=== PATIENT | male | born 1970 | race Caucasian/White ===

== ENCOUNTER 2022-08-23 13:54 | Inpatient (IN) ==
[2022-08-23 15:40] LABS: Basophils # (auto) 0.04 K/uL (0-0.2); Basophils % (auto) 0.4 %; Eosinophils # (auto) 0.07 K/uL (0-0.50); Eosinophils % (auto) 0.7 %; Hematocrit (blood only) 46.6 % (42.0-52.0); Hemoglobin 16.3 g/dl (14.0-18.0); Immature Granulocytes # (auto) 0.03 K/uL (0.01-0.20); Immature Granulocytes % (auto) 0.3 %; Lymphocytes # (auto) 2.78 K/uL (1.2-3.4); Lymphocytes % (auto) 26.1 %; Mean Corpuscular Hemoglobin 30.6 pg (25.0-34.0); Mean Corpuscular Volume 87.4 fL (80.0-100.0); Mean Platelet Volume 10.4 fL (9.4-12.4); Monocytes # (auto) 1.06 K/uL (0.11-0.59); Monocytes % (auto) 9.9 %; Neutrophils # (auto) 6.68 K/uL (1.40-6.50); Neutrophils % (auto) 62.6 %; Platelet Count 246 K/uL (130-400); RDW Coefficient of Variation 12.9 % (11.5-14.5); RDW Standard Deviation 41.1 fL (36.4-46.3); Red Blood Count 5.33 M/uL (4.70-6.10); White Blood Count 10.66 K/ul (4.8-10.8)
[2022-08-23] MEDS ORDERED: NITROGLYCERIN 2% OINTMENT 30GM TUBE EXT STA (15:46)
[2022-08-23] MEDS ORDERED: ALBUT/IPRATROP 3MG/0.5MG NEB 3 ML VIAL NEB STA ×2 (15:46→16:48)
[2022-08-23] MEDS ORDERED: MoRPHine SULFATE 4 MG/ML 1 ML CARP\\VIAL IV STA ×2 (15:46→17:29)
[2022-08-23] MEDS ORDERED: ONDANSETRON INJ 2 MG/ML 2 ML VIAL IV STA (15:46)
[2022-08-23 15:56] LABS: Alanine Aminotransferase 9 U/L (7-52); Albumin Globulin Ratio 1.1 (0.9-2); Albumin Level 4.2 gm/dl (3.4-5.0); Alkaline Phosphatase 92 U/L (34-104); Anion Gap 7 (3-11); Aspartate Aminotransferase 16 U/L (13-39); Bilirubin,Total 0.7 mg/dl (0.2-1.0); Blood Urea Nitrogen 10 mg/dl (6-23); Calcium 9.2 mg/dl (8.6-10.3); Carbon Dioxide 24 mmol/L (21-32); Chloride 107 mmol/L (98-107); Est GFR (African American) 110.3 ml/min; Est GFR (Non-African American) 95.2 ml/min; Globulin 3.7 gm/dl (2.5-4.0); Glucose 75 mg/dl (70-99(Fasting)); Potassium 4.2 mmol/L (3.5-5.1); Sodium 138 mmol/L (136-145); Total Protein 7.9 gm/dl (6.0-8.3)
--- NOTE | 2022-08-23 16:01 | Emergency Department Note ---
Impression & Plan SOB (shortness of breath), Rhinovirus infection, Hypertension, History of deep vein thrombosis, Upper back pain, Wheezing ED Provider Note NAME: DIANNA ESPINOZA AGE: 52 SEX: M : 1970 ARRIVES VIA: Walk-In INFORMANT: [Patient][family] ED PROVIDER(S): [Ludwig Medina MD] CHIEF COMPLAINT: Short of breath, back pain HISTORY OF PRESENT ILLNESS: The patient is a 52-year-old male who states that he felt well yesterday. Today, he began noticing some lower back pain which has now spread up to the entire back between the shoulder blades. He feels short of breath. The patient states movement and taking a breath does worsen his pain. There has been no recent cough or cold or congestion. No fever or chills. Patient does have a history of DVT and hypertension but is not currently taking any medications. PMHx/PSHx: See Below SOCIAL HISTORY: See Below. PHYSICAL EXAM: GENERAL: Patient is in mild distress, sitting upright on the stretcher HEENT: No acute trauma, normocephalic atraumatic, mucous membranes moist, no nasal congestion. NECK: No stridor, no adenopathy, no meningismus, trachea is midline. LUNGS: Diminished breath sounds with wheezing and a few crackles bilaterally, breath sounds are equal. Mild respiratory distress. HEART: Without murmurs gallops or rubs, regular rate and rhythm. ABDOMEN: Soft, nontender, bowel sounds positive, no peritonitis. EXTREMITIES: No cyanosis or edema, full range of motion of all the joints without pain or difficulty, no signs for acute trauma. NEUROLOGIC: Oriented x 3, no acute motor or sensory deficits, no focal weakness. SKIN: No rash, no jaundice, no diaphoresis. DIFFERENTIAL DIAGNOSIS: Bronchitis or pneumonia, CHF, hypertensive emergency, [place], PE, aortic dissection, among others. EMERGENCY DEPARTMENT COURSE/PROCEDURES: Prior/Outside records reviewed: None. ECG per my interpretation: Indication was back and chest pain. The ECG shows a normal sinus rhythm with a rate of 89. There is no ST elevation. No PVCs. Potential old inferior infarct was seen. QTc was 467. Continuous Cardiac Monitoring per my interpretation: An order was placed for continuous cardiac monitoring. The monitor shows a rate of 84 with normal sinus rhythm. Critical Care Note: I have personally spent 48 minutes of critical care time in the direct management of this patient. This includes bedside care, interpretation of diagnostic studies, and testing, discussion with consultants, patient, and family members, and other required patient management activities. This 48 minutes is in excess of all separately billable procedures. MEDICAL DECISION MAKING: There is no leukocytosis or concerning anemia. There is a normal platelet count. No coagulopathy. D-dimer was somewhat elevated making PE more likely. There was no electrolyte abnormality or renal failure. No concerning liver enzyme elevation. BNP was not elevated making CHF less likely. ECG showed a normal sinus rhythm, no ST elevation. Cardiac enzyme testing x1 did not suggest acute cardiac injury. Respiratory bio fire returned positive for rhinovirus. Chest film did not show pneumonia, CHF or pneumothorax per my review. Chest CT did not show any evidence for aortic dissection, no PE-I did speak to the radiologist about the possibility of PE as the radiologist's report did not mention a PE assessment. On exam, the patient appeared uncomfortable. He was breathing quickly, he complained of back pain. He was wheezing. He was quite hypertensive. Patient was given 2 inches of nitroglycerin paste. He received IV Zofran, IV morphine, a second dose of IV morphine was given. He received a DuoNeb, a second DuoNeb was given. He was given IV Solu-Medrol. He received IV Toradol. He was eventually placed on BiPAP. The patient's blood pressure has improved and he does seem more comfortable. He will require a hospital stay. He has a very high blood pressure, likely from his illness and the fact that he has been off of his BP meds. He was wheezing on exam and short of breath with back pain, likely from the rhinovirus infection. I did speak with the patient and his family, I spoke with case management, the on-call hospitalist was consulted. DISPOSITION: Patient's presentation and findings warrant a hospital stay. Past Med/Surg History Medical History GERD (gastroesophageal reflux disease) History of DVT (deep vein thrombosis) HTN (hypertension) Hypertensive urgency No chronic diseases present Pulmonary edema Rhinovirus infection SOB (shortness of breath) Surgical History (Updated 08/23/22 @ 18:00 by LALITO Oakes) History of gastric bypass No significant past surgical history Social History Smoking Status: Current every day smoker Tobacco Type: Cigarettes Cigarettes Per Day: 40; Second Hand Exposure: Yes; Do You Dip or Chew Tobacco: No; Hx Alcohol Use: No Hx Substance Use: No Preferred Language: Polish Communication Ability: Effective Finish Cleaner Required: No Beliefs That Will Affect Care: None Current Living Situation: Significant Other Current Living Situation Comment: [facility] Other Information That Helps Us Care for You: No Feels Safe at Home: Yes Safety Concerns: Feels Safe At This Time Assistive Devices: None Allergies Allergies Allergy/AdvReac Type Severity Reaction Status Date / Time No Known Allergies Allergy Verified 06/09/22 14:21 Home Meds Home Medications Medication Instructions Recorded Confirmed losartan 25 mg tablet 25 mg PO QAM 08/23/22 08/23/22 Results & Data (ED) Vital Signs Vital Signs - 24 hr 08/23/22 13:58 08/23/22 15:31 08/23/22 15:37 Temperature 36.7 C Temperature Source Temporal Artery Scan Pulse Rate 81 Pulse Rate [Finger] 92 H Pulse Rate from SpO2 Sensor Respiratory Rate 18 30 H Respiratory Effort / Characteristics Non-Labored Spontaneous Grunting Labored Respiratory Depth Normal Respiratory Pattern Regular Blood Pressure 166/141 H Blood Pressure [Right Arm] 184/123 H Blood Pressure Mean 149 Blood Pressure Mean [Right Arm] 143 Blood Pressure Position Sitting Pulse Oximetry 95 94 95 Oxygen Delivery Method Room Air Room Air Room Air Fraction of Inspired Oxygen Sepsis Recent Fever Within 48 Hours No Sepsis New/Unexplained Change in Mental Status No Sepsis Action Taken by Nursing No Action Required 08/23/22 15:43 08/23/22 17:10 08/23/22 17:00 Temperature Temperature Source Pulse Rate 84 69 Pulse Rate [Finger] 67 Pulse Rate from SpO2 Sensor Respiratory Rate 18 17 Respiratory Effort / Characteristics Spontaneous Short of Breath Respiratory Depth Normal Respiratory Pattern Regular Blood Pressure Blood Pressure [Right Arm] 155/111 H Blood Pressure Mean Blood Pressure Mean [Right Arm] 125 Blood Pressure Position Pulse Oximetry 98 98 Oxygen Delivery Method Fraction of Inspired Oxygen 35 Sepsis Recent Fever Within 48 Hours Sepsis New/Unexplained Change in Mental Status Sepsis Action Taken by Nursing 08/23/22 17:00 08/23/22 15:38 08/23/22 15:40 Temperature Temperature Source Pulse Rate 82 79 Pulse Rate [Finger] 69 Pulse Rate from SpO2 Sensor 81 81 Respiratory Rate 17 26 H 31 H Respiratory Effort / Characteristics Spontaneous Short of Breath Respiratory Depth Respiratory Pattern Blood Pressure Blood Pressure [Right Arm] Blood Pressure Mean Blood Pressure Mean [Right Arm] Blood Pressure Position Pulse Oximetry 98 96 97 Oxygen Delivery Method BiPAP Fraction of Inspired Oxygen 35 Sepsis Recent Fever Within 48 Hours Sepsis New/Unexplained Change in Mental Status Sepsis Action Taken by Nursing 08/23/22 15:45 08/23/22 15:45 08/23/22 15:50 Temperature Temperature Source Pulse Rate 86 82 Pulse Rate [Finger] Pulse Rate from SpO2 Sensor 86 82 Respiratory Rate 33 H 33 H Respiratory Effort / Characteristics Respiratory Depth Respiratory Pattern Blood Pressure 156/108 H Blood Pressure [Right Arm] Blood Pressure Mean 124 Blood Pressure Mean [Right Arm] Blood Pressure Position Pulse Oximetry 98 95 Oxygen Delivery Method Fraction of Inspired Oxygen Sepsis Recent Fever Within 48 Hours Sepsis New/Unexplained Change in Mental Status Sepsis Action Taken by Nursing 08/23/22 16:00 08/23/22 16:00 08/23/22 16:10 Temperature Temperature Source Pulse Rate 76 73 Pulse Rate [Finger] Pulse Rate from SpO2 Sensor 78 74 Respiratory Rate 27 H 14 Respiratory Effort / Characteristics Respiratory Depth Respiratory Pattern Blood Pressure 146/97 H Blood Pressure [Right Arm] Blood Pressure Mean 113 Blood Pressure Mean [Right Arm] Blood Pressure Position Pulse Oximetry 98 91 Oxygen Delivery Method Fraction of Inspired Oxygen Sepsis Recent Fever Within 48 Hours Sepsis New/Unexplained Change in Mental Status Sepsis Action Taken by Nursing 08/23/22 16:15 08/23/22 16:15 08/23/22 16:20 Temperature Temperature Source Pulse Rate 72 72 Pulse Rate [Finger] Pulse Rate from SpO2 Sensor 70 73 Respiratory Rate 13 13 Respiratory Effort / Characteristics Respiratory Depth Respiratory Pattern Blood Pressure 151/98 H Blood Pressure [Right Arm] Blood Pressure Mean 115 Blood Pressure Mean [Right Arm] Blood Pressure Position Pulse Oximetry 93 93 Oxygen Delivery Method Fraction of Inspired Oxygen Sepsis Recent Fever Within 48 Hours Sepsis New/Unexplained Change in Mental Status Sepsis Action Taken by Nursing 08/23/22 16:39 08/23/22 16:40 08/23/22 16:40 Temperature Temperature Source Pulse Rate 88 Pulse Rate [Finger] Pulse Rate from SpO2 Sensor 90 89 Respiratory Rate 36 H Respiratory Effort / Characteristics Respiratory Depth Respiratory Pattern Blood Pressure 187/117 H Blood Pressure [Right Arm] Blood Pressure Mean 140 Blood Pressure Mean [Right Arm] Blood Pressure Position Pulse Oximetry 98 99 Oxygen Delivery Method Fraction of Inspired Oxygen Sepsis Recent Fever Within 48 Hours Sepsis New/Unexplained Change in Mental Status Sepsis Action Taken by Nursing 08/23/22 16:45 08/23/22 16:45 08/23/22 16:50 Temperature Temperature Source Pulse Rate 87 79 Pulse Rate [Finger] Pulse Rate from SpO2 Sensor 88 79 Respiratory Rate 28 H 39 H Respiratory Effort / Characteristics Respiratory Depth Respiratory Pattern Blood Pressure 162/114 H Blood Pressure [Right Arm] Blood Pressure Mean 130 Blood Pressure Mean [Right Arm] Blood Pressure Position Pulse Oximetry 98 98 Oxygen Delivery Method Fraction of Inspired Oxygen Sepsis Recent Fever Within 48 Hours Sepsis New/Unexplained Change in Mental Status Sepsis Action Taken by Nursing 08/23/22 17:00 08/23/22 17:00 08/23/22 17:10 Temperature Temperature Source Pulse Rate 72 67 Pulse Rate [Finger] Pulse Rate from SpO2 Sensor 72 68 Respiratory Rate 19 13 Respiratory Effort / Characteristics Respiratory Depth Respiratory Pattern Blood Pressure 155/111 H Blood Pressure [Right Arm] Blood Pressure Mean 125 Blood Pressure Mean [Right Arm] Blood Pressure Position Pulse Oximetry 98 98 Oxygen Delivery Method Fraction of Inspired Oxygen Sepsis Recent Fever Within 48 Hours Sepsis New/Unexplained Change in Mental Status Sepsis Action Taken by Nursing 08/23/22 17:15 08/23/22 17:15 08/23/22 17:20 Temperature Temperature Source Pulse Rate 69 68 Pulse Rate [Finger] Pulse Rate from SpO2 Sensor 68 69 Respiratory Rate 20 11 L Respiratory Effort / Characteristics Respiratory Depth Respiratory Pattern Blood Pressure 156/101 H Blood Pressure [Right Arm] Blood Pressure Mean 119 Blood Pressure Mean [Right Arm] Blood Pressure Position Pulse Oximetry 99 98 Oxygen Delivery Method Fraction of Inspired Oxygen Sepsis Recent Fever Within 48 Hours Sepsis New/Unexplained Change in Mental Status Sepsis Action Taken by Correction Medications Current Medication List: was personally reviewed by me Laboratory Data Attestation: I reviewed the patient's lab results. 08/23/22 15:25 08/23/22 15:25 Lab Results 08/23/22 08/23/22 08/23/22 Range/Units 15:25 15:25 15:25 WBC 10.66 (4.8-10.8) K/ul RBC 5.33 (4.70-6.10) M/uL Hgb 16.3 (14.0-18.0) g/dl Hct 46.6 (42.0-52.0) % MCV 87.4 (80.0-100.0) fL MCH 30.6 (25.0-34.0) pg MCHC 35.0 (32.0-36.0) g/dL RDW Std Deviation 41.1 (36.4-46.3) fL RDW Coeff of Helio 12.9 (11.5-14.5) % Plt Count 246 (130-400) K/uL MPV 10.4 (9.4-12.4) fL Immature Gran % (Auto) 0.3 % Neut % (Auto) 62.6 % Lymph % (Auto) 26.1 % Giles % (Auto) 9.9 % Eos % (Auto) 0.7 % Baso % (Auto) 0.4 % Neut # (Auto) 6.68 H (1.40-6.50) K/uL Lymph # (Auto) 2.78 (1.2-3.4) K/uL Giles # (Auto) 1.06 H (0.11-0.59) K/uL Eos # (Auto) 0.07 (0-0.50) K/uL Baso # (Auto) 0.04 (0-0.2) K/uL Immature Gran # (Auto) 0.03 (0.01-0.20) K/uL PT 10.9 (9.0-12.0) Seconds INR 1.0 (0.9-1.1) APTT 27.1 (21.0-31.0) Seconds PTT Ratio 1.0 D-Dimer 770 H* (0-500) ug/L FEU Sodium 138 (136-145) mmol/L Potassium 4.2 (3.5-5.1) mmol/L Chloride 107 (98-107) mmol/L Carbon Dioxide 24 (21-32) mmol/L Anion Gap 7 (3-11) BUN 10 (6-23) mg/dl Creatinine 0.91 (0.6-1.4) mg/dl Est Cr Clr Drug Dosing Not Reportable Est GFR ( Amer) 110.3 ml/min Est GFR (Non-Af Amer) 95.2 ml/min BUN/Creatinine Ratio 11.0 (10-20) Glucose 75 (70-99(Fasting)) mg/dl Calcium 9.2 (8.6-10.3) mg/dl Magnesium 1.9 (1.7-2.4) mg/dl Total Bilirubin 0.7 (0.2-1.0) mg/dl AST 16 (13-39) U/L ALT 9 (7-52) U/L Alkaline Phosphatase 92 (34-104) U/L Troponin I High Sens 5.4 (0-20) pg/ml B-Natriuretic Peptide (0-100) pg/ml Total Protein 7.9 (6.0-8.3) gm/dl Albumin 4.2 (3.4-5.0) gm/dl Globulin 3.7 (2.5-4.0) gm/dl Albumin/Globulin Ratio 1.1 (0.9-2) Adenovirus (PCR) (NotDetected) B. pertussis DNA (PCR) (NotDetected) B.parapertussis DNA PCR (NotDetected) C. pneumoniae DNA (PCR) (NotDetected) Coronavirus OC43 (PCR) (NotDetected) Coronavirus HKU1 (PCR) (NotDetected) Coronavirus 229E (PCR) (NotDetected) SARS-CoV-2 (PCR) (NotDetected) Coronavirus NL63 (PCR) (NotDetected) Human Metapneumovir PCR (NotDetected) Influenza Type A (PCR) (NotDetected) Influenza Type B (PCR) (NotDetected) M. pneumoniae (PCR) (NotDetected) Parainfluenza 1 (PCR) (NotDetected) Parainfluenza 2 (PCR) (NotDetected) Parainfluenza 3 (PCR) (NotDetected) Parainfluenza 4 (PCR) (NotDetected) RSV (PCR) (NotDetected) Entero/Rhino (PCR) (NotDetected) 08/23/22 08/23/22 Range/Units 15:25 15:47 WBC (4.8-10.8) K/ul RBC (4.70-6.10) M/uL Hgb (14.0-18.0) g/dl Hct (42.0-52.0) % MCV (80.0-100.0) fL MCH (25.0-34.0) pg MCHC (32.0-36.0) g/dL RDW Std Deviation (36.4-46.3) fL RDW Coeff of Helio (11.5-14.5) % Plt Count (130-400) K/uL MPV (9.4-12.4) fL Immature Gran % (Auto) % Neut % (Auto) % Lymph % (Auto) % Giles % (Auto) % Eos % (Auto) % Baso % (Auto) % Neut # (Auto) (1.40-6.50) K/uL Lymph # (Auto) (1.2-3.4) K/uL Giles # (Auto) (0.11-0.59) K/uL Eos # (Auto) (0-0.50) K/uL Baso # (Auto) (0-0.2) K/uL Immature Gran # (Auto) (0.01-0.20) K/uL PT (9.0-12.0) Seconds INR (0.9-1.1) APTT (21.0-31.0) Seconds PTT Ratio D-Dimer (0-500) ug/L FEU Sodium (136-145) mmol/L Potassium (3.5-5.1) mmol/L Chloride (98-107) mmol/L Carbon Dioxide (21-32) mmol/L Anion Gap (3-11) BUN (6-23) mg/dl Creatinine (0.6-1.4) mg/dl Est Cr Clr Drug Dosing Est GFR ( Amer) ml/min Est GFR (Non-Af Amer) ml/min BUN/Creatinine Ratio (10-20) Glucose (70-99(Fasting)) mg/dl Calcium (8.6-10.3) mg/dl Magnesium (1.7-2.4) mg/dl Total Bilirubin (0.2-1.0) mg/dl AST (13-39) U/L ALT (7-52) U/L Alkaline Phosphatase (34-104) U/L Troponin I High Sens (0-20) pg/ml B-Natriuretic Peptide 87 (0-100) pg/ml Total Protein (6.0-8.3) gm/dl Albumin (3.4-5.0) gm/dl Globulin (2.5-4.0) gm/dl Albumin/Globulin Ratio (0.9-2) Adenovirus (PCR) Not Detected (NotDetected) B. pertussis DNA (PCR) Not Detected (NotDetected) B.parapertussis DNA PCR Not Detected (NotDetected) C. pneumoniae DNA (PCR) Not Detected (NotDetected) Coronavirus OC43 (PCR) Not Detected (NotDetected) Coronavirus HKU1 (PCR) Not Detected (NotDetected) Coronavirus 229E (PCR) Not Detected (NotDetected) SARS-CoV-2 (PCR) Not Detected (NotDetected) Coronavirus NL63 (PCR) Not Detected (NotDetected) Human Metapneumovir PCR Not Detected (NotDetected) Influenza Type A (PCR) Not Detected (NotDetected) Influenza Type B (PCR) Not Detected (NotDetected) M. pneumoniae (PCR) Not Detected (NotDetected) Parainfluenza 1 (PCR) Not Detected (NotDetected) Parainfluenza 2 (PCR) Not Detected (NotDetected) Parainfluenza 3 (PCR) Not Detected (NotDetected) Parainfluenza 4 (PCR) Not Detected (NotDetected) RSV (PCR) Not Detected (NotDetected) Entero/Rhino (PCR) DETECTED A* (NotDetected) Administered Medications Apixaban (Apixaban 5 Mg Tablet) 5 mg PO BID [facility] Stop: 09/22/22 20:59 Last Admin: 08/23/22 21:29 Dose: 5 mg Documented By: JOHN Guaifenesin (Guaifenesin 600 Mg Tabcr) 1,200 mg PO Q12 [facility] Stop: 09/22/22 20:59 Last Admin: 08/23/22 20:39 Dose: 1,200 mg Documented By: JOHN Ketorolac Tromethamine (Ketorolac Tromethamine 15 Mg/Ml Vial) 15 mg IV Q6H PRN PRN Reason: Pain Stop: 08/28/22 20:24 Last Admin: 08/23/22 21:28 Dose: 15 mg Documented By: JOHN Nicotine (Nicotine 14 Mg/24 Hr Patch) 14 mg TD QAM [facility] Stop: 09/22/22 18:59 Last Admin: 08/23/22 20:38 Dose: 14 mg Documented By: JOHN Discontinued Medications Albuterol (Albut/Ipratrop 3mg/0.5mg Neb 3 Ml Vial) 3 ml NEB NOW STA; Protocol Stop: 08/23/22 15:47 Last Admin: 08/23/22 15:53 Dose: 3 ml Documented By: JOSUÉ Albuterol (Albut/Ipratrop 3mg/0.5mg Neb 3 Ml Vial) 3 ml NEB NOW STA; Protocol Stop: 08/23/22 16:49 Last Admin: 08/23/22 17:01 Dose: 3 ml Documented By: JOSUÉ Albuterol (Albut/Ipratrop 3mg/0.5mg Neb 3 Ml Vial) 3 ml NEB QIDR REESE; Protocol Stop: 09/22/22 18:59 Last Admin: 08/23/22 19:32 Dose: 3 ml Documented By: CHRIS Furosemide (Furosemide Inj 20 Mg/2 Ml Vial) 20 mg IV ONE ONE Stop: 08/23/22 19:17 Last Admin: 08/23/22 19:25 Dose: 20 mg Documented By: JOHN Hydralazine HCl (Hydralazine Hcl 20 Mg/Ml Vial) 5 mg IV NOW ONE Stop: 08/23/22 17:18 Last Admin: 08/23/22 17:35 Dose: 5 mg Documented By: JOSUÉ Ioversol (Optiray 320 125ml) 119 ml IV ONCE ONE Stop: 08/23/22 16:39 Last Admin: 08/23/22 16:29 Dose: 119 ml Documented By: BALTAZAR Ketorolac Tromethamine (Ketorolac Tromethamine 15 Mg/Ml Vial) 15 mg IV NOW STA Stop: 08/23/22 17:30 Last Admin: 08/23/22 17:35 Dose: 15 mg Documented By: JOSUÉ Methylprednisolone (Methylprednisolone 125 Mg/2 Ml Vial) 60 mg IV NOW STA Stop: 08/23/22 16:49 Last Admin: 08/23/22 16:51 Dose: 60 mg Documented By: ELVIA Morphine Sulfate (Morphine Sulfate 4 Mg/Ml 1 Ml Carp\Vial) 4 mg IV NOW STA Stop: 08/23/22 15:47 Last Admin: 08/23/22 15:54 Dose: 4 mg Documented By: JOSUÉ Morphine Sulfate (Morphine Sulfate 4 Mg/Ml 1 Ml Carp\Vial) 4 mg IV NOW STA Stop: 08/23/22 17:30 Last Admin: 08/23/22 17:35 Dose: 4 mg Documented By: JOSUÉ Nitroglycerin (Nitroglycerin 2% Ointment 30gm Tube) 2 inch EXT NOW STA Stop: 08/23/22 15:47 Last Admin: 08/23/22 15:53 Dose: 2 inch Documented By: JOSUÉ Nitroglycerin (Nitroglycerin 2% Ointment 30gm Tube) 1 inch EXT Q6H REESE Stop: 09/22/22 20:44 Last Admin: 08/23/22 21:05 Dose: Not Given Documented By: JOHN Nitroglycerin (Nitroglycerin 2% Ointment 30gm Tube) Confirm Administered Dose 18 inch EXT .STK-MED ONE Stop: 08/23/22 20:35 Last Admin: 08/23/22 21:05 Dose: 1 inch Documented By: JOHN Ondansetron HCl (Ondansetron Inj 2 Mg/Ml 2 Ml Vial) 4 mg IV NOW STA Stop: 08/23/22 15:47 Last Admin: 08/23/22 15:54 Dose: 4 mg Documented By: JOSUÉ Imaging Data Radiologist's Impression: Chest X-Ray 08/23/22 15:45 XR chest 1V portable CLINICAL HISTORY: sob TECHNIQUE: Single frontal radiograph of the chest was obtained. Comparison: None available at the time of this dictation. FINDINGS: No lines and tubes are seen. Cardiomegaly is noted. Prominence and cephalization of the vasculature is seen. No evidence of pleural effusion or pneumothorax. IMPRESSION: Cardiomegaly and mild pulmonary edema. ACT 112: Negative or not required by law. Electronically signed by: Be Garcia M.D. 08/23/2022 4:24 PM Chest CTA 08/23/22 16:10 CT angio chest dissec wo/w con CLINICAL HISTORY: back pain, cp, htn, hist dvt TECHNIQUE: Multidetector row helical CT of the chest was performed before and after injection of IV contrast. Coronal and sagittal reformations were obtained. Automated dose lowering techniques and/or adjustment according to patient size were utilized for this exam. CT DOSE: 2135.32 mGy.cm Comparison: None available at the time of this dictation. FINDINGS: Lungs and pleura: Normal. Heart and pericardium: Heart size is normal. No pericardial effusion. Vessels: Moderate atherosclerotic changes in the aorta and coronary arteries. No evidence of aortic injury. Mediastinum and haja: Subcentimeter lymph nodes are seen. Chest wall and lower neck: Small thyroid nodules are noted which do not require follow-up by ACR criteria. Abdomen: Postsurgical changes of gastric bypass are seen. Bones: Degenerative changes in the thoracic spine. IMPRESSION: No acute abnormality and in particular no evidence of acute aortic injury. ACT 112: Negative or not required by law. Electronically signed by: Be Garcia M.D. 08/23/2022 5:23 PM Discharge Plan Visit Data Chief Complaint: Back Injury/Pain Stated Complaint: LOWER BACK PAIN ED Provider: Ludwig Medina Discharge Problem: SOB (shortness of breath), Rhinovirus infection, Hypertension, History of deep vein thrombosis, Upper back pain, Wheezing Patient Disposition: Admitted As Inpatient Condition: Serious Discharge Instructions Interventions: ED Discharge Assessment Last Done: 08/23/22 18:24
[2022-08-23 16:02] LABS: Troponin I High Sensitivity 5.4 pg/ml (0-20)
[2022-08-23 16:12] LABS: Partial Thromboplastin Time 27.1 Seconds (21.0-31.0); Prothrombin Time 10.9 Seconds (9.0-12.0)
[2022-08-23 16:20] LABS: Magnesium 1.9 mg/dl (1.7-2.4)
--- NOTE | 2022-08-23 16:26 | XRay Report ---
XR chest 1V portable CLINICAL HISTORY: sob TECHNIQUE: Single frontal radiograph of the chest was obtained. Comparison: None available at the time of this dictation. FINDINGS: No lines and tubes are seen. Cardiomegaly is noted. Prominence and cephalization of the vasculature i s seen. No evidence of pleural effusion or pneumothorax. IMPRESSION: Cardiomegaly and mild pulmonary edema. ACT 112: Negative or not required by law. Electronically signed by: Be Garcia M.D. 08/23/2022 4:24 PM
[2022-08-23 16:28] LABS: D Dimer 770 ug/L FEU (0-500)
[2022-08-23] MEDS ORDERED: OPTIRAY 320 125ml IV ONE (16:38)
[2022-08-23] MEDS ORDERED: methylPREDNISolone 125 MG/2 ML VIAL IV STA (16:48)
[2022-08-23 16:54] LABS: Adenovirus PCR Not Detected (NotDetected); Bordetella parapertussis PCR Not Detected (NotDetected); Bordetella pertussis PCR Not Detected (NotDetected); Chlamydia pneumoniae PCR Not Detected (NotDetected); Coronavirus 229E PCR Not Detected (NotDetected); Coronavirus CoV-2 (COVID19)PCR Not Detected (NotDetected); Coronavirus HKU1 PCR Not Detected (NotDetected); Coronavirus NL63 PCR Not Detected (NotDetected); Coronavirus OC43PCR Not Detected (NotDetected); Human Metapneumovirus PCR Not Detected (NotDetected); Influenza A PCR Not Detected (NotDetected); Influenza B PCR Not Detected (NotDetected); Mycoplasma pneumoniae PCR Not Detected (NotDetected); Parainfluenza Virus 1 PCR Not Detected (NotDetected); Parainfluenza Virus 2 PCR Not Detected (NotDetected); Parainfluenza Virus 3 PCR Not Detected (NotDetected); Parainfluenza Virus 4 PCR Not Detected (NotDetected); Respiratory Syncytial VirusPCR Not Detected (NotDetected)
[2022-08-23 16:58] LABS: Rhinovirus/Enterovirus PCR DETECTED (NotDetected)
[2022-08-23] MEDS ORDERED: hydrALAZINE HCL 20 MG/ML VIAL IV ONE (17:17)
--- NOTE | 2022-08-23 17:25 | CT Scan Report ---
CT angio chest dissec wo/w con CLINICAL HISTORY: back pain, cp, htn, hist dvt TECHNIQUE: Multidetector row helical CT of the chest was performed before and after injection of IV c ontrast. Coronal and sagittal reformations were obtained. Automated dose lowering techniques and/or a djustment according to patient size were utilized for this exam. CT DOSE: 2135.32 mGy.cm Comparison: None available at the time of this dictation. FINDINGS: Lungs and pleura: Normal. Heart and pericardium: Heart size is normal. No pericardial effusion. Vessels: Moderate atherosclerotic changes in the aorta and coronary arteries. No evidence of aortic i njury. Mediastinum and haja: Subcentimeter lymph nodes are seen. Chest wall and lower neck: Small thyroid nodules are noted which do not require follow-up by ACR jimi poe. Abdomen: Postsurgical changes of gastric bypass are seen. Bones: Degenerative changes in the thoracic spine. IMPRESSION: No acute abnormality and in particular no evidence of acute aortic injury. ACT 112: Negative or not required by law. Electronically signed by: Be Garcia M.D. 08/23/2022 5:23 PM
[2022-08-23] MEDS ORDERED: KETOROLAC TROMETHAMINE 15 MG/ML VIAL IV STA (17:29)
[2022-08-23] MEDS ORDERED: ONDANSETRON INJ 2 MG/ML 2 ML VIAL IV PRN (17:50)
[2022-08-23] MEDS ORDERED: ALUMINUM/MAGNESIUM SUSP 30 ML UDC PO PRN (17:50)
[2022-08-23] MEDS ORDERED: MAGNESIUM HYDROXIDE SUSP 30 ML UDC PO PRN (17:50)
[2022-08-23] MEDS ORDERED: POLYETHYLENE (MIRALAX) 17 GM PACK PO PRN (17:50)
--- NOTE | 2022-08-23 18:01 | History & Physical Report ---
Date of Service August 23, 2022 Assessment & Plan (1) Hypertensive urgency: (2) Pulmonary edema: (3) Rhinovirus infection: (4) SOB (shortness of breath): (5) History of DVT (deep vein thrombosis): (6) GERD (gastroesophageal reflux disease): Plan Mr. Walsh who has a history of DVT x2 (not compliant on Eliquis), history of gastric bypass, HTN, and GERD presents today with shortness of breath and lower back pain that started this morning. noted that his pain stated at 2300 last night waking him up. He had pain that radiated upwards in his back. SOB began once he started moving. He was warm to touch, cool and clammy, but no reported fevers. Had sudden weakness of RLE giving out. He did fall, but did not have LOC or hit his head. No dizziness leading up to this event. As a mention history of DVT and currently not compliant with anticoagulation medication due to increased cost per patient. Not compliant taking losartan. Chest x-ray revealed mild pulmonary edema without pneumonia; chest CTA did not indicate acute injury and radiologist stated no PE apparent. WBC 10.66, otherwise labs unremarkable on BMP and CBC. D-dimer 770, troponin negative, BNP 87 . Received morphine 4 mg IV x1, DuoNeb which did not improve patient's symptoms and he was placed on BiPAP. Solu-Medrol IV administered. Bio fire positive for rhinovirus. EKG sinus rhythm possible old infarct noted in summary QTc 467. I took his Bipap off when I was in the room, retained SpO2 > 96%. Kate beltre looks fatigued and tired. Once he arrived to the floor, he did become more short of breath and was put on the Bipap. Lasix 20 mg was administered. Suspect that this is a non-compliant individual that has had uncontrolled HTN leading to pulmonary edema complicated by Rhinovirus. Additional considerations include ruling out spine involvement but would like patient breathing to be better controlled prior to additional testing. Hypertensive Urgency: Likely secondary to medication noncompliance and complicated by illness Not encephalopathic, papilledema present on exam. No signs of renal failure at this time BP 180/100 in ED; Nitro paste 2 inches applied in ED; Nitro paste ordered Restart Losartan Pulmonary Edema: SOB: Likely a result of persistent Hypertensive Urgency CXR mild pulmonary edema Chest CTA negative for AAA BNP 87 Bipap 12/8 35% ABG ordered NPO while on bipap Lasix 20 mg x1; dumont for I/O. Consider additional Lasix in AM based on output History of DVT: DVT and PE; stopped taking Eliquis last month due to insurance issues Chest CTA negative for PE Doppler US ordered to complete DVT work up Restart Eliquis Rhinovirus infection: Biofire done in ED; positive for rhinovirus Supportive treatment including Mucinex PO Sputum culture ordered H/O lumbar surgery: Lumbago with RLE weakness: 2002 decompression and fusion at Consider Lumbar MRI; once breathing is stabilized Received Morphine IV in ED x2 and Toradol Continue Toradol PRN Tobacco Use Disorder: smokes 2 ppd for years Nicotine patch ordered Cessation discussed and recommended Disposition: PCP: None Code Status: Full Code VTE Prophylaxis: Not compliant with Eliquis Home Care Manager: Assist with medical assistance support as pt without medical insurance for the next 60-90 days I spent a total of 88 minutes coordinating, documenting, and providing care for this patient excluding time spent in the performance of separately billed services. All of the aforementioned completed while collaborating with the as signed attending physician for a full treatment plan. Please see their addendum for further details. History of Present Illness Chief Complaint: SOB/lumbago Primary Care Provider: Oh Graff MD Mr. Walsh who has a history of DVT x2 (not compliant on Eliquis), history of gastric bypass, HTN, and GERD presents today with shortness of breath and lower back pain that started this morning. noted that his pain stated at 2300 last night waking him up. He had pain that radiated upwards in his back. SOB began once he started moving. He was warm to touch, cool and clammy, but no reported fevers. Had sudden weakness of RLE giving out. He did fall, but did not have LOC or hit his head. No dizziness leading up to this event. As a mention history of DVT and currently not compliant with anticoagulation medication due to increased cost per patient. Not compliant taking losartan. Chest x-ray revealed mild pulmonary edema without pneumonia; chest CTA did not indicate acute injury and radiologist stated no PE apparent . 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 WBC 10.66, otherwise labs unremarkable on BMP and CBC. D-dimer 770, troponin negative, BNP 87\\NAD received morphine 4 mg IV x1, DuoNeb which did not improve patient's symptoms and he was placed on BiPAP. Solu-Medrol IV administered. Bio fire positive for rhinovirus. EKG sinus rhythm possible old infarct noted in summary QTc 467. I took his Bipap off when I was in the room, retained SpO2 > 96%. Overall looks fatigued and tired. Once he arrived to the floor, he did become more short of breath and was put on the Bipap. Lasix 20 mg was administered. Suspect that this is a non-compliant individual that has had uncontrolled HTN leading to pulmonary edema complicated by Rhinovirus. Additional considerations include ruling out spine involvement but would like patient breathing to be better controlled prior to additional testing. 01/30/2022 outpatient labs indicate A1c 5.1, TSH 1.29, lipid panel TG 45, LDL 102, HDL 40. Patient will be admitted for further evaluation and management. Please see A/P further details. Allergies Allergy/AdvReac Type Severity Reaction Status Date / Time No Known Allergies Allergy Verified 06/09/22 14:21 Home Medications Medication Instructions Recorded Confirmed Type losartan 25 mg tablet 25 mg PO QAM 08/23/22 08/23/22 History Past Med/Surg History Medical History (Updated 08/23/22 @ 20:04 by LALITO Oakes) GERD (gastroesophageal reflux disease) History of DVT (deep vein thrombosis) HTN (hypertension) Hypertensive urgency No chronic diseases present Pulmonary edema Rhinovirus infection SOB (shortness of breath) Surgical History (Updated 08/23/22 @ 18:00 by LALITO Oakes) History of gastric bypass No significant past surgical history Social History Smoking Status: Current every day smoker Tobacco Type: Cigarettes Cigarettes Per Day: 40; Second Hand Exposure: Yes; Do You Dip or Chew Tobacco: No; Hx Alcohol Use: No Hx Substance Use: No Preferred Language: Serbian Communication Ability: Effective Chief Recordist Required: No Beliefs That Will Affect Care: None Current Living Situation: Significant Other Current Living Situation Comment: S/[facility] Other Information That Helps Us Care for You: No Feels Safe at Home: Yes Safety Concerns: Feels Safe At This Time Assistive Devices: None Review of Systems Review of Systems: Neuro: (-) Falls, trauma, slurred speech HEENT: (-) FARRELL, dizziness, dysphagia, visual or auditory changes CV: (-) CP, palpitations, swelling Resp: (-) SOB GI: (-) appetite changes, N/V/D, bowel changes : (-) urinary changes Skin: (-) rashes Psych: (-) anxiety, depression Physical Exam Physical Exam: Neuro: AAOx4, PERRLA, no aphagia, memory changes, CNII-XII grossly intact HEENT: head normocephalic, moist mucus membranes, bilateral papilledema CV: S1/S2, (-) M/G/R, (-) edema, cap refill < 3 seconds Resp: Lungs with posterior crackles. On Bipap. GI: Abdomen S/NT/ND, Ax4 bowel sounds, (-) CVA tenderness Musculoskeletal: 5/5 B/L UE strength, 5/5 B/L LE strength. No gait disturbance Skin: (-) rashes , (-) erythema. Psych: euthymic mood Results & Data Results & Data Vital Signs (Past 12 Hours) Vital Signs Temp Pulse Pulse Resp BP BP Pulse Ox 08/23/22 17:20 68 11 L 98 08/23/22 17:15 156/101 H 08/23/22 17:15 69 20 99 08/23/22 17:10 67 13 98 08/23/22 17:00 72 19 98 08/23/22 17:00 155/111 H 08/23/22 16:50 79 39 H 98 08/23/22 16:45 162/114 H 08/23/22 16:45 87 28 H 98 08/23/22 16:40 88 36 H 99 08/23/22 16:40 187/117 H 08/23/22 16:39 98 08/23/22 16:20 72 13 93 08/23/22 16:15 72 13 93 08/23/22 16:15 151/98 H 08/23/22 16:10 73 14 91 08/23/22 16:00 76 27 H 98 08/23/22 16:00 146/97 H 08/23/22 15:50 82 33 H 95 08/23/22 15:45 156/108 H 08/23/22 15:45 86 33 H 98 08/23/22 15:40 79 31 H 97 08/23/22 15:38 82 26 H 96 08/23/22 17:00 69 17 98 08/23/22 17:00 69 17 98 08/23/22 17:10 67 18 155/111 H 98 08/23/22 15:43 84 08/23/22 15:37 95 08/23/22 15:31 92 H 30 H 184/123 H 94 08/23/22 13:58 36.7 C 81 18 166/141 H 95 O2 Del Method FiO2 08/23/22 17:20 08/23/22 17:15 08/23/22 17:15 08/23/22 17:10 08/23/22 17:00 08/23/22 17:00 08/23/22 16:50 08/23/22 16:45 08/23/22 16:45 08/23/22 16:40 08/23/22 16:40 08/23/22 16:39 08/23/22 16:20 08/23/22 16:15 08/23/22 16:15 08/23/22 16:10 08/23/22 16:00 08/23/22 16:00 08/23/22 15:50 08/23/22 15:45 08/23/22 15:45 08/23/22 15:40 08/23/22 15:38 08/23/22 17:00 BiPAP 35 08/23/22 17:00 35 08/23/22 17:10 08/23/22 15:43 08/23/22 15:37 Room Air 08/23/22 15:31 Room Air 08/23/22 13:58 Room Air Laboratory Results Short CBC 08/23/22 Range/Units 15:25 WBC 10.66 (4.8-10.8) K/ul Hgb 16.3 (14.0-18.0) g/dl Hct 46.6 (42.0-52.0) % Plt Count 246 (130-400) K/uL BMP 08/23/22 15:25 Sodium 138 Potassium 4.2 Chloride 107 Carbon Dioxide 24 BUN 10 Creatinine 0.91 Glucose 75 Calcium 9.2 Liver Function 08/23/22 Range/Units 15:25 Total Bilirubin 0.7 (0.2-1.0) mg/dl AST 16 (13-39) U/L ALT 9 (7-52) U/L Alkaline Phosphatase 92 (34-104) U/L Albumin 4.2 (3.4-5.0) gm/dl Diagnostic Findings Chest X-Ray 08/23/22 15:45 XR chest 1V portable CLINICAL HISTORY: sob TECHNIQUE: Single frontal radiograph of the chest was obtained. Comparison: None available at the time of this dictation. FINDINGS: No lines and tubes are seen. Cardiomegaly is noted. Prominence and cephalization of the vasculature is seen. No evidence of pleural effusion or pneumothorax. IMPRESSION: Cardiomegaly and mild pulmonary edema. ACT 112: Negative or not required by law. Electronically signed by: Be Garcia M.D. 08/23/2022 4:24 PM Chest CTA 08/23/22 16:10 CT angio chest dissec wo/w con CLINICAL HISTORY: back pain, cp, htn, hist dvt TECHNIQUE: Multidetector row helical CT of the chest was performed before and after injection of IV contrast. Coronal and sagittal reformations were obtained. Automated dose lowering techniques and/or adjustment according to patient size were utilized for this exam. CT DOSE: 2135.32 mGy.cm Comparison: None available at the time of this dictation. FINDINGS: Lungs and pleura: Normal. Heart and pericardium: Heart size is normal. No pericardial effusion. Vessels: Moderate atherosclerotic changes in the aorta and coronary arteries. No evidence of aortic injury. Mediastinum and haja: Subcentimeter lymph nodes are seen. Chest wall and lower neck: Small thyroid nodules are noted which do not require follow-up by ACR criteria. Abdomen: Postsurgical changes of gastric bypass are seen. Bones: Degenerative changes in the thoracic spine. IMPRESSION: No acute abnormality and in particular no evidence of acute aortic injury. ACT 112: Negative or not required by law. Electronically signed by: Be Garcia M.D. 08/23/2022 5:23 PM Code Status & VTE Plan VTE Prophylaxis Plan VTE Prophylaxis will be ordered: Yes Supervising Physician Co-Signing Physician Notes I have seen and examined the patient and have discussed the case with the provider above. I agree with the assessment and plan as stated with the following exceptions. 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 CT chest was unremarkable for PE, pneumonia, etc. and he reports a recent cough. He was out riding his side by side for about 5-6 hours yesterday and ate pizza and went to bed. He has been out of his BP medications and chronic apixaban since losing insurance coverage one month ago. He denies headache, has some chest discomfort. He woke up feeling poorly and didnt develop shortness of breath until he arrived in the ER. Workup as noted above. Smoker testing positive for rhinovirus. He is currently on BIPAP and failed a short trial of being off of it. BP has been elevated and he was placed on nitro and now given Lasix for pulmonary edema seen on initial CXR. On exam he is WNWD and in NAD, ambulating in the room while on BIPAP. Appears to be in NAD. Cardiac exam reveals S1/2 heard without murmurs. No peripheral edema. Regular rate and rhythm. Lungs with diminished breath sounds at bases but he is moving air. He is TTP in the mid thoracic paraspinal region and along the lower lumbar right SI joint/paraspinal region. No gross focal neuromuscular deficit. 1. Hypertensive urgency with development of pulmonary edema 2. Rhinovirus infection 3. Chronic anticoagulation for h/o DVT Agree with continuing nitropaste and one dose of Lasix 20mg IV now. Will repeat CXR in am. Low salt diet. Of note, nitropaste is not appropriately attached to his chest because of hair. RN will redose him now (8pm) and apply paste to his shoulder. Patient declines dumont. And appears comfortable on the BIPAP. NPO until he is reliably breathing.No PE and although he has an elevated D dimer would avoid LE dopplers given lack of insurance of no reported leg symptoms. Also once off BIPAP, sending for back imaging is reasonable. Notably patient is uninsured and not certain that we need an MRI at this point. Pain is musculoskeletal in nature and would continue with pain meds and ice. PT/OT consults ordered. Cont to monitor on telemetry. Cont supportive care for rhinovirus infection. DO Speedy
[2022-08-23] MEDS ORDERED: ALBUT/IPRATROP 3MG/0.5MG NEB 3 ML VIAL NEB SCH (19:00)
[2022-08-23] MEDS ORDERED: FUROSEMIDE INJ 20 MG/2 ML VIAL IV ONE (19:16)
[2022-08-23] MEDS ORDERED: ALBUTEROL 0.083% NEBU SOLN 3 ML VIAL NEB PRN (20:26)
[2022-08-23] MEDS ORDERED: NITROGLYCERIN 2% OINTMENT 30GM TUBE EXT ONE (20:34)
[2022-08-23] MEDS: NICOTINE 14 MG/24 HR PATCH TD SCH (20:38)
[2022-08-23] MEDS: guaiFENesin 600 MG TABCR PO SCH (20:39)
[2022-08-23] MEDS ORDERED: NITROGLYCERIN 2% OINTMENT 30GM TUBE EXT SCH (20:45)
[2022-08-23 21:02] LABS: Base Excess ABG -0.8 mEq/L (-9-1.8); HCO3 ABG 24 mmol/L (19-24); Oxygen Saturation ABG 98.6 % (90-95); PCO2 ABG 37 mmHg (35-46); PO2 ABG 101 mmHg (80-95); pH ABG 7.41 (7.35-7.45)
[2022-08-23 21:05] LABS: Allen Test POS (Pos)
[2022-08-23] MEDS: KETOROLAC TROMETHAMINE 15 MG/ML VIAL IV PRN (21:28)
[2022-08-23] MEDS: APIXABAN 5 MG TABLET PO SCH (21:29)
--- NOTE | 2022-08-23 22:08 | Ultrasound Report ---
Exam(s): US VENOUS BILATERAL LOWER EXTREMITIES EXAM: US Duplex Bilateral Lower Extremities Veins CLINICAL HISTORY: Reason for exam: h/o dvt. TECHNIQUE: Real-time duplex ultrasound scan of the bilateral lower extremity veins integrating B-mode two-dimensional vascular structure, Doppler spectral analysis, color flow Doppler imaging and compression. COMPARISON: No relevant prior studies available. FINDINGS: Right deep veins: There is occlusive DVT in the right posterior tibial veins. Right superficial veins: Unremarkable. No thrombus in the visualized right great saphenous vein. Left deep veins: Unremarkable. No DVT in the left common femoral, femoral, proximal deep femoral or popliteal veins. The veins demonstrate normal color flow, are normally compressible, with normal phasic flow and/or augmentation response. Left superficial veins: Unremarkable. No thrombus in the visualized left great saphenous vein. Soft tissues: There is a 6.9 x 1.9 x 3.4 cm Lundberg's cyst in the right popliteal fossa. There is a 6.6 x 2.3 x 5.1 cm Lundberg's cyst in the left popliteal fossa. IMPRESSION: There is occlusive DVT in the right posterior tibial veins. Lundberg's cysts in the popliteal fossa bilaterally. Communications: Call Doctor DVT acute, progressing Electronically signed by: Goyo Albarran MD 08/23/22 22:07 PM
[2022-08-24] MEDS: ACETAMINOPHEN 325 MG TAB PO PRN ×4 (02:36→20:35)
[2022-08-24 03:00] LABS: Appearance Urine Clear (Clear); Bilirubin Urine Negative (Negative); Blood Urine Negative (Negative); Color Urine Yellow; Glucose Urine UA Negative (Negative); Ketones Urine Negative (Negative); Leukocyte Esterase Urine Negative (Negative); Nitrite Urine Negative (Negative); Protein Urine Negative (Negative); Specific Gravity Urine 1.044 (1.000-1.030); Urobilinogen Urine Negative (Negative); pH Urine 5.5 (4.5-7.5)
[2022-08-24] MEDS: KETOROLAC TROMETHAMINE 15 MG/ML VIAL IV PRN ×4 (03:41→21:58)
[2022-08-24] MEDS: NITROGLYCERIN 2% OINTMENT 30GM TUBE EXT SCH ×2 (03:46→09:44)
[2022-08-24 06:09] LABS: Hematocrit (blood only) 42.8 % (42.0-52.0); Hemoglobin 14.9 g/dl (14.0-18.0); Mean Corpuscular Hemoglobin 30.8 pg (25.0-34.0); Mean Corpuscular Hgb Conc 34.8 g/dL (32.0-36.0); Mean Corpuscular Volume 88.4 fL (80.0-100.0); Mean Platelet Volume 10.7 fL (9.4-12.4); Platelet Count 226 K/uL (130-400); RDW Coefficient of Variation 12.9 % (11.5-14.5); RDW Standard Deviation 41.9 fL (36.4-46.3); Red Blood Count 4.84 M/uL (4.70-6.10); White Blood Count 7.12 K/ul (4.8-10.8)
[2022-08-24 06:25] LABS: Albumin Globulin Ratio 1.1 (0.9-2); Albumin Level 3.8 gm/dl (3.4-5.0); BUN Creatinine Ratio 16.1 (10-20); Bilirubin,Total 0.6 mg/dl (0.2-1.0); Creatinine Clr Calc Pharmacy 133.2 ml/min; Est GFR (African American) 107.5 ml/min; Est GFR (Non-African American) 92.7 ml/min; Globulin 3.4 gm/dl (2.5-4.0); Phosphorus 3.8 mg/dl (2.5-4.9); Potassium 4.4 mmol/L (3.5-5.1); Total Protein 7.2 gm/dl (6.0-8.3)
--- NOTE | 2022-08-24 07:55 | XRay Report ---
XR chest 1V portable HISTORY: tachypnea COMPARISON: Chest 08/23/2022. FINDINGS: The lungs are clear. Cardiac silhouette is normal in size. No pleural effusions. No pneumot horax. Postoperative changes within the left shoulder. Degenerative changes within the right shoulder . IMPRESSION: No acute process. ACT 112: Negative or not required by law. Electronically signed by: Alan Gardner M.D. 08/24/2022 7:53 AM
--- NOTE | 2022-08-24 09:05 | Hospitalist Progress Note ---
Date of Service August 24, 2022 Assessment & Plan (1) Hypertensive urgency: Plan: Improved with nitroglycerin and Lasix overnight. Pain contributing. BP improved this am. DC nitro and cont home losartan. (2) Pulmonary edema: Plan: Initially felt that his SOB was due to pulmonary edema 2/2 uncontrolled BP, however, today he has wheezing and rhonchi that are more pronounced. He required BIPAP in the ER and all night failing multiple attempts to get him off. Per the DIRECTOR OF KIDS, there was a disconnection in the supplemental oxygen tubing, which may have been contributing to this "failure". Pulm was consulted. No known h/o chronic bronchitis or COPD but patient is a smoker and now has rhinovirus, which is likely contributing to acute bronchitis and wheezing. See plan below. (3) Acute bronchitis: Plan: Added nebulized bronchodilators, solumedrol and azithromycin today and will contiue to monitor response clinically. Titrate oxygen off as tolerated. Wondering if there is some pleuritis contributing to this acute back pain. (4) Rhinovirus infection: (5) Back pain: Plan: The reason for his initial presentation, ongoing for 1-2 days. There is pain with TTP present in the left uppper thoracic paraspinal region and still present in the lower right lumbar/SI area. Toradol and ICE are helping. Suspect pleuritis contributing vs musculoskeletal. Given lack on insurance will hold on additional CT/MRI imaging at this time and cont to treat supportively. (6) History of DVT (deep vein thrombosis): Plan: repeat LE doppler reveals an occluded right DVT. Given he has been off apixaban for one month, will add back at 10mg BID x 7 days, then back to the 5mg BID dosing. He will be getting his insurance reinstated within the month so should be able to continue on this without an issue. (7) Tobacco use disorder: Plan: Smoking cessation strongly recommended. Apixaban Full Code Dispo- to home when symptoms improve and off oxygen Gillian Ruff DO [facility] Hospitalist Admission and Anticipated Discharge Date Admission Date: August 23, 2022 Subjective 52 yo M presenting with acute onset mid back pain wtih ongoing TTP. ONgoing needs for BIPAP per respiratory this morning with patient not able to come off BIPAP Back pain is improved wtih Toradol but still present and not better per his report. We reviewed the chest CT that reveals inés DJD in the thoracic spine. There is no radiation of pain but still feels like someone is putting fingers under his scapula and grabs him Still with TTP on the lower right buttock. Now off BIPAP and still reporting SOB and now wheezing Some coughing and "allergy symptoms" reported throughout the week BP is improved, denies anterior chest pain Hungry Review of Systems Review of Systems: All systems reviewed and negative except as indicated above. Physical Exam Physical Exam: CONSTITUTIONAL: WNWD, vitals as above, generally well-appearing, mild distress 2/2 breathing EYES: normal conjunctivae, no scleral icterus ENT: external ear and nose normal, MMM NECK: trachea midline RESPIRATORY: wheezing throughout all lung june, no rales, +coarse rhonchi, normal respiratory effort CARDIOVASCULAR: regular rate and rhythm, S1 and 2 heard without murmurs, gallops or rubs, no JVD, no peripheral edema CHEST: inspection of chest was normal GASTROINTESTINAL: soft, nontender,ND, no guarding MUSCULOSKELETAL: strength 5/5 throughout, head is normocephalic and atraumatic SKIN: warm and dry NEUROLOGIC: CN 2-12 grossly intact, no sensory deficit, normal cognition, normal speech, no tremor PSYCHIATRIC: alert cooperative and oriented to person, place and time. Results & Data Results & Data Vital Signs (Past 12 Hours) Vital Signs Temp Pulse Pulse Pulse Resp BP Pulse Ox 08/24/22 08:03 36.6 C 53 L 18 149/97 H 95 08/24/22 07:57 52 L 21 94 08/24/22 07:56 58 L 20 94 08/24/22 05:58 98 08/24/22 03:44 36.8 C 55 L 55 L 14 136/86 98 08/24/22 03:31 56 L 15 97 08/23/22 23:34 58 L 08/23/22 23:22 36.8 C 65 18 157/94 H 96 08/23/22 22:44 63 21 96 08/23/22 21:34 80 161/109 H 08/23/22 21:19 O2 Del Method O2 Flow Rate FiO2 08/24/22 08:03 BiPAP 21 08/24/22 07:57 21 08/24/22 07:56 BiPAP 21 08/24/22 05:58 Nasal Cannula 2 08/24/22 03:44 BiPAP 08/24/22 03:31 21 08/23/22 23:34 08/23/22 23:22 Room Air 08/23/22 22:44 25 08/23/22 21:34 08/23/22 21:19 BiPAP Laboratory Results Short CBC 08/23/22 08/24/22 Range/Units 15:25 05:47 WBC 10.66 7.12 (4.8-10.8) K/ul Hgb 16.3 14.9 (14.0-18.0) g/dl Hct 46.6 42.8 (42.0-52.0) % Plt Count 246 226 (130-400) K/uL BMP 08/23/22 08/24/22 15:25 05:47 Sodium 138 137 Potassium 4.2 4.4 Chloride 107 107 Carbon Dioxide 24 26 BUN 10 15 Creatinine 0.91 0.93 Glucose 75 117 H Calcium 9.2 9.0 Liver Function 08/23/22 08/24/22 Range/Units 15:25 05:47 Total Bilirubin 0.7 0.6 (0.2-1.0) mg/dl AST 16 12 L (13-39) U/L ALT 9 8 (7-52) U/L Alkaline Phosphatase 92 82 (34-104) U/L Albumin 4.2 3.8 (3.4-5.0) gm/dl Urine 08/24/22 Range/Units 02:30 Urine Color Yellow Urine Appearance Clear (Clear) Urine pH 5.5 (4.5-7.5) Ur Specific Inlet 1.044 H (1.000-1.030) Urine Protein Negative (Negative) Urine Glucose (UA) Negative (Negative) Diagnostic Findings Venous Doppler Study 08/23/22 20:29 CR Exam(s): US VENOUS BILATERAL LOWER EXTREMITIES EXAM: US Duplex Bilateral Lower Extremities Veins CLINICAL HISTORY: Reason for exam: h/o dvt. TECHNIQUE: Real-time duplex ultrasound scan of the bilateral lower extremity veins integrating B-mode two-dimensional vascular structure, Doppler spectral analysis, color flow Doppler imaging and compression. COMPARISON: No relevant prior studies available. FINDINGS: Right deep veins: There is occlusive DVT in the right posterior tibial veins. Right superficial veins: Unremarkable. No thrombus in the visualized right great saphenous vein. Left deep veins: Unremarkable. No DVT in the left common femoral, femoral, proximal deep femoral or popliteal veins. The veins demonstrate normal color flow, are normally compressible, with normal phasic flow and/or augmentation response. Left superficial veins: Unremarkable. No thrombus in the visualized left great saphenous vein. Soft tissues: There is a 6.9 x 1.9 x 3.4 cm Lundberg's cyst in the right popliteal fossa. There is a 6.6 x 2.3 x 5.1 cm Lundberg's cyst in the left popliteal fossa. IMPRESSION: There is occlusive DVT in the right posterior tibial veins. Lundberg's cysts in the popliteal fossa bilaterally. Communications: Call Doctor DVT acute, progressing Electronically signed by: Goyo Albarran MD 08/23/22 22:07 PM Chest X-Ray 08/24/22 07:00 XR chest 1V portable HISTORY: tachypnea COMPARISON: Chest 08/23/2022. FINDINGS: The lungs are clear. Cardiac silhouette is normal in size. No pleural effusions. No pneumothorax. Postoperative changes within the left shoulder. Degenerative changes within the right shoulder. IMPRESSION: No acute process. ACT 112: Negative or not required by law. Electronically signed by: Alan Gardner M.D. 08/24/2022 7:53 AM Medications Administered Current Inpatient Medications Acetaminophen (Acetaminophen 325 Mg Tab) 650 mg PO Q4H PRN PRN Reason: Pain or Fever Stop: 09/22/22 17:49 Last Admin: 08/24/22 07:24 Dose: 650 mg Al Hydrox/Mg Hydrox/Simethicone (Aluminum/Magnesium Susp 30 Ml Udc) 15 ml PO Q4H PRN PRN Reason: Dyspepsia Stop: 09/22/22 17:49 Albuterol (Albuterol 0.083% Nebu Soln 3 Ml Vial) 2.5 mg NEB Q6R PRN; Protocol PRN Reason: wheezing Stop: 09/22/22 20:25 Last Admin: 08/24/22 07:52 Dose: 2.5 mg Apixaban (Apixaban 5 Mg Tablet) 5 mg PO BID [facility] Stop: 09/22/22 20:59 Last Admin: 08/23/22 21:29 Dose: 5 mg Guaifenesin (Guaifenesin 600 Mg Tabcr) 1,200 mg PO Q12 REESE Stop: 09/22/22 20:59 Last Admin: 08/23/22 20:39 Dose: 1,200 mg Ketorolac Tromethamine (Ketorolac Tromethamine 15 Mg/Ml Vial) 15 mg IV Q6H PRN PRN Reason: Pain Stop: 08/28/22 20:24 Last Admin: 08/24/22 03:41 Dose: 15 mg Losartan Potassium (Losartan Potassium 25 Mg Tab) 25 mg PO QAM REESE Stop: 09/23/22 08:59 Magnesium Hydroxide (Magnesium Hydroxide Susp 30 Ml Udc) 30 ml PO Q12H PRN PRN Reason: Constipation Stop: 09/22/22 17:49 Miscellaneous (Remove Nicoderm Patch) 1 each N/A DAILY@0859 [facility] Stop: 09/23/22 08:58 Last Admin: 08/24/22 07:22 Dose: 1 each Nicotine (Nicotine 14 Mg/24 Hr Patch) 14 mg TD QAM REESE Stop: 09/22/22 18:59 Last Admin: 08/23/22 20:38 Dose: 14 mg Nitroglycerin (Nitroglycerin 2% Ointment 30gm Tube) 1 inch EXT Q6H REESE Stop: 09/22/22 21:59 Last Admin: 08/24/22 03:46 Dose: 1 inch Ondansetron HCl (Ondansetron Inj 2 Mg/Ml 2 Ml Vial) 4 mg IV Q6H PRN PRN Reason: Nausea Stop: 09/22/22 17:49 Polyethylene Glycol (Polyethylene (Miralax) 17 Gm Pack) 17 gm PO DAILY PRN PRN Reason: Constipation Stop: 09/22/22 17:49
[2022-08-24] MEDS: APIXABAN 5 MG TABLET PO SCH ×3 (09:30→20:32)
[2022-08-24] MEDS: guaiFENesin 600 MG TABCR PO SCH ×2 (09:38→20:32)
[2022-08-24] MEDS: LOSARTAN POTASSIUM 25 MG TAB PO SCH (09:38)
[2022-08-24] MEDS: NICOTINE 14 MG/24 HR PATCH TD SCH (09:40)
[2022-08-24] MEDS ORDERED: methylPREDNISolone 40 MG in SYRINGE 0 ML IV SCH (10:00)
[2022-08-24] MEDS ORDERED: ALBUT/IPRATROP 3MG/0.5MG NEB 3 ML VIAL NEB SCH (11:00)
--- NOTE | 2022-08-24 12:30 | Pulmonary Consultation ---
Patient seen and examined. EMR reviewed. Discussed with PA at bedside. Agree with assessment plan as noted Patient likely has some component of underlying obstructive disease either COPD or asthma. Smoking cessation recommended. Okay to transition to oral prednisone. We will place on a combination of Breo plus Incruse. Outpatient PFTs recommended. No indication for noninvasive positive pressure ventilation currently. Should be able to wean off oxygen in the short-term. We will continue to follow. Feel free to contact us with questions in the interim Date of Consultation August 24, 2022 Assessment & Plan (1) Wheezing: (2) Hypoxia: (3) SOB (shortness of breath): (4) Rhinovirus infection: (5) Tobacco use disorder: Plan IMPRESSION: 52-year-old male presenting with acute hypoxia in the setting of rhinovirus infection initially requiring supplemental oxygen and with improvement on BiPAP. RECOMMENDATIONS: 1. Wheezing - Likely related to undiagnosed obstructive process (e.g. Asthma vs. COPD). Patient markedly bronchospastic on exam today. No prior history of asthma or COPD diagnosis. Patient is a heavy smoker, but only started smoking within the last 5 years. Review of chest CT demonstrates no emphysematous changes. Regardless, patient would benefit from systemic corticosteroids. We will reduce steroids to oral prednisone 20 mg 2 times a day starting tomorrow. Patient can continue the azithromycin for empiric coverage as this will likely benefit for its associated anti-inflammatory factors. We will add ICS/LABA combo inhaler as well as LAMA. Patient warrants outpatient PFT evaluation once clinically stable and back at his baseline. 2. Hypoxia - Likely secondary to acute rhinovirus infection and bronchospastic city. Patient's saturations have significantly improved and he is down on room air at this time. Likely warrants two-step evaluation prior to discharge for assessment of oxygen requirement moving forward. Review of CTA demonstrates no acute pulmonary emboli. Unfortunately, the patient does have an acute DVT, on ultrasound. Agree with ongoing anticoagulation in the form of DOAC. 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 3. Shortness of breath - Again, likely secondary to #1. Assess improvement with treatment of underlying causes. 4. Rhinovirus infection - Continue with supportive care as you have. 5. Tobacco use disorder - Encourage smoking cessation. Thank you for allowing us to participate in the care of this patient. We will continue to follow along for now. History of Present Illness Reason for Consultation: persistent need for NIV Requesting Physician: Dr. Ruff Attending Physician: Gillian Ruff, History of Present Illness Patient is a 52-year-old male with a significant past medical history of prior DVT x2 currently noncompliant with Eliquis prescription, history of gastric bypass surgery, hypertension, GERD, and prior lumbar decompression and fusion. Patient reports that he was awoken on the night of 08/23 with intense lower back pain which radiated up into his upper back. He states that the pain initially prompted him to visit the emergency department, but while waiting he noticed the development of increasing shortness of breath. Patient was found to be hypoxic and underwent extensive evaluation including CTA which did not demonstrate pulmonary emboli, consolidative process, or pulmonary edema. The patient did have persistent shortness of breath with associated wheezing. He was eventually placed on BiPAP which he used throughout the night. This morning, the patient did complain of some shortness of breath while being off his oxygen and re quested BiPAP to be placed back on. He otherwise has been saturating well on 2 L nasal cannula. Upon assessment at bedside, the patient is currently receiving a DuoNeb treatment. He complains of some occasional shortness of breath. He has had a nonproductive cough. He denies any prior history of pulmonary infections. No recurrent bronchitis or pneumonia. No childhood history of asthma. There is a remote family history of his father who had a esophageal cancer which spread to his lungs. Otherwise, no family history of pulmonary diseases. Patient reports a 2 pack/day history of smoking for the last 5 years. He denies any other inhalant use. 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 Allergies Allergy/AdvReac Type Severity Reaction Status Date / Time No Known Allergies Allergy Verified 06/09/22 14:21 Home Medications Medication Instructions Recorded Confirmed Type losartan 25 mg tablet 25 mg PO QAM 08/23/22 08/23/22 History Patient History Medical History GERD (gastroesophageal reflux disease) History of DVT (deep vein thrombosis) HTN (hypertension) Hypertensive urgency No chronic diseases present Pulmonary edema Rhinovirus infection SOB (shortness of breath) Surgical History History of gastric bypass No significant past surgical history Social History Smoking Status: Current every day smoker Tobacco Type: Cigarettes Cigarettes Per Day: 40; Second Hand Exposure: Yes; Do You Dip or Chew Tobacco: No; Hx Alcohol Use: No Hx Substance Use: No Preferred Language: Maldivian Communication Ability: Effective News Videotape Editor Required: No Beliefs That Will Affect Care: None Current Living Situation: Significant Other Current Living Situation Comment: [facility] Other Information That Helps Us Care for You: No Feels Safe at Home: Yes Safety Concerns: Feels Safe At This Time Assistive Devices: None Review of Systems Review of Systems: A complete 10 point review of systems was reviewed with the patient with pertinent positives and negatives as per history of present illness. All else were negative. Physical Exam Physical Exam: VITAL SIGNS - Vital signs and nursing notes were reviewed. GENERAL - 52-year-old male appearing his stated age who is in no acute distress. Communicates well with provider and answers questions appropriately. SKIN - Without rashes or lesions. NOSE - Midline and without cyanosis. MOUTH/OROPHARYNX - Without perioral cyanosis. NECK - Neck with FROM. LUNGS - Auscultation reveals diffuse wheezes throughout all lung june. No rales or rhonchi appreciated. CARDIAC - RRR with S1/S2. No murmur, rubs, or gallops appreciated. ABDOMEN - Abdominal inspection demonstrates an obese abdomen. BS normoactive all four quadrants. No tenderness, palpable masses, or ascites noted. EXTREMITIES - Nail clubbing not present. No peripheral cyanosis. PSYCH - A&Ox3 and cooperates fully with examiner. Pt is very pleasant and interacts well with examiner. Results & Data Results & Data Vital Signs (Past 12 Hours) Vital Signs Temp Pulse Pulse Pulse Resp BP Pulse Ox 08/24/22 11:49 70 18 99 08/24/22 08:03 36.6 C 53 L 18 149/97 H 95 08/24/22 07:57 52 L 21 94 08/24/22 07:56 58 L 20 94 08/24/22 05:58 98 08/24/22 03:44 36.8 C 55 L 55 L 14 136/86 98 08/24/22 03:31 56 L 15 97 O2 Del Method O2 Flow Rate FiO2 08/24/22 11:49 Nasal Cannula 3 08/24/22 08:03 BiPAP 21 08/24/22 07:57 21 08/24/22 07:56 BiPAP 21 08/24/22 05:58 Nasal Cannula 2 08/24/22 03:44 BiPAP 08/24/22 03:31 21 PG Care Time/CCT Total # of Minutes Spent Total Time Spent with Patient: Total time spent is greater than 50% in coordination of care (as documented) at patient's floor/unit and/or counseling patient: Coding Level of Care Code 99040 IN/OBS CONSULT LVL 4,60M Diagnoses Wheezing R06.2 Hypoxia R09.02 SOB (shortness of breath) R06.02 Rhinovirus infection B34.8 Tobacco use disorder F17.200
--- NOTE | 2022-08-24 12:52 | Electrocardiogram Report ---
Test Reason : Blood Pressure : / mmHG Vent. Rate : 089 BPM Atrial Rate : 089 BPM P-R Int : 180 ms QRS Dur : 082 ms QT Int : 384 ms P-R-T Axes : 044 -02 051 degrees QTc Int : 467 ms Normal sinus rhythm Possible Inferior infarct , age undetermined Abnormal ECG No previous ECGs available Confirmed by Solo Sandy ([id number]) on 08/24/2022 12:51:53 PM Referred By: Confirmed By:Solo Sandy
--- NOTE | 2022-08-24 13:03 | Electrocardiogram Report ---
Test Reason : Blood Pressure : / mmHG Vent. Rate : 075 BPM Atrial Rate : 075 BPM P-R Int : 184 ms QRS Dur : 090 ms QT Int : 416 ms P-R-T Axes : 047 -06 050 degrees QTc Int : 464 ms Normal sinus rhythm Possible Inferior infarct (cited on or before 23-AUG-2022) Abnormal ECG When compared with ECG of 23-AUG-2022 15:42, (unconfirmed) No significant change Confirmed by Solo Sandy ([id number]) on 08/24/2022 1:02:34 PM Referred By: REFERRED SELF Confirmed By:Solo Sandy
--- NOTE | 2022-08-24 13:08 | Electrocardiogram Report ---
Test Reason : Blood Pressure : / mmHG Vent. Rate : 055 BPM Atrial Rate : 055 BPM P-R Int : 190 ms QRS Dur : 092 ms QT Int : 506 ms P-R-T Axes : 035 010 044 degrees QTc Int : 484 ms Sinus bradycardia Prolonged QT Abnormal ECG When compared with ECG of 23-AUG-2022 19:16, (unconfirmed) No significant change was found Confirmed by Solo Sandy ([id number]) on 08/24/2022 1:08:15 PM Referred By: REFERRED SELF Confirmed By:Solo Sandy
[2022-08-24] MEDS: UMECLIDINIUM BROMIDE 62.5MCG/BLISTER 7 PUFFS/INHALER INH SCH (14:11)
[2022-08-24] MEDS: FLUTICASONE/VILANTEROL 100/25MCG 14 PUFFS/INHALER INH SCH (14:11)
[2022-08-24] MEDS: AZITHROMYCIN 250 MG TAB PO SCH (17:09)
[2022-08-24] MEDS: ALBUT/IPRATROP 3MG/0.5MG NEB 3 ML VIAL NEB PRN (17:39)
[2022-08-24] MEDS ORDERED: predniSONE 20 MG TAB PO ONE (20:00)
[2022-08-24] MEDS ORDERED: APIXABAN 5 MG TABLET PO SCH (21:00)
[2022-08-25] MEDS: ALBUT/IPRATROP 3MG/0.5MG NEB 3 ML VIAL NEB PRN (06:21)
[2022-08-25] MEDS: KETOROLAC TROMETHAMINE 15 MG/ML VIAL IV PRN ×2 (06:21→13:12)
[2022-08-25] MEDS ORDERED: BENZONATATE 100 MG CAPSULE PO PRN (06:29)
[2022-08-25] MEDS ORDERED: BENZONATATE 100 MG CAPSULE PO ONE (06:29)
--- NOTE | 2022-08-25 07:42 | Pulmonology Progress Note ---
Date of Service August 25, 2022 Assessment & Plan (1) Wheezing: (2) Hypoxia: (3) SOB (shortness of breath): (4) Rhinovirus infection: (5) Tobacco use disorder: Plan IMPRESSION: 52-year-old male presenting with acute hypoxia in the setting of rhinovirus infection initially requiring supplemental oxygen and with improvement on BiPAP. He likely has asthma or COPD which may be exacerbated by his current tobacco abuse and/or environmental smoke. RECOMMENDATIONS: 1. Obstructive lung disease: Possible asthma versus COPD. Continue Breo Incruse and prednisone. As needed albuterol. Outpatient PFTs recommended 2. Hypoxia -resolved 3. Cough: Secondary to #1. Continue supportive management 4. Rhinovirus infection - Continue with supportive care. No other interventions available 5. Tobacco use disorder - Encourage smoking cessation. We will continue to follow. Feel free to contact us with questions or concerns Admission and Anticipated Discharge Date Admission Date: August 23, 2022 Subjective Patient seen and examined. EMR reviewed. Discussed with patient nurse at bedside. Patient had some paroxysms of cough last night. He feels wiped out this morning. He still wheezing but overall notes some improvement in his respiratory status. He does feel subjectively better with the inhalers. He denies fevers chills or night sweats. Has been able to tolerate a diet. Review of Systems Review of Systems: All systems reviewed & are unremarkable except as noted in Subjective Physical Exam Constitutional: WD/WN, vitals as above Neck: trachea midline, no thyromegaly Respiratory: no respiratory distress, no labored breathing and not tachypneic Auscultation: + wheezes; no crackles Cardiovascular: RRR, no murmur, no edema Gastrointestinal (Abdomen): normal bowel sounds, soft, nontender, no hepatosplenomegaly Musculoskeletal: Extremities: extremities normal to inspection Skin: no rashes, warm and dry Neurologic: Nonfocal exam Lymphatic: no cervical lymphadenopathy Results & Data Results & Data Vital Signs (Past 12 Hours) Vital Signs Temp Pulse Pulse Resp BP Pulse Ox O2 Del Method 08/25/22 03:42 36.5 C 56 L 18 144/79 H 94 Room Air 08/24/22 21:02 66 08/24/22 22:32 36.5 C 80 22 148/88 H 97 Nasal Cannula 08/24/22 21:03 Nasal Cannula O2 Flow Rate 08/25/22 03:42 08/24/22 21:02 08/24/22 22:32 2 08/24/22 21:03 2 Laboratory Results 08/24/22 05:47 08/24/22 05:47 Diagnostic Findings No new imaging PG Care Time/CCT Total # of Minutes Spent Total Time Spent with Patient: Total time spent is greater than 50% in coordination of care (as documented) at patient's floor/unit and/or counseling patient: Coding Level of Care Code 47357 SUB INP/OBS CARE 2/35MIN Diagnoses Wheezing R06.2 Hypoxia R09.02 SOB (shortness of breath) R06.02 Rhinovirus infection B34.8 Tobacco use disorder F17.200
[2022-08-25] MEDS ORDERED: AZITHROMYCIN 250 MG TAB PO SCH (09:00)
[2022-08-25] MEDS: ACETAMINOPHEN 325 MG TAB PO PRN (09:37)
[2022-08-25] MEDS: guaiFENesin 600 MG TABCR PO SCH ×2 (09:38→21:06)
[2022-08-25] MEDS: APIXABAN 5 MG TABLET PO SCH ×2 (09:39→21:05)
[2022-08-25] MEDS: UMECLIDINIUM BROMIDE 62.5MCG/BLISTER 7 PUFFS/INHALER INH SCH (09:39)
[2022-08-25] MEDS: FLUTICASONE/VILANTEROL 100/25MCG 14 PUFFS/INHALER INH SCH (09:39)
[2022-08-25] MEDS: NICOTINE 14 MG/24 HR PATCH TD SCH (09:40)
[2022-08-25] MEDS: predniSONE 20 MG TAB PO SCH ×2 (09:40→21:06)
[2022-08-25] MEDS: LOSARTAN POTASSIUM 25 MG TAB PO SCH (09:40)
--- NOTE | 2022-08-25 15:02 | Electrocardiogram Report ---
Test Reason : Blood Pressure : / mmHG Vent. Rate : 072 BPM Atrial Rate : 072 BPM P-R Int : 182 ms QRS Dur : 100 ms QT Int : 416 ms P-R-T Axes : 030 011 052 degrees QTc Int : 455 ms Normal sinus rhythm Normal ECG When compared with ECG of 24-AUG-2022 05:31, No significant change was found Confirmed by Solo Sandy ([id number]) on 08/25/2022 3:02:13 PM Referred By: REFERRED SELF Confirmed By:Solo Sandy
[2022-08-25] MEDS: AZITHROMYCIN 250 MG TAB PO SCH (16:33)
--- NOTE | 2022-08-25 17:18 | Hospitalist Progress Note ---
Date of Service August 25, 2022 Assessment & Plan (1) Hypoxia: (2) Hypertensive urgency: Plan: REceived nitro and LAsix IV on admission Resolved to baseline and now better controlled on home losartan. May be slightly elevated because of the steroids. Cont to monitor (3) Pulmonary edema: Plan: resolved wtih nitro and lasix on admission. (4) Acute bronchitis: Plan: Wheezing and hypoxia related to rhinovirus. Improved on steroids, azithromycin, nebulized bronchodilators. Smoking cessation highly recommended. Outpatient PFTs in the next couple of months to rule out asthma versus COPD or other lung disease. (5) Rhinovirus infection: Plan: cont supportive care. (6) Back pain: Plan: Likely musculoskeletal and improving with supportive measures. (7) History of DVT (deep vein thrombosis): Plan: repeat LE doppler reveals an occluded right DVT. Given he has been off apixaban for one month, will add back at 10mg BID x 7 days, then back to the 5mg BID dosing. He will be getting his insurance reinstated within the month so should be able to continue on this without an issue. May need drug coupon to afford this at discharge. (8) Noncompliance: Plan: Lost insurance coverage and has been out of losartan and apixaban for the last month. Ensure he is able to get losartan via the [employer] $4 list at discharge (9) Tobacco use disorder: Plan: Smoking cessation strongly recommended. Apixaban Full Code Dispo- to home possibly in am. Recommend 2 step in am. Gillian Ruff DO [facility] Hospitalist Admission and Anticipated Discharge Date Admission Date: August 23, 2022 Subjective 52 yo M presenting with acute onset mid back pain wtih ongoing TTP. ONgoing needs for BIPAP per respiratory this morning with patient not able to come off BIPAP Today he has improved overall Still with some wheezing but oxygenating better and feeling comfortable. Review of Systems Review of Systems: All systems reviewed and negative except as indicated above. Physical Exam Physical Exam: CONSTITUTIONAL: WNWD, vitals as above, generally well-appearing, NAD EYES: normal conjunctivae, no scleral icterus ENT: external ear and nose normal, MMM NECK: trachea midline RESPIRATORY: CTAB, normal respiratory effort CARDIOVASCULAR: regular rate and rhythm, S1 and 2 heard without murmurs, gallops or rubs, no JVD, no peripheral edema CHEST: inspection of chest was normal GASTROINTESTINAL: soft, nontender,ND, no guarding MUSCULOSKELETAL: strength 5/5 throughout, head is normocephalic and atraumatic SKIN: warm and dry NEUROLOGIC: CN 2-12 grossly intact, no sensory deficit, normal cognition, normal speech, no tremor PSYCHIATRIC: alert cooperative and oriented to person, place and time. Results & Data Results & Data Vital Signs (Past 12 Hours) Vital Signs Temp Pulse Resp BP Pulse Ox O2 Del Method O2 Flow Rate 08/25/22 15:20 36.6 C 71 18 153/95 H 96 Nasal Cannula 2 08/25/22 13:03 36.4 C L 76 18 144/88 H 96 Nasal Cannula 2 08/25/22 12:02 Nasal Cannula 2 08/25/22 09:00 Nasal Cannula 2 08/25/22 08:09 36.4 C L 88 18 149/95 H 98 Nasal Cannula 2 Medications Administered Current Inpatient Medications Acetaminophen (Acetaminophen 325 Mg Tab) 650 mg PO Q4H PRN PRN Reason: Pain or Fever Stop: 09/22/22 17:49 Last Admin: 08/25/22 09:37 Dose: 650 mg Al Hydrox/Mg Hydrox/Simethicone (Aluminum/Magnesium Susp 30 Ml Udc) 15 ml PO Q4H PRN PRN Reason: Dyspepsia Stop: 09/22/22 17:49 Albuterol (Albut/Ipratrop 3mg/0.5mg Neb 3 Ml Vial) 3 ml NEB QIDR PRN; Protocol PRN Reason: Wheezing Stop: 09/23/22 10:59 Last Admin: 08/25/22 06:21 Dose: 3 ml Apixaban (Apixaban 5 Mg Tablet) 10 mg PO BID REESE Stop: 09/23/22 09:09 Last Admin: 08/25/22 09:39 Dose: 10 mg Azithromycin (Azithromycin 250 Mg Tab) 500 mg PO Q24H REESE Stop: 08/26/22 16:46 Last Admin: 08/25/22 16:33 Dose: 500 mg Benzonatate (Benzonatate 100 Mg Capsule) 100 mg PO TID PRN PRN Reason: Cough Stop: 09/24/22 06:28 Fluticasone/Vilanterol (Fluticasone/Vilanterol 100/25mcg 14 Puffs/Inhaler) 1 puffs INH DAILY REESE Stop: 09/23/22 12:44 Last Admin: 08/25/22 09:39 Dose: 1 puffs Guaifenesin (Guaifenesin 600 Mg Tabcr) 1,200 mg PO Q12 REESE Stop: 09/22/22 20:59 Last Admin: 08/25/22 09:38 Dose: 1,200 mg Ketorolac Tromethamine (Ketorolac Tromethamine 15 Mg/Ml Vial) 15 mg IV Q6H PRN PRN Reason: Pain Stop: 08/28/22 20:24 Last Admin: 08/25/22 13:12 Dose: 15 mg Losartan Potassium (Losartan Potassium 25 Mg Tab) 25 mg PO QAM REESE Stop: 09/23/22 08:59 Last Admin: 08/25/22 09:40 Dose: 25 mg Magnesium Hydroxide (Magnesium Hydroxide Susp 30 Ml Udc) 30 ml PO Q12H PRN PRN Reason: Constipation Stop: 09/22/22 17:49 Miscellaneous (Remove Nicoderm Patch) 1 each N/A DAILY@0859 [facility] Stop: 09/23/22 08:58 Last Admin: 08/25/22 09:36 Dose: 1 each Nicotine (Nicotine 14 Mg/24 Hr Patch) 14 mg TD QAM [facility] Stop: 09/22/22 18:59 Last Admin: 08/25/22 09:40 Dose: 14 mg Polyethylene Glycol (Polyethylene (Miralax) 17 Gm Pack) 17 gm PO DAILY PRN PRN Reason: Constipation Stop: 09/22/22 17:49 Prednisone (Prednisone 20 Mg Tab) 20 mg PO BID [facility] Stop: 08/30/22 08:59 Last Admin: 08/25/22 09:40 Dose: 20 mg Umeclidinium [place] (Umeclidinium [place] 62.5mcg/Blister 7 Puffs/Inhaler) 1 puffs INH DAILY [facility] Stop: 09/23/22 12:44 Last Admin: 08/25/22 09:39 Dose: 1 puffs
[2022-08-26] MEDS: APIXABAN 5 MG TABLET PO SCH (09:12)
[2022-08-26] MEDS: guaiFENesin 600 MG TABCR PO SCH (09:13)
[2022-08-26] MEDS: FLUTICASONE/VILANTEROL 100/25MCG 14 PUFFS/INHALER INH SCH (09:13)
[2022-08-26] MEDS: predniSONE 20 MG TAB PO SCH (09:14)
[2022-08-26] MEDS: UMECLIDINIUM BROMIDE 62.5MCG/BLISTER 7 PUFFS/INHALER INH SCH (09:15)
[2022-08-26] MEDS: LOSARTAN POTASSIUM 25 MG TAB PO SCH (09:21)
[2022-08-26] MEDS: NICOTINE 14 MG/24 HR PATCH TD SCH (09:22)
--- NOTE | 2022-08-26 11:42 | Pulmonology Progress Note ---
Date of Service August 26, 2022 Assessment & Plan (1) Wheezing: (2) Hypoxia: (3) SOB (shortness of breath): (4) Rhinovirus infection: (5) Tobacco use disorder: Plan IMPRESSION: 52-year-old male presenting with acute hypoxia in the setting of rhinovirus infection initially requiring supplemental oxygen and with improvement on BiPAP. He likely has asthma or COPD which may be exacerbated by his current tobacco abuse and/or environmental smoke. RECOMMENDATIONS: 1. Obstructive lung disease: Possible asthma versus COPD. Continue Breo Incruse and prednisone. As needed albuterol. Can continue all of these in the outpatient setting. Outpatient PFTs recommended. 2. Hypoxia - resolved. To complete 2 step today to assess oxygen requirement moving forward. 3. Cough: Secondary to #1. Continue supportive management 4. Rhinovirus infection - Continue with supportive care. No other interventions available 5. Tobacco use disorder - Encourage smoking cessation. We will continue to follow. Feel free to contact us with questions or concerns. Admission and Anticipated Discharge Date Admission Date: August 23, 2022 Subjective Patient was seen and evaluated by myself. He feels as though his breathing is improving. He does get breathless with exertion. He offers no complaints of chest pain, palpitations, or productive cough at this time. Review of Systems Review of Systems: A complete 10 point review of systems was reviewed with the patient with pertinent positives and negatives as per history of present illness. All else were negative. Physical Exam Physical Exam: VITAL SIGNS - Vital signs and nursing notes were reviewed. GENERAL - 52-year-old male appearing his stated age who is in no acute distress. Communicates well with provider and answers questions appropriately. LUNGS - Auscultation reveals improved scattered wheezes from presentation. CARDIAC - RRR with S1/S2. No murmur, rubs, or gallops appreciated. PSYCH - A&Ox3 and cooperates fully with examiner. Pt is very pleasant and interacts well with examiner. Results & Data Results & Data Vital Signs (Past 12 Hours) Vital Signs Temp Pulse Pulse Pulse Resp BP Pulse Ox 08/26/22 09:00 57 L 08/26/22 09:17 83 116/76 08/26/22 08:06 36.6 C 55 L 20 167/106 H 97 08/26/22 07:54 57 L 177/116 H 08/26/22 02:53 36.8 C 53 L 20 159/96 H 96 O2 Del Method O2 Flow Rate 08/26/22 09:00 08/26/22 09:17 08/26/22 08:06 Nasal Cannula 2 08/26/22 07:54 08/26/22 02:53 Nasal Cannula PG Care Time/CCT Total # of Minutes Spent Total Time Spent with Patient: Total time spent is greater than 50% in coordination of care (as documented) at patient's floor/unit and/or counseling patient: Coding Level of Care Code 67505 SUB INP/OBS CARE 2/35MIN Diagnoses Wheezing R06.2 Hypoxia R09.02 SOB (shortness of breath) R06.02 Rhinovirus infection B34.8 Tobacco use disorder F17.200
[2022-08-26] MEDS ORDERED: DOCUSATE SODIUM 100 MG CAP PO ONE (12:43)
[2022-08-26] MEDS ORDERED: POLYETHYLENE (MIRALAX) 17 GM PACK PO PRN (12:44)
[2022-08-26] MEDS: AZITHROMYCIN 250 MG TAB PO SCH (16:49)
--- NOTE | 2022-08-26 16:50 | Discharge Summary ---
Date of Service August 26, 2022 Admission HPI Per Admitting Provider Mr. Walsh who has a history of DVT x2 (not compliant on Eliquis), history of gastric bypass, HTN, and GERD presents today with shortness of breath and lower back pain that started this morning. noted that his pain stated at 2300 last night waking him up. He had pain that radiated upwards in his back. SOB began once he started moving. He was warm to touch, cool and clammy, but no reported fevers. Had sudden weakness of RLE giving out. He did fall, but did not have LOC or hit his head. No dizziness leading up to this event. As a mention history of DVT and currently not compliant with anticoagulation medication due to increased cost per patient. Not compliant taking losartan. Chest x-ray revealed mild pulmonary edema without pneumonia; chest CTA did not indicate acute injury and radiologist stated no PE apparent . 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 WBC 10.66, otherwise labs unremarkable on BMP and CBC. D-dimer 770, troponin negative, BNP 87\\NAD received morphine 4 mg IV x1, DuoNeb which did not improve patient's symptoms and he was placed on BiPAP. Solu-Medrol IV administered. Bio fire positive for rhinovirus. EKG sinus rhythm possible old infarct noted in summary QTc 467. I took his Bipap off when I was in the room, retained SpO2 > 96%. Overall looks fatigued and tired. Once he arrived to the floor, he did become more short of breath and was put on the Bipap. Lasix 20 mg was administered. Suspect that this is a non-compliant individual that has had uncontrolled HTN leading to pulmonary edema complicated by Rhinovirus. Additional considerations include ruling out spine involvement but would like patient breathing to be better controlled prior to additional testing. 01/30/2022 outpatient labs indicate A1c 5.1, TSH 1.29, lipid panel TG 45, LDL 102, HDL 40. Patient will be admitted for further evaluation and management. Please see A/P further details. Admission Exam Per Admitting Provider Neuro: AAOx4, PERRLA, no aphagia, memory changes, CNII-XII grossly intact HEENT: head normocephalic, moist mucus membranes, bilateral papilledema CV: S1/S2, (-) M/G/R, (-) edema, cap refill < 3 seconds Resp: Lungs with posterior crackles. On Bipap. GI: Abdomen S/NT/ND, Ax4 bowel sounds, (-) CVA tenderness Musculoskeletal: 5/5 B/L UE strength, 5/5 B/L LE strength. No gait disturbance Skin: (-) rashes , (-) erythema. Psych: euthymic mood Principal Diagnosis Hypertensive urgency, Obstructive lung disease Discharge Exam General: Alert, oriented. No acute distress, laying in bed Skin: No noted rashes or bruises Psych: Appropriate mood and affect Neuro: No gross deficits HEENT: NC/AT Chest: Nontender to palpation. CV: RRR, Normal s1, s2. No murmurs appreciated Resp: Breath sounds with scattered wheezes bilaterally, no increased effort of breathing. Abdomen: Soft, nontender, nondistended. No guarding. No organomegaly appreciated. Extremities: moves lower extremities bilaterally. Discharge Data Allergies Allergy/AdvReac Type Severity Reaction Status Date / Time No Known Allergies Allergy Verified 06/09/22 14:21 Consultations 08/23/22 17:49 ED Decision to Admit Stat 08/24/22 09:14 Consult Pulmonology Routine Ordered Studies 08/23/22 16:10 CT angio chest dissec wo/w con Stat 08/23/22 20:29 US venous doppler LE Stat Hospital Course (1) Hypoxia: (2) Hypertensive urgency: (3) Pulmonary edema: (4) Acute bronchitis: (5) Rhinovirus infection: (6) Back pain: (7) History of DVT (deep vein thrombosis): (8) Noncompliance: (9) Tobacco use disorder: Plan Pt is a 52yoM with a Hx of DVT (not on Eliquis previously prescribed), tobacco use disorder and HTN who was hospitalized with rhinovirus infection in the setting of undiagnosed obstructive lung disease, hypertensive urgency and pulmonary flash edema. Hypertensive urgency/pulmonary edema/Hypoxia Received nitro and Lasix IV on admission Resolved to baseline and now better controlled on home losartan. May be slightly elevated because of the steroids. Discharged with new prescription for losartan sent to the [facility] pharmacy as on the $4 list. PCP follow up recommended for BP Rhinovirus/Obstructive lung disease Wheezing and hypoxia related to rhinovirus, supportive care Possible underlying COPD/Asthma- Outpatient PFTs in the next couple of months to rule out asthma versus COPD or other lung disease. Improved on steroids, azithromycin, nebulized bronchodilators. Smoking cessation highly recommended. Pt declines assistance, states he will slowly cut back on the number of cigarettes he smokes a day. Hx of DVT repeat LE doppler reveals an occluded right DVT. Given he has been off apixaban for one month, will add back at 10mg BID x 7 days (discharged with 4 days after completing 3 days in the hospital), then back to the 5mg BID dosing. He will be getting his insurance reinstated within the month so should be able to continue on this without an issue. PCP follow up for continued refills of Eliquis Tobacco use Disorder Smoking cessation highly recommended. Pt declines assistance, states he will slowly cut back on the number of cigarettes he smokes a day. PCP follow up for medication assistance if needed. Total Time Total Time Spent Total Time Spent (In Minutes): > 30 minutes Discharge Plan Discharge Items Patient Disposition: Home - Self-Care Reason For Visit: SOB/BACK PAIN Discharge Diagnosis: Obstructive Lung Disease Condition on Discharge: Serious Activity: Per Instructions section Non-emergency contact: Primary Care Provider and Medical Sales Call non-emergency contact if: you have any medication questions and your symptoms worsen Follow-up/Referrals: Oh Graff MD [Primary Care Provider] - Diet: Regular Addtl Attending Provider Instructions: You were admitted as your blood pressure was very elevated and you had significant trouble breathing. You also had a viral infection that made untreated underlying lung disease worse. We treated you with antibiotics, prednisone, inhalers and oxygen as needed to help you breathe and that helped you get better. You did not need to use oxygen at home based on the etsting we did. We also treated your blood pressure. You completed your course of antibiotics in the hospital but we are discharging you with two more days of oral prednisone. Continue using the inhalers we are discharging you home with. We also sent you a prescription for your blood thinner and blood pressure medications, please take those medications as prescribed. We also strongly recommend that you stop smoking. You declined further assistance with that here but please reach out to your primary care provider if you require medications to help. We also ask that you keep close follow up with your primary care provider for the symptoms and medical conditions discussed above as well. Pending Studies at Discharge: No Stand-Alone Forms: My [facility], Smoking Cessation Medications and DC Order Prescriptions: New prednisone 20 mg Tablet 20 mg PO BID 2 Days Qty: 4 0RF benzonatate 100 mg Capsule 100 mg PO TID PRN (Reason: cough) Qty: 90 0RF losartan 25 mg Tablet 25 mg PO QAM Qty: 30 0RF Eliquis 5 mg Tablet 5 mg PO BID Qty: 60 0RF Rx Instructions: Start taking on 08/31/2022 after completing the7 day course of the 10mg twice a day. fluticasone furoate-vilanterol [Breo Ellipta] 100-25 mcg/dose Blister With Device 1 inh inhalation DAILY Qty: 60 0RF guaifenesin [Mucinex] 600 mg Tablet Extended Release 12hr 1,200 mg PO Q12 Qty: 60 0RF Incruse Ellipta 62.5 mcg/actuation Blister With Device 1 inh inhalation DAILY Qty: 30 0RF Eliquis 5 mg tablet 10 mg PO BID 4 Days Qty: 16 0RF Rx Instructions: Start taking after discharge, 10mg twice a day for 4 more days. albuterol sulfate 90 mcg/actuation HFA aerosol inhaler 2 inh inhalation Q6H PRN (Reason: shortness of breath or wheezing) Qty: 8.5 0RF Discontinued losartan 25 mg tablet 25 mg PO QAM Discharge Orders: Discharge Order (Routine); Ordered 08/26/22 Ordered By: Coreen Bobby Admission Data Admit Date/Time: 08/23/22 17:51 Attending Provider: Coreen Bobby Admit Provider: Gillian Ruff Primary Care Provider: Oh Graff Other Providers: Gillian Ruff ; Darrius Ibrahim
== END 2022-08-26 17:30 | disposition home or self-care (01) | DRG 304 ==
LOC: ED 13:54 → SUATTDRO 17:51 → 4W 17:51

== ENCOUNTER 2023-05-02 14:49 | Inpatient (IN) ==
[2023-05-02] MEDS: MIDAZOLAM HCL 1 MG/ML 2ML VIAL IV PRN (14:45)
[~2023-05-02 14:49] MED LIST: ROCURONIUM BROMIDE 10 MG/ML 5 ML VIAL IV ONE
[2023-05-02] MEDS ORDERED: PROPOFOL BOLUS FROM BAG IV PRN (14:56)
[2023-05-02] MEDS: propofoL 1,000 MG/100 ML VIAL IV SCH (14:59)
[2023-05-02 15:15] LABS: Basophils # (auto) 0.05 K/uL (0.00-0.20); Basophils % (auto) 0.5 %; Eosinophils # (auto) 0.03 K/uL (0.00-0.50); Eosinophils % (auto) 0.3 %; Hematocrit (blood only) 44.8 % (42.0-52.0); Hemoglobin 15.6 g/dl (14.0-18.0); Immature Granulocytes # (auto) 0.02 K/uL (0.01-0.20); Immature Granulocytes % (auto) 0.2 %; Lymphocytes # (auto) 2.13 K/uL (1.20-3.40); Lymphocytes % (auto) 21.1 %; Mean Corpuscular Hemoglobin 30.4 pg (25.0-34.0); Mean Corpuscular Hgb Conc 34.8 g/dL (32.0-36.0); Mean Corpuscular Volume 87.3 fL (80.0-100.0); Mean Platelet Volume 10.2 fL (9.4-12.4); Monocytes # (auto) 0.62 K/uL (0.11-0.59); Monocytes % (auto) 6.1 %; Neutrophils # (auto) 7.26 K/uL (1.40-6.50); Neutrophils % (auto) 71.8 %; Platelet Count 217 K/uL (130-400); RDW Coefficient of Variation 13.2 % (11.5-14.5); RDW Standard Deviation 42.3 fL (36.4-46.3); Red Blood Count 5.13 M/uL (4.70-6.10); White Blood Count 10.11 K/ul (4.8-10.8)
[2023-05-02] MEDS: OPTIRAY 350 500ml IV ONE (15:25)
[2023-05-02 15:26] LABS: Alanine Aminotransferase 11 U/L (7-52); Albumin Globulin Ratio 1.2 (0.9-2); Albumin Level 3.9 gm/dl (3.4-5.0); Alkaline Phosphatase 80 U/L (34-104); Anion Gap 7 (3-11); Aspartate Aminotransferase 18 U/L (13-39); BUN Creatinine Ratio 14.7 (10-20); Bilirubin,Total 0.5 mg/dl (0.2-1.0); Blood Urea Nitrogen 15 mg/dl (6-23); Calcium 8.6 mg/dl (8.6-10.3); Carbon Dioxide 24 mmol/L (21-32); Chloride 106 mmol/L (98-107); Creatinine Clr Calc Pharmacy 126.4 ml/min; Est GFR (African American) 96.1 ml/min; Est GFR (Non-African American) 82.9 ml/min; Globulin 3.3 gm/dl (2.5-4.0); Glucose 102 mg/dl (70-99(Fasting)); Magnesium 1.8 mg/dl (1.7-2.4); Potassium 3.6 mmol/L (3.5-5.1); Sodium 137 mmol/L (136-145); Total Protein 7.2 gm/dl (6.0-8.3)
--- NOTE | 2023-05-02 15:28 | Emergency Department Note ---
Impression & Plan Stroke-like symptoms, Hypertensive crisis, Pneumonia, Respiratory failure ED Provider Note NAME: DIANNA ESPINOZA AGE: 52 SEX: M : 1970 ARRIVES VIA: Ambulance INFORMANT: Patient, EMS ED PROVIDER(S): Solo Harris DO CHIEF COMPLAINT: Altered mental status HPI: The patient is a 52-year-old male who presented to the emergency department for an evaluation of altered mental status. The patient was in our facility last evening because of high blood pressure. 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 For at least the last few days he has been noticing it has been very high. He presented to the emergency department last evening. He was treated with a new blood pressure medication and had an increase in his losartan. The patient was able to be discharged home. Today the patient called 911 at approximately 1402 p.m. from his home complaining of chest pain. When the paramedics arrived the patient was in a utility vehicle out back of his house and he was not answering questions. He was not able to move appropriately. He was brought to the emergency department for further evaluation. Was noted to have very high blood pressure. There is unable to obtain history from the patient as he is obtunded and not able to answer questions at this time. ROS: See above HPI for pertinent positives & negatives. A total of 10 systems reviewed and were otherwise negative. PAST MEDICAL HISTORY: See Below PAST SURGICAL HISTORY: See Below FAMILY HISTORY: See Below SOCIAL HISTORY: See Below HOME MEDICATIONS: See Below ALLERGIES: See Below VITALS: See Below PHYSICAL EXAMINATION: GENERAL: The patient is obtunded and not able to answer questions. EARS, NOSE, MOUTH AND THROAT: The nose is without any evidence of any deformity. NECK: The neck is nontender and supple. RESPIRATORY: Shallow respirations were noted bilaterally. Rales were noted in both bases CARDIOVASCULAR: Regular rate and rhythm noted there no murmurs rubs or gallops normal S1 normal S2. GASTROINTESTINAL: The abdomen is soft. Abdomen is nontender. MUSCULOSKELETAL/EXTREMITIES: There is no evidence of gross deformity full range of motion is noted in the hips and shoulders. SKIN: There is no obvious evidence of any rash. There are no petechiae, pallor or cyanosis noted. NEUROLOGIC: Patient has no response to painful stimuli in the right lower extremity but does withdraw with the left leg. The patient is unable to answer questions. I cannot assess orientation at this time. Dice Manager strength was present in the left upper extremity but not the right. The patient appears to have a right-sided facial droop as well as ptosis to the right eye. MEDICAL DECISION MAKING: The patient is a 52-year-old male who presented to the emergency department with strokelike symptoms. The patient called 911 himself at approximately 2 PM. He was made a stroke alert upon arrival to the emergency department after his exam appear to be consistent with unilateral weakness. The patient appeared to be having respiratory distress and he was very obtunded. He was intubated immediately upon arrival to the emergency department. Since he initially called the 911 line for chest pain a CT of the chest was obtained as well to rule out dissection or any other pertinent intrathoracic findings. I discussed the patient's laboratory and radiographic studies with his significant other as well as his family. The patient was reevaluated multiple times. Blood pressure was managed with IV antihypertensives. He was also treated with IV fluids and IV antibiotics for presumed pneumonia. Blood pressure did start to drop precipitously after resuscitation. I discussed patient's condition with the on- call [facility] hospitalist group. I also discussed the patient's case with the stroke neurologist. At this time it was very difficult to ascertain if the patient did take his Eliquis. He takes this for venous thromboembolic disease. He did not appear to be a candidate for TNK because of this uncertainty. He did not have a large vessel occlusion. The [facility] felt the patient may be suffering from hypertensive crisis or possibly seizure. He was loaded with antiseizure medications. Triage Nursing notes reviewed. Prior medical records reviewed Vital Signs: reviewed and remarkable for initial hypertension and then later hypotension. Differential diagnosis: Infection, dehydration, metabolic abnormality, hypo/hyperglycemia, electrolyte disturbance, anemia, hypoxia, cardiac sources, intracerebral event, toxicologic, neurologic, as well as other pathologies. ER treatment provided: See below Diagnostics interpreted by me: ECG: EKG was obtained in the emergency department. My interpretation is normal sinus rhythm at 100 bpm. There is no ectopy. There is no acute ST segment abnormalities noted. This was compared to a tracing from May 01, 2023. No changes were noted Cardiac Monitoring: An order was placed for continuous cardiac monitoring. The monitor shows a rate of 71 bpm with sinus rhythm. Laboratory studies: As stated above and show below. Imaging studies: See below. Radiographic imaging was reviewed by myself Consultation(s): I discussed this case with Dr. Plaza who is on-call for stroke neurology at [facility]. I discussed this case with Tara who is on-call for the [facility] ED COURSE: Procedures: Endotracheal Intubation Indication altered mental status. The patient was on 100% oxygen via NRB prior to the procedure. Suction, airway equipment, RSI drugs, respiratory equipment, and appropriate personnel were prepared prior to the initiation of the procedure. A time out was taken. Induction was performed with propofol and rocuronium. After observing the clinical benefit of the medications, the airway was easily visualized utilizing a glide scope. A 7.5 size ETT tube was placed atraumatically to 24 cm using standard technique. The cuff inflated without signs of malfunction. There were bilateral breath sounds, positive colormetric change, no gastric sounds, a good capnography waveform, and post procedure pulse oximetry was 98%. Post intubation sedation and paralysis was administered using propofol. There were no complications. Critical Care: I have personally spent greater than 65 minutes of critical care time in the direct management of this patient. This includes bedside care, interpretation of diagnostic studies, and testing, discussion with consultants, patient, and family members, and other required patient management activities. This 65 minutes is in excess of all separately billable procedures. Past Med/Surg History Medical History Pulmonary edema Hypertensive urgency SOB (shortness of breath) Rhinovirus infection GERD (gastroesophageal reflux disease) History of DVT (deep vein thrombosis) HTN (hypertension) No chronic diseases present Surgical History History of gastric bypass No significant past surgical history Social History Smoking Status: Current every day smoker Tobacco Type: Cigarettes Cigarettes Per Day: 40; Second Hand Exposure: Yes; Do You Dip or Chew Tobacco: No; Hx Alcohol Use: No Hx Substance Use: No Preferred Language: Turkmen Communication Ability: Effective Manager Credit Required: No Beliefs That Will Affect Care: None Current Living Situation: Significant Other Current Living Situation Comment: S/O [place] Feels Safe at Home: Yes Assistive Devices: None Allergies Allergies Allergy/AdvReac Type Severity Reaction Status Date / Time acetaminophen [From Percocet] Allergy Unknown Verified 05/02/23 15:34 doxycycline Allergy Unknown Verified 05/02/23 15:34 oxycodone Allergy Unknown Verified 05/02/23 15:34 Sulfa (Sulfonamide Allergy swelling Verified 05/02/23 15:34 Antibiotics) of eyes with eye drops Home Meds Home Medications Medication Instructions Recorded Confirmed apixaban 5 mg tablet (Eliquis) 5 mg PO AMHS 05/02/23 05/02/23 cholecalciferol (vitamin D3) 1,250 1,250 mcg PO WK 05/02/23 05/02/23 mcg (50,000 unit) capsule pantoprazole 40 mg tablet,delayed 40 mg PO DAILYBB 05/02/23 05/02/23 release Previous Rx's Medication Instructions Recorded albuterol sulfate 90 mcg/actuation 2 inh inhalation Q6H PRN shortness 08/26/22 aerosol inhaler of breath or wheezing #8.5 grams losartan 50 mg tablet 50 mg PO BID #60 tabs 05/01/23 metoprolol succinate 25 mg 25 mg PO DAILY #30 tabs 05/01/23 tablet,extended release 24 hr Results & Data (ED) Vital Signs Vital Signs - 24 hr 05/02/23 14:54 05/02/23 14:59 05/02/23 15:15 Pulse Rate 77 74 Pulse Rate from SpO2 Sensor 77 Respiratory Rate 22 Blood Pressure 238/179 H Blood Pressure Mean 198 Pulse Oximetry 100 Oxygen Delivery Method Non-rebreather Oxygen Flow Rate Fraction of Inspired Oxygen Sepsis Recent Fever Within 48 Hours No Sepsis New/Unexplained Change in Mental Status N/A Sepsis Action Taken by Nursing No Action Required End-Tidal CO2 Pulse Oximetry Post Tiitration 05/02/23 15:25 05/02/23 15:28 05/02/23 15:30 Pulse Rate 98 H 102 H Pulse Rate from SpO2 Sensor 98 H 102 H Respiratory Rate 14 16 Blood Pressure 195/125 H 213/142 H Blood Pressure Mean 148 165 Pulse Oximetry 100 98 96 Oxygen Delivery Method Mechanical Vent Non-rebreather Mechanical Vent Mechanical Vent Oxygen Flow Rate 15 Fraction of Inspired Oxygen Sepsis Recent Fever Within 48 Hours Sepsis New/Unexplained Change in Mental Status Sepsis Action Taken by Nursing End-Tidal CO2 Pulse Oximetry Post Tiitration 100 05/02/23 15:35 05/02/23 15:39 05/02/23 15:40 Pulse Rate 96 H 101 H Pulse Rate from SpO2 Sensor 96 H 102 H Respiratory Rate 14 14 10 L Blood Pressure 201/143 H 194/126 H Blood Pressure Mean 162 148 Pulse Oximetry 95 94 94 Oxygen Delivery Method Mechanical Vent Mechanical Vent Oxygen Flow Rate Fraction of Inspired Oxygen 60 Sepsis Recent Fever Within 48 Hours Sepsis New/Unexplained Change in Mental Status Sepsis Action Taken by Nursing End-Tidal CO2 Pulse Oximetry Post Tiitration 05/02/23 15:45 05/02/23 15:50 05/02/23 15:55 Pulse Rate 97 H 98 H 99 H Pulse Rate from SpO2 Sensor 98 H 99 H 99 H Respiratory Rate 16 14 15 Blood Pressure 178/119 H 182/121 H 179/123 H Blood Pressure Mean 138 141 141 Pulse Oximetry 93 93 93 Oxygen Delivery Method Mechanical Vent Mechanical Vent Mechanical Vent Oxygen Flow Rate Fraction of Inspired Oxygen Sepsis Recent Fever Within 48 Hours Sepsis New/Unexplained Change in Mental Status Sepsis Action Taken by Nursing End-Tidal CO2 53 53 Pulse Oximetry Post Tiitration 05/02/23 16:00 05/02/23 16:04 05/02/23 16:05 Pulse Rate 95 H 88 86 Pulse Rate from SpO2 Sensor 95 H 88 86 Respiratory Rate 15 15 15 Blood Pressure 168/115 H 142/93 H Blood Pressure Mean 132 109 Pulse Oximetry 93 93 93 Oxygen Delivery Method Mechanical Vent Mechanical Vent Mechanical Vent Oxygen Flow Rate Fraction of Inspired Oxygen Sepsis Recent Fever Within 48 Hours Sepsis New/Unexplained Change in Mental Status Sepsis Action Taken by Nursing End-Tidal CO2 54 56 54 Pulse Oximetry Post Tiitration 05/02/23 16:10 05/02/23 16:15 05/02/23 17:21 Pulse Rate 86 89 91 H Pulse Rate from SpO2 Sensor 88 89 Respiratory Rate 12 16 18 Blood Pressure 167/116 H 155/100 H 131/85 Blood Pressure Mean 133 118 100 Pulse Oximetry 92 93 Oxygen Delivery Method Mechanical Vent Mechanical Vent Mechanical Vent Oxygen Flow Rate Fraction of Inspired Oxygen Sepsis Recent Fever Within 48 Hours Sepsis New/Unexplained Change in Mental Status Sepsis Action Taken by Nursing End-Tidal CO2 57 39 Pulse Oximetry Post Tiitration 05/02/23 17:25 05/02/23 17:26 05/02/23 17:27 Pulse Rate 80 78 76 Pulse Rate from SpO2 Sensor 80 77 73 Respiratory Rate 18 17 18 Blood Pressure 106/67 87/67 L 90/66 L Blood Pressure Mean 80 73 74 Pulse Oximetry 98 98 95 Oxygen Delivery Method Non-rebreather Non-rebreather Oxygen Flow Rate Fraction of Inspired Oxygen Sepsis Recent Fever Within 48 Hours Sepsis New/Unexplained Change in Mental Status Sepsis Action Taken by Nursing End-Tidal CO2 39 39 38 Pulse Oximetry Post Tiitration 05/02/23 17:30 05/02/23 17:32 05/02/23 17:32 Pulse Rate 73 72 Pulse Rate from SpO2 Sensor 73 72 Respiratory Rate 14 15 Blood Pressure 80/56 L 92/55 L 92/55 L Blood Pressure Mean 64 67 64 Pulse Oximetry 96 97 Oxygen Delivery Method Mechanical Vent Mechanical Vent Oxygen Flow Rate Fraction of Inspired Oxygen Sepsis Recent Fever Within 48 Hours Sepsis New/Unexplained Change in Mental Status Sepsis Action Taken by Nursing End-Tidal CO2 37 37 Pulse Oximetry Post Tiitration 05/02/23 17:35 05/02/23 17:37 05/02/23 17:37 Pulse Rate 73 76 73 Pulse Rate from SpO2 Sensor 73 Respiratory Rate 14 Blood Pressure 96/55 L 96/55 L 96/55 L Blood Pressure Mean 68 Pulse Oximetry 97 Oxygen Delivery Method Mechanical Vent Oxygen Flow Rate Fraction of Inspired Oxygen Sepsis Recent Fever Within 48 Hours Sepsis New/Unexplained Change in Mental Status Sepsis Action Taken by Nursing End-Tidal CO2 38 Pulse Oximetry Post Tiitration 05/02/23 17:38 05/02/23 17:40 05/02/23 17:42 Pulse Rate 90 87 75 Pulse Rate from SpO2 Sensor 85 88 75 Respiratory Rate 12 12 16 Blood Pressure 103/78 131/85 116/82 Blood Pressure Mean 86 100 93 Pulse Oximetry 99 99 99 Oxygen Delivery Method Mechanical Vent Mechanical Vent Oxygen Flow Rate Fraction of Inspired Oxygen Sepsis Recent Fever Within 48 Hours Sepsis New/Unexplained Change in Mental Status Sepsis Action Taken by Nursing End-Tidal CO2 45 45 49 Pulse Oximetry Post Tiitration 05/02/23 17:45 05/02/23 17:47 05/02/23 17:50 Pulse Rate 73 69 67 Pulse Rate from SpO2 Sensor 73 69 67 Respiratory Rate 15 15 15 Blood Pressure 106/67 87/56 L 80/54 L Blood Pressure Mean 80 66 62 Pulse Oximetry 98 97 97 Oxygen Delivery Method Mechanical Vent Mechanical Vent Mechanical Vent Oxygen Flow Rate Fraction of Inspired Oxygen Sepsis Recent Fever Within 48 Hours Sepsis New/Unexplained Change in Mental Status Sepsis Action Taken by Nursing End-Tidal CO2 43 41 37 Pulse Oximetry Post Tiitration 05/02/23 17:51 05/02/23 17:52 05/02/23 17:56 Pulse Rate 67 67 69 Pulse Rate from SpO2 Sensor 67 67 69 Respiratory Rate 15 14 15 Blood Pressure 77/53 L 88/52 L 76/54 L Blood Pressure Mean 61 64 61 Pulse Oximetry 97 97 97 Oxygen Delivery Method Mechanical Vent Mechanical Vent Mechanical Vent Oxygen Flow Rate Fraction of Inspired Oxygen Sepsis Recent Fever Within 48 Hours Sepsis New/Unexplained Change in Mental Status Sepsis Action Taken by Nursing End-Tidal CO2 37 39 40 Pulse Oximetry Post Tiitration 05/02/23 17:58 05/02/23 18:00 05/02/23 18:02 Pulse Rate 69 68 82 Pulse Rate from SpO2 Sensor 69 69 80 Respiratory Rate 14 14 14 Blood Pressure 86/52 L 86/56 L Blood Pressure Mean 63 66 Pulse Oximetry 97 97 99 Oxygen Delivery Method Mechanical Vent Mechanical Vent Mechanical Vent Oxygen Flow Rate Fraction of Inspired Oxygen Sepsis Recent Fever Within 48 Hours Sepsis New/Unexplained Change in Mental Status Sepsis Action Taken by Nursing End-Tidal CO2 39 38 40 Pulse Oximetry Post Tiitration 05/02/23 18:05 05/02/23 18:07 05/02/23 18:10 Pulse Rate 83 73 70 Pulse Rate from SpO2 Sensor 84 74 71 Respiratory Rate 14 14 15 Blood Pressure 138/111 H 127/85 118/75 Blood Pressure Mean 120 99 89 Pulse Oximetry 99 100 97 Oxygen Delivery Method Mechanical Vent Mechanical Vent Oxygen Flow Rate Fraction of Inspired Oxygen Sepsis Recent Fever Within 48 Hours Sepsis New/Unexplained Change in Mental Status Sepsis Action Taken by Nursing End-Tidal CO2 48 48 44 Pulse Oximetry Post Tiitration 05/02/23 18:12 05/02/23 18:15 05/02/23 18:17 Pulse Rate 67 70 71 Pulse Rate from SpO2 Sensor 68 70 71 Respiratory Rate 14 15 17 Blood Pressure 108/71 111/73 111/73 Blood Pressure Mean 83 85 85 Pulse Oximetry 99 99 99 Oxygen Delivery Method Mechanical Vent Mechanical Vent Mechanical Vent Oxygen Flow Rate Fraction of Inspired Oxygen Sepsis Recent Fever Within 48 Hours Sepsis New/Unexplained Change in Mental Status Sepsis Action Taken by Nursing End-Tidal CO2 42 40 40 Pulse Oximetry Post Tiitration 05/02/23 18:20 05/02/23 18:22 05/02/23 18:23 Pulse Rate 69 71 73 Pulse Rate from SpO2 Sensor 68 71 73 Respiratory Rate 13 13 13 Blood Pressure 96/74 L 91/60 L 84/54 L Blood Pressure Mean 81 70 64 Pulse Oximetry 97 97 97 Oxygen Delivery Method Mechanical Vent Mechanical Vent Mechanical Vent Oxygen Flow Rate Fraction of Inspired Oxygen Sepsis Recent Fever Within 48 Hours Sepsis New/Unexplained Change in Mental Status Sepsis Action Taken by Nursing End-Tidal CO2 41 40 40 Pulse Oximetry Post Tiitration 05/02/23 18:25 05/02/23 18:27 Pulse Rate 64 71 Pulse Rate from SpO2 Sensor 65 68 Respiratory Rate 13 12 Blood Pressure 79/51 L 73/54 L Blood Pressure Mean 60 60 Pulse Oximetry 95 99 Oxygen Delivery Method Mechanical Vent Mechanical Vent Oxygen Flow Rate Fraction of Inspired Oxygen Sepsis Recent Fever Within 48 Hours Sepsis New/Unexplained Change in Mental Status Sepsis Action Taken by Nursing End-Tidal CO2 39 38 Pulse Oximetry Post Tiitration Home Medications Current Medication List: was personally reviewed by me Laboratory Data Attestation: I reviewed the patient's lab results. 05/02/23 14:52 05/02/23 14:52 Lab Results 05/02/23 05/02/23 05/02/23 Range/Units 14:52 14:57 15:35 WBC 10.11 (4.8-10.8) K/ul RBC 5.13 (4.70-6.10) M/uL Hgb 15.6 (14.0-18.0) g/dl Hct 44.8 (42.0-52.0) % MCV 87.3 (80.0-100.0) fL MCH 30.4 (25.0-34.0) pg MCHC 34.8 (32.0-36.0) g/dL RDW Std Deviation 42.3 (36.4-46.3) fL RDW Coeff of Helio 13.2 (11.5-14.5) % Plt Count 217 (130-400) K/uL MPV 10.2 (9.4-12.4) fL Immature Gran % (Auto) 0.2 % Neut % (Auto) 71.8 % Lymph % (Auto) 21.1 % [place] % (Auto) 6.1 % Eos % (Auto) 0.3 % Baso % (Auto) 0.5 % Neut # (Auto) 7.26 H (1.40-6.50) K/uL Lymph # (Auto) 2.13 (1.20-3.40) K/uL [place] # (Auto) 0.62 H (0.11-0.59) K/uL Eos # (Auto) 0.03 (0.00-0.50) K/uL Baso # (Auto) 0.05 (0.00-0.20) K/uL Immature Gran # (Auto) 0.02 (0.01-0.20) K/uL PT 10.9 (9.0-12.0) Seconds INR 1.0 (0.9-1.1) APTT 28 (21-31) Seconds PTT Ratio 1.0 Sodium 137 (136-145) mmol/L Potassium 3.6 (3.5-5.1) mmol/L Chloride 106 (98-107) mmol/L Carbon Dioxide 24 (21-32) mmol/L Anion Gap 7 (3-11) BUN 15 (6-23) mg/dl Creatinine 1.02 (0.6-1.4) mg/dl Est Cr Clr Drug Dosing 126.4 ml/min Est GFR ( Amer) 96.1 ml/min Est GFR (Non-Af Amer) 82.9 ml/min BUN/Creatinine Ratio 14.7 (10-20) Glucose 102 H (70-99(Fasting)) mg/dl Calcium 8.6 (8.6-10.3) mg/dl Magnesium 1.8 (1.7-2.4) mg/dl Total Bilirubin 0.5 (0.2-1.0) mg/dl AST 18 (13-39) U/L ALT 11 (7-52) U/L Alkaline Phosphatase 80 (34-104) U/L Troponin I High Sens 6.2 (0-20) pg/ml C-Reactive Protein < 0.50 (0-0.5) mg/dl Total Protein 7.2 (6.0-8.3) gm/dl Albumin 3.9 (3.4-5.0) gm/dl Globulin 3.3 (2.5-4.0) gm/dl Albumin/Globulin Ratio 1.2 (0.9-2) Procalcitonin < 0.02 (0-0.5) ng/ml Urine Color Yellow Urine Appearance Clear (Clear) Urine pH 7.0 (4.5-7.5) Ur Specific [place] 1.020 (1.000-1.030) Urine Protein 3+ H (Negative) Urine Glucose (UA) Negative (Negative) Urine Ketones Negative (Negative) Urine Blood Trace H (Negative) Urine Nitrite Negative (Negative) Urine Bilirubin Negative (Negative) Urine Urobilinogen Negative (Negative) Ur Leukocyte Esterase Negative (Negative) Urine WBC (Auto) 0 (0-5) /hpf Urine RBC (Auto) 0-4 (0-4) /hpf U Hyaline Cast (Auto) 0 (0-5) /lpf U Epithel Cells (Auto) 0-5 (0-5) /lpf Urine Bacteria (Auto) Negative (Negative) Urine Opiates Screen Neg (Neg) Ur Methadone, Qual Neg (Neg) Urine Barbiturates Neg (Neg) Ur Phencyclidine (PCP) Neg (Neg) U Amphetamin/Meth Scrn Neg (Neg) MDMA (Ecstasy) Screen Neg (Neg) U Benzodiazepines Scrn Neg (Neg) Ur Cocaine Metabolite Neg (Neg) U Marijuana (THC) Screen Neg (Neg) Administered Medications Fentanyl Citrate (Fentanyl Citrate Pf 100 Mcg/2 Ml Vial) 50 mcg IV Q30M PRN PRN Reason: SEVERE PAIN, RASS -1 Stop: 05/16/23 17:32 Last Admin: 05/02/23 17:42 Dose: 50 mcg Documented By: Admin: 05/02/23 17:36 Dose: 100 mcg Documented By: Admin: 05/02/23 15:45 Dose: 50 mcg Documented By: ANALY Nicardipine HCl 25 mg/ Sodium (Chloride) 250 mls @ 0 mls/hr IV .Q0M [facility]; Protocol Stop: 06/01/23 14:59 Last Titration: 05/02/23 17:33 Dose: 0 mg/hr, 0 mls/hr Documented By: Titration: 05/02/23 16:05 Dose: 5 mg/hr, 50 mls/hr Documented By: Titration: 05/02/23 15:59 Dose: 7.5 mg/hr, 75 mls/hr Documented By: Admin: 05/02/23 15:57 Dose: 5 mg/hr, 50 mls/hr Documented By: ANALY Co-signed By: IVANNA Propofol (Diprivan) 1,000 mg in 100 mls @ 0 mls/hr IV .Q0M [facility]; Protocol Stop: 05/05/23 14:59 Last Titration: 05/02/23 17:33 Dose: 0 mcg/kg/min, 0 mls/hr Documented By: Titration: 05/02/23 16:15 Dose: 40 mcg/kg/min, 36 mls/hr Documented By: Titration: 05/02/23 16:05 Dose: 0 mcg/kg/min, 0 mls/hr Documented By: Titration: 05/02/23 15:20 Dose: 40 mcg/kg/min, 36 mls/hr Documented By: Admin: 05/02/23 14:59 Dose: 20 mcg/kg/min, 18 mls/hr Documented By: ANALY Sodium Chloride (Nss) 1,000 mls @ 999 mls/hr IV .Q1H1M ONE Stop: 05/02/23 18:28 Last Infusion: 05/02/23 17:55 Dose: Infused Documented By: Admin: 05/02/23 17:34 Dose: 999 mls/hr Documented By: ANALY Midazolam HCl (Midazolam Hcl 1 Mg/Ml 2ml Vial) 2 mg IV Q30M PRN PRN Reason: RASS -1 Stop: 06/01/23 17:32 Last Admin: 05/02/23 17:42 Dose: 2 mg Documented By: Admin: 05/02/23 15:45 Dose: 2 mg Documented By: Admin: 05/02/23 14:45 Dose: 2 mg Documented By: ANALY Discontinued Medications Fentanyl Citrate (Fentanyl Citrate Pf 100 Mcg/2 Ml Vial) Confirm Administered Dose 100 mcg .ROUTE .STK-MED ONE Stop: 05/02/23 16:43 Last Admin: 05/02/23 17:36 Dose: Not Given Documented By: ANALY Fentanyl Citrate (Fentanyl Citrate Pf 100 Mcg/2 Ml Vial) Confirm Administered Dose 100 mcg .ROUTE .STK-MED ONE Stop: 05/02/23 16:43 Last Admin: 05/02/23 17:36 Dose: Not Given Documented By: ANALY Fentanyl Citrate (Fentanyl Citrate Pf 100 Mcg/2 Ml Vial) Confirm Administered Dose 100 mcg .ROUTE .STK-MED ONE Stop: 05/02/23 17:32 Last Admin: 05/02/23 17:37 Dose: Not Given Documented By: ANALY Ceftriaxone Sodium (Rocephin) 2,000 mg in 50 mls @ 100 mls/hr IV NOW STA Stop: 05/02/23 17:57 Last Infusion: 05/02/23 18:12 Dose: Infused Documented By: Admin: 05/02/23 17:47 Dose: 100 mls/hr Documented By: ANALY Ioversol (Optiray 350 500ml) 113 ml IV ONCE ONE Stop: 05/02/23 15:26 Last Admin: 05/02/23 15:25 Dose: 113 ml Documented By: NICOLE Labetalol HCl (Labetalol Hcl Iv 5 Mg/Ml 20ml) Confirm Administered Dose 5 mg IV .STK-MED ONE Stop: 05/02/23 15:04 Last Admin: 05/02/23 16:16 Dose: Not Given Documented By: ANALY Labetalol HCl (Labetalol Hcl Iv 5 Mg/Ml 20ml) 10 mg IV NOW STA Stop: 05/02/23 16:39 Last Admin: 05/02/23 17:20 Dose: 10 mg Documented By: ANALY Co-signed By: IVANNA Labetalol HCl (Labetalol Hcl Iv 5 Mg/Ml 20ml) 20 mg IV NOW STA Stop: 05/02/23 16:40 Last Admin: 05/02/23 17:20 Dose: 20 mg Documented By: ANALY Co-signed By: IVANNA Levetiracetam (Levetiracetam 500 Mg/5 Ml Vial) 4,500 mg IV NOW STA Stop: 05/02/23 16:14 Last Admin: 05/02/23 16:23 Dose: 4,500 mg Documented By: ANALY Midazolam HCl (Midazolam Hcl 1 Mg/Ml 2ml Vial) Confirm Administered Dose 4 mg .ROUTE .STK-MED ONE Stop: 05/02/23 16:42 Last Admin: 05/02/23 17:36 Dose: Not Given Documented By: ANALY Midazolam HCl (Midazolam Hcl 1 Mg/Ml 2ml Vial) Confirm Administered Dose 2 mg .ROUTE .STK-MED ONE Stop: 05/02/23 17:31 Last Admin: 05/02/23 17:37 Dose: Not Given Documented By: ANALY Miscellaneous (Rapid Sequence Induction Bag) Confirm Administered Dose 1 each N/A .STK-MED ONE Stop: 05/02/23 14:54 Last Admin: 05/02/23 15:58 Dose: 1 each Documented By: ANALY Miscellaneous (Stat Iv Infusion Titration Per Protocol) 1 each N/A NOW STA Stop: 05/02/23 14:57 Last Admin: 05/02/23 15:58 Dose: Not Given Documented By: ANALY Propofol (Propofol Iv Emulsion 10 Mg/Ml 20 Ml Vial) Confirm Administered Dose 200 mg IV .STK-MED ONE Stop: 05/02/23 14:57 Last Admin: 05/02/23 15:58 Dose: Not Given Documented By: ANALY Propofol (Propofol Iv Emulsion 10 Mg/Ml 100 Ml Vial) Confirm Administered Dose 1,000 mg IV .STK-MED ONE Stop: 05/02/23 15:02 Last Admin: 05/02/23 15:59 Dose: Not Given Documented By: ANALY Propofol (Propofol Iv Emulsion 10 Mg/Ml 20 Ml Vial) 100 mg IV NOW ONE Stop: 05/02/23 15:16 Last Admin: 05/02/23 15:59 Dose: 100 mg Documented By: ANALY Co-signed By: IVANNA Imaging Data Attestation: I personally reviewed and interpreted this imaging study as follows: My Impression: CT of the brain was obtained in the emergency department. My interpretation is no intracranial hemorrhage or mass effect, final report below. CT of the chest was obtained in the emergency department. My interpretation is endotracheal tube in proper position, infiltrate was noted at the base of bilateral bases, final report below Radiologist's Impression: Chest CTA 05/02/23 14:52 CT angio chest dissec wo/w con CLINICAL HISTORY: cp TECHNIQUE: Multidetector row helical CT of the chest was performed before and after injection of IV contrast. Coronal, sagittal, and MIP reformations were obtained. Automated dose lowering techniques and/or adjustment according to patient size were utilized for this exam. CT DOSE: 2709.15 mGy.cm Comparison: Comparison is made to CT chest 08/23/2022 FINDINGS: Lungs and pleura: Atelectasis versus scarring is seen in the dependent portions of the lungs. Bronchial wall thickening is seen. Consolidative opacities are seen in the lower lungs. There is a stable 4 mm nodule in the right middle lobe (series 9 image 147) Heart and pericardium: Cardiomegaly is seen with biatrial enlargement. Vessels: No aortic dissection or intramural hematoma is seen. Moderate atherosclerotic disease is seen. Trace venous gas is seen, likely due to injection. Mediastinum and haja: Unremarkable. Chest wall and lower neck: Unremarkable. Abdomen: Unremarkable. Bones: Unremarkable. IMPRESSION: 1. No aortic injury is seen. 2. Consolidation in the bilateral lower lungs and bronchial wall thickening compatible with pneumonia. ACT 112: Negative or not required by law. Electronically signed by: Be Garcia M.D. 05/02/2023 3:45 PM Chest X-Ray 05/02/23 14:52 XR chest 1V portable CLINICAL HISTORY: neuro deficit, acute stroke suspected TECHNIQUE: Single frontal radiograph of the chest was obtained. Comparison: Comparison is made to chest radiograph 05/01/2023 FINDINGS: Endotracheal tube measures 7.6 cm from the sapna. Cardiomegaly is noted. The lungs are clear. No evidence of pleural effusion or pneumothorax. IMPRESSION: No acute chest disease. Cardiomegaly is noted. ACT 112: Negative or not required by law. Electronically signed by: Be Garcia M.D. 05/02/2023 3:[address] 05/02/23 14:52 CT angio neck with con, CT head/brain wo con, CT angio head w con CLINICAL HISTORY: neuro deficit, acute stroke suspected TECHNIQUE: Contiguous axial CT images of the head were acquired from the base of the skull to the vertex without intravenous contrast administration. CT angiography of the head and neck was performed following intravenous administration of iodinated contrast. Coronal and sagittal MIPS were obtained from the axial data set and were submitted for review. Automated dose lowering techniques and/or adjustment according to patient size were utilized for this examination. All measurements were calculated based on NASCET criteria. Comparison: None available at the time of this dictation. FINDINGS: Exam is limited by mildly suboptimal contrast timing. CT head: There is no acute intracranial hemorrhage or evidence of acute territorial infarction. No shift of the midline structures, mass effect, or extra-axial abnormalities are shown. Endotracheal tube is seen. Atelectasis is seen. CTA Neck: A 3 vessel aortic arch is shown. There is no significant atherosclerotic plaque in the aortic arch or the origins of the innominate, left common carotid, and left subclavian arteries. The common carotid, external carotid, cervical segments of the internal carotid arteries, and the cervical segments of the vertebral arteries are patent without hemodynamically significant stenosis. The left vertebral artery is dominant. CTA Head: The anterior and posterior cerebral circulations are patent. No hemodynamically significant stenosis, aneurysm, dissection, or arteriovenous malformation is shown. IMPRESSION: 1. No acute intracranial hemorrhage, evidence of acute territorial infarction, or other acute intracranial disease process. 2. No occlusion, hemodynamically significant stenosis, or dissection in the major cervical arteries. 3. No occlusion, hemodynamically significant stenosis, aneurysm, dissection, or arteriovenous malformation in the major intracranial arteries. Assessment of stenosis of the internal carotid arteries is based on NASCET criteria. ACT 112: Negative or not required by law. Electronically signed by: Be Garcia M.D. 05/02/2023 3:37 PM Head CTA 05/02/23 14:52 CT angio neck with con, CT head/brain wo con, CT angio head w con CLINICAL HISTORY: neuro deficit, acute stroke suspected TECHNIQUE: Contiguous axial CT images of the head were acquired from the base of the skull to the vertex without intravenous contrast administration. CT angiography of the head and neck was performed following intravenous administration of iodinated contrast. Coronal and sagittal MIPS were obtained from the axial data set and were submitted for review. Automated dose lowering techniques and/or adjustment according to patient size were utilized for this examination. All measurements were calculated based on NASCET criteria. Comparison: None available at the time of this dictation. FINDINGS: Exam is limited by mildly suboptimal contrast timing. CT head: There is no acute intracranial hemorrhage or evidence of acute territorial infarction. No shift of the midline structures, mass effect, or extra-axial abnormalities are shown. Endotracheal tube is seen. Atelectasis is seen. CTA Neck: A 3 vessel aortic arch is shown. There is no significant atherosclerotic plaque in the aortic arch or the origins of the innominate, left common carotid, and left subclavian arteries. The common carotid, external carotid, cervical segments of the internal carotid arteries, and the cervical segments of the vertebral arteries are patent without hemodynamically significant stenosis. The left vertebral artery is dominant. CTA Head: The anterior and posterior cerebral circulations are patent. No hemodynamically significant stenosis, aneurysm, dissection, or arteriovenous malformation is shown. IMPRESSION: 1. No acute intracranial hemorrhage, evidence of acute territorial infarction, or other acute intracranial disease process. 2. No occlusion, hemodynamically significant stenosis, or dissection in the major cervical arteries. 3. No occlusion, hemodynamically significant stenosis, aneurysm, dissection, or arteriovenous malformation in the major intracranial arteries. Assessment of stenosis of the internal carotid arteries is based on NASCET criteria. ACT 112: Negative or not required by law. Electronically signed by: Be Garcia M.D. 05/02/2023 3:37 PM Neck CTA 05/02/23 14:52 CT angio neck with con, CT head/brain wo con, CT angio head w con CLINICAL HISTORY: neuro deficit, acute stroke suspected TECHNIQUE: Contiguous axial CT images of the head were acquired from the base of the skull to the vertex without intravenous contrast administration. CT angiography of the head and neck was performed following intravenous administration of iodinated contrast. Coronal and sagittal MIPS were obtained from the axial data set and were submitted for review. Automated dose lowering techniques and/or adjustment according to patient size were utilized for this examination. All measurements were calculated based on NASCET criteria. Comparison: None available at the time of this dictation. FINDINGS: Exam is limited by mildly suboptimal contrast timing. CT head: There is no acute intracranial hemorrhage or evidence of acute territorial infarction. No shift of the midline structures, mass effect, or extra-axial abnormalities are shown. Endotracheal tube is seen. Atelectasis is seen. CTA Neck: A 3 vessel aortic arch is shown. There is no significant atherosclerotic plaque in the aortic arch or the origins of the innominate, left common carotid, and left subclavian arteries. The common carotid, external carotid, cervical segments of the internal carotid arteries, and the cervical segments of the vertebral arteries are patent without hemodynamically significant stenosis. The left vertebral artery is dominant. CTA Head: The anterior and posterior cerebral circulations are patent. No hemodynamically significant stenosis, aneurysm, dissection, or arteriovenous malformation is shown. IMPRESSION: 1. No acute intracranial hemorrhage, evidence of acute territorial infarction, or other acute intracranial disease process. 2. No occlusion, hemodynamically significant stenosis, or dissection in the major cervical arteries. 3. No occlusion, hemodynamically significant stenosis, aneurysm, dissection, or arteriovenous malformation in the major intracranial arteries. Assessment of stenosis of the internal carotid arteries is based on NASCET criteria. ACT 112: Negative or not required by law. Electronically signed by: Be Garcia M.D. 05/02/2023 3:37 PM Brain MRI 05/02/23 16:05 MR brain wo con CLINICAL HISTORY: cva TECHNIQUE: Multiplanar and multisequence MR images of the brain were obtained without intravenous contrast. Comparison: Comparison is made to CT head 05/02/2023 FINDINGS: No abnormal restricted diffusion is identified. The white matter is unremarkable. The ventricular system is normal in appearance. No mass is seen. There is no mass effect or midline shift. There is no evidence of acute intraparenchymal hemorrhage. No extra axial fluid collections are seen. The corpus callosum, pituitary gland, and cerebellar tonsils appear grossly unremarkable. Flow voids of the major intracranial arterial vessels are identified. The imaged portions of the paranasal sinuses, mastoid air cells, and orbits are unremarkable. IMPRESSION: No acute abnormality and in particular no evidence of acute infarct. ACT 112: Negative or not required by law. Electronically signed by: Be Garcia M.D. 05/02/2023 5:44 PM Discharge Plan Visit Data Chief Complaint: Unresponsive ED Provider: Solo Harris Discharge Problem: Stroke-like symptoms, Hypertensive crisis, Pneumonia, Respiratory failure Prescriptions Prescriptions: No Action albuterol sulfate 90 mcg/actuation HFA aerosol inhaler 2 inh inhalation Q6H PRN (Reason: shortness of breath or wheezing) Qty: 8.5 0RF pantoprazole 40 mg tablet,delayed release (DR/EC) 40 mg PO DAILYBB Eliquis 5 mg tablet 5 mg PO [facility] Rx Instructions: Start taking on 08/31/2022 after completing the7 day course of the 10mg twice a day. cholecalciferol (vitamin D3) 1,250 mcg (50,000 unit) Capsule 1,250 mcg PO WK Rx Instructions: start 04/20/23 end 07/19/23 losartan 50 mg tablet 50 mg PO BID Qty: 60 0RF metoprolol succinate 25 mg tablet extended release 24 hr 25 mg PO DAILY Qty: 30 0RF Rx Instructions: unknown if started Discharge Problem: Pneumonia Qualifiers: Pneumonia type: due to unspecified organism Laterality: bilateral Lung location: lower lobe of lung Qualified Code(s): J18.9 - Pneumonia, unspecified organism Respiratory failure Qualifiers: Chronicity: acute Respiratory failure complication: hypoxia Qualified Code(s): J96.01 - Acute respiratory failure with hypoxia
[2023-05-02 15:32] LABS: Troponin I High Sensitivity 6.2 pg/ml (0-20)
[2023-05-02 15:38] LABS: Partial Thromboplastin Time 28 Seconds (21-31); Prothrombin Time 10.9 Seconds (9.0-12.0)
--- NOTE | 2023-05-02 15:39 | CT Scan Report ---
CT angio neck with con, CT head/brain wo con, CT angio head w con CLINICAL HISTORY: neuro deficit, acute stroke suspected TECHNIQUE: Contiguous axial CT images of the head were acquired from the base of the skull to the kamille nickolas without intravenous contrast administration. CT angiography of the head and neck was performed f ollowing intravenous administration of iodinated contrast. Coronal and sagittal MIPS were obtained fr om the axial data set and were submitted for review. Automated dose lowering techniques and/or adjus tment according to patient size were utilized for this examination. All measurements were calculated based on NASCET criteria. Comparison: None available at the time of this dictation. FINDINGS: Exam is limited by mildly suboptimal contrast timing. CT head: There is no acute intracranial hemorrhage or evidence of acute territorial infarction. No sh ift of the midline structures, mass effect, or extra-axial abnormalities are shown. Endotracheal tube is seen. Atelectasis is seen. CTA Neck: A 3 vessel aortic arch is shown. There is no significant atherosclerotic plaque in the aor tic arch or the origins of the innominate, left common carotid, and left subclavian arteries. The co mmon carotid, external carotid, cervical segments of the internal carotid arteries, and the cervical segments of the vertebral arteries are patent without hemodynamically significant stenosis. The left vertebral artery is dominant. CTA Head: The anterior and posterior cerebral circulations are patent. No hemodynamically significan t stenosis, aneurysm, dissection, or arteriovenous malformation is shown. IMPRESSION: 1. No acute intracranial hemorrhage, evidence of acute territorial infarction, or other acute intrac ranial disease process. 2. No occlusion, hemodynamically significant stenosis, or dissection in the major cervical arteries. 3. No occlusion, hemodynamically significant stenosis, aneurysm, dissection, or arteriovenous malfor mation in the major intracranial arteries. Assessment of stenosis of the internal carotid arteries is based on NASCET criteria. ACT 112: Negative or not required by law. Electronically signed by: Be Garcia M.D. 05/02/2023 3:37 PM
[2023-05-02] MEDS: fentaNYL citrate PF 100 MCG/2 ML VIAL IV PRN (15:45)
--- NOTE | 2023-05-02 15:48 | XRay Report ---
XR chest 1V portable CLINICAL HISTORY: neuro deficit, acute stroke suspected TECHNIQUE: Single frontal radiograph of the chest was obtained. Comparison: Comparison is made to chest radiograph 05/01/2023 FINDINGS: Endotracheal tube measures 7.6 cm from the sapna. Cardiomegaly is noted. The lungs are clear. No stefany dence of pleural effusion or pneumothorax. IMPRESSION: No acute chest disease. Cardiomegaly is noted. ACT 112: Negative or not required by law. Electronically signed by: Be Garcia M.D. 05/02/2023 3:47 PM
--- NOTE | 2023-05-02 15:48 | CT Scan Report ---
CT angio chest dissec wo/w con CLINICAL HISTORY: cp TECHNIQUE: Multidetector row helical CT of the chest was performed before and after injection of IV c ontrast. Coronal, sagittal, and MIP reformations were obtained. Automated dose lowering techniques an d/or adjustment according to patient size were utilized for this exam. CT DOSE: 2709.15 mGy.cm Comparison: Comparison is made to CT chest 08/23/2022 FINDINGS: Lungs and pleura: Atelectasis versus scarring is seen in the dependent portions of the lungs. Bronchi al wall thickening is seen. Consolidative opacities are seen in the lower lungs. There is a stable 4 mm nodule in the right middle lobe (series 9 image 147) Heart and pericardium: Cardiomegaly is seen with biatrial enlargement. Vessels: No aortic dissection or intramural hematoma is seen. Moderate atherosclerotic disease is see n. Trace venous gas is seen, likely due to injection. Mediastinum and haja: Unremarkable. Chest wall and lower neck: Unremarkable. Abdomen: Unremarkable. Bones: Unremarkable. IMPRESSION: 1. No aortic injury is seen. 2. Consolidation in the bilateral lower lungs and bronchial wall thickening compatible with pneumoni a. ACT 112: Negative or not required by law. Electronically signed by: Be Garcia M.D. 05/02/2023 3:45 PM
[2023-05-02 15:54] LABS: Appearance Urine Clear (Clear); Bacteria Urine Automated Negative (Negative); Bilirubin Urine Negative (Negative); Blood Urine Trace (Negative); Cast Urine Automated 0 /lpf (0-5); Color Urine Yellow; Epithelial Cell Urine Auto 0-5 /lpf (0-5); Glucose Urine UA Negative (Negative); Ketones Urine Negative (Negative); Leukocyte Esterase Urine Negative (Negative); Nitrite Urine Negative (Negative); Protein Urine 3+ (Negative); RBC Urine Automated 0-4 /hpf (0-4); Urobilinogen Urine Negative (Negative); WBC Urine Automated 0 /hpf (0-5)
[2023-05-02] MEDS: niCARdipine 25 MG in SODIUM CHLORIDE 0.9% 240 ML IV SCH (15:57)
[2023-05-02] MEDS: RAPID SEQUENCE INDUCTION BAG ONE (15:58)
[2023-05-02] MEDS: PROPOFOL IV EMULSION 10 MG/ML 20 ML VIAL IV ONE ×2 (15:58→15:59)
[2023-05-02] MEDS: STAT IV Infusion **Titration per Protocol STA (15:58)
[2023-05-02] MEDS: PROPOFOL IV EMULSION 10 MG/ML 100 ML VIAL IV ONE (15:59)
[2023-05-02] MEDS: LABETALOL HCL IV 5 MG/ML 20ML IV ONE (16:16)
[2023-05-02] MEDS: levETIRAcetam 500 MG/5 ML VIAL IV STA (16:23)
[2023-05-02] MEDS: LABETALOL HCL IV 5 MG/ML 20ML IV STA ×2 (17:20)
[2023-05-02] MEDS: SODIUM CHLORIDE 0.9% 1,000 ML IV ONE (17:34)
[2023-05-02] MEDS: fentaNYL citrate PF 100 MCG/2 ML VIAL ONE ×3 (17:36→17:37)
[2023-05-02] MEDS: MIDAZOLAM HCL 1 MG/ML 2ML VIAL ONE ×2 (17:36→17:37)
--- NOTE | 2023-05-02 17:46 | Magnetic Resonance Report ---
MR brain wo con CLINICAL HISTORY: cva TECHNIQUE: Multiplanar and multisequence MR images of the brain were obtained without intravenous con trast. Comparison: Comparison is made to CT head 05/02/2023 FINDINGS: No abnormal restricted diffusion is identified. The white matter is unremarkable. The ventricular sys tem is normal in appearance. No mass is seen. There is no mass effect or midline shift. There is no e vidence of acute intraparenchymal hemorrhage. No extra axial fluid collections are seen. The corpus c allosum, pituitary gland, and cerebellar tonsils appear grossly unremarkable. Flow voids of the major intracranial arterial vessels are identified. The imaged portions of the para nasal sinuses, mastoid air cells, and orbits are unremarkable. IMPRESSION: No acute abnormality and in particular no evidence of acute infarct. ACT 112: Negative or not required by law. Electronically signed by: Be Garcia M.D. 05/02/2023 5:44 PM
[2023-05-02] MEDS: cefTRIAXone SODIUM 2,000 MG/50 ML BAG IV STA (17:47)
[2023-05-02 18:01] LABS: C Reactive Protein < 0.50 mg/dl (0-0.5)
[2023-05-02] MEDS ORDERED: MAGNESIUM HYDROXIDE SUSP 30 ML UDC PO PRN (18:13)
[2023-05-02] MEDS ORDERED: ONDANSETRON INJ 2 MG/ML 2 ML VIAL IV PRN (18:13)
[2023-05-02] MEDS ORDERED: POLYETHYLENE (MIRALAX) 17 GM PACK PO PRN (18:13)
[2023-05-02] MEDS ORDERED: ALUMINUM/MAGNESIUM SUSP 30 ML UDC PO PRN (18:13)
--- NOTE | 2023-05-02 18:19 | History & Physical Report ---
Date of Service May 02, 2023 Assessment & Plan (1) Stroke-like symptoms: (2) History of DVT (deep vein thrombosis): (3) Hypertensive crisis: (4) Pneumonia: (5) Noncompliance: Plan Mr. Walsh presented to the ED today after calling EMS. He was found down at his house. He has a history of noncompliance with his antihypertensive medications and also his anticoagulants due to previous insurance issues. 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 His girlfriend indicated that his blood pressure has been high over the past few days 190/100 . When he was evaluated last evening his losartan was increased and he was started on metoprolol and was discharged home. This afternoon he was working in his back shed and called 911 on his own. His girlfriend who is at the bedside indicated she was not present earlier today when this all occurred. When EMS arrived he was unresponsive and not able to answer questions or commands. His girlfriend indicated that over the past few days and up to a week there have been no complaints from the patient. No fevers or chills, no cough, no complaints of chest pain, abdominal pain. He has a PMH that includes: DVT x2 ( On Eliquis), HTN, and GERD. No leukocytosis, otherwise labs unremarkable. He was given Narcan and route via EMS without response. UDS pending however family genuinely does not believe he is taking any other recreational drugs. No tobacco use and social alcohol use on weekends. Chest CT: Consolidation in the bilateral lower lungs and bronchial wall thickening compatible with pneumonia. CXR negative for acute cardiopulmonary disease Head CT: Negative for ICH, stenosis, dissection, aneurysm or AVM Head neck CTA negative Brain MRI negative for acute ischemia or infarction Last ECHO 08/2022; EF 65 to 70% no significant valve disease and normal LV wall motion. Upon arrival to the ED he was worked up as a stroke alert. Head CT and brain MRI negative along with CT angio to rule out AAA. He was intubated in the ED for airway protection. Stroke telemedicine was done through [facility] and Elena Nealtany was advised to Keppra load him in case he was having a seizure. Patient was weaned off sedation and he was able to open his eyes and give a thumbs up to indicate he was taking his Eliquis. Due to his noncompliance I would be cautious on the validity of that. His Girlfriend also stated girlfriend also stated that he has been compliant with his medications since he has had insurance. He was on propofol, Versed, and nicardipine drip which is all since been weaned of; with intermittent pushes of fentanyl because he was starting to wake up and agitated. When I was in the room he was able to barely open his eyes to verbal stimuli. He was able to wiggle his right hand but unable to follow any other commands. He was intubated on CMV 0.50 FiO2. Initially I had thought that we could extubate him if he was awake enough however he was unable to show signs that he would be able to initiate and take his own breaths along with protecting his own airway. I discussed with Cory STARKEY in the ICU who will accept the patient for further evaluation and management. Patient initially was hypertensive upon arrival and was placed on nicardipine drip which has since been turned off because he became hypotensive. Apparently, he was able to wake enough prior to my seeing him and indicated that he took 4 Losartan and 1 metoprolol today, which may have caused him to be hypotensive and experienced a syncopal event. For now hold sedation. Patient could have aspirated during the event, will cover broad spectrum for now. Unresponsive: Strokelike symptoms: Acute LKW 1300 today Called EMS from outside shed Narcan given by EMS; no response tele health with [facility]; concern for seizure; loaded with Keppra Chest CT: Consolidation in the bilateral lower lungs and bronchial wall thickening compatible with pneumonia. CXR negative for acute cardiopulmonary disease Head CT: Negative for ICH, stenosis, dissection, aneurysm or AVM Head neck CTA negative Brain MRI negative for acute ischemia or infarction Consider EEG Intubated for airway protection in ED 7.5 24 cm @ lip; unable to follow commands Hold all sedation for now ICU for further management Hypertensive crisis: Acute/resolved for now BP has been 190/110 for past few days. Was in ED last night. Losartan dose increased to 50 mg and Metoprolol added; DC home Nicardipine gtt started in ED; weaned off as pt became hypotensive BP 80/50 (64) with all sedation held Non compliance: HIstorically non-compliant with antihtn meds and anticoagulation d/t insurance family states has been compliant recently PNA: Acute Chest CT: Consolidation in the bilateral lower lungs and bronchial wall thickening compatible with pneumonia. CXR negative for acute cardiopulmonary disease No leukocytosis Received Ceftriaxone in ED possible aspiration with event; will cover with Unasyn for now Disposition: PCP: Dr. Graff Code Status: Full Code VTE Prophyalxis: On Eliquis, unsure compliance; add TEDs/SCDs for now I spent a total of 87 minutes coordinating, documenting, and providing care for this patient excluding time spent in the performance of separately billed services. All of the aforementioned completed while collaborating with the assigned attending physician for a full treatment plan. Please see their addendum for further details. History of Present Illness Chief Complaint: unresponsive Primary Care Provider: Oh Graff MD Mr. Walsh presented to the ED today after calling EMS. He was found down at his house. He has a history of noncompliance with his antihypertensive medications and also his anticoagulants due to previous insurance issues. 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 His girlfriend indicated that his blood pressure has been high over the past few days. When he was evaluated last evening his losartan was increased and he was started on metoprolol and was discharged home. This afternoon he was working in his back shed and called 911 on his own. His girlfriend who is at the bedside indicated she was not present earlier today when this all occurred. When EMS arrived he was unresponsive and not able to answer questions or commands. His girlfriend indicated that over the past few days and up to a week there have been no complaints from the patient. No fevers or chills, no cough, no complaints of chest pain, abdominal pain. He has a PMH that includes: DVT x2 ( On Eliquis), HTN, and GERD. No leukocytosis, otherwise labs unremarkable. He was given Narcan and route via EMS without response. UDS pending however family genuinely does not believe he is taking any other recreational drugs. No tobacco use and social alcohol use on weekends. Chest CT: Consolidation in the bilateral lower lungs and bronchial wall thickening compatible with pneumonia. CXR negative for acute cardiopulmonary disease Head CT: Negative for ICH, stenosis, dissection, aneurysm or AVM Head neck CTA negative Brain MRI negative for acute ischemia or infarction Last ECHO 08/2022; EF 65 to 70% no significant valve disease and normal LV wall motion. Upon arrival to the ED he was worked up as a stroke alert. Head CT and brain MRI negative along with CT angio to rule out AAA. He was intubated in the ED for airway protection. Stroke telemedicine was done through [facility] and Elena Cope was advised to Keppra load him in case he was having a seizure. Patient was weaned off sedation and he was able to open his eyes and give a thumbs up to indicate he was taking his Eliquis. Due to his noncompliance I would be cautious on the validity of that. His Girlfriend also stated girlfriend also stated that he has been compliant with his medications since he has had insurance. He was on propofol, Versed, and nicardipine drip which is all since been weaned of; with intermittent pushes of fentanyl because he was starting to wake up and agitated. When I was in the room he was able to barely open his eyes to verbal stimuli. He was able to wiggle his right hand but unable to follow any other commands. He was intubated on CMV 0.50 FiO2. Initially I had thought that we could extubate him if he was awake enough however he was unable to show signs that he would be able to initiate and take his own breaths along with protecting his own airway. I discussed with Cory STARKEY in the ICU who will accept the patient for further evaluation and management. Patient initially was hypertensive upon arrival and was placed on nicardipine drip which has since been turned off because he became hypotensive. Apparently, he was able to wake enough prior to my seeing him and indicated that he took 4 Losartan and 1 metoprolol today, which may have caused him to be hypotensive and experienced a syncopal event. For now hold sedation. Patient could have aspirated during the event, will cover broad spectrum for now. Allergies Allergy/AdvReac Type Severity Reaction Status Date / Time acetaminophen [From Percocet] Allergy Unknown Verified 05/02/23 15:34 doxycycline Allergy Unknown Verified 05/02/23 15:34 oxycodone Allergy Unknown Verified 05/02/23 15:34 Sulfa (Sulfonamide Allergy swelling Verified 05/02/23 15:34 Antibiotics) of eyes with eye drops Home Medications Medication Instructions Recorded Confirmed Type albuterol sulfate 90 mcg/actuation 2 inh inhalation Q6H PRN shortness 08/26/22 05/02/23 Rx aerosol inhaler of breath or wheezing #8.5 grams losartan 50 mg tablet 50 mg PO BID #60 tabs 05/01/23 05/02/23 Rx metoprolol succinate 25 mg 25 mg PO DAILY #30 tabs 05/01/23 05/02/23 Rx tablet,extended release 24 hr apixaban 5 mg tablet (Eliquis) 5 mg PO AMHS 05/02/23 05/02/23 History cholecalciferol (vitamin D3) 1,250 1,250 mcg PO WK 05/02/23 05/02/23 History mcg (50,000 unit) capsule pantoprazole 40 mg tablet,delayed 40 mg PO DAILYBB 05/02/23 05/02/23 History release Past Med/Surg History Medical History Pulmonary edema Hypertensive urgency SOB (shortness of breath) Rhinovirus infection GERD (gastroesophageal reflux disease) History of DVT (deep vein thrombosis) HTN (hypertension) No chronic diseases present Surgical History History of gastric bypass No significant past surgical history Social History Smoking Status: Current every day smoker Tobacco Type: Cigarettes Cigarettes Per Day: 40; Second Hand Exposure: Yes; Do You Dip or Chew Tobacco: No; Hx Alcohol Use: No Hx Substance Use: No Preferred Language: Portuguese Communication Ability: Effective Mannequin Mold Maker Required: No Beliefs That Will Affect Care: None Current Living Situation: Significant Other Current Living Situation Comment: S/O [place] Feels Safe at Home: Yes Assistive Devices: None Review of Systems Review of Systems: Unobtainable due to endotracheal tube Physical Exam Physical Exam: Neuro: AAOx1, pupils sluggish, minimal responsiveness HEENT: head normocephalic, atraumatic, moist mucus membranes CV: S1/S2, (-) M/G/R, (-) edema, cap refill < 3 seconds Resp: Intubated ETT 7/5 24 cm @ lip. Lung sounds decreased ant/post. GI: Abdomen large S/NT/ND, Ax4 bowel sounds, (-) CVA tenderness Musculoskeletal: Unable to assess Skin: (-) rashes , (-) erythema. Psych: Unable to assess Results & Data Results & Data Vital Signs (Past 12 Hours) Vital Signs Pulse Resp BP Pulse Ox O2 Del Method O2 Flow Rate FiO2 05/02/23 18:07 73 14 127/85 100 05/02/23 18:05 83 14 138/111 H 99 Mechanical Vent 05/02/23 18:02 82 14 99 Mechanical Vent 05/02/23 18:00 68 14 86/56 L 97 Mechanical Vent 05/02/23 17:58 69 14 86/52 L 97 Mechanical Vent 05/02/23 17:56 69 15 76/54 L 97 Mechanical Vent 05/02/23 17:52 67 14 88/52 L 97 Mechanical Vent 05/02/23 17:51 67 15 77/53 L 97 Mechanical Vent 05/02/23 17:50 67 15 80/54 L 97 Mechanical Vent 05/02/23 17:47 69 15 87/56 L 97 Mechanical Vent 05/02/23 17:45 73 15 106/67 98 Mechanical Vent 05/02/23 17:42 75 16 116/82 99 Mechanical Vent 05/02/23 17:40 87 12 131/85 99 Mechanical Vent 05/02/23 17:38 90 12 103/78 99 05/02/23 17:37 73 96/55 L 05/02/23 17:37 76 96/55 L 05/02/23 17:35 73 14 96/55 L 97 Mechanical Vent 05/02/23 17:32 92/55 L 05/02/23 17:32 72 15 92/55 L 97 Mechanical Vent 05/02/23 17:30 73 14 80/56 L 96 Mechanical Vent 05/02/23 17:27 76 18 90/66 L 95 Non-rebreather 05/02/23 17:26 78 17 87/67 L 98 Non-rebreather 05/02/23 17:25 80 18 106/67 98 05/02/23 17:21 91 H 18 131/85 Mechanical Vent 05/02/23 16:15 89 16 155/100 H 93 Mechanical Vent 05/02/23 16:10 86 12 167/116 H 92 Mechanical Vent 05/02/23 16:05 86 15 93 Mechanical Vent 05/02/23 16:04 88 15 142/93 H 93 Mechanical Vent 05/02/23 16:00 95 H 15 168/115 H 93 Mechanical Vent 05/02/23 15:55 99 H 15 179/123 H 93 Mechanical Vent 05/02/23 15:50 98 H 14 182/121 H 93 Mechanical Vent 05/02/23 15:45 97 H 16 178/119 H 93 Mechanical Vent 05/02/23 15:40 101 H 10 L 194/126 H 94 Mechanical Vent 05/02/23 15:39 14 94 60 05/02/23 15:35 96 H 14 201/143 H 95 Mechanical Vent 05/02/23 15:30 102 H 16 213/142 H 96 Mechanical Vent 05/02/23 15:28 98 H 14 195/125 H 98 Mechanical Vent 05/02/23 15:25 100 Mechanical Vent, Non-rebreather 15 05/02/23 14:59 74 05/02/23 14:54 77 22 238/179 H 100 Non-rebreather Laboratory Results Short CBC 05/02/23 Range/Units 14:52 WBC 10.11 (4.8-10.8) K/ul Hgb 15.6 (14.0-18.0) g/dl Hct 44.8 (42.0-52.0) % Plt Count 217 (130-400) K/uL BMP 05/02/23 14:52 Sodium 137 Potassium 3.6 Chloride 106 Carbon Dioxide 24 BUN 15 Creatinine 1.02 Glucose 102 H Calcium 8.6 Liver Function 05/02/23 Range/Units 14:52 Total Bilirubin 0.5 (0.2-1.0) mg/dl AST 18 (13-39) U/L ALT 11 (7-52) U/L Alkaline Phosphatase 80 (34-104) U/L Albumin 3.9 (3.4-5.0) gm/dl Urine 05/02/23 Range/Units 15:35 Urine Color Yellow Urine Appearance Clear (Clear) Urine pH 7.0 (4.5-7.5) Ur Specific [place] 1.020 (1.000-1.030) Urine Protein 3+ H (Negative) Urine Glucose (UA) Negative (Negative) Diagnostic Findings Chest CTA 05/02/23 14:52 CT angio chest dissec wo/w con CLINICAL HISTORY: cp TECHNIQUE: Multidetector row helical CT of the chest was performed before and after injection of IV contrast. Coronal, sagittal, and MIP reformations were obtained. Automated dose lowering techniques and/or adjustment according to patient size were utilized for this exam. CT DOSE: 2709.15 mGy.cm Comparison: Comparison is made to CT chest 08/23/2022 FINDINGS: Lungs and pleura: Atelectasis versus scarring is seen in the dependent portions of the lungs. Bronchial wall thickening is seen. Consolidative opacities are seen in the lower lungs. There is a stable 4 mm nodule in the right middle lobe (series 9 image 147) Heart and pericardium: Cardiomegaly is seen with biatrial enlargement. Vessels: No aortic dissection or intramural hematoma is seen. Moderate atherosclerotic disease is seen. Trace venous gas is seen, likely due to injection. Mediastinum and haja: Unremarkable. Chest wall and lower neck: Unremarkable. Abdomen: Unremarkable. Bones: Unremarkable. IMPRESSION: 1. No aortic injury is seen. 2. Consolidation in the bilateral lower lungs and bronchial wall thickening c ompatible with pneumonia. ACT 112: Negative or not required by law. Electronically signed by: Be Garcia M.D. 05/02/2023 3:45 PM Chest X-Ray 05/02/23 14:52 XR chest 1V portable CLINICAL HISTORY: neuro deficit, acute stroke suspected TECHNIQUE: Single frontal radiograph of the chest was obtained. Comparison: Comparison is made to chest radiograph 05/01/2023 FINDINGS: Endotracheal tube measures 7.6 cm from the sapna. Cardiomegaly is noted. The lungs are clear. No evidence of pleural effusion or pneumothorax. IMPRESSION: No acute chest disease. Cardiomegaly is noted. ACT 112: Negative or not required by law. Electronically signed by: Be Garcia M.D. 05/02/2023 3:[address] 05/02/23 14:52 CT angio neck with con, CT head/brain wo con, CT angio head w con CLINICAL HISTORY: neuro deficit, acute stroke suspected TECHNIQUE: Contiguous axial CT images of the head were acquired from the base of the skull to the vertex without intravenous contrast administration. CT angiography of the head and neck was performed following intravenous administration of iodinated contrast. Coronal and sagittal MIPS were obtained from the axial data set and were submitted for review. Automated dose lowering techniques and/or adjustment according to patient size were utilized for this examination. All measurements were calculated based on NASCET criteria. Comparison: None available at the time of this dictation. FINDINGS: Exam is limited by mildly suboptimal contrast timing. CT head: There is no acute intracranial hemorrhage or evidence of acute territorial infarction. No shift of the midline structures, mass effect, or extra-axial abnormalities are shown. Endotracheal tube is seen. Atelectasis is seen. CTA Neck: A 3 vessel aortic arch is shown. There is no significant atherosclerotic plaque in the aortic arch or the origins of the innominate, left common carotid, and left subclavian arteries. The common carotid, external carotid, cervical segments of the internal carotid arteries, and the cervical segments of the vertebral arteries are patent without hemodynamically significan t stenosis. The left vertebral artery is dominant. CTA Head: The anterior and posterior cerebral circulations are patent. No hemodynamically significant stenosis, aneurysm, dissection, or arteriovenous malformation is shown. IMPRESSION: 1. No acute intracranial hemorrhage, evidence of acute territorial infarction, or other acute intracranial disease process. 2. No occlusion, hemodynamically significant stenosis, or dissection in the major cervical arteries. 3. No occlusion, hemodynamically significant stenosis, aneurysm, dissection, or arteriovenous malformation in the major intracranial arteries. Assessment of stenosis of the internal carotid arteries is based on NASCET criteria. ACT 112: Negative or not required by law. Electronically signed by: Be Garcia M.D. 05/02/2023 3:37 PM Head CTA 05/02/23 14:52 CT angio neck with con, CT head/brain wo con, CT angio head w con CLINICAL HISTORY: neuro deficit, acute stroke suspected TECHNIQUE: Contiguous axial CT images of the head were acquired from the base of the skull to the vertex without intravenous contrast administration. CT angiography of the head and neck was performed following intravenous administration of iodinated contrast. Coronal and sagittal MIPS were obtained from the axial data set and were submitted for review. Automated dose lowering techniques and/or adjustment according to patient size were utilized for this examination. All measurements were calculated based on NASCET criteria. Comparison: None available at the time of this dictation. FINDINGS: Exam is limited by mildly suboptimal contrast timing. CT head: There is no acute intracranial hemorrhage or evidence of acute territorial infarction. No shift of the midline structures, mass effect, or extra-axial abnormalities are shown. Endotracheal tube is seen. Atelectasis is seen. CTA Neck: A 3 vessel aortic arch is shown. There is no significant atherosclerotic plaque in the aortic arch or the origins of the innominate, left common carotid, and left subclavian arteries. The common carotid, external carotid, cervical segments of the internal carotid arteries, and the cervical segments of the vertebral arteries are patent without hemodynamically significant stenosis. The left vertebral artery is dominant. CTA Head: The anterior and posterior cerebral circulations are patent. No hemodynamically significant stenosis, aneurysm, dissection, or arteriovenous malformation is shown. IMPRESSION: 1. No acute intracranial hemorrhage, evidence of acute territorial infarction, or other acute intracranial disease process. 2. No occlusion, hemodynamically significant stenosis, or dissection in the major cervical arteries. 3. No occlusion, hemodynamically significant stenosis, aneurysm, dissection, or arteriovenous malformation in the major intracranial arteries. Assessment of stenosis of the internal carotid arteries is based on NASCET criteria. ACT 112: Negative or not required by law. Electronically signed by: Be Garcia M.D. 05/02/2023 3:37 PM Neck CTA 05/02/23 14:52 CT angio neck with con, CT head/brain wo con, CT angio head w con CLINICAL HISTORY: neuro deficit, acute stroke suspected TECHNIQUE: Contiguous axial CT images of the head were acquired from the base of the skull to the vertex without intravenous contrast administration. CT angiography of the head and neck was performed following intravenous administration of iodinated contrast. Coronal and sagittal MIPS were obtained from the axial data set and were submitted for review. Automated dose lowering techniques and/or adjustment according to patient size were utilized for this examination. All measurements were calculated based on NASCET criteria. Comparison: None available at the time of this dictation. FINDINGS: Exam is limited by mildly suboptimal contrast timing. CT head: There is no acute intracranial hemorrhage or evidence of acute territorial infarction. No shift of the midline structures, mass effect, or extra-axial abnormalities are shown. Endotracheal tube is seen. Atelectasis is seen. CTA Neck: A 3 vessel aortic arch is shown. There is no significant atherosclerotic plaque in the aortic arch or the origins of the innominate, left common carotid, and left subclavian arteries. The common carotid, external carotid, cervical segments of the internal carotid arteries, and the cervical segments of the vertebral arteries are patent without hemodynamically significant stenosis. The left vertebral artery is dominant. CTA Head: The anterior and posterior cerebral circulations are patent. No hemodynamically significant stenosis, aneurysm, dissection, or arteriovenous malformation is shown. IMPRESSION: 1. No acute intracranial hemorrhage, evidence of acute territorial infarction, or other acute intracranial disease process. 2. No occlusion, hemodynamically significant stenosis, or dissection in the major cervical arteries. 3. No occlusion, hemodynamically significant stenosis, aneurysm, dissection, or arteriovenous malformation in the major intracranial arteries. Assessment of stenosis of the internal carotid arteries is based on NASCET criteria. ACT 112: Negative or not required by law. Electronically signed by: Be Garcia M.D. 05/02/2023 3:37 PM Brain MRI 05/02/23 16:05 MR brain wo con CLINICAL HISTORY: cva TECHNIQUE: Multiplanar and multisequence MR images of the brain were obtained without intravenous contrast. Comparison: Comparison is made to CT head 05/02/2023 FINDINGS: No abnormal restricted diffusion is identified. The white matter is unremarkable. The ventricular system is normal in appearance. No mass is seen. There is no mass effect or midline shift. There is no evidence of acute intraparenchymal hemorrhage. No extra axial fluid collections are seen. The corpus callosum, pituitary gland, and cerebellar tonsils appear grossly unremarkable. Flow voids of the major intracranial arterial vessels are identified. The imaged portions of the paranasal sinuses, mastoid air cells, and orbits are unremarkable. IMPRESSION: No acute abnormality and in particular no evidence of acute infarct. ACT 112: Negative or not required by law. Electronically signed by: Be Garcia M.D. 05/02/2023 5:44 PM Code Status & VTE Plan Code Status Full Code in the event of cardiac or respiratory arrest VTE Prophylaxis Plan VTE Prophylaxis will be ordered: Yes Supervising Physician Co-Signing Physician Notes Patient was seen and examined with Tara STARKEY at bedside in presence of family. Chart reviewed. Case discussed with her and agree with the documentation above with regards to HPI, PE and A/P. Patient still obtunded and not arousable enough and not following commands for safe extubation. Stroke work up negative. UDS pending. Labs unremarkable. BP now low normal. Plan to transfer to ICU for close observation. Rest as per the note above. (4) Pneumonia Laterality: bilateral Lung location: lower lobe of lung Pneumonia type: due to unspecified organism Qualified Code(s): J18.9 - Pneumonia, unspecified organism
[2023-05-02 18:29] LABS: Amphetamines+Metham, Urine Neg (Neg); Barbiturates, Urine Neg (Neg); Benzodiazepine, Urine Neg (Neg); Cocaine, Urine Neg (Neg); MDMA (Ecstacy), Urine Neg (Neg); Marijuana, Urine Neg (Neg); Methadone, Urine Neg (Neg); Opiate, Urine Neg (Neg); Phencyclidine, Urine Neg (Neg)
[2023-05-02 18:34] LABS: Chol HDL Ratio 3.8 (0-5); Cholesterol 154 mg/dl (0-200); HDL Cholesterol 41 mg/dl; LDL Cholesterol Calculated 102 mg/dl; Triglycerides 54 mg/dl (0-150); VLDL Cholesterol 11 mg/dl (0-30)
--- NOTE | 2023-05-02 20:04 | Critical Care Consultation ---
Date of Consultation May 02, 2023 Assessment & Plan (1) Encephalopathy acute: Reason Critically Ill: 52-year-old male with past medical history of HTN, DVT (on Eliquis) presents to the ICU following episode of altered mental status and right-sided weakness where he was noted to have chest pain and hypertension. Emergently intubated for airway protection and mechanically ventilated. Neuro - AMS/R weaknesspatient initially appeared obtunded on arrival to the emergency department and noted to have right-sided weakness. On ventilator, patient does follow commands but was noted to have some residual right-sided weakness. -CT head, CTA head and neck negative. MRI negative -Evaluated by [facility] neurologist. No indication for TNKase as patient is anticoagulated with Eliquis and imaging thus far unremarkable -Was started empirically on Keppra and cannot rule out focal seizure? Will continue Keppra for now -TTE pending -UDS negative, EtOH -Hypertensive on admission, consider early press syndrome? Although not noted on MRI -Neurology consulted, will follow up recommendations Cardiac - Hypertensive urgencyresolved following sedation without treatment. Hold and further antihypertensives for the time being to allow permissive hypertension Chest painEKG unremarkable and troponins negative. CTA chest negative for AAA. Unsure of etiology at this time although expect may be related to hypertensive urgency episode? Respiratory - Mechanically ventilatedpatient was emergently intubated for airway protection. He does not appear to be overtly hypoxic or hypercapnic. Plan to remain ventilated overnight, will likely extubate if patient remains stable and continues to follow commands. CTA chest did show bilateral lower lobe pneumonia, and would question aspiration event. Continuous monitoring on end- tidal CO2 and telemetry. Follow-up morning ABG and chest x-ray. GI - N.p.o. for now RENAL/LYTES - Creatinine within normal limits. No significant electrolyte abnormalities. Monitor routine BMPs and replete electrolytes as indicated - Strict I's and O's ENDO - No history of diabetes or thyroid disease. ICU hyperglycemic protocol HEME - H&H stable, monitor routine CBC ID - Pneumonia?Expect aspiration event given CT findings. No leukocytosis or fevers, Pro-Tj and CRP within normal limits. Continue empiric Unasyn for now LINES/IV ACCESS - Peripheral IVs DVT PROPHYLAXIS - SCDs, continue when appropriate I have personally spent 45 minutes of critical care time in the direct management of this patient. This is a life/limb threatening event. This includes time spent evaluating patient, direct bedside care, chart review, placing orders, interpretation of diagnostic studies, discussion with consultants, patient, and family members, as well as other required patient management activities. This time is exclusive of all separately billable procedures, and teaching time and separate from and in addition to any other critical care service time. Thank you for allowing us to participate in the care of this patient. Please refer to my attending physician's documentation for any further recommendations. (2) Right hemiplegia: (3) Respiratory failure: (4) Pneumonia: (5) Hypertensive crisis: (6) Stroke-like symptoms: (7) Tobacco use disorder: History of Present Illness Attending Physician: Juan Carlos Torres MD History of Present Illness Patient is a 52-year-old male with past medical history of hypertension, DVT, and noncompliance with medications who presented to the emergency department with altered mental status, right-sided weakness earlier today. Patient was seen yesterday in the emergency department for hypertension and discharged with prescription for metoprolol. Earlier today he called EMS as he was having chest pain, and was found to be unresponsive when they arrived. In the emergency department he was emergently intubated for airway protection, and prior to that was noted to have significant right-sided weakness. He was noted to be significantly hypertensive with systolic blood pressure of 230. Stroke alert was called and he was taken for head CT Noncon which was negative for any acute intracranial findings, CTA head and neck were noted to have patent circulation. Patient also went for CTA chest which was negative for AAA did note consolidation bilaterally in the upper lungs complete consistent with pneumonia. Patient was evaluated by [facility] neurology who recommended MRI and loading with Keppra. MRI results negative and reviewed by [facility] neurologist. UDS and EtOH are also negative. Patient is now being admitted to ICU for further management at this time. Allergies Allergy/AdvReac Type Severity Reaction Status Date / Time acetaminophen [From Percocet] Allergy Unknown Verified 05/02/23 15:34 doxycycline Allergy Unknown Verified 05/02/23 15:34 oxycodone Allergy Unknown Verified 05/02/23 15:34 Sulfa (Sulfonamide Allergy swelling Verified 05/02/23 15:34 Antibiotics) of eyes with eye drops Home Medications Medication Instructions Recorded Confirmed Type albuterol sulfate 90 mcg/actuation 2 inh inhalation Q6H PRN shortness 08/26/22 05/02/23 Rx aerosol inhaler of breath or wheezing #8.5 grams losartan 50 mg tablet 50 mg PO BID #60 tabs 05/01/23 05/02/23 Rx metoprolol succinate 25 mg 25 mg PO DAILY #30 tabs 05/01/23 05/02/23 Rx tablet,extended release 24 hr apixaban 5 mg tablet (Eliquis) 5 mg PO AMHS 05/02/23 05/02/23 History cholecalciferol (vitamin D3) 1,250 1,250 mcg PO WK 05/02/23 05/02/23 History mcg (50,000 unit) capsule pantoprazole 40 mg tablet,delayed 40 mg PO DAILYBB 05/02/23 05/02/23 History release Patient History Medical History Pulmonary edema Hypertensive urgency SOB (shortness of breath) Rhinovirus infection GERD (gastroesophageal reflux disease) History of DVT (deep vein thrombosis) HTN (hypertension) No chronic diseases present Surgical History History of gastric bypass No significant past surgical history Social History Smoking Status: Current every day smoker Tobacco Type: Cigarettes Cigarettes Per Day: 40; Second Hand Exposure: No; Do You Dip or Chew Tobacco: No; Tobacco Cessation Education Requested by Patient: No Hx Alcohol Use: Yes Alcohol type: beer Hx Substance Use: No Preferred Language: [place] Citizen Communication Ability: Unable 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 Required: No Beliefs That Will Affect Care: None Current Living Situation: Alone Current Living Situation Comment: S/[facility] Other Information That Helps Us Care for You: No Feels Safe at Home: Yes Safety Concerns: Feels Safe At This Time Assistive Devices: None Review of Systems Review of Systems: Unobtainable due to cognitive status and Unobtainable due to endotracheal tube Physical Exam Constitutional: + obese and + mechanically ventilated Eyes: PERRL, conjunctivae normal, anicteric sclerae ENMT: external ear and nose normal, oropharynx normal Neck: trachea midline, no thyromegaly Respiratory: normal respiratory effort, lungs clear to auscultation Cardiovascular: RRR, no murmur, no edema Heart Sounds: normal S1 and normal S2; no murmur Extremities: no edema Gastrointestinal (Abdomen): normal bowel sounds, soft, nontender, no hepatosplenomegaly Musculoskeletal: no cyanosis or clubbing, extremities motor strength 5/5 Skin: no rashes, warm and dry Neurologic: Follows commands on ventilator, right upper and lower extremity weakness noted on exam. PERRLA. Cough gag corneal intact. Psychiatric: Unable to assess due to sedation Genitourinary: Indwelling Marcus catheter present, urine yellow and clear Results & Data Results & Data Vital Signs (Past 12 Hours) Vital Signs Pulse Resp BP Pulse Ox O2 Del Method O2 Flow Rate FiO2 05/02/23 19:02 65 13 102/73 99 Mechanical Vent 05/02/23 19:00 65 12 98/73 L 99 Mechanical Vent 05/02/23 18:57 71 12 99/76 L 99 Mechanical Vent 05/02/23 18:55 71 14 112/73 99 Mechanical Vent 05/02/23 18:52 71 13 107/70 99 Mechanical Vent 05/02/23 18:50 72 12 98/67 L 99 Mechanical Vent 05/02/23 18:47 70 12 98/69 L 99 Mechanical Vent 05/02/23 18:45 70 15 95/68 L 99 Mechanical Vent 05/02/23 18:42 73 12 99/62 L 99 Mechanical Vent 05/02/23 18:40 69 14 99/65 L 99 Mechanical Vent 05/02/23 18:37 67 14 91/62 L 97 Mechanical Vent 05/02/23 18:35 63 12 84/52 L 99 Mechanical Vent 05/02/23 18:32 65 12 80/56 L 99 Mechanical Vent 05/02/23 18:30 67 12 72/56 L 99 Mechanical Vent 05/02/23 18:27 71 12 73/54 L 99 Mechanical Vent 05/02/23 18:25 64 13 79/51 L 95 Mechanical Vent 05/02/23 18:23 73 13 84/54 L 97 Mechanical Vent 05/02/23 18:22 71 13 91/60 L 97 Mechanical Vent 05/02/23 18:20 69 13 96/74 L 97 Mechanical Vent 05/02/23 18:17 71 17 111/73 99 Mechanical Vent 05/02/23 18:15 70 15 111/73 99 Mechanical Vent 05/02/23 18:12 67 14 108/71 99 Mechanical Vent 05/02/23 18:10 70 15 118/75 97 Mechanical Vent 05/02/23 18:07 73 14 127/85 100 05/02/23 18:05 83 14 138/111 H 99 Mechanical Vent 05/02/23 18:02 82 14 99 Mechanical Vent 05/02/23 18:00 68 14 86/56 L 97 Mechanical Vent 05/02/23 17:58 69 14 86/52 L 97 Mechanical Vent 05/02/23 17:56 69 15 76/54 L 97 Mechanical Vent 05/02/23 17:52 67 14 88/52 L 97 Mechanical Vent 05/02/23 17:51 67 15 77/53 L 97 Mechanical Vent 05/02/23 17:50 67 15 80/54 L 97 Mechanical Vent 05/02/23 17:47 69 15 87/56 L 97 Mechanical Vent 05/02/23 17:45 73 15 106/67 98 Mechanical Vent 05/02/23 17:42 75 16 116/82 99 Mechanical Vent 05/02/23 17:40 87 12 131/85 99 Mechanical Vent 05/02/23 17:38 90 12 103/78 99 05/02/23 17:37 73 96/55 L 05/02/23 17:37 76 96/55 L 05/02/23 17:35 73 14 96/55 L 97 Mechanical Vent 05/02/23 17:32 92/55 L 05/02/23 17:32 72 15 92/55 L 97 Mechanical Vent 05/02/23 17:30 73 14 80/56 L 96 Mechanical Vent 05/02/23 17:27 76 18 90/66 L 95 Non-rebreather 05/02/23 17:26 78 17 87/67 L 98 Non-rebreather 05/02/23 17:25 80 18 106/67 98 05/02/23 17:21 91 H 18 131/85 Mechanical Vent 05/02/23 16:15 89 16 155/100 H 93 Mechanical Vent 05/02/23 16:10 86 12 167/116 H 92 Mechanical Vent 05/02/23 16:05 86 15 93 Mechanical Vent 05/02/23 16:04 88 15 142/93 H 93 Mechanical Vent 05/02/23 16:00 95 H 15 168/115 H 93 Mechanical Vent 05/02/23 15:55 99 H 15 179/123 H 93 Mechanical Vent 05/02/23 15:50 98 H 14 182/121 H 93 Mechanical Vent 05/02/23 15:45 97 H 16 178/119 H 93 Mechanical Vent 05/02/23 15:40 101 H 10 L 194/126 H 94 Mechanical Vent 05/02/23 15:39 14 94 60 05/02/23 15:35 96 H 14 201/143 H 95 Mechanical Vent 05/02/23 15:30 102 H 16 213/142 H 96 Mechanical Vent 05/02/23 15:28 98 H 14 195/125 H 98 Mechanical Vent 05/02/23 15:25 100 Mechanical Vent, Non-rebreather 15 05/02/23 14:59 74 05/02/23 14:54 77 22 238/179 H 100 Non-rebreather Coding Level of Care Code 04042 CRITICAL CARE 1ST 30-74M Diagnoses Encephalopathy acute G93.40 Right hemiplegia G81.91 Respiratory failure J96.01 Chronicity: acute Respiratory failure complication: hypoxia Pneumonia J18.9 Laterality: bilateral Lung location: lower lobe of lung Pneumonia type: due to unspecified organism Hypertensive crisis I16.9 Stroke-like symptoms R29.90 Tobacco use disorder F17.200 (3) Respiratory failure Chronicity: acute Respiratory failure complication: hypoxia Qualified Code(s): J96.01 - Acute respiratory failure with hypoxia (4) Pneumonia Laterality: bilateral Lung location: lower lobe of lung Pneumonia type: due to unspecified organism Qualified Code(s): J18.9 - Pneumonia, unspecified organism
[2023-05-02] MEDS: AMPICILLIN/SULBACTAM SOD 3,000 MG in SODIUM CHLOR 0.9% MINI-B 100 ML IV SCH (21:18)
[2023-05-02 21:52] LABS: iSTAT Art Bld Gas pCO2 Correct 43 mmHg (35-46); iSTAT Arterial Blood Gas HCO3 24 meg/L (19-24); iSTAT Arterial Blood Gas pCO2 44 mmHg (35-46); iSTAT Arterial Blood Gas pH 7.34 (7.35-7.45); iSTAT Arterial Blood Gas pO2 203 mmHg (80-95); iSTAT Arterial Blood Gas pO2 C 200; iSTAT Carbon Dioxide 25 mmol/L (24-31); iSTAT FiO2 60 %; iSTAT Hematocrit 44 % (42-52); iSTAT Potassium 4.1 mmol/L (3.3-5.0); iSTAT Site R Brachial; iSTAT Sodium 140 mmol/L (135-144)
[2023-05-03 04:50] LABS: Hematocrit (blood only) 44.7 % (42.0-52.0); Hemoglobin 14.4 g/dl (14.0-18.0); Mean Corpuscular Hemoglobin 29.4 pg (25.0-34.0); Mean Corpuscular Hgb Conc 32.2 g/dL (32.0-36.0); Mean Corpuscular Volume 91.2 fL (80.0-100.0); Mean Platelet Volume 10.8 fL (9.4-12.4); Platelet Count 233 K/uL (130-400); RDW Coefficient of Variation 13.6 % (11.5-14.5); RDW Standard Deviation 46.1 fL (36.4-46.3); White Blood Count 11.65 K/ul (4.8-10.8)
[2023-05-03 05:11] LABS: Albumin Globulin Ratio 1.2 (0.9-2); Albumin Level 3.7 gm/dl (3.4-5.0); BUN Creatinine Ratio 16.8 (10-20); Bilirubin,Total 0.7 mg/dl (0.2-1.0); Calcium 8.2 mg/dl (8.6-10.3); Creatinine Clr Calc Pharmacy 120.9 ml/min; Est GFR (African American) 90.7 ml/min; Est GFR (Non-African American) 78.3 ml/min; Globulin 3.1 gm/dl (2.5-4.0); Magnesium 1.9 mg/dl (1.7-2.4); Phosphorus 5.2 mg/dl (2.5-4.9); Potassium 3.8 mmol/L (3.5-5.1); Total Protein 6.8 gm/dl (6.0-8.3)
[2023-05-03 06:04] LABS: iSTAT Allen Test Pass; iSTAT Art Bld Gas pCO2 Correct 43 mmHg (35-46); iSTAT Art Bld Gas pH Corrected 7.327 (7.35-7.45); iSTAT Arterial Blood Gas HCO3 22 meg/L (19-24); iSTAT Arterial Blood Gas pCO2 41 mmHg (35-46); iSTAT Arterial Blood Gas pH 7.34 (7.35-7.45); iSTAT Arterial Blood Gas pO2 89 mmHg (80-95); iSTAT Arterial Blood Gas pO2 C 95; iSTAT Carbon Dioxide 24 mmol/L (24-31); iSTAT FiO2 40 %; iSTAT Hematocrit 41 % (42-52); iSTAT Hemoglobin 13.9 g/dl (14.0-18.0); iSTAT Potassium 3.6 mmol/L (3.3-5.0); iSTAT Site L Radial; iSTAT Sodium 135 mmol/L (135-144)
--- NOTE | 2023-05-03 07:33 | Critical Care Progress Note ---
Date of Service May 03, 2023 Assessment & Plan (1) Encephalopathy acute: (2) Respiratory failure: (3) Pneumonia: (4) Hypertensive crisis: (5) Stroke-like symptoms: (6) Hypertension: (7) Tobacco use disorder: (8) SOB (shortness of breath): Plan Reason Critically Ill: 52-year-old male with past medical history of HTN, DVT (on Eliquis) presents to the ICU following episode of altered mental status and right-sided weakness where he was noted to have chest pain and hypertension. Emergently intubated for airway protection and mechanically ventilated. Neuro - AMS/R weakness Patient initially appeared obtunded on arrival to the emergency department and noted to have right-sided weakness -CT head, CTA head and neck negative. MRI 05/02/2023 negative -Evaluated by [facility] neurologist. No indication for TNKase as patient is anticoagulated with Eliquis and imaging thus far unremarkable -Was started empirically on Keppra and cannot rule out focal seizure? Will continue Keppra for now -TTE pending -UDS negative, EtOH -Hypertensive on admission, consider early press syndrome? MRI did not show any signs of infarct -Neurology consulted Cardiac - Hypertensive urgency resolved following sedation without treatment. Hold and further antihypertensives for the time being to allow permissive hypertension Chest pain EKG unremarkable and troponins negative. CTA chest negative for AAA. Respiratory - -- Mechanically ventilated For airway protection Continue with ventilatory support Keep RASS -1 Daily sedation holidays and SBT's CT chest 05/02/2023 personally reviewed: Patchy opacities bilateral lower lobes more on the left side No significant mediastinal lymphadenopathy GI - N.p.o. for now RENAL/LYTES - Creatinine within normal limits. No significant electrolyte abnormalities. Monitor routine BMPs and replete electrolytes as indicated - Strict I's and O's ENDO - No history of diabetes or thyroid disease. ICU hyperglycemic protocol HEME - H&H stable, monitor routine CBC ID - -- Multilobar pneumonia Likely aspiration event given CT findings. No leukocytosis or fevers, Pro-Tj and CRP within normal limits. Continue empiric Unasyn for now Patient--Prophylaxis VTE: On apixaban at home GI: None Lines: Peripheral Diet: N.p.o. Plan: In/out: +1 L, urine output 740 mL Potassium and magnesium being replaced On physical exam patient still seems to have weakness in the right upper and right lower extremity. He is actively wheezing. I will start him on Brovana and budesonide. I again discussed the MRI with radiology and it was negative. I spoke with patient's partner as well to see if he had any injury in the past for the weakness of the right upper and right lower extremity, she states she does not recall any injury. Consideration of repeat MRI of the brain will be thought of later today after discussing it with neurology here I have personally spent 43 minutes of critical care time in the direct management of this patient. This is a life/limb threatening event. This includes time spent evaluating patient, direct bedside care, chart review, placing orders, interpretation of diagnostic studies, discussion with consultants, patient, and family members, as well as other required patient management activities. This time is exclusive of all separately billable procedures, and teaching time and separate from and in addition to any other critical care service time. Please note the above document was generated using voice recognition software. It may contain grammatical, syntax or spelling errors. Admission and Anticipated Discharge Date Admission Date: May 02, 2023 Subjective Patient seen and examined at bedside. No acute distress, no adverse events overnight He was off sedation when I saw him He was answering questions appropriately. Moving extremities on command. Denied any headache, did complain of some chest tightness. Review of Systems 2 Review of Systems: All systems reviewed & are unremarkable except as noted in Subjective Physical Exam 2 Physical Exam: Constitutional: No acute distress HEENT: EOMI, PERRLA Respiratory system: Decreased air entry bilaterally, no rhonchi, mild crackles bilateral lower lobes, diffuse expiratory wheeze bilaterally CVS: S1-S2 positive, no murmurs or gallops Abdomen: Soft, nontender, nondistended, positive bowel sounds x4 Extremities: +2 pulses bilaterally radialis/ dorsalis pedis, no cyanosis, no edema Neuro: RASS -1, strength right upper 3 out of 5, right lower 3 out of 5, left upper and left lower 5 out of 5 Psych: Sedated G/U: Positive Marcus Skin: no rashes, warm and dry Lymphatic: no cervical or axillary lymphadenopathy Results & Data Results & Data Vital Signs (Past 12 Hours) Vital Signs Temp Pulse Pulse Resp BP BP Pulse Ox 05/03/23 06:11 14 98 05/03/23 06:00 53 L 14 94 05/03/23 06:00 36.4 C L 05/03/23 05:46 58 L 14 93 05/03/23 05:31 158/108 H 05/03/23 05:31 79 18 97 05/03/23 05:00 138/87 05/03/23 05:00 67 17 99 05/03/23 04:30 109/79 05/03/23 04:30 63 18 98 05/03/23 04:00 121/81 05/03/23 04:00 61 15 98 05/03/23 04:00 36.5 C 05/03/23 03:46 05/03/23 03:30 126/90 05/03/23 03:30 64 19 99 05/03/23 03:18 67 11 L 98 05/03/23 03:18 127/95 05/03/23 03:00 140/100 05/03/23 03:00 64 13 99 05/03/23 02:30 58 L 17 98 05/03/23 02:30 134/91 05/03/23 02:00 36.4 C L 05/03/23 02:00 60 19 98 05/03/23 02:00 128/87 05/03/23 01:30 109/72 05/03/23 01:30 63 12 98 05/03/23 01:00 115/80 05/03/23 01:00 62 13 98 05/03/23 00:30 104/74 05/03/23 00:30 65 18 98 05/03/23 00:00 36 C L 05/03/23 00:00 59 L 10 L 98 05/03/23 00:00 108/77 05/02/23 23:47 05/02/23 23:47 66 05/02/23 23:30 63 12 98 05/02/23 23:30 113/86 05/02/23 23:03 67 15 99 05/02/23 23:00 120/86 05/02/23 23:00 67 15 98 05/02/23 22:37 112/73 05/02/23 22:37 63 15 100 05/02/23 22:00 36.5 C 05/02/23 22:00 63 21 99 05/02/23 22:00 108/69 05/02/23 21:28 05/02/23 21:28 36.5 C 61 14 117/82 99 05/02/23 21:01 68 12 99 05/02/23 21:01 117/82 05/02/23 21:00 67 10 L 99 05/02/23 20:05 83/58 L 05/02/23 20:05 60 10 L 05/02/23 20:01 62 14 05/02/23 20:00 05/02/23 20:00 05/02/23 19:30 19 97 O2 Del Method FiO2 05/03/23 06:11 40 05/03/23 06:00 05/03/23 06:00 05/03/23 05:46 05/03/23 05:31 05/03/23 05:31 05/03/23 05:00 05/03/23 05:00 05/03/23 04:30 05/03/23 04:30 05/03/23 04:00 05/03/23 04:00 05/03/23 04:00 05/03/23 03:46 40 05/03/23 03:30 05/03/23 03:30 05/03/23 03:18 05/03/23 03:18 05/03/23 03:00 05/03/23 03:00 05/03/23 02:30 05/03/23 02:30 05/03/23 02:00 05/03/23 02:00 05/03/23 02:00 05/03/23 01:30 05/03/23 01:30 05/03/23 01:00 05/03/23 01:00 05/03/23 00:30 05/03/23 00:30 05/03/23 00:00 05/03/23 00:00 05/03/23 00:00 05/02/23 23:47 40 05/02/23 23:47 05/02/23 23:30 05/02/23 23:30 05/02/23 23:03 40 05/02/23 23:00 05/02/23 23:00 40 05/02/23 22:37 05/02/23 22:37 05/02/23 22:00 05/02/23 22:00 40 05/02/23 22:00 05/02/23 21:28 Mechanical Vent 60 05/02/23 21:28 Mechanical Vent 60 05/02/23 21:01 05/02/23 21:01 05/02/23 21:00 40 05/02/23 20:05 05/02/23 20:05 05/02/23 20:01 05/02/23 20:00 Mechanical Vent 05/02/23 20:00 60 05/02/23 19:30 60 Laboratory Results 05/03/23 03:51 05/03/23 03:46 Coding Level of Care Code 47879 CRITICAL CARE 1ST 30-74M Diagnoses Encephalopathy acute G93.40 Respiratory failure J96.01 Chronicity: acute Respiratory failure complication: hypoxia Pneumonia J18.9 Laterality: bilateral Lung location: lower lobe of lung Pneumonia type: due to unspecified organism Hypertensive crisis I16.9 Stroke-like symptoms R29.90 Hypertension I10 Hypertension type: unspecified Tobacco use disorder F17.200 SOB (shortness of breath) R06.02 Time Spent (min) 43 (2) Respiratory failure Chronicity: acute Respiratory failure complication: hypoxia Qualified Code(s): J96.01 - Acute respiratory failure with hypoxia (3) Pneumonia Laterality: bilateral Lung location: lower lobe of lung Pneumonia type: due to unspecified organism Qualified Code(s): J18.9 - Pneumonia, unspecified organism (6) Hypertension Hypertension type: unspecified Qualified Code(s): I10 - Essential (primary) hypertension
[2023-05-03] MEDS: levETIRAcetam IV 500 MG in SODIUM CHLOR 0.9% MINI-B 100 ML IV SCH (08:32)
[2023-05-03] MEDS: POTASSIUM CHLORIDE / WTR 10 MEQ/100 ML PLCT IV SCH (08:33)
[2023-05-03] MEDS: MAGNESIUM SULFATE / D5W 1 GM/100 ML BAG IV SCH (08:33)
[2023-05-03] MEDS: PLASMA-LYTE A 1,000 ML IV SCH (10:13)
--- NOTE | 2023-05-03 10:59 | Neurology Consultation ---
Date of Consultation May 03, 2023 Assessment & Plan (1) Right hemiplegia: Patient presents found down, unexplained altered mental status, respiratory failure and persistent R hemiplegia. I am concered primarily for a cervical spine process as the MRI is negative. This is therefore not consistent with PRES which is a radiologic diagnosis. As he was found down the fall was unwitnessed and hypertension followed by hypotension post-intubation can be seen with high cervical cord injury, as is respiratory failure that is otherwise unexplained without significant underlying pulmonary disease. Eliquis further complicates the differential which includes epidural hematoma for example of the cervical spine. Recommend STAT MRI C-spine with spine immobilization in the interim. No utility in repeating the MRI of the brain, this is not stroke. Would hold eliquis until C-spine MRI is completed. If MRI C-spine is unremarkable, a seizure due to hypertension with post-ictal todds paralysis is possible but would expect him to slowly improve without intervention. Can check a spot EEG regardless. -- STAT MRI C-spine -- Spine precautions in the interim -- Hold eliquis -- EEG is reasonable Telehealth Consultation Telehealth Information Telehealth Information: I performed this visit using a real-time telehealth connection between my location and the patients location ([facility]). After co nnecting through interactive tele-video, patient was identified by name and date of and/or wristband check.Patient (or authorized healthcare collections representative) was informed that this was a telemedicine visit and it was being conducted confidentially over secure lines. My office door was closed and no one else was present in the room with me.Patient (or authorized healthcare collections representative) provided consent to proceed with the visit, expressed an understanding of privacy and security of the telemedicine visit, and gave permission to have a hospital collections representative in the room in order to assist with the visit and to conduct portions of the visit, as needed. I informed the patient (or authorized healthcare collections representative) that I reviewed their record and presented the opportunity for them to ask any questions regarding the visit today. The patient agreed to participate. History of Present Illness Reason for Consultation: R sided weakness Requesting Physician: Dr. Mcgrath Attending Physician: Lydia Mcgrath MD History of Present Illness Jacek Walsh is a 52 yo M presenting with after being found down at home. He was not able to answer questions or respond to EMS and was intubated on arrival for respiratory failure. He was noted to be significantly hypertensive, then became hypotensive post-intubation. Since then nursing has noted persistent RUE and RLE weakness without any cause found on the MRI of the brain. He was seen by stroke neurology on arrival and was not given thrombolytic as he is on eliquis. The patient remains intubated but is able to follow commands today and is not sedated. No seizure activity has otherwise been witnessed by staff. Allergies Allergy/AdvReac Type Severity Reaction Status Date / Time acetaminophen [From Percocet] Allergy Unknown Verified 05/02/23 15:34 doxycycline Allergy Unknown Verified 05/02/23 15:34 oxycodone Allergy Unknown Verified 05/02/23 15:34 Sulfa (Sulfonamide Allergy swelling Verified 05/02/23 15:34 Antibiotics) of eyes with eye drops Home Medications Medication Instructions Recorded Confirmed Type albuterol sulfate 90 mcg/actuation 2 inh inhalation Q6H PRN shortness 08/26/22 05/02/23 Rx aerosol inhaler of breath or wheezing #8.5 grams losartan 50 mg tablet 50 mg PO BID #60 tabs 05/01/23 05/02/23 Rx metoprolol succinate 25 mg 25 mg PO DAILY #30 tabs 05/01/23 05/02/23 Rx tablet,extended release 24 hr apixaban 5 mg tablet (Eliquis) 5 mg PO AMHS 05/02/23 05/02/23 History cholecalciferol (vitamin D3) 1,250 1,250 mcg PO WK 05/02/23 05/02/23 History mcg (50,000 unit) capsule pantoprazole 40 mg tablet,delayed 40 mg PO DAILYBB 05/02/23 05/02/23 History release Patient History Medical History Pulmonary edema Hypertensive urgency SOB (shortness of breath) Rhinovirus infection GERD (gastroesophageal reflux disease) History of DVT (deep vein thrombosis) HTN (hypertension) No chronic diseases present Surgical History History of gastric bypass No significant past surgical history Social History Smoking Status: Current every day smoker Tobacco Type: Cigarettes Cigarettes Per Day: 40; Second Hand Exposure: No; Do You Dip or Chew Tobacco: No; Tobacco Cessation Education Requested by Patient: No Hx Alcohol Use: Yes Alcohol type: beer Hx Substance Use: No Preferred Language: Indonesian Communication Ability: Unable Non Food Receiving Clerk Required: No Beliefs That Will Affect Care: None Current Living Situation: Alone Current Living Situation Comment: S/[facility] Other Information That Helps Us Care for You: No Feels Safe at Home: Yes Safety Concerns: Feels Safe At This Time Assistive Devices: None Review of Systems Unable to obtain, intubated Physical Exam Awakens to voice, able to follow commands bilaterally. Mild dependent edema and increased weakness noted in the RUE and RLE though does have distal movement in both extremities. No obvious facial asymmetry. Results & Data Vital Signs (Past 12 Hours) Vital Signs Temp Pulse Resp BP Pulse Ox FiO2 05/03/23 08:15 58 L 25 H 100 05/03/23 08:00 60 17 99 05/03/23 08:00 127/84 05/03/23 08:00 40 05/03/23 07:45 62 13 99 05/03/23 07:39 57 L 14 98 40 05/03/23 07:36 36.5 C 05/03/23 07:30 59 L 12 98 05/03/23 07:30 112/80 05/03/23 07:15 61 14 98 05/03/23 07:00 105/69 05/03/23 07:00 54 L 17 97 05/03/23 06:50 101/69 05/03/23 06:50 53 L 11 L 96 05/03/23 06:45 54 L 16 96 05/03/23 06:30 81/52 L 05/03/23 06:30 53 L 9 L 95 05/03/23 06:25 81/49 L 05/03/23 06:25 53 L 15 95 05/03/23 06:15 76/47 L 05/03/23 06:15 55 L 16 94 05/03/23 06:11 54 L 14 95 05/03/23 06:11 75/47 L 05/03/23 06:11 14 98 40 05/03/23 06:00 53 L 14 94 05/03/23 06:00 36.4 C L 05/03/23 05:46 58 L 14 93 05/03/23 05:31 158/108 H 05/03/23 05:31 79 18 97 05/03/23 05:00 138/87 05/03/23 05:00 67 17 99 05/03/23 04:30 109/79 05/03/23 04:30 63 18 98 05/03/23 04:00 121/81 05/03/23 04:00 61 15 98 05/03/23 04:00 36.5 C 05/03/23 03:46 40 05/03/23 03:30 126/90 05/03/23 03:30 64 19 99 05/03/23 03:18 67 11 L 98 05/03/23 03:18 127/95 05/03/23 03:00 140/100 05/03/23 03:00 64 13 99 05/03/23 02:30 58 L 17 98 05/03/23 02:30 134/91 05/03/23 02:00 36.4 C L 05/03/23 02:00 60 19 98 05/03/23 02:00 128/87 05/03/23 01:30 109/72 05/03/23 01:30 63 12 98 05/03/23 01:00 115/80 05/03/23 01:00 62 13 98 05/03/23 00:30 104/74 05/03/23 00:30 65 18 98 05/03/23 00:00 36 C L 05/03/23 00:00 59 L 10 L 98 05/03/23 00:00 108/77 05/02/23 23:47 40 05/02/23 23:47 66 05/02/23 23:30 63 12 98 05/02/23 23:30 113/86 05/02/23 23:03 67 15 99 40 05/02/23 23:00 120/86 05/02/23 23:00 67 15 98 40 Laboratory Results Abnormal lab results 05/02/23 05/02/23 05/02/23 Range/Units 14:52 15:35 20:42 WBC (4.8-10.8) K/ul POC Hgb (14.0-18.0) g/dl POC Hct (42-52) % Neut # (Auto) 7.26 H (1.40-6.50) K/uL [place] # (Auto) 0.62 H (0.11-0.59) K/uL POC pH 7.34 L (7.35-7.45) POC pO2 203 H (80-95) mmHg ABG pH (Temp Correct) (7.35-7.45) POC ABG O2 Sat 100.0 H (90-95) % Glucose 102 H (70-99(Fasting)) mg/dl Calcium (8.6-10.3) mg/dl Phosphorus (2.5-4.9) mg/dl Urine Protein 3+ H (Negative) Urine Blood Trace H (Negative) 05/03/23 05/03/23 05/03/23 Range/Units 03:46 03:51 04:53 WBC 11.65 H (4.8-10.8) K/ul POC Hgb 13.9 L (14.0-18.0) g/dl POC Hct 41 L (42-52) % Neut # (Auto) (1.40-6.50) K/uL [place] # (Auto) (0.11-0.59) K/uL POC pH 7.34 L (7.35-7.45) POC pO2 (80-95) mmHg ABG pH (Temp Correct) 7.327 L (7.35-7.45) POC ABG O2 Sat 96.0 H (90-95) % Glucose (70-99(Fasting)) mg/dl Calcium 8.2 L (8.6-10.3) mg/dl Phosphorus 5.2 H (2.5-4.9) mg/dl Urine Protein (Negative) Urine Blood (Negative) Diagnostic Findings MRI brain - Unremarkable CTA head and neck - Notable calcific disc herniations in the C-spine
--- NOTE | 2023-05-03 13:39 | Electrocardiogram Report ---
Test Reason : Blood Pressure : / mmHG Vent. Rate : 100 BPM Atrial Rate : 100 BPM P-R Int : 194 ms QRS Dur : 112 ms QT Int : 368 ms P-R-T Axes : 070 025 064 degrees QTc Int : 474 ms Normal sinus rhythm Normal ECG When compared with ECG of 01-MAY-2023 20:22, No significant change was found Confirmed by Solo Sandy ([id number]) on 05/03/2023 1:39:19 PM Referred By: REFERRED SELF Confirmed By:Solo Sandy
[2023-05-03] MEDS ORDERED: CARBOHYDRATES FOR HYPOGLYCEMIA PO PRN (13:48)
[2023-05-03] MEDS ORDERED: GLUCOSE 10 TAB/TUBE PO PRN (13:48)
[2023-05-03] MEDS ORDERED: GLUCOSE 40% GEL 15 GM TUBE PO PRN (13:48)
[2023-05-03] MEDS ORDERED: GLUCAGON FOR INJ 1 MG VIAL SQ PRN (13:48)
[2023-05-03] MEDS: DEXTROSE 50% 50 ML SYRINGE IV PRN (13:53)
[2023-05-03] MEDS: DEXTROSE 50% 50 ML SYRINGE IV ONE (13:59)
[2023-05-03] MEDS: D5W AND NSS 1,000 ML IV SCH (14:23)
--- NOTE | 2023-05-03 14:41 | Hospitalist Progress Note ---
Date of Service May 03, 2023 Assessment & Plan (1) Stroke-like symptoms: (2) History of DVT (deep vein thrombosis): (3) Hypertensive crisis: (4) Pneumonia: (5) Noncompliance: Plan 52-year-old male with PMH of DVT x 2 [on Eliquis], HTN, GERD, medication noncompliance [?? Insurance issues in the past] was brought to the ED unresponsive. Per family, his blood pressure has been high over the past few days [employer] [190/100]. His losartan was was increased and he was started on metoprolol for his blood pressure management recently. Apparently he was working in his back shed in the afternoon of the day of arrival and called 911 on his own. Patient's girlfriend notes that he has been compliant with medications in the past few days leading up to a week prior to arrival. When EMS arrived, he was found unresponsive and not able to answer questions or commands. There was no note of fever or chills or cough in the past week prior to arrival per patient's girlfriend. He was given Narcan en route via EMS without response. Right hemiplegia Strokelike symptoms Unresponsive episode Patient was brought in by EMS, patient was found unresponsive at his home. Narcan administered en route, no response. At presentationurine drug screen negative. MRSA screen negative. UA negative for UTI. Procalcitonin negative. Renal electrolytes fairly WNL. CBC fairly WNL. Presentation imagings: Chest CT: Consolidation in the bilateral lower lungs and bronchial wall thickening compatible with pneumonia. CXR negative for acute cardiopulmonary disease Head CT: Negative for ICH, stenosis, dissection, aneurysm or AVM Head neck CTA negative Brain MRI negative for acute ischemia or infarction EEG - per neuro, reasonable. Presentation troponin x 2 negative. EKG with no acute ST or T changes. Echo this admission with EF of 55 to 60%, LV wall motion is normal. Last ECHO 08/2022; EF 65 to 70% no significant valve disease and normal LV wall motion. At presentation, telehealth with [facility], concern for seizure, loaded with Keppra. Discussed with neurology, plan for MRI C-spine. Spine progression in the interim. Hold Eliquis. Follow-up MRI C-spine. Patient intubated and being managed in ICU. c/w keppra Hypertensive crisis: BP has been over 190s/110s for past few days prior to arrival for patient's girlfriend. Recently losartan was increased to 50 mg twice daily and metoprolol had been added. At ED, nicardipine gtt. was restarted but weaned off as patient became hypotensive with sedation needed for intubation. Currently blood pressure under control. Pneumonia Pneumonia noted in CTA chest, possible aspiration with unconscious event, patient intubated at presentation for airway protection. Continue with Unasyn 05/01. Follow admitting blood culture. History of medical noncompliance: Historically noncompliant with antihypertensive medication anticoagulation medication due to insurance issues. Patient's girlfriend states that he has been compliant recently. PCP: Dr. Graff Code Status: Full Code VTE Prophyalxis: On Eliquis, unsure compliance; add TEDs/SCDs for now. Hold eliquis. Admission and Anticipated Discharge Date Admission Date: May 02, 2023 Subjective Patient was seen and examined at bedside. Patient was lying in bed, intubated, undergoing spontaneous trial, not in any acute distress, opens eyes to name. Follows simple commands. Denies discomfort. Can be seen moving all extremities but right-sided extremities appear weaker compared to left. Physical Exam Physical Exam: GENERAL: Intubated, spontaneous trial, NAD. Opens eyes to name, follows simple command. HEENT: No pallor, no icterus. Pupils equal, round and reactive to light. Oral mucosa dry. NECK: No JVD, no neck masses. HEART: S1 and S2 heard. Regular rate and rhythm. No murmur, no gallop. RESPIRATORY SYSTEM: Normal AP diameter. No accessory muscle use. No wheezing, +bl crackles ABDOMEN: Soft, bowel sounds present, nontender, no distention. CENTRAL NERVOUS SYSTEM: moves extremities, Rt appears weaker. EXTREMITIES: No edema, no erythema seen. Results & Data Results & Data Vital Signs (Past 12 Hours) Vital Signs Temp Pulse Resp BP Pulse Ox O2 Del Method FiO2 05/03/23 13:30 137/95 05/03/23 13:30 62 10 L 100 05/03/23 13:15 61 10 L 100 05/03/23 13:00 139/89 05/03/23 13:00 68 11 L 98 05/03/23 12:45 58 L 10 L 99 05/03/23 12:30 129/86 05/03/23 12:30 60 11 L 98 05/03/23 12:15 59 L 11 L 99 05/03/23 12:00 132/93 05/03/23 12:00 59 L 11 L 99 05/03/23 12:00 40 05/03/23 11:45 59 L 12 100 05/03/23 11:36 58 L 14 98 40 05/03/23 11:30 136/91 05/03/23 11:30 59 L 13 98 05/03/23 11:15 75 15 99 05/03/23 11:00 37.5 C 05/03/23 11:00 141/92 H 05/03/23 11:00 64 10 L 100 05/03/23 10:45 59 L 11 L 99 05/03/23 10:30 132/96 05/03/23 10:30 59 L 10 L 99 05/03/23 10:15 57 L 10 L 100 05/03/23 10:00 135/88 05/03/23 10:00 56 L 10 L 100 05/03/23 09:45 58 L 10 L 100 05/03/23 09:30 140/94 05/03/23 09:30 60 10 L 99 05/03/23 09:15 66 10 L 99 05/03/23 09:00 140/93 05/03/23 09:00 61 11 L 99 05/03/23 09:00 Mechanical Vent 05/03/23 08:45 62 10 L 100 05/03/23 08:30 58 L 10 L 100 05/03/23 08:30 132/91 05/03/23 08:15 58 L 25 H 100 05/03/23 08:00 60 17 99 05/03/23 08:00 127/84 05/03/23 08:00 40 05/03/23 07:45 62 13 99 05/03/23 07:39 57 L 14 98 40 05/03/23 07:36 36.5 C 05/03/23 07:30 59 L 12 98 05/03/23 07:30 112/80 05/03/23 07:15 61 14 98 05/03/23 07:00 105/69 05/03/23 07:00 54 L 17 97 05/03/23 06:50 101/69 05/03/23 06:50 53 L 11 L 96 05/03/23 06:48 55 L 05/03/23 06:45 54 L 16 96 05/03/23 06:30 81/52 L 05/03/23 06:30 53 L 9 L 95 05/03/23 06:25 81/49 L 05/03/23 06:25 53 L 15 95 05/03/23 06:15 76/47 L 05/03/23 06:15 55 L 16 94 05/03/23 06:11 54 L 14 95 05/03/23 06:11 75/47 L 05/03/23 06:11 14 98 40 05/03/23 06:00 53 L 14 94 05/03/23 06:00 36.4 C L 05/03/23 05:46 58 L 14 93 05/03/23 05:31 158/108 H 05/03/23 05:31 79 18 97 05/03/23 05:00 138/87 05/03/23 05:00 67 17 99 05/03/23 04:30 109/79 05/03/23 04:30 63 18 98 05/03/23 04:00 121/81 05/03/23 04:00 61 15 98 05/03/23 04:00 36.5 C 05/03/23 03:46 40 05/03/23 03:30 126/90 05/03/23 03:30 64 19 99 05/03/23 03:18 67 11 L 98 05/03/23 03:18 127/95 05/03/23 03:00 140/100 05/03/23 03:00 64 13 99 (4) Pneumonia Laterality: bilateral Lung location: lower lobe of lung Pneumonia type: due to unspecified organism Qualified Code(s): J18.9 - Pneumonia, unspecified organism
[2023-05-03] MEDS: GADOBUTROL 65ML VIAL IV ONE (18:42)
[2023-05-03] MEDS: FORMOTEROL 20 MCG/2 ML VIAL INH SCH (19:28)
[2023-05-03] MEDS: BUDESONIDE 0.25 MG/2 ML VIAL (PULMICORT) NEB SCH (19:28)
--- NOTE | 2023-05-03 19:58 | Magnetic Resonance Report ---
Exam(s): MRI C SPINE IV Amt: 14.3cc gadavist EXAM: MR Cervical Spine With Intravenous Contrast CLINICAL HISTORY: Reason for exam: ro high cervical lesion/contusion. fall.. TECHNIQUE: Magnetic resonance images of the cervical spine with intravenous contrast in multiple planes. CONTRAST: Patient received 14.3cc gadavist of IV contrast COMPARISON: CTA neck 05/01/2024 FINDINGS: Reversal of the normal cervical lordosis at C5-6. Multilevel disc desiccation and degenerative changes most pronounced at C5-6 and C6-7. Normal cord signal. No epidural collection. No fracture. No suspicious lesion. No discitis osteomyelitis. C2-3: No spinal canal or foraminal stenosis. C3-4: No spinal canal stenosis. Moderate foraminal stenosis on the left. None on the right. C4-5: No spinal canal stenosis. Mild left and no significant right foraminal stenosis. C5-6: Disc osteophyte eccentric to the right which abuts the ventral cord. Mild canal stenosis. Mild bilateral foraminal stenosis. C6-7: Disc osteophyte eccentric to the left which abuts the ventral cord. Mild canal stenosis. Mild left and no significant right foraminal stenosis. C7-T1: No canal stenosis. Mild foraminal stenosis on the right. None on the left. IMPRESSION: 1. No acute abnormality. 2. Degenerative spondylosis. Electronically signed by: Arthur Amaya MD 05/03/23 19:57 PM
[2023-05-04 04:54] LABS: Hematocrit (blood only) 43.3 % (42.0-52.0); Mean Corpuscular Hgb Conc 32.3 g/dL (32.0-36.0); Mean Corpuscular Volume 92.7 fL (80.0-100.0); Mean Platelet Volume 10.7 fL (9.4-12.4); Platelet Count 187 K/uL (130-400); RDW Coefficient of Variation 13.6 % (11.5-14.5); RDW Standard Deviation 46.5 fL (36.4-46.3); Red Blood Count 4.67 M/uL (4.70-6.10); White Blood Count 9.31 K/ul (4.8-10.8)
[2023-05-04 05:12] LABS: BUN Creatinine Ratio 13.9 (10-20); Calcium 8.2 mg/dl (8.6-10.3); Creatinine Clr Calc Pharmacy 116.7 ml/min; Est GFR (African American) 89.7 ml/min; Est GFR (Non-African American) 77.4 ml/min; Magnesium 2.1 mg/dl (1.7-2.4); Phosphorus 3.4 mg/dl (2.5-4.9); Potassium 4.2 mmol/L (3.5-5.1)
--- NOTE | 2023-05-04 07:17 | Critical Care Progress Note ---
Date of Service May 04, 2023 Assessment & Plan (1) Encephalopathy acute: (2) Respiratory failure: (3) Pneumonia: (4) Hypertensive crisis: (5) Stroke-like symptoms: (6) Hypertension: (7) Tobacco use disorder: (8) SOB (shortness of breath): Plan Reason Critically Ill: 52-year-old male with past medical history of HTN, DVT (on Eliquis) presents to the ICU following episode of altered mental status and right-sided weakness where he was noted to have chest pain and hypertension. Emergently intubated for airway protection and mechanically ventilated. Neuro - AMS/R weakness Patient initially appeared obtunded on arrival to the emergency department and noted to have right-sided weakness -CT head, CTA head and neck negative. MRI 05/02/2023 negative, cervical MRI 05/03/2023 showed No acute abnormality, Degenerative spondylosis. -Evaluated by [facility] neurologist. No indication for TNKase as patient is anticoagulated with Eliquis and imaging thus far unremarkable -Was started empirically on Keppra and cannot rule out focal seizure? Will continue Keppra for now -TTE pending -UDS negative, EtOH -Hypertensive on admission, consider early press syndrome? MRI did not show any signs of infarct -Neurology consulted Cardiac - Hypertensive urgency Sedation helps with that Once the patient will be off sedation he will need blood pressure medications Chest pain EKG unremarkable and troponins negative. CTA chest negative for AAA. Respiratory - -- Mechanically ventilated For airway protection Continue with ventilatory support Keep RASS -1 Daily sedation holidays and SBT's CT chest 05/02/2023 personally reviewed: Patchy opacities bilateral lower lobes more on the left side No significant mediastinal lymphadenopathy GI - N.p.o. for now RENAL/LYTES - Creatinine within normal limits. No significant electrolyte abnormalities. Monitor routine BMPs and replete electrolytes as indicated - Strict I's and O's ENDO - No history of diabetes or thyroid disease. ICU hyperglycemic protocol HEME - H&H stable, monitor routine CBC ID - -- Multilobar pneumonia Likely aspiration event given CT findings. No leukocytosis or fevers, Pro-Tj and CRP within normal limits. Continue empiric Unasyn for now Patient--Prophylaxis VTE: On apixaban at home GI: None Lines: Peripheral Diet: N.p.o. Plan: In/out: +1.1 L, urine output 1300 mL Resume Eliquis continue with DuoNebs.Patient is still wheezing a little bit, I will give her a dose of Solu-Medrol. Still has right-sided weakness. No clear etiology for it. Might need an EMG Trial of extubation today Will try to get neurology input whether they still want to continue with Keppra. Given the blood pressure being on the higher side since turning of the sedation, I will start the patient on hydralazine 20 mg every 8 hours, and add metoprolol once the heart rate increases. I have personally spent 37 minutes of critical care time in the direct management of this patient. This is a life/limb threatening event. This includes time spent evaluating patient, direct bedside care, chart review, placing orders, interpretation of diagnostic studies, discussion with consultants, patient, and family members, as well as other required patient management activities. This time is exclusive of all separately billable procedures, and teaching time and separate from and in addition to any other critical care service time. Please note the above document was generated using voice recognition software. It may contain grammatical, syntax or spelling errors. Admission and Anticipated Discharge Date Admission Date: May 02, 2023 Subjective Patient seen and examined at bedside. No acute distress, no adverse events overnight He was on propofol 20 at the time of examination with blood pressure in the 150s. He was RASS -1, breathing with the weight Denied any headache, no chest pain, no abdominal pain Review of Systems 2 Review of Systems: All systems reviewed & are unremarkable except as noted in Subjective Physical Exam 2 Physical Exam: Constitutional: No acute distress HEENT: EOMI, PERRLA Respiratory system: Decreased air entry bilaterally, no rhonchi, mild crackles bilateral lower lobes, diffuse expiratory wheeze bilaterally CVS: S1-S2 positive, no murmurs or gallops Abdomen: Soft, nontender, nondistended, positive bowel sounds x4 Extremities: +2 pulses bilaterally radialis/ dorsalis pedis, no cyanosis, no edema Neuro: RASS -1, strength right upper 3 out of 5, right lower 3 out of 5, left upper and left lower 5 out of 5 Psych: Sedated G/U: Positive Marcus Skin: no rashes, warm and dry Lymphatic: no cervical or axillary lymphadenopathy Results & Data Results & Data Vital Signs (Past 12 Hours) Vital Signs Pulse Pulse Resp BP BP Pulse Ox O2 Del Method 05/04/23 06:00 66 14 98 05/04/23 06:00 136/96 05/04/23 05:00 152/102 H 05/04/23 05:00 65 17 98 05/04/23 04:08 65 14 98 05/04/23 04:00 64 20 100 05/04/23 04:00 152/99 H 05/04/23 04:00 05/04/23 03:00 67 24 99 05/04/23 03:00 138/89 05/04/23 02:00 69 20 100 05/04/23 02:00 136/82 05/04/23 01:00 130/80 05/04/23 01:00 61 16 98 05/04/23 00:00 60 14 99 05/04/23 00:00 130/80 05/03/23 23:57 05/03/23 23:55 60 05/03/23 23:00 132/79 05/03/23 23:00 65 35 H 98 05/03/23 22:43 66 15 98 05/03/23 22:00 134/82 05/03/23 22:00 68 15 98 05/03/23 21:21 73 19 98 05/03/23 21:21 125/75 05/03/23 21:00 71 15 98 05/03/23 20:00 109/71 05/03/23 20:00 68 0 L 96 05/03/23 20:00 Mechanical Vent 05/03/23 20:00 05/03/23 19:29 15 97 05/03/23 19:29 69 14 97 Mechanical Vent O2 Flow Rate FiO2 05/04/23 06:00 05/04/23 06:00 05/04/23 05:00 05/04/23 05:00 05/04/23 04:08 40 05/04/23 04:00 05/04/23 04:00 05/04/23 04:00 40 05/04/23 03:00 05/04/23 03:00 05/04/23 02:00 05/04/23 02:00 05/04/23 01:00 05/04/23 01:00 05/04/23 00:00 05/04/23 00:00 05/03/23 23:57 40 05/03/23 23:55 05/03/23 23:00 05/03/23 23:00 05/03/23 22:43 40 05/03/23 22:00 05/03/23 22:00 05/03/23 21:21 05/03/23 21:21 05/03/23 21:00 05/03/23 20:00 05/03/23 20:00 05/03/23 20:00 40 05/03/23 20:00 40 05/03/23 19:29 40 05/03/23 19:29 40 Laboratory Results 05/04/23 03:52 05/04/23 03:52 Coding Level of Care Code 08987 CRITICAL CARE 1ST 30-74M Diagnoses Encephalopathy acute G93.40 Respiratory failure J96.01 Chronicity: acute Respiratory failure complication: hypoxia Pneumonia J18.9 Laterality: bilateral Lung location: lower lobe of lung Pneumonia type: due to unspecified organism Hypertensive crisis I16.9 Stroke-like symptoms R29.90 Hypertension I10 Hypertension type: unspecified Tobacco use disorder F17.200 SOB (shortness of breath) R06.02 Time Spent (min) 37 (2) Respiratory failure Chronicity: acute Respiratory failure complication: hypoxia Qualified Code(s): J96.01 - Acute respiratory failure with hypoxia (3) Pneumonia Laterality: bilateral Lung location: lower lobe of lung Pneumonia type: due to unspecified organism Qualified Code(s): J18.9 - Pneumonia, unspecified organism (6) Hypertension Hypertension type: unspecified Qualified Code(s): I10 - Essential (primary) hypertension
--- NOTE | 2023-05-04 08:18 | XRay Report ---
XR chest 1V portable CLINICAL HISTORY: f/u COMPARISON STUDY: Chest CT and chest radiograph May 02, 2023. FINDINGS: Tip of endotracheal tube is 6.2 cm above the sapna. Tip of nasogastric tube is not well vi sualized but is at least within the proximal stomach. No pneumothorax or pleural effusion is identifi ed. Cardiomegaly is unchanged. There is pulmonary vascular congestion with mild interstitial thickeni ng. Bibasilar opacities are present. IMPRESSION: 1. Tip of endotracheal tube 6.2 cm above the sapna. 2. Cardiomegaly with mild interstitial pulmonary edema. 3. Bibasilar opacities which could reflect pneumonia or atelectasis. ACT 112: Negative or not required by law. Electronically signed by: Erich Pemberton M.D. 05/04/2023 8:17 AM
[2023-05-04] MEDS: hydrALAZINE HCL 20 MG/ML VIAL IV SCH ×2 (09:37→13:34)
[2023-05-04] MEDS: methylPREDNISolone 40 MG in SYRINGE 0 ML IV ONE (09:46)
[2023-05-04] MEDS: METOPROLOL TARTRATE 1 MG/ML VIAL IV PRN (12:31)
[2023-05-04 12:41] LABS: iSTAT Allen Test Pass; iSTAT Art Bld Gas pCO2 Correct 33 mmHg (35-46); iSTAT Art Bld Gas pH Corrected 7.428 (7.35-7.45); iSTAT Arterial Blood Gas HCO3 22 meg/L (19-24); iSTAT Arterial Blood Gas pCO2 33 mmHg (35-46); iSTAT Arterial Blood Gas pH 7.43 (7.35-7.45); iSTAT Arterial Blood Gas pO2 60 mmHg (80-95); iSTAT Arterial Blood Gas pO2 C 60; iSTAT Carbon Dioxide 23 mmol/L (24-31); iSTAT Hematocrit 45 % (42-52); iSTAT Hemoglobin 15.3 g/dl (14.0-18.0); iSTAT Potassium 4.2 mmol/L (3.3-5.0); iSTAT Site L Radial; iSTAT Sodium 141 mmol/L (135-144)
[2023-05-04] MEDS ORDERED: METOPROLOL TARTRATE 1 MG/ML VIAL IV PRN (14:35)
--- NOTE | 2023-05-04 15:24 | Hospitalist Progress Note ---
Date of Service May 04, 2023 Assessment & Plan (1) Stroke-like symptoms: (2) History of DVT (deep vein thrombosis): (3) Hypertensive crisis: (4) Pneumonia: (5) Noncompliance: Plan 52-year-old male with PMH of DVT x 2 [on Eliquis], HTN, GERD, medication noncompliance [?? Insurance issues in the past] was brought to the ED unresponsive. 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 His losartan was was increased and he was started on metoprolol for his blood pressure management recently. Apparently he was working in his back shed in the afternoon of the day of arrival and called 911 on his own. Patient's girlfriend notes that he has been compliant with medications in the past few days leading up to a week prior to arrival. When EMS arrived, he was found unresponsive and not able to answer questions or commands. There was no note of fever or chills or cough in the past week prior to arrival per patient's girlfriend. He was given Narcan en route via EMS without response. Right hemiplegia Strokelike symptoms Unresponsive episode Unexplained LOC Patient was brought in by EMS, patient was found unresponsive at his home. Narcan administered en route, no response. At presentationurine drug screen negative. MRSA screen negative. UA negative for UTI. Procalcitonin negative. Renal electrolytes fairly WNL. CBC fairly WNL. Presentation imagings: Chest CT: Consolidation in the bilateral lower lungs and bronchial wall thickening compatible with pneumonia. CXR negative for acute cardiopulmonary disease Head CT: Negative for ICH, stenosis, dissection, aneurysm or AVM Head neck CTA negative Brain MRI negative for acute ischemia or infarction EEG - per neuro, reasonable. MRI C spine: No acute abnormality. Presentation troponin x 2 negative. EKG with no acute ST or T changes. Echo this admission with EF of 55 to 60%, LV wall motion is normal. Last ECHO 08/2022; EF 65 to 70% no significant valve disease and normal LV wall motion. At presentation, telehealth with [facility] [place], concern for seizure, loaded with Keppra. Discussed with neurology 05/03, c/w corinne for now. DMV to be notified d/t unexplained LOC. Extubated, BP rising after sedation is off. Pt being managed in ICU. c/w keppra f/u w/ neuro on dc, no driving until neuro clears. Hypertensive crisis: BP has been over 190s/110s for past few days prior to arrival for patient's girlfriend. Recently losartan was increased to 50 mg twice daily and metoprolol had been added. At ED, nicardipine gtt. was restarted but weaned off as patient became hypotensive with sedation needed for intubation. Extubated 04/27 6 AM, sedation off, blood pressure started to rise. Hydralazine and metoprolol started. Continue to monitor. Pneumonia Pneumonia noted in CTA chest, possible aspiration with unconscious event, patient intubated at presentation for airway protection. Continue with Unasyn 05/01. Follow admitting blood culture. History of medical noncompliance: Historically noncompliant with antihypertensive medication anticoagulation medication due to insurance issues. Patient's girlfriend states that he has been compliant recently. PCP: Dr. Graff Code Status: Full Code VTE Prophyalxis: On [facility] Admission and Anticipated Discharge Date Admission Date: May 02, 2023 Subjective Patient was seen and examined at bedside. Patient was lying in bed, on oxygen mask. NAD. Patient was extubated in the morning, and after weaning off of sedation, his blood pressure started to rise. Discussed with scientist propagator, hydralazine and metoprolol was started for blood pressure control. Discussed with neurology, plan to continue with Antonellara for now. DMV to be notified for unexplained loss of consciousness. Physical Exam Physical Exam: GENERAL: lethargic, NAD. Opens eyes to name, follows simple command. HEENT: No pallor, no icterus. Pupils equal, round and reactive to light. Oral mucosa dry. NECK: No JVD, no neck masses. HEART: S1 and S2 heard. Regular rate and rhythm. No murmur, no gallop. RESPIRATORY SYSTEM: Normal AP diameter. No accessory muscle use. No wheezing, +bl crackles ABDOMEN: Soft, bowel sounds present, nontender, no distention. CENTRAL NERVOUS SYSTEM: moves extremities, Rt extremities weaker. EXTREMITIES: No edema, no erythema seen. Results & Data Results & Data Vital Signs (Past 12 Hours) Vital Signs Temp Pulse Resp BP BP Pulse Ox O2 Del Method 05/04/23 13:00 173/102 H 05/04/23 13:00 37.0 C 83 15 173/102 H 96 Room Air 05/04/23 12:49 70 174/101 H 05/04/23 12:31 86 183/111 H 05/04/23 12:00 84 19 183/111 H 95 Room Air 05/04/23 11:00 73 13 162/97 H 100 Oxymask 05/04/23 10:30 Oxymask 05/04/23 10:00 161/99 H 05/04/23 10:00 72 13 94 05/04/23 09:28 71 17 180/112 H 100 Oxymask 05/04/23 09:00 65 11 L 175/107 H 99 05/04/23 08:00 63 20 151/97 H 100 05/04/23 08:00 05/04/23 08:00 67 05/04/23 07:10 67 14 97 05/04/23 07:00 67 15 98 05/04/23 06:00 66 14 98 05/04/23 06:00 136/96 05/04/23 05:00 152/102 H 05/04/23 05:00 65 17 98 05/04/23 04:08 65 14 98 05/04/23 04:00 64 20 100 05/04/23 04:00 152/99 H 05/04/23 04:00 O2 Flow Rate FiO2 05/04/23 13:00 05/04/23 13:00 05/04/23 12:49 05/04/23 12:31 05/04/23 12:00 05/04/23 11:00 1 05/04/23 10:30 3 05/04/23 10:00 05/04/23 10:00 05/04/23 09:28 5 05/04/23 09:00 05/04/23 08:00 05/04/23 08:00 40 05/04/23 08:00 05/04/23 07:10 40 05/04/23 07:00 05/04/23 06:00 05/04/23 06:00 05/04/23 05:00 05/04/23 05:00 05/04/23 04:08 40 05/04/23 04:00 05/04/23 04:00 05/04/23 04:00 40 (4) Pneumonia Laterality: bilateral Lung location: lower lobe of lung Pneumonia type: due to unspecified organism Qualified Code(s): J18.9 - Pneumonia, unspecified organism
[2023-05-04] MEDS: ACETAMINOPHEN 1,000 MG/100 ML VIAL IV PRN (17:00)
[2023-05-04] MEDS ORDERED: hydrALAZINE HCL 20 MG/ML VIAL IV SCH (17:00)
[2023-05-04] MEDS: APIXABAN 5 MG TABLET PO SCH (20:02)
[2023-05-04] MEDS: METOPROLOL TARTRATE 25 MG TAB PO SCH (20:02)
[2023-05-05 04:26] LABS: Hematocrit (blood only) 41.3 % (42.0-52.0); Hemoglobin 13.7 g/dl (14.0-18.0); Mean Corpuscular Hgb Conc 33.2 g/dL (32.0-36.0); Mean Corpuscular Volume 90.6 fL (80.0-100.0); Mean Platelet Volume 10.7 fL (9.4-12.4); Platelet Count 194 K/uL (130-400); RDW Coefficient of Variation 13.2 % (11.5-14.5); RDW Standard Deviation 44.1 fL (36.4-46.3); Red Blood Count 4.56 M/uL (4.70-6.10); White Blood Count 10.83 K/ul (4.8-10.8)
[2023-05-05 04:30] LABS: BUN Creatinine Ratio 14.9 (10-20); Calcium 8.7 mg/dl (8.6-10.3); Creatinine Clr Calc Pharmacy 144.4 ml/min; Est GFR (African American) 113.4 ml/min; Est GFR (Non-African American) 97.8 ml/min; Potassium 3.9 mmol/L (3.5-5.1)
--- NOTE | 2023-05-05 07:37 | Critical Care Progress Note ---
Date of Service May 05, 2023 Assessment & Plan (1) Encephalopathy acute: (2) Respiratory failure: (3) Pneumonia: (4) Hypertensive crisis: (5) Stroke-like symptoms: (6) Hypertension: (7) Tobacco use disorder: (8) SOB (shortness of breath): Plan Reason Critically Ill: 52-year-old male with past medical history of HTN, DVT (on Eliquis) presents to the ICU following episode of altered mental status and right-sided weakness where he was noted to have chest pain and hypertension. Emergently intubated for airway protection and mechanically ventilated. Neuro - AMS/R weakness Patient initially appeared obtunded on arrival to the emergency department and noted to have right-sided weakness -CT head, CTA head and neck negative. MRI 05/02/2023 negative, cervical MRI 05/03/2023 showed No acute abnormality, Degenerative spondylosis. -[place] [facility] [place]. No indication for TNKase as patient is anticoagulated with Eliquis and imaging thus far unremarkable -Was started empirically on Keppra and cannot rule out focal seizure? Will continue Keppra for now -TTE pending -UDS negative, EtOH -Hypertensive on admission, consider early press syndrome? MRI did not show any signs of infarct -Neurology on board, they are thinking about possible postictal Gianni's paralysis Cardiac - Hypertensive urgency Sedation helps with that Continue with metoprolol 25 mg twice daily. Lisinopril 20 mg added to 05/05/2023 Chest pain EKG unremarkable and troponins negative. CTA chest negative for AAA. Respiratory - -- Mechanically ventilated --> Extubated 05/04/2023 CT chest 05/02/2023 personally reviewed: Patchy opacities bilateral lower lobes more on the left side No significant mediastinal lymphadenopathy --Given the wheezing appreciated while he was intubated Would recommend Brovana budesonide nebulized in the hospital Anoro/Stiolto on discharge GI - N.p.o. for now RENAL/LYTES - Creatinine within normal limits. No significant electrolyte abnormalities. Monitor routine BMPs and replete electrolytes as indicated - Strict I's and O's ENDO - No history of diabetes or thyroid disease. ICU hyperglycemic protocol HEME - H&H stable, monitor routine CBC ID - -- Multilobar pneumonia Likely aspiration event given CT findings. No leukocytosis or fevers, Pro-Tj and CRP within normal limits. Continue empiric Unasyn for now Patient--Prophylaxis VTE: On apixaban at home GI: None Lines: Peripheral Diet: Clear liquid, advance as tolerated Plan: In/out: +346, urine output 2265 Advance diet as tolerated Potassium being replaced Add lisinopril to patient's blood pressure medication. Change hydralazine to 10 mg every 6 hours as needed SBP greater than 160. EEG to be done today. He is going to benefit from PT OT evaluation On discharge recommend Anoro/Stiolto Patient hemodynamically stable to be downgraded to medical floor Please note the above document was generated using voice recognition software. It may contain grammatical, syntax or spelling errors.Any formal questions or concerns about the content, text or information contained within the body of this dictation should be directly addressed to the provider for clarification. Admission and Anticipated Discharge Date Admission Date: May 02, 2023 Subjective Patient seen and examined at bedside. No acute distress, no adverse events overnight He seems to be more alert than yesterday. Answering all the questions appropriately. Did complain of some headache. Minimal blurry vision. No nausea vomiting Able to tolerate his breakfast without any issues Was saturating 94% on room air. Review of Systems 2 Review of Systems: All systems reviewed & are unremarkable except as noted in Subjective Physical Exam 2 Physical Exam: Constitutional: No acute distress HEENT: EOMI, PERRLA Respiratory system: Decreased air entry bilaterally, no rhonchi, mild crackles bilateral lower lobes, no wheeze CVS: S1-S2 positive, no murmurs or gallops Abdomen: Soft, nontender, nondistended, positive bowel sounds x4 Extremities: +2 pulses bilaterally radialis/ dorsalis pedis, no cyanosis, no edema Neuro: Awake alert oriented to self and place, answering all the questions appropriately, strength right upper 4 out of 5, right lower 4 out of 5, left upper and left lower 5 out of 5 Psych: Normal mood and affect G/U: Positive Marcus Skin: no rashes, warm and dry Lymphatic: no cervical or axillary lymphadenopathy Results & Data Results & Data Vital Signs (Past 12 Hours) Vital Signs Pulse Pulse Resp BP BP Pulse Ox O2 Del Method 05/05/23 07:32 66 05/05/23 07:24 Room Air 05/05/23 07:00 64 15 98 Room Air 05/05/23 07:00 158/91 H 05/05/23 06:53 57 L 16 94 Room Air 05/05/23 06:00 161/90 H 05/05/23 05:00 148/110 H 05/05/23 05:00 70 13 94 05/05/23 04:00 159/86 H 05/05/23 04:00 59 L 14 94 05/05/23 03:01 156/96 H 05/05/23 03:01 82 10 L 93 05/05/23 03:00 63 14 94 05/05/23 02:00 107/69 05/05/23 02:00 61 13 95 05/05/23 01:00 68 13 94 05/05/23 01:00 136/77 05/05/23 00:00 69 05/05/23 00:00 68 13 93 05/05/23 00:00 141/86 H 05/04/23 23:00 68 16 94 05/04/23 23:00 134/79 05/04/23 22:00 73 14 93 05/04/23 21:00 84 12 93 05/04/23 20:00 153/94 H 05/04/23 20:00 Room Air 05/04/23 20:00 86 13 93 05/04/23 19:46 81 18 94 Room Air Laboratory Results 05/05/23 03:45 05/05/23 03:45 Coding Level of Care Code 33482 SUB INP/OBS CARE 3/50MIN Diagnoses Encephalopathy acute G93.40 Respiratory failure J96.01 Chronicity: acute Respiratory failure complication: hypoxia Pneumonia J18.9 Laterality: bilateral Lung location: lower lobe of lung Pneumonia type: due to unspecified organism Hypertensive crisis I16.9 Stroke-like symptoms R29.90 Hypertension I10 Hypertension type: unspecified Tobacco use disorder F17.200 SOB (shortness of breath) R06.02 (2) Respiratory failure Chronicity: acute Respiratory failure complication: hypoxia Qualified Code(s): J96.01 - Acute respiratory failure with hypoxia (3) Pneumonia Laterality: bilateral Lung location: lower lobe of lung Pneumonia type: due to unspecified organism Qualified Code(s): J18.9 - Pneumonia, unspecified organism (6) Hypertension Hypertension type: unspecified Qualified Code(s): I10 - Essential (primary) hypertension
[2023-05-05] MEDS: POTASSIUM CHLORIDE CRTAB 20 MEQ TABCR PO STA (10:09)
[2023-05-05] MEDS: PANTOprazole 40 MG TAB PO SCH (10:09)
[2023-05-05] MEDS: lisinopril 20 MG TAB PO SCH ×2 (10:44→21:02)
--- NOTE | 2023-05-05 15:19 | Hospitalist Progress Note ---
Date of Service May 05, 2023 Assessment & Plan (1) Stroke-like symptoms: (2) History of DVT (deep vein thrombosis): (3) Hypertensive crisis: (4) Pneumonia: (5) Noncompliance: Plan 52-year-old male with PMH of DVT x 2 [on Eliquis], HTN, GERD, medication noncompliance [?? Insurance issues in the past] was brought to the ED unresponsive. 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 His losartan was was increased and he was started on metoprolol for his blood pressure management recently. Apparently he was working in his back shed in the afternoon of the day of arrival and called 911 on his own. Patient's girlfriend notes that he has been compliant with medications in the past few days leading up to a week prior to arrival. When EMS arrived, he was found unresponsive and not able to answer questions or commands. There was no note of fever or chills or cough in the past week prior to arrival per patient's girlfriend. He was given Narcan en route via EMS without response. Right hemiplegia Strokelike symptoms Unresponsive episode Unexplained LOC Patient was brought in by EMS, patient was found unresponsive at his home. Narcan administered en route, no response. At presentationurine drug screen negative. MRSA screen negative. UA negative for UTI. Procalcitonin negative. Renal electrolytes fairly WNL. CBC fairly WNL. Presentation imagings: Chest CT: Consolidation in the bilateral lower lungs and bronchial wall thickening compatible with pneumonia. CXR negative for acute cardiopulmonary disease Head CT: Negative for ICH, stenosis, dissection, aneurysm or AVM Head neck CTA negative Brain MRI negative for acute ischemia or infarction EEG - per neuro, reasonable. MRI C spine: No acute abnormality. Presentation troponin x 2 negative. EKG with no acute ST or T changes. Echo this admission with EF of 55 to 60%, LV wall motion is normal. Last ECHO 08/2022; EF 65 to 70% no significant valve disease and normal LV wall motion. At presentation, telehealth with [facility] [place], concern for seizure, loaded with Keppra. Discussed with neurology 05/03, c/w africara for now. DMV to be notified d/t unexplained LOC. Extubated 05/03 AM, BP rising after sedation is off. Blood pressure medications optimized, continue to titrate BP medications. c/w keppra f/u w/ neuro on dc, no driving until neuro clears. Hypertensive crisis: BP has been over 190s/110s for past few days prior to arrival for patient's girlfriend. Recently losartan was increased to 50 mg twice daily and metoprolol had been added. At ED, nicardipine gtt. was restarted but weaned off as patient became hypotensive with sedation needed for intubation. Extubated 05/03 AM, sedation off, blood pressure started to rise. c/w lisinopril, metoprololol. prn hydralazine and prn metoprolol iv on board. Off of nicardipine drip. Continue to monitor and titrate as needed. Pneumonia Pneumonia noted in CTA chest, possible aspiration with unconscious event, patient intubated at presentation for airway protection. Continue with Unasyn 05/01. Follow admitting blood culture. 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 History of medical noncompliance: Historically noncompliant with antihypertensive medication anticoagulation medication due to insurance issues. Patient's girlfriend states that he has been compliant recently. PCP: Dr. Graff Code Status: Full Code VTE Prophyalxis: On Omar Given phone call to pt's TERESA Larson, discussed each and every point mentioned above in my note. Answered all her questions to the best of my ability. She voiced understanding and was agreeable to plan of care. Admission and Anticipated Discharge Date Admission Date: May 02, 2023 Subjective Patient was seen and examined at bedside. Patient was lying in bed, on room air, NAD, resting comfortably. Patient is still appears lethargic but is more conversive today. Patient denies any shortness of breath or pain, is able to move his right extremities better today. Denies any remembrance of the event leading to hospital admission, denies remembering calling 911. Patient is tolerating diet. Physical Exam Physical Exam: GENERAL: lethargic, NAD. More conversive today, answering appropriately. Slowed down appearance.. HEENT: No pallor, no icterus. Pupils equal, round and reactive to light. Oral mucosa moist. NECK: No JVD, no neck masses. HEART: S1 and S2 heard. Regular rate and rhythm. No murmur, no gallop. RESPIRATORY SYSTEM: Normal AP diameter. No accessory muscle use. No wheezing, +bl crackles -improved ABDOMEN: Soft, bowel sounds present, nontender, no distention. CENTRAL NERVOUS SYSTEM: moves extremities, Rt extremities weaker. EXTREMITIES: No edema, no erythema seen. Results & Data Results & Data Vital Signs (Past 12 Hours) Vital Signs Temp Pulse Pulse Resp BP BP Pulse Ox 05/05/23 11:15 68 17 95 05/05/23 11:00 155/92 H 05/05/23 11:00 66 15 94 05/05/23 10:45 64 17 95 05/05/23 10:30 67 15 92 05/05/23 10:15 69 18 94 05/05/23 10:00 166/98 H 05/05/23 10:00 64 12 92 05/05/23 09:00 161/90 H 05/05/23 09:00 60 12 95 05/05/23 08:08 153/75 H 05/05/23 08:08 72 15 93 05/05/23 08:00 80 17 94 05/05/23 07:32 66 05/05/23 07:30 37 C 05/05/23 07:24 05/05/23 07:12 74 18 95 05/05/23 07:12 163/89 H 05/05/23 07:00 64 15 98 05/05/23 07:00 158/91 H 05/05/23 06:53 57 L 16 94 05/05/23 06:00 161/90 H 05/05/23 05:00 148/110 H 05/05/23 05:00 70 13 94 05/05/23 04:00 159/86 H 05/05/23 04:00 59 L 14 94 O2 Del Method 05/05/23 11:15 Room Air 05/05/23 11:00 05/05/23 11:00 05/05/23 10:45 05/05/23 10:30 05/05/23 10:15 05/05/23 10:00 05/05/23 10:00 05/05/23 09:00 05/05/23 09:00 05/05/23 08:08 05/05/23 08:08 Room Air 05/05/23 08:00 05/05/23 07:32 05/05/23 07:30 05/05/23 07:24 Room Air 05/05/23 07:12 05/05/23 07:12 05/05/23 07:00 Room Air 05/05/23 07:00 05/05/23 06:53 Room Air 05/05/23 06:00 05/05/23 05:00 05/05/23 05:00 05/05/23 04:00 05/05/23 04:00 (4) Pneumonia Laterality: bilateral Lung location: lower lobe of lung Pneumonia type: due to unspecified organism Qualified Code(s): J18.9 - Pneumonia, unspecified organism
[2023-05-05] MEDS: levETIRAcetam 500 MG TAB PO SCH (21:00)
[2023-05-06] MEDS: HYDROmorphone INJ 0.5 MG/0.5 ML SYR IV STA (00:56)
[2023-05-06] MEDS: hydrALAZINE HCL 20 MG/ML VIAL IV PRN (03:52)
[2023-05-06 05:08] LABS: Hematocrit (blood only) 41.8 % (42.0-52.0); Hemoglobin 13.8 g/dl (14.0-18.0); Mean Corpuscular Volume 90.9 fL (80.0-100.0); Mean Platelet Volume 10.6 fL (9.4-12.4); Platelet Count 191 K/uL (130-400); RDW Coefficient of Variation 13.3 % (11.5-14.5); RDW Standard Deviation 43.7 fL (36.4-46.3)
[2023-05-06] MEDS: hydrALAZINE HCL 20 MG/ML VIAL IV ONE (05:20)
[2023-05-06 05:22] LABS: BUN Creatinine Ratio 19.4 (10-20); Calcium 8.3 mg/dl (8.6-10.3); Creatinine Clr Calc Pharmacy 136.6 ml/min; Est GFR (African American) 107.5 ml/min; Est GFR (Non-African American) 92.7 ml/min; Phosphorus 3.1 mg/dl (2.5-4.9); Potassium 3.9 mmol/L (3.5-5.1)
[2023-05-06] MEDS: ACETAMINOPHEN 325 MG TAB PO PRN (09:58)
--- NOTE | 2023-05-06 12:33 | Hospitalist Progress Note ---
Date of Service May 06, 2023 Assessment & Plan (1) Stroke-like symptoms: (2) History of DVT (deep vein thrombosis): (3) Hypertensive crisis: (4) Pneumonia: (5) Noncompliance: Plan 52-year-old male with PMH of DVT x 2 [on Eliquis], HTN, GERD, medication noncompliance [?? Insurance issues in the past] was brought to the ED unresponsive. 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 His losartan was was increased and he was started on metoprolol for his blood pressure management recently. Apparently he was working in his back shed in the afternoon of the day of arrival and called 911 on his own. Patient's girlfriend notes that he has been compliant with medications in the past few days leading up to a week prior to arrival. When EMS arrived, he was found unresponsive and not able to answer questions or commands. There was no note of fever or chills or cough in the past week prior to arrival per patient's girlfriend. He was given Narcan en route via EMS without response. 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 Not allowed to drive until being cleared by the neurologist Improving PT and OT evaluation Strokelike symptoms Right hemiplegia is likely secondary to Gianni's paralysis and which has been improving MRI or CT did not show any evidence of stroke Clinically no neurological deficiency Unresponsive episode Unexplained LOC Patient was brought in by EMS, patient was found unresponsive at his home. Narcan administered en route, no response. At presentationurine drug screen negative. MRSA screen negative. UA negative for UTI. Procalcitonin negative. Renal electrolytes fairly WNL. CBC fairly WNL. 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 Discussed with neurology 05/03, c/w corinne for now. DMV to be notified d/t unexplained LOC. Extubated 05/03 AM, BP rising after sedation is off. Blood pressure medications optimized, continue to titrate BP medications. c/w keppra f/u w/ neuro on dc, no driving until neuro clears. Hypertensive crisis: BP has been over 190s/110s for past few days prior to arrival for patient's girlfriend. Recently losartan was increased to 50 mg twice daily and metoprolol had been added. At ED, nicardipine gtt. was restarted but weaned off as patient became hypotensive with sedation needed for intubation. Extubated 05/03 AM, sedation off, blood pressure started to rise. c/w lisinopril, metoprololol. prn hydralazine and prn metoprolol iv on board. Off of nicardipine drip. Continue to monitor and titrate as needed. Blood pressure remains elevated with systolic more than 160 and diastolic more than 90 Metoprolol has been changed to Coreg 12.5 mg twice daily from today Complains of some headache likely secondary to hypertension Pneumonia Likely secondary to aspiration Pneumonia noted in CTA chest, possible aspiration with unconscious event, patient intubated at presentation for airway protection. Continue with Unasyn 05/01. Follow admitting blood culture. ziggy Lubin/miguel on dc. Will continue antibiotic to finish the course for a total of 10 days History of medical noncompliance: Historically noncompliant with antihypertensive medication anticoagulation medication due to insurance issues. Patient's girlfriend states that he has been compliant recently. PCP: Dr. Graff Code Status: Full Code VTE Prophyalxis: On Eliquis Discussed with the patient in detail and answered all of his questions Admission and Anticipated Discharge Date Admission Date: May 02, 2023 Subjective 05/06/2023 The patient was seen and examined in ICU in the setting of telemetry unit He is out of bed on a chair and complains to have occipital headache without any other neurological symptoms and remains generally weak Denies any chest pain and her palpitation, no abdominal pain nausea no vomiting No numbness or tingling in the extremities Review of Systems Review of Systems: All systems reviewed and are unremarkable except as noted below Musculoskeletal: Minimal pain on the left foot Physical Exam Physical Exam: Sitting on a chair without any acute distress Constitutional: well developed, well nourished, + ill appearing and + obese Eyes: PERRL, conjunctivae normal, anicteric sclerae ENMT: external ear and nose normal, oropharynx normal Neck: trachea midline, no thyromegaly Respiratory: no respiratory distress Auscultation: + diminished lung sounds and + crackles (Occasional wheezing and crackles at the bases) Cardiovascular: Rate/Rhythm: regular rate and regular rhythm; not tachycardic Heart Sounds: normal S1 and normal S2; no murmur Extremities: + edema (Trace edema bilaterally) Gastrointestinal (Abdomen): Inspection/Auscultation: + abdomen distended and normal bowel sounds Percussion/Palpation: abdomen soft; abdomen nontender Musculoskeletal: Minimal pain involving the left foot Neurologic: normal touch/pain/proprioception and moves all extremities; no focal motor deficits Psychiatric: A+Ox3, euthymic affect Lymphatic: no cervical or axillary lymphadenopathy Results & Data Results & Data Vital Signs (Past 12 Hours) Vital Signs Temp Pulse Pulse Resp BP BP Pulse Ox 05/06/23 10:00 61 12 05/06/23 09:36 168/90 H 05/06/23 09:36 72 17 05/06/23 09:27 62 17 05/06/23 09:27 168/89 H 05/06/23 09:22 163/90 H 05/06/23 09:22 79 20 05/06/23 09:00 72 24 05/06/23 08:01 164/100 H 05/06/23 08:01 84 16 95 05/06/23 08:00 78 15 95 05/06/23 08:00 05/06/23 08:00 75 05/06/23 07:49 170/94 H 05/06/23 07:49 75 29 H 94 05/06/23 07:26 67 19 96 05/06/23 07:26 160/91 H 05/06/23 07:08 70 17 95 05/06/23 07:00 75 13 95 05/06/23 06:00 37.1 C 62 14 166/109 H 97 05/06/23 04:48 37.1 C 57 L 16 171/100 H 95 O2 Del Method 05/06/23 10:00 05/06/23 09:36 05/06/23 09:36 05/06/23 09:27 05/06/23 09:27 05/06/23 09:22 05/06/23 09:22 05/06/23 09:00 05/06/23 08:01 05/06/23 08:01 05/06/23 08:00 05/06/23 08:00 Room Air 05/06/23 08:00 05/06/23 07:49 05/06/23 07:49 05/06/23 07:26 05/06/23 07:26 05/06/23 07:08 Room Air 05/06/23 07:00 05/06/23 06:00 Room Air 05/06/23 04:48 Room Air Laboratory Results Short CBC 05/06/23 Range/Units 04:31 WBC 9.90 (4.8-10.8) K/ul Hgb 13.8 L (14.0-18.0) g/dl Hct 41.8 L (42.0-52.0) % Plt Count 191 (130-400) K/uL BMP 05/06/23 04:31 Sodium 140 Potassium 3.9 Chloride 110 H Carbon Dioxide 24 BUN 18 Creatinine 0.93 Glucose 80 Calcium 8.3 L Diagnostic Findings Presentation imagings: Chest CT: Consolidation in the bilateral lower lungs and bronchial wall thickening compatible with pneumonia. CXR negative for acute cardiopulmonary disease Head CT: Negative for ICH, stenosis, dissection, aneurysm or AVM Head neck CTA negative Brain MRI negative for acute ischemia or infarction EEG - per neuro, reasonable. MRI C spine: No acute abnormality. (4) Pneumonia Laterality: bilateral Lung location: lower lobe of lung Pneumonia type: due to unspecified organism Qualified Code(s): J18.9 - Pneumonia, unspecified organism
[2023-05-06] MEDS: COLCHICINE 0.6 MG TAB PO ONE ×2 (13:26→17:26)
[2023-05-06] MEDS: carvediloL 12.5 MG TAB PO SCH (16:32)
--- NOTE | 2023-05-06 20:22 | Electroencephalogram ---
EEG Procedure Note Date of Service May 06, 2023 Start / End Times Start Time: 0630 End Time: 0650 Referring Physician Emi Bone History A 52 year old male with possibel collin's paralysis. EEG performed for evaluation of epileptiform activity. Home Medication List Medication Instructions Recorded Confirmed Type albuterol sulfate 90 mcg/actuation 2 inh inhalation Q6H PRN shortness 08/26/22 05/02/23 Rx aerosol inhaler of breath or wheezing #8.5 grams losartan 50 mg tablet 50 mg PO BID #60 tabs 05/01/23 05/02/23 Rx metoprolol succinate 25 mg 25 mg PO DAILY #30 tabs 05/01/23 05/02/23 Rx tablet,extended release 24 hr apixaban 5 mg tablet (Eliquis) 5 mg PO AMHS 05/02/23 05/02/23 History cholecalciferol (vitamin D3) 1,250 1,250 mcg PO WK 05/02/23 05/02/23 History mcg (50,000 unit) capsule pantoprazole 40 mg tablet,delayed 40 mg PO DAILYBB 05/02/23 05/02/23 History release Inpatient Medication List Acetaminophen (Acetaminophen 325 Mg Tab) 650 mg PO Q4H PRN PRN Reason: Pain or Fever Stop: 06/01/23 18:12 Last Admin: 05/06/23 09:58 Dose: 650 mg Documented By: CCB Co-signed By: SYEDA Apixaban (Apixaban 5 Mg Tablet) 5 mg PO BID [facility] Stop: 06/03/23 20:59 Last Admin: 05/06/23 07:40 Dose: 5 mg Documented By: CCB Co-signed By: SYEDA Admin: 05/05/23 21:00 Dose: 5 mg Documented By: Admin: 05/05/23 08:25 Dose: 5 mg Documented By: Admin: 05/04/23 20:02 Dose: 5 mg Documented By: CLC Budesonide (Budesonide 0.25 Mg/2 Ml Vial (Pulmicort)) 0.25 mg NEB BIDR [facility] Stop: 06/02/23 18:59 Last Admin: 05/06/23 19:42 Dose: 0.25 mg Documented By: Admin: 05/06/23 07:07 Dose: 0.25 mg Documented By: Admin: 05/05/23 20:26 Dose: 0.25 mg Documented By: Admin: 05/05/23 06:52 Dose: 0.25 mg Documented By: Admin: 05/04/23 19:46 Dose: 0.25 mg Documented By: Admin: 05/04/23 07:10 Dose: 0.25 mg Documented By: Admin: 05/03/23 19:28 Dose: 0.25 mg Documented By: KARMA Carvedilol (Carvedilol 12.5 Mg Tab) 12.5 mg PO BIDM REESE Stop: 06/05/23 16:59 Last Admin: 05/06/23 16:32 Dose: 12.5 mg Documented By: GPF Dextrose (Dextrose 50% 50 Ml Syringe) 25 - 50 ml IV UD PRN; Protocol PRN Reason: Hypoglycemia Protocol Stop: 06/02/23 13:47 Last Admin: 05/03/23 13:53 Dose: 25 ml Documented By: STEVEN Formoterol Fumarate (Formoterol 20 Mcg/2 Ml Vial) 20 mcg INH BIDR REESE Stop: 06/02/23 18:59 Last Admin: 05/06/23 19:42 Dose: 20 mcg Documented By: Admin: 05/06/23 07:07 Dose: 20 mcg Documented By: Admin: 05/05/23 20:26 Dose: 20 mcg Documented By: Admin: 05/05/23 06:52 Dose: 20 mcg Documented By: Admin: 05/04/23 19:44 Dose: 20 mcg Documented By: Admin: 05/04/23 07:10 Dose: 20 mcg Documented By: Admin: 05/03/23 19:28 Dose: 20 mcg Documented By: KARMA Hydralazine HCl (Hydralazine Hcl 20 Mg/Ml Vial) 10 mg IV Q6 PRN PRN Reason: SBP>160 Stop: 06/03/23 13:29 Last Admin: 05/06/23 10:49 Dose: 10 mg Documented By: Admin: 05/06/23 03:52 Dose: 10 mg Documented By: HOANGM Nicardipine HCl 25 mg/ Sodium (Chloride) 250 mls @ 0 mls/hr IV .Q0M REESE; Protocol Stop: 06/01/23 14:59 Last Titration: 05/03/23 07:18 Dose: 0 mg/hr, 0 mls/hr Documented By: Titration: 05/02/23 17:33 Dose: 0 mg/hr, 0 mls/hr Documented By: Titration: 05/02/23 16:05 Dose: 5 mg/hr, 50 mls/hr Documented By: Titration: 05/02/23 15:59 Dose: 7.5 mg/hr, 75 mls/hr Documented By: Admin: 05/02/23 15:57 Dose: 5 mg/hr, 50 mls/hr Documented By: ANALY Co-signed By: IVANNA Ampicillin Sodium/Sulbactam Sodium 3,000 mg/ Sodium Chloride 100 mls @ 200 mls/hr IV Q6H REESE Stop: 05/09/23 19:44 Last Infusion: 05/06/23 15:19 Dose: Infused Documented By: Admin: 05/06/23 14:47 Dose: 200 mls/hr Documented By: CCSosa Co-signed By: GPF Infusion: 05/06/23 09:10 Dose: Infused Documented By: Admin: 05/06/23 07:40 Dose: 200 mls/hr Documented By: CCSosa Co-signed By: GPF Infusion: 05/06/23 01:45 Dose: Infused Documented By: Admin: 05/06/23 01:11 Dose: 200 mls/hr Documented By: Infusion: 05/05/23 21:30 Dose: Infused Documented By: Admin: 05/05/23 20:59 Dose: 200 mls/hr Documented By: Infusion: 05/05/23 16:40 Dose: Infused Documented By: Admin: 05/05/23 14:08 Dose: 200 mls/hr Documented By: Infusion: 05/05/23 09:34 Dose: Infused Documented By: Admin: 05/05/23 08:26 Dose: 200 mls/hr Documented By: Infusion: 05/05/23 02:49 Dose: Infused Documented By: Admin: 05/05/23 02:13 Dose: 200 mls/hr Documented By: Infusion: 05/04/23 20:30 Dose: Infused Documented By: Admin: 05/04/23 19:58 Dose: 200 mls/hr Documented By: Infusion: 05/04/23 14:03 Dose: Infused Documented By: Admin: 05/04/23 13:33 Dose: 200 mls/hr Documented By: Infusion: 05/04/23 08:46 Dose: Infused Documented By: Admin: 05/04/23 08:16 Dose: 200 mls/hr Documented By: Infusion: 05/04/23 02:24 Dose: Infused Documented By: Admin: 05/04/23 01:42 Dose: 200 mls/hr Documented By: Infusion: 05/03/23 20:59 Dose: Infused Documented By: Admin: 05/03/23 20:06 Dose: 200 mls/hr Documented By: Infusion: 05/03/23 14:04 Dose: Infused Documented By: Admin: 05/03/23 13:32 Dose: 200 mls/hr Documented By: Infusion: 05/03/23 09:47 Dose: Infused Documented By: Admin: 05/03/23 08:58 Dose: 200 mls/hr Documented By: Infusion: 05/03/23 02:15 Dose: Infused Documented By: Admin: 05/03/23 01:39 Dose: 200 mls/hr Documented By: Infusion: 05/02/23 21:56 Dose: Infused Documented By: Admin: 05/02/23 21:18 Dose: 200 mls/hr Documented By: MERYL Acetaminophen (Ofirmev) 1,000 mg in 100 mls @ 400 mls/hr IV Q8H PRN PRN Reason: Pain Stop: 05/07/23 16:49 Last Infusion: 05/04/23 17:15 Dose: Infused Documented By: Admin: 05/04/23 17:00 Dose: 400 mls/hr Documented By: BAIRON Levetiracetam (Levetiracetam 500 Mg Tab) 500 mg PO BID REESE Stop: 06/04/23 20:59 Last Admin: 05/06/23 07:39 Dose: 500 mg Documented By: CCSosa Co-signed By: GPFederico Admin: 05/05/23 21:00 Dose: 500 mg Documented By: TLJose Lisinopril (Lisinopril 20 Mg Tab) 20 mg PO BID REESE Stop: 06/04/23 20:59 Last Admin: 05/06/23 07:40 Dose: 20 mg Documented By: CCB Co-signed By: SYEDA Admin: 05/05/23 21:02 Dose: 20 mg Documented By: BRODERICK Pantoprazole Sodium (Pantoprazole 40 Mg Tab) 40 mg PO DAILY REESE Stop: 06/04/23 09:59 Last Admin: 05/06/23 07:40 Dose: 40 mg Documented By: AKHIL Co-signed By: SYEDA Admin: 05/05/23 10:11 Dose: Not Given Documented By: LUCAS Discontinued Medications Colchicine (Colchicine 0.6 Mg Tab) 0.6 mg PO NOW ONE Stop: 05/06/23 13:31 Last Admin: 05/06/23 13:26 Dose: 0.6 mg Documented By: CCB Co-signed By: SYEDA Colchicine (Colchicine 0.6 Mg Tab) 0.6 mg PO NOW ONE Stop: 05/06/23 17:05 Last Admin: 05/06/23 17:26 Dose: 0.6 mg Documented By: SYEDA Dextrose (Dextrose 50% 50 Ml Syringe) Confirm Administered Dose 50 ml IV .STK- MED ONE Stop: 05/03/23 13:51 Last Admin: 05/03/23 13:59 Dose: Not Given Documented By: STEVEN Fentanyl Citrate (Fentanyl Citrate Pf 100 Mcg/2 Ml Vial) Confirm Administered Dose 100 mcg .ROUTE .STK-MED ONE Stop: 05/02/23 16:43 Last Admin: 05/02/23 17:36 Dose: Not Given Documented By: ANALY Fentanyl Citrate (Fentanyl Citrate Pf 100 Mcg/2 Ml Vial) Confirm Administered Dose 100 mcg .ROUTE .STK-MED ONE Stop: 05/02/23 16:43 Last Admin: 05/02/23 17:36 Dose: Not Given Documented By: ANALY Fentanyl Citrate (Fentanyl Citrate Pf 100 Mcg/2 Ml Vial) Confirm Administered Dose 100 mcg .ROUTE .STK-MED ONE Stop: 05/02/23 17:32 Last Admin: 05/02/23 17:37 Dose: Not Given Documented By: ANALY Fentanyl Citrate (Fentanyl Citrate Pf 100 Mcg/2 Ml Vial) 50 mcg IV Q30M PRN PRN Reason: SEVERE PAIN, RASS -1 Stop: 05/16/23 17:32 Last Admin: 05/03/23 18:20 Dose: 50 mcg Documented By: Admin: 05/03/23 17:16 Dose: 50 mcg Documented By: Admin: 05/03/23 05:34 Dose: 50 mcg Documented By: Admin: 05/02/23 20:00 Dose: 50 mcg Documented By: Admin: 05/02/23 17:42 Dose: 50 mcg Documented By: Admin: 05/02/23 17:36 Dose: 100 mcg Documented By: Admin: 05/02/23 15:45 Dose: 50 mcg Documented By: ANALY Gadobutrol (Gadobutrol 65ml Vial) 14.3 ml IV ONCE ONE Stop: 05/03/23 18:42 Last Admin: 05/03/23 18:42 Dose: 14.3 ml Documented By: CLARA Hydralazine HCl (Hydralazine Hcl 20 Mg/Ml Vial) 20 mg IV TID REESE Stop: 06/03/23 09:14 Last Admin: 05/04/23 09:37 Dose: 20 mg Documented By: BAIRON Hydralazine HCl (Hydralazine Hcl 20 Mg/Ml Vial) 10 mg IV Q6 REESE Stop: 06/03/23 13:29 Last Admin: 05/05/23 06:13 Dose: 10 mg Documented By: Admin: 05/05/23 00:05 Dose: 10 mg Documented By: Admin: 05/04/23 17:46 Dose: 10 mg Documented By: Admin: 05/04/23 13:34 Dose: 10 mg Documented By: BAIRON Hydralazine HCl (Hydralazine Hcl 20 Mg/Ml Vial) 5 mg IV NOW ONE Stop: 05/06/23 04:55 Last Admin: 05/06/23 05:20 Dose: 5 mg Documented By: BRODERICK Hydromorphone HCl (Hydromorphone Inj 0.5 Mg/0.5 Ml Syr) 0.5 mg IV NOW STA Stop: 05/06/23 00:50 Last Admin: 05/06/23 00:56 Dose: 0.5 mg Documented By: BRODERICK Propofol (Diprivan) 1,000 mg in 100 mls @ 25.92 mls/hr IV .Q3H52M REESE; Protocol Stop: 05/05/23 14:59 Last Admin: 05/04/23 14:57 Dose: Not Given Documented By: Admin: 05/04/23 08:33 Dose: Not Given Documented By: Admin: 05/04/23 08:33 Dose: Not Given Documented By: Admin: 05/04/23 08:33 Dose: Not Given Documented By: Admin: 05/04/23 08:33 Dose: Not Given Documented By: Admin: 05/04/23 08:33 Dose: Not Given Documented By: Titration: 05/04/23 07:55 Dose: Infused Documented By: Titration: 05/04/23 05:10 Dose: 30 mcg/kg/min, 25.9 mls/hr Documented By: Admin: 05/04/23 03:31 Dose: 25 mcg/kg/min, 22.5 mls/hr Documented By: TP Co-signed By: PAH Titration: 05/04/23 03:31 Dose: Infused Documented By: TP Co-signed By: PAH Admin: 05/03/23 23:13 Dose: 25 mcg/kg/min, 22.5 mls/hr Documented By: CLC Co-signed By: TP Titration: 05/03/23 23:13 Dose: Infused Documented By: CLC Co-signed By: TP Admin: 05/03/23 20:52 Dose: Not Given Documented By: Titration: 05/03/23 20:02 Dose: 25 mcg/kg/min, 22.5 mls/hr Documented By: Admin: 05/03/23 19:30 Dose: 20 mcg/kg/min, 18 mls/hr Documented By: CLC Co-signed By: TP Titration: 05/03/23 19:15 Dose: Infused Documented By: Titration: 05/03/23 07:18 Dose: 0 mcg/kg/min, 0 mls/hr Documented By: Titration: 05/03/23 05:55 Dose: 0 mcg/kg/min, 0 mls/hr Documented By: Admin: 05/03/23 05:54 Dose: 50 mcg/kg/min, 45 mls/hr Documented By: CLC Co-signed By: TP Titration: 05/03/23 05:54 Dose: Infused Documented By: CLC Co-signed By: TP Titration: 05/03/23 03:40 Dose: Infused Documented By: CLC Co-signed By: TP Admin: 05/03/23 03:40 Dose: 50 mcg/kg/min, 45 mls/hr Documented By: CLC Co-signed By: TP Admin: 05/03/23 03:20 Dose: Not Given Documented By: Admin: 05/03/23 03:19 Dose: Not Given Documented By: Titration: 05/03/23 03:16 Dose: 50 mcg/kg/min, 45 mls/hr Documented By: Titration: 05/03/23 02:59 Dose: 45 mcg/kg/min, 40.5 mls/hr Documented By: Admin: 05/03/23 01:02 Dose: 40 mcg/kg/min, 36 mls/hr Documented By: CLC Co-signed By: TP Titration: 05/03/23 01:02 Dose: Infused Documented By: CLC Co-signed By: TP Admin: 05/02/23 22:57 Dose: 40 mcg/kg/min, 36 mls/hr Documented By: CLC Co-signed By: TP Titration: 05/02/23 22:57 Dose: Infused Documented By: CLC Co-signed By: TP Titration: 05/02/23 21:15 Dose: 35 mcg/kg/min, 31.5 mls/hr Documented By: Titration: 05/02/23 20:30 Dose: 30 mcg/kg/min, 27 mls/hr Documented By: Admin: 05/02/23 20:00 Dose: 25 mcg/kg/min, 22.5 mls/hr Documented By: CLC Co-signed By: TP Titration: 05/02/23 20:00 Dose: Infused Documented By: CLC Co-signed By: TP Titration: 05/02/23 17:33 Dose: 0 mcg/kg/min, 0 mls/hr Documented By: Titration: 05/02/23 16:15 Dose: 40 mcg/kg/min, 36 mls/hr Documented By: Titration: 05/02/23 16:05 Dose: 0 mcg/kg/min, 0 mls/hr Documented By: Titration: 05/02/23 15:20 Dose: 40 mcg/kg/min, 36 mls/hr Documented By: Admin: 05/02/23 14:59 Dose: 20 mcg/kg/min, 18 mls/hr Documented By: ANALY Ceftriaxone Sodium (Rocephin) 2,000 mg in 50 mls @ 100 mls/hr IV NOW STA Stop: 05/02/23 17:57 Last Infusion: 05/02/23 18:12 Dose: Infused Documented By: Admin: 05/02/23 17:47 Dose: 100 mls/hr Documented By: ANALY Sodium Chloride (Nss) 1,000 mls @ 999 mls/hr IV .Q1H1M ONE Stop: 05/02/23 18:28 Last Infusion: 05/02/23 17:55 Dose: Infused Documented By: Admin: 05/02/23 17:34 Dose: 999 mls/hr Documented By: ANALY Levetiracetam 500 mg/ Sodium (Chloride) 105 mls @ 420 mls/hr IV Q12H REESE Stop: 06/02/23 08:59 Last Infusion: 05/05/23 09:34 Dose: Infused Documented By: Admin: 05/05/23 08:25 Dose: 420 mls/hr Documented By: Infusion: 05/04/23 20:24 Dose: Infused Documented By: Admin: 05/04/23 20:02 Dose: 420 mls/hr Documented By: Infusion: 05/04/23 08:31 Dose: Infused Documented By: Admin: 05/04/23 08:16 Dose: 420 mls/hr Documented By: Infusion: 05/03/23 21:54 Dose: Infused Documented By: Admin: 05/03/23 21:34 Dose: 420 mls/hr Documented By: Infusion: 05/03/23 08:53 Dose: Infused Documented By: Admin: 05/03/23 08:32 Dose: 420 mls/hr Documented By: STEVEN Magnesium Sulfate/Dextrose (Magnesium Sulfate / D5w) 1 gm in 100 mls @ 50 mls/hr IV Q2H REESE Stop: 05/03/23 12:29 Last Infusion: 05/03/23 12:26 Dose: Infused Documented By: Admin: 05/03/23 10:20 Dose: 50 mls/hr Documented By: Infusion: 05/03/23 10:20 Dose: Infused Documented By: Admin: 05/03/23 08:33 Dose: 50 mls/hr Documented By: STEVEN Potassium Chloride (K Noah / Wtr) 10 meq in 100 mls @ 100 mls/hr IV Q1H REESE Stop: 05/03/23 10:29 Last Infusion: 05/03/23 10:50 Dose: Infused Documented By: Admin: 05/03/23 09:47 Dose: 100 mls/hr Documented By: Infusion: 05/03/23 09:33 Dose: Infused Documented By: Admin: 05/03/23 08:33 Dose: 100 mls/hr Documented By: STEVEN Parenteral Electrolytes (Plasma-Lyte A Ph 7.4) 1,000 mls @ 50 mls/hr IV .Q20H REESE Stop: 05/04/23 05:59 Last Infusion: 05/03/23 14:10 Dose: Infused Documented By: Admin: 05/03/23 10:13 Dose: 50 mls/hr Documented By: STEVEN Dextrose/Sodium Chloride (D5w And Nss) 1,000 mls @ 75 mls/hr IV .[id number] REESE Stop: 06/02/23 14:14 Last Infusion: 05/04/23 19:06 Dose: Infused Documented By: Admin: 05/04/23 12:49 Dose: 75 mls/hr Documented By: Infusion: 05/04/23 12:25 Dose: Infused Documented By: Infusion: 05/04/23 09:37 Dose: 75 mls/hr Documented By: Admin: 05/04/23 01:43 Dose: 100 mls/hr Documented By: Infusion: 05/04/23 00:23 Dose: Infused Documented By: Admin: 05/03/23 14:23 Dose: 100 mls/hr Documented By: STEVEN Methylprednisolone 40 mg/ (Syringe) 0.64 mls @ 1.5 mls/min IV NOW ONE Stop: 05/04/23 09:32 Last Admin: 05/04/23 09:46 Dose: 1.5 mls/min Documented By: BAIRON Ioversol (Optiray 350 500ml) 113 ml IV ONCE ONE Stop: 05/02/23 15:26 Last Admin: 05/02/23 15:25 Dose: 113 ml Documented By: NICOLE Labetalol HCl (Labetalol Hcl Iv 5 Mg/Ml 20ml) Confirm Administered Dose 5 mg IV .STK-MED ONE Stop: 05/02/23 15:04 Last Admin: 05/02/23 16:16 Dose: Not Given Documented By: ANALY Labetalol HCl (Labetalol Hcl Iv 5 Mg/Ml 20ml) 10 mg IV NOW STA Stop: 05/02/23 16:39 Last Admin: 05/02/23 17:20 Dose: 10 mg Documented By: ANALY Co-signed By: IVANNA Labetalol HCl (Labetalol Hcl Iv 5 Mg/Ml 20ml) 20 mg IV NOW STA Stop: 05/02/23 16:40 Last Admin: 05/02/23 17:20 Dose: 20 mg Documented By: ANALY Co-signed By: IVANNA Levetiracetam (Levetiracetam 500 Mg/5 Ml Vial) 4,500 mg IV NOW STA Stop: 05/02/23 16:14 Last Admin: 05/02/23 16:23 Dose: 4,500 mg Documented By: ANALY Lisinopril (Lisinopril 20 Mg Tab) 20 mg PO QAM REESE Stop: 06/04/23 08:59 Last Admin: 05/05/23 10:44 Dose: 20 mg Documented By: LUCAS Metoprolol Tartrate (Metoprolol Tartrate 25 Mg Tab) 25 mg PO BID [facility] Stop: 06/03/23 20:59 Last Admin: 05/06/23 07:40 Dose: 25 mg Documented By: AKHIL Co-signed By: SYEDA Admin: 05/05/23 21:02 Dose: 25 mg Documented By: Admin: 05/05/23 08:25 Dose: 25 mg Documented By: Admin: 05/04/23 20:02 Dose: 25 mg Documented By: MERYL Metoprolol Tartrate (Metoprolol Tartrate 1 Mg/Ml Vial) 5 mg IV Q6 PRN PRN Reason: SBP>160 Stop: 06/03/23 12:08 Last Admin: 05/04/23 12:31 Dose: 5 mg Documented By: BAIRON Midazolam HCl (Midazolam Hcl 1 Mg/Ml 2ml Vial) Confirm Administered Dose 4 mg .ROUTE .STK-MED ONE Stop: 05/02/23 16:42 Last Admin: 05/02/23 17:36 Dose: Not Given Documented By: ANALY Midazolam HCl (Midazolam Hcl 1 Mg/Ml 2ml Vial) Confirm Administered Dose 2 mg .ROUTE .STK-MED ONE Stop: 05/02/23 17:31 Last Admin: 05/02/23 17:37 Dose: Not Given Documented By: ANALY Midazolam HCl (Midazolam Hcl 1 Mg/Ml 2ml Vial) 2 mg IV Q30M PRN PRN Reason: RASS -1 Stop: 06/01/23 17:32 Last Admin: 05/03/23 17:44 Dose: 2 mg Documented By: Admin: 05/02/23 17:42 Dose: 2 mg Documented By: Admin: 05/02/23 15:45 Dose: 2 mg Documented By: Admin: 05/02/23 14:45 Dose: 2 mg Documented By: ANALY Miscellaneous (Rapid Sequence Induction Bag) Confirm Administered Dose 1 each N/A .STK-MED ONE Stop: 05/02/23 14:54 Last Admin: 05/02/23 15:58 Dose: 1 each Documented By: ANALY Barrett (Stat Iv Infusion Titration Per Protocol) 1 each N/A NOW STA Stop: 05/02/23 14:57 Last Admin: 05/02/23 15:58 Dose: Not Given Documented By: ANALY Potassium Chloride (Potassium Chloride Crtab 20 Meq Tabcr) 20 meq PO NOW STA Stop: 05/05/23 08:56 Last Admin: 05/05/23 10:09 Dose: 20 meq Documented By: LUCAS Propofol (Propofol Iv Emulsion 10 Mg/Ml 20 Ml Vial) Confirm Administered Dose 200 mg IV .STK-MED ONE Stop: 05/02/23 14:57 Last Admin: 05/02/23 15:58 Dose: Not Given Documented By: ANALY Propofol (Propofol Iv Emulsion 10 Mg/Ml 100 Ml Vial) Confirm Administered Dose 1,000 mg IV .STK-MED ONE Stop: 05/02/23 15:02 Last Admin: 05/02/23 15:59 Dose: Not Given Documented By: ANALY Propofol (Propofol Iv Emulsion 10 Mg/Ml 20 Ml Vial) 100 mg IV NOW ONE Stop: 05/02/23 15:16 Last Admin: 05/02/23 15:59 Dose: 100 mg Documented By: ANALY Co-signed By: IVANNA Description This is a 21 electrode EEG with a single channel dedicated to limited EKG. The electrodes were placed in accordance with the International 10-20 system. REPORT: At the onset of the EEG the patient is drowsy. The background is continuous and symmetric. The posterior dominant rhythm is 11-12 with intermixed low amplitude faster frequencies anteriorly. No Stage II sleep transient are seen. Interpretation IMPRESSION: This is a normal awake and drowsy routine EEG. There is no evidence of focal slowing or epileptiform activity.
[2023-05-07] MEDS: KETOROLAC TROMETHAMINE 15 MG/ML VIAL IV ONE (01:47)
[2023-05-07 04:36] LABS: Basophils # (auto) 0.07 K/uL (0.00-0.20); Basophils % (auto) 0.6 %; Eosinophils # (auto) 0.27 K/uL (0.00-0.50); Eosinophils % (auto) 2.5 %; Hemoglobin 13.3 g/dl (14.0-18.0); Immature Granulocytes # (auto) 0.03 K/uL (0.01-0.20); Immature Granulocytes % (auto) 0.3 %; Lymphocytes % (auto) 22.1 %; Mean Corpuscular Hemoglobin 30.2 pg (25.0-34.0); Mean Corpuscular Hgb Conc 34.1 g/dL (32.0-36.0); Mean Corpuscular Volume 88.6 fL (80.0-100.0); Mean Platelet Volume 10.6 fL (9.4-12.4); Monocytes # (auto) 0.99 K/uL (0.11-0.59); Monocytes % (auto) 9.1 %; Neutrophils # (auto) 7.08 K/uL (1.40-6.50); Neutrophils % (auto) 65.4 %; Platelet Count 191 K/uL (130-400); RDW Coefficient of Variation 13.2 % (11.5-14.5); RDW Standard Deviation 43.3 fL (36.4-46.3); White Blood Count 10.84 K/ul (4.8-10.8)
[2023-05-07 04:54] LABS: BUN Creatinine Ratio 18.4 (10-20); Calcium 8.6 mg/dl (8.6-10.3); Creatinine Clr Calc Pharmacy 145.1 ml/min; Est GFR (African American) 113.4 ml/min; Est GFR (Non-African American) 97.8 ml/min; Magnesium 1.9 mg/dl (1.7-2.4); Phosphorus 3.6 mg/dl (2.5-4.9); Potassium 3.6 mmol/L (3.5-5.1)
[2023-05-07] MEDS: COLCHICINE 0.6 MG TAB PO ONE (11:49)
[2023-05-07] MEDS: DICLOFENAC SOD 1% GEL 100 GM TUBE EXT SCH (13:00)
--- NOTE | 2023-05-07 13:23 | Hospitalist Progress Note ---
Date of Service May 07, 2023 Assessment & Plan (1) Stroke-like symptoms: (2) History of DVT (deep vein thrombosis): (3) Hypertensive crisis: (4) Pneumonia: (5) Noncompliance: Plan 52-year-old male with PMH of DVT x 2 [on Eliquis], HTN, GERD, medication noncompliance [?? Insurance issues in the past] was brought to the ED unresponsive. 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 His losartan was was increased and he was started on metoprolol for his blood pressure management recently. Apparently he was working in his back shed in the afternoon of the day of arrival and called 911 on his own. Patient's girlfriend notes that he has been compliant with medications in the past few days leading up to a week prior to arrival. When EMS arrived, he was found unresponsive and not able to answer questions or commands. There was no note of fever or chills or cough in the past week prior to arrival per patient's girlfriend. He was given Narcan en route via EMS without response. 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 Not allowed to drive until being cleared by the neurologist Improving PT and OT evaluation-will have outpatient PT and OT on discharge Clinically much better Strokelike symptoms Right hemiplegia is likely secondary to Gianni's paralysis and which has been improving MRI or CT did not show any evidence of stroke Clinically no neurological deficiency No more neurological symptom Unresponsive episode Unexplained LOC Patient was brought in by EMS, patient was found unresponsive at his home. Narcan administered en route, no response. At presentationurine drug screen negative. MRSA screen negative. UA negative for UTI. Procalcitonin negative. Renal electrolytes fairly WNL. CBC fairly WNL. Required intubation and subsequently extubated Appreciate x ray developer input and recommendation Remains medically stable with weakness and tiredness but no other significant symptoms From the prior hospitalist note. Discussed with neurology 05/03, c/w corinne for now. DMV to be notified d/t unexplained LOC. Extubated 05/03 AM, BP rising after sedation is off. Blood pressure medications optimized, continue to titrate BP medications. c/w corinne f/u w/ neuro on dc, no driving until neuro clears. DMV has been notified and the patient was informed about that. Hypertensive crisis: BP has been over 190s/110s for past few days prior to arrival for patient's girlfriend. Recently losartan was increased to 50 mg twice daily and metoprolol had been added. At ED, nicardipine gtt. was restarted but weaned off as patient became hypoten sive with sedation needed for intubation. Extubated 05/03 AM, sedation off, blood pressure started to rise. c/w lisinopril, metoprololol. prn hydralazine and prn metoprolol iv on board. Off of nicardipine drip. Continue to monitor and titrate as needed. Blood pressure remains elevated with systolic more than 160 and diastolic more than 90 Metoprolol has been changed to Coreg 12.5 mg twice daily from today Complains of some headache likely secondary to hypertension Blood pressure is well-controlled Pneumonia Likely secondary to aspiration Pneumonia noted in CTA chest, possible aspiration with unconscious event, patient intubated at presentation for airway protection. Continue with Unasyn 05/01. Follow admitting blood culture. ziggy Lubin/miguel on dc. Will continue antibiotic to finish the course for a total of 10 days Left foot pain Likely secondary to gouty arthritis Has been controlled with colchicine x 3 doses so far If the pain continues he will need to have 0.3 mg colchicine every other day to avoid severe interaction with Coreg History of medical noncompliance: Historically noncompliant with antihypertensive medication anticoagulation medication due to insurance issues. Patient's girlfriend states that he has been compliant recently. PCP: Dr. Graff Code Status: Full Code VTE Prophyalxis: On Eliquis Discussed with the patient in detail and answered all of his questions Admission and Anticipated Discharge Date Admission Date: May 02, 2023 Subjective 05/06/2023 The patient was seen and examined in ICU in the setting of telemetry unit He is out of bed on a chair and complains to have occipital headache without any other neurological symptoms and remains generally weak Denies any chest pain and her palpitation, no abdominal pain nausea no vomiting No numbness or tingling in the extremities 05/07/2023 The patient was seen and examined in the ICU in the setting of telemetry unit He has been feeling much better today and the blood pressure is well-controlled Denies any more headache Left foot pain has been improving with colchicine He is stable to be discharged this afternoon Review of Systems Review of Systems: All systems reviewed and are unremarkable except as noted below Musculoskeletal: Minimal pain on the left foot Physical Exam Physical Exam: Sitting on a chair without any acute distress Constitutional: well developed, well nourished, + ill appearing and + obese Eyes: PERRL, conjunctivae normal, anicteric sclerae ENMT: external ear and nose normal, oropharynx normal Neck: trachea midline, no thyromegaly Respiratory: no respiratory distress Auscultation: + diminished lung sounds and + crackles (Occasional wheezing and crackles at the bases) Cardiovascular: Rate/Rhythm: regular rate and regular rhythm; not tachycardic Heart Sounds: normal S1 and normal S2; no murmur Extremities: + edema (Trace edema bilaterally) Gastrointestinal (Abdomen): Inspection/Auscultation: + abdomen distended and normal bowel sounds Percussion/Palpation: abdomen soft; abdomen nontender Musculoskeletal: Left foot is swelled with minimal redness and tenderness on palpation Neurologic: normal touch/pain/proprioception and moves all extremities; no focal motor deficits Psychiatric: A+Ox3, euthymic affect Lymphatic: no cervical or axillary lymphadenopathy Results & Data Results & Data Vital Signs (Past 12 Hours) Vital Signs Temp Pulse Pulse Resp BP BP Pulse Ox 05/07/23 12:00 37.0 C 68 20 131/79 96 05/07/23 08:00 58 L 05/07/23 07:20 60 16 95 05/07/23 06:00 58 L 13 05/07/23 05:45 65 12 05/07/23 05:30 66 13 05/07/23 05:15 63 13 05/07/23 05:00 64 14 05/07/23 04:45 62 14 05/07/23 04:30 62 14 05/07/23 04:15 59 L 13 05/07/23 04:01 131/71 05/07/23 04:01 131/71 05/07/23 04:01 60 12 05/07/23 04:00 59 L 12 05/07/23 03:45 58 L 11 L 05/07/23 03:30 60 10 L 05/07/23 03:15 63 10 L 05/07/23 03:00 60 19 05/07/23 02:45 60 12 05/07/23 02:30 63 14 05/07/23 02:15 62 14 05/07/23 02:01 63 14 05/07/23 02:01 145/80 H 05/07/23 02:00 63 14 05/07/23 01:45 64 19 05/07/23 01:30 69 17 05/07/23 01:29 71 17 O2 Del Method 05/07/23 12:00 Room Air 05/07/23 08:00 05/07/23 07:20 Room Air 05/07/23 06:00 05/07/23 05:45 05/07/23 05:30 05/07/23 05:15 05/07/23 05:00 05/07/23 04:45 05/07/23 04:30 05/07/23 04:15 05/07/23 04:01 05/07/23 04:01 05/07/23 04:01 05/07/23 04:00 05/07/23 03:45 05/07/23 03:30 05/07/23 03:15 05/07/23 03:00 05/07/23 02:45 05/07/23 02:30 05/07/23 02:15 05/07/23 02:01 05/07/23 02:01 05/07/23 02:00 05/07/23 01:45 05/07/23 01:30 05/07/23 01:29 Laboratory Results Short CBC 05/07/23 Range/Units 04:10 WBC 10.84 H (4.8-10.8) K/ul Hgb 13.3 L (14.0-18.0) g/dl Hct 39.0 L (42.0-52.0) % Plt Count 191 (130-400) K/uL BMP 05/07/23 04:10 Sodium 138 Potassium 3.6 Chloride 109 H Carbon Dioxide 23 BUN 16 Creatinine 0.87 Glucose 82 Calcium 8.6 Medications Administered Current Inpatient Medications Acetaminophen (Acetaminophen 325 Mg Tab) 650 mg PO Q4H PRN PRN Reason: Pain or Fever Stop: 06/01/23 18:12 Last Admin: 05/07/23 00:11 Dose: 650 mg Al Hydrox/Mg Hydrox/Simethicone (Aluminum/Magnesium Susp 30 Ml Udc) 15 ml PO Q4H PRN PRN Reason: Dyspepsia Stop: 06/01/23 18:12 Apixaban (Apixaban 5 Mg Tablet) 5 mg PO BID [facility] Stop: 06/03/23 20:59 Last Admin: 05/07/23 08:34 Dose: 5 mg Budesonide (Budesonide 0.25 Mg/2 Ml Vial (Pulmicort)) 0.25 mg NEB BIDR [facility] Stop: 06/02/23 18:59 Last Admin: 05/07/23 07:19 Dose: 0.25 mg Carvedilol (Carvedilol 12.5 Mg Tab) 12.5 mg PO BIDM [facility] Stop: 06/05/23 16:59 Last Admin: 05/07/23 08:34 Dose: 12.5 mg Dextrose (Dextrose 50% 50 Ml Syringe) 25 - 50 ml IV UD PRN; Protocol PRN Reason: Hypoglycemia Protocol Stop: 06/02/23 13:47 Last Admin: 05/03/23 13:53 Dose: 25 ml Diclofenac Sodium (Diclofenac Sod 1% Gel 100 Gm Tube) 2 gm EXT TID [facility]; Protocol Stop: 06/06/23 13:59 Last Admin: 05/07/23 13:00 Dose: 2 gm Formoterol Fumarate (Formoterol 20 Mcg/2 Ml Vial) 20 mcg INH BIDR [facility] Stop: 06/02/23 18:59 Last Admin: 05/07/23 07:20 Dose: 20 mcg Glucagon (Glucagon For Inj 1 Mg Vial) 1 mg SQ UD PRN; Protocol PRN Reason: Hypoglycemia Protocol Stop: 06/02/23 13:47 Glucose (Glucose 40% Gel 15 Gm Tube) 15 - 30 gm PO UD PRN; Protocol PRN Reason: Hypoglycemia Protocol Stop: 06/02/23 13:47 Glucose (Glucose 10 Tab/Tube) 4 - 8 tab PO UD PRN; Protocol PRN Reason: Hypoglycemia Treatment Stop: 06/02/23 13:47 Hydralazine HCl (Hydralazine Hcl 20 Mg/Ml Vial) 10 mg IV Q6 PRN PRN Reason: SBP>160 Stop: 06/03/23 13:29 Last Admin: 05/07/23 00:15 Dose: 10 mg Ampicillin Sodium/Sulbactam Sodium 3,000 mg/ Sodium Chloride 100 mls @ 200 mls/hr IV Q6H [facility] Stop: 05/09/23 19:44 Last Admin: 05/07/23 13:00 Dose: 200 mls/hr Acetaminophen (Ofirmev) 1,000 mg in 100 mls @ 400 mls/hr IV Q8H PRN PRN Reason: Pain Stop: 05/07/23 16:49 Last Infusion: 05/04/23 17:15 Dose: Infused Levetiracetam (Levetiracetam 500 Mg Tab) 500 mg PO BID [facility] Stop: 06/04/23 20:59 Last Admin: 05/07/23 08:34 Dose: 500 mg Lisinopril (Lisinopril 20 Mg Tab) 20 mg PO BID [facility] Stop: 06/04/23 20:59 Last Admin: 05/07/23 08:34 Dose: 20 mg Magnesium Hydroxide (Magnesium Hydroxide Susp 30 Ml Udc) 30 ml PO Q12H PRN PRN Reason: Constipation Stop: 06/01/23 18:12 Metoprolol Tartrate (Metoprolol Tartrate 1 Mg/Ml Vial) 5 mg IV Q4 PRN PRN Reason: SBP>160 Stop: 06/03/23 12:08 Miscellaneous (Carbohydrates For Hypoglycemia ) 15 - 30 gm PO UD PRN PRN Reason: Hypoglycemia Protocol Stop: 06/02/23 13:47 Ondansetron HCl (Ondansetron Inj 2 Mg/Ml 2 Ml Vial) 4 mg IV Q6H PRN PRN Reason: Nausea Stop: 06/01/23 18:12 Pantoprazole Sodium (Pantoprazole 40 Mg Tab) 40 mg PO DAILY [facility] Stop: 06/04/23 09:59 Last Admin: 05/07/23 08:34 Dose: 40 mg Polyethylene Glycol (Polyethylene (Miralax) 17 Gm Pack) 17 gm PO DAILY PRN PRN Reason: Constipation Stop: 06/01/23 18:12 (4) Pneumonia Laterality: bilateral Lung location: lower lobe of lung Pneumonia type: due to unspecified organism Qualified Code(s): J18.9 - Pneumonia, unspecified organism
--- NOTE | 2023-05-08 07:38 | Discharge Summary ---
Date of Service May 07, 2023 Admission HPI Per Admitting Provider Mr. Walsh presented to the ED today after calling EMS. He was found down at his house. He has a history of noncompliance with his antihypertensive medications and also his anticoagulants due to previous insurance issues. 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 His girlfriend indicated that his blood pressure has been high over the past few days. When he was evaluated last evening his losartan was increased and he was started on metoprolol and was discharged home. This afternoon he was working in his back shed and called 911 on his own. His girlfriend who is at the bedside indicated she was not present earlier today when this all occurred. When EMS arrived he was unresponsive and not able to answer questions or commands. His girlfriend indicated that over the past few days and up to a week there have been no complaints from the patient. No fevers or chills, no cough, no complaints of chest pain, abdominal pain. He has a PMH that includes: DVT x2 ( On Eliquis), HTN, and GERD. No leukocytosis, otherwise labs unremarkable. He was given Narcan and route via EMS without response. UDS pending however family genuinely does not believe he is taking any other recreational drugs. No tobacco use and social alcohol use on weekends. Chest CT: Consolidation in the bilateral lower lungs and bronchial wall thickening compatible with pneumonia. CXR negative for acute cardiopulmonary disease Head CT: Negative for ICH, stenosis, dissection, aneurysm or AVM Head neck CTA negative Brain MRI negative for acute ischemia or infarction Last ECHO 08/2022; EF 65 to 70% no significant valve disease and normal LV wall motion. Upon arrival to the ED he was worked up as a stroke alert. Head CT and brain MRI negative along with CT angio to rule out AAA. He was intubated in the ED for airway protection. Stroke telemedicine was done through [facility] and Elena Anatoliy was advised to Keppra load him in case he was having a seizure. Patient was weaned off sedation and he was able to open his eyes and give a thumbs up to indicate he was taking his Eliquis. Due to his noncompliance I would be cautious on the validity of that. His Girlfriend also stated girlfriend also stated that he has been compliant with his medications since he has had insurance. He was on propofol, Versed, and nicardipine drip which is all since been weaned of; with intermittent pushes of fentanyl because he was starting to wake up and agitated. When I was in the room he was able to barely open his eyes to verbal stimuli. He was able to wiggle his right hand but unable to follow any other commands. He was intubated on CMV 0.50 FiO2. Initially I had thought that we could extubate him if he was awake enough however he was unable to show signs that he would be able to initiate and take his own breaths along with protecting his own airway. I discussed with Cory STARKEY in the ICU who will accept the patient for further evaluation and management. Patient initially was hypertensive upon arrival and was placed on nicardipine drip which has since been turned off because he became hypotensive. Apparently, he was able to wake enough prior to my seeing him and indicated that he took 4 Losartan and 1 metoprolol today, which may have caused him to be hypotensive and experienced a syncopal event. For now hold sedation. Patient could have aspirated during the event, will cover broad spectrum for now. Admission Exam Per Admitting Provider Physical Exam: Neuro: AAOx1, pupils sluggish, minimal responsiveness HEENT: head normocephalic, atraumatic, moist mucus membranes CV: S1/S2, (-) M/G/R, (-) edema, cap refill < 3 seconds Resp: Intubated ETT 7/5 24 cm @ lip. Lung sounds decreased ant/post. GI: Abdomen large S/NT/ND, Ax4 bowel sounds, (-) CVA tenderness Musculoskeletal: Unable to assess Skin: (-) rashes , (-) erythema. Psych: Unable to assess Principal Diagnosis Hypertensive crisis, unresponsive episode, strokelike symptoms, right hemip aresis secondary to Gianni's paralysis Discharge Exam Sitting on a chair without any acute distress Constitutional well developed, well nourished, + ill appearing and + obese Eyes PERRL, conjunctivae normal, anicteric sclerae ENMT external ear and nose normal, oropharynx normal Neck trachea midline, no thyromegaly Respiratory no respiratory distress Auscultation: + diminished lung sounds and + crackles (Occasional wheezing and crackles at the bases) Cardiovascular Rate/Rhythm: regular rate and regular rhythm; not tachycardic Heart Sounds: normal S1 and normal S2; no murmur Extremities: + edema (Trace edema bilaterally) Gastrointestinal (Abdomen) Inspection/Auscultation: + abdomen distended and normal bowel sounds Percussion/Palpation: abdomen soft; abdomen nontender Neurologic normal touch/pain/proprioception and moves all extremities; no focal motor deficits Psychiatric A+Ox3, euthymic affect Lymphatic no cervical or axillary lymphadenopathy Discharge Data Allergies Allergy/AdvReac Type Severity Reaction Status Date / Time acetaminophen [From Percocet] Allergy Unknown Verified 05/02/23 15:34 doxycycline Allergy Unknown Verified 05/02/23 15:34 oxycodone Allergy Unknown Verified 05/02/23 15:34 Sulfa (Sulfonamide Allergy swelling Verified 05/02/23 15:34 Antibiotics) of eyes with eye drops Consultations 05/02/23 18:13 Consult Police Worker Routine 05/02/23 18:14 ED Decision to Admit Stat 05/02/23 23:39 Consult Neurology Routine Ordered Studies 05/02/23 14:52 CT angio chest dissec wo/w con Stat CT angio head w con Stat CT angio neck with con Stat CT head/brain wo con Stat 05/02/23 16:05 MR brain wo con Stat 05/03/23 11:20 MRI Cervical [MR cervical spine wo/w con] Urgent Hospital Course (1) Stroke-like symptoms: (2) History of DVT (deep vein thrombosis): (3) Hypertensive crisis: (4) Pneumonia: (5) Noncompliance: Plan 52-year-old male with PMH of DVT x 2 [on Eliquis], HTN, GERD, medication noncompliance [?? Insurance issues in the past] was brought to the ED unresponsive. 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 His losartan was was increased and he was started on metoprolol for his blood pressure management recently. Apparently he was workin g in his back shed in the afternoon of the day of arrival and called 911 on his own. Patient's girlfriend notes that he has been compliant with medications in the past few days leading up to a week prior to arrival. When EMS arrived, he was found unresponsive and not able to answer questions or commands. There was no note of fever or chills or cough in the past week prior to arrival per patient's girlfriend. He was given Narcan en route via EMS without response. 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 Not allowed to drive until being cleared by the neurologist Improving PT and OT evaluation-will have outpatient PT and OT on discharge Clinically much better Strokelike symptoms Right hemiplegia is likely secondary to Gianni's paralysis and which has been improving MRI or CT did not show any evidence of stroke Clinically no neurological deficiency No more neurological symptom Unresponsive episode Unexplained LOC Patient was brought in by EMS, patient was found unresponsive at his home. Narcan administered en route, no response. At presentationurine drug screen negative. MRSA screen negative. UA negative for UTI. Procalcitonin negative. Renal electrolytes fairly WNL. CBC fairly WNL. Required intubation and subsequently extubated Appreciate geomorphology teacher input and recommendation Remains medically stable with weakness and tiredness but no other significant symptoms From the prior hospitalist note. Discussed with neurology 05/03, c/w corinne for now. DMV to be notified d/t unexplained LOC. Extubated 05/03 AM, BP rising after sedation is off. Blood pressure medications optimized, continue to titrate BP medications. c/w africara f/u w/ neuro on dc, no driving until neuro clears. DMV has been notified and the patient was informed about that. Hypertensive crisis: BP has been over 190s/110s for past few days prior to arrival for patient's girlfriend. Recently losartan was increased to 50 mg twice daily and metoprolol had been added. At ED, nicardipine gtt. was restarted but weaned off as patient became hypotensive with sedation needed for intubation. Extubated 05/03 AM, sedation off, blood pressure started to rise. c/w lisinopril, metoprololol. prn hydralazine and prn metoprolol iv on board. Off of nicardipine drip. Continue to monitor and titrate as needed. Blood pressure remains elevated with systolic more than 160 and diastolic more than 90 Metoprolol has been changed to Coreg 12.5 mg twice daily from today Complains of some headache likely secondary to hypertension Blood pressure is well-controlled Pneumonia Likely secondary to aspiration Pneumonia noted in CTA chest, possible aspiration with unconscious event, patient intubated at presentation for airway protection. Continue with Unasyn 05/01. Follow admitting blood culture. ziggy Lubin/miguel on dc. Will continue antibiotic to finish the course for a total of 10 days Left foot pain Likely secondary to gouty arthritis Has been controlled with colchicine x 3 doses so far If the pain continues he will need to have 0.3 mg colchicine every other day to avoid severe interaction with Coreg History of medical noncompliance: Historically noncompliant with antihypertensive medication anticoagulation medication due to insurance issues. Patient's girlfriend states that he has been compliant recently. PCP: Dr. Graff Code Status: Full Code VTE Prophyalxis: On Eliquis Discussed with the patient in detail and answered all of his questions Total Time Total Time Spent Total Time Spent (In Minutes): 45 minutes Discharge Plan Discharge Items Patient Disposition: Home - Home Health Services Reason For Visit: unresponsive Discharge Diagnosis: Hypertensive crisis, unresponsive episode, strokelike symptoms, right hemiparesis secondary to Gianni's paralysis Condition on Discharge: Fair Activity: Resume your previous activity Activity Comment: Will need PT and OT as an outpatient Non-emergency contact: Primary Care Provider Call non-emergency contact if: you have any medication questions and your symptoms worsen Follow-up/Referrals: Micki Paz PA-C [Physician Poultry Scalder] - (Date & Time 05/31/2023 11:20 AM Provider Micki Paz PA-C Department Neurology [facility] ) Oh Graff MD [Primary Care Provider] - (Date & Time 05/11/2023 9:40 AM Provider Lisandro Mckeon CRNP Department Family Medicine [facility] ) Diet: Regular, Heart Healthy and Low Sodium (2gm) Addtl Attending Provider Instructions: Please take precautions to avoid fall Take your medications as advised Do not drive until you have been cleared from a neurologist Please keep appointment with your healthcare provider Do not take any NSAIDs and/or aspirin For pain control take Tylenol 1 g every 8 hourly as needed on top of local diclofenac as prescribed Pending Studies at Discharge: No Stand-Alone Forms: My [email or web address], Smoking Cessation Medications and DC Order Prescriptions: New carvedilol 12.5 mg Tablet 12.5 mg PO BIDM Qty: 60 0RF levetiracetam [Keppra] 500 mg Tablet 500 mg PO BID Qty: 60 0RF diclofenac sodium [Voltaren Arthritis Pain] 1 % Gel 2 g EXT TID Qty: 50 0RF Stiolto Respimat 2.5-2.5 mcg/actuation mist 2 inh inhalation DAILY Qty: 4 0RF amoxicillin-pot clavulanate 875-125 mg tablet 1 tab PO BID Qty: 10 0RF Continued albuterol sulfate 90 mcg/actuation HFA aerosol inhaler 2 inh inhalation Q6H PRN (Reason: shortness of breath or wheezing) Qty: 8.5 0RF pantoprazole 40 mg tablet,delayed release (DR/EC) 40 mg PO DAILYBB Eliquis 5 mg tablet 5 mg PO [facility] Rx Instructions: Start taking on 08/31/2022 after completing the7 day course of the 10mg twice a day. cholecalciferol (vitamin D3) 1,250 mcg (50,000 unit) Capsule 1,250 mcg PO WK Rx Instructions: start 04/20/23 end 07/19/23 losartan 50 mg tablet 50 mg PO BID Qty: 60 0RF Discontinued metoprolol succinate 25 mg tablet extended release 24 hr 25 mg PO DAILY Qty: 30 0RF Rx Instructions: unknown if started Discharge Orders: Discharge Order (Routine); Ordered 05/07/23 Ordered By: Rohit Pena/Other Patient Handouts: Understanding High Blood Pressure, Hypertension Dc, High Blood Pressure Tx, ED Symptoms Uncertain Cause Admission Data Admit Date/Time: 05/02/23 18:13 Attending Provider: Rohit Bashir Admit Provider: Juan Carlos Torres Primary Care Provider: Oh Graff Other Providers: Georgi Rowley; Juan Carlos Torres; Micki Paz; Gama Del Rosario; Micki Cabrera; Sb Snow; Jairon Warren; Donte Santos; Jordan Sow; Lexii Harris; Billy Mohr; Curtis Le; Argelia Mcdonnell; Peter Baeza; Carmen Sharpe; Naomie Sahu; Jordan Elizabeth; Lydia Mcgrath; [facility]; [facility] Other Interventions: Discharge Summary Assessment (RN) Last Done: 05/07/23 14:33
== END 2023-05-07 15:36 | disposition home health service (06) | DRG 208 ==
LOC: ED 14:49 → SUATTDRO 18:13 → 1E 18:13

== ENCOUNTER 2023-12-11 14:36 | Observation (INO) ==
--- OUTSIDE RECORDS SUMMARY | 2023-12-11 14:40 | External Medical Summary | Summary of Care ---
Author Name Unknown Organization [facility] Address [address] [place] [address] Phone [phone] Care Team Providers Care Bushing Press Operator Name Role Phone Oh Graff MD Primary Care Provide r Reason for Referral * Precert (Within 10 days (routine)) - Pending Review Specialty Diagnoses / Procedures Referred By Contac t Referred To Contact Radiology Diagnoses Loss of consciousness (HCC) Chest pain, unspecified type Procedures NM MYOCARD PERF IMG SPECT MULT STUDIES WITH PHARM INTERV Oh Graff MD [address] [place] [address] [place] [phone] Referral ID Status Reason Start Date Expiration Date Visits Requested Visits Authorized [id number] Pending Review Precert 09/09/[phone] Reason for Visit * Reason Onset Date Comments Test Results 09/09/2023 Appointment 09/09/2023 NM Stress/GW Encounter Details Date Type Department Care Team ([facility] st Contact Info) Description 09/09/2023 Telephone Family Medicine [address] [phone] Oh Graff MD [address] [place] [address] [place] [phone] Test Results; Appointment (NM Stress/GW ) Allergies Active Allergy Reactions Criticality Noted Date Comments Doxycycline 01/30/2022 Oxycodone 11/19/2005 Percocet 05/05/2001 Sulfa Antibiotics 05/05/2001 Had sulfa drops for eyes as a kid and eyes swelled up documented as of this encounter (statuses as of 09/09/2023) Medications Medication Sig Dispensed Refills Start Date End Date Status Apixaban 5 MG Oral Tablet (Eliquis)Indications: History of DVT of lower extremity Take 1 Tablet by mouth in the morning and 1 Tablet before bedtime. 180 Tablet 1 05/07/2023 Active amLODIPine Besylate 10 MG Oral Tablet (Norvasc)Indications: HTN, goal below 130/80 Take 1 Tablet by mouth in the morning. 90 Tablet 2 06/13/2023 Active Carvedilol 12.5 MG Oral Tablet (Coreg) Take 1 Tablet by mouth in the morning and 1 Tablet before bedtime. 180 Tablet 1 06/14/2023 Active Losartan Potassium 50 MG Oral Tablet (Cozaar) Take 1 Tablet by mouth in the morning and 1 Tablet before bedtime. 180 Tablet 2 07/08/2023 Active Pantoprazole Sodium 40 MG Oral Tablet Delayed Release (Protonix)Indications :Gastroesophageal reflux disease without esophagitis Take 1 Tablet by mouth in the morning. 90 Tablet 1 08/27/2023 Active Stiolto Respimat 2.5-2.5 MCG/ACT Inhalation Aerosol Solution (Tiotropium-Olodatero l)Indications:at hosp d/c Inhale 2 Puffs by mouth in the morning. 4 g 2 08/27/2023 Active Hospital, Clinic, or Other Facility Administered Medication Ordered Dose Route Frequency Start Date End Date Status Albuterol Sulfate (Proventil) (2.5 MG/3ML) 0.083% inhalation solution 2.5 mgIndications:Cigarette smoker 2.5 mg NEBULIZER ONCE PRN 05/19/2023 05/18/2024 Active documented as of this encounter (statuses as of 09/09/2023) Active Problems Problem Noted Date Diagnosed Date COPD, mild 08/27/2023 History of loss of consciousness 08/27/2023 Morbid obesity, BMI not known 04/19/2023 Body mass index (BMI) of 40.0 to 44.9 in adult 0 04/20/2022 Overview: Per Obesity protocol Gastroesophageal reflux disease without esophagi tis 03/02/2022 HTN, goal below 130/80 02/04/2022 History of gastric bypass 01/30/2022 ADVANCE DIRECTIVE INFORMATION 10/05/2005 Overview: Yes, Patient instructed to provide copy of advance directive for provider to review and to be scanned into Electronic Medical Record documented as of this encounter (statuses as of 09/09/2023) Resolved Problems Problem Noted Date Diagnosed Date Resolved Date Acute deep vein thrombosis ( DVT) of proximal vein of right lower extremity 03/02/2022 04/19/2023 Asthma with severity to be determined 08/01/2009 02/04/2022 Overview: Per Asthma Taxonomy ICD-10 update of inactive term Bronchitis 02/04/2022 Asthma, allergic 08/01/2009 LUMBAGO 02/04/2022 Morbid obesity, BMI not known 04/22/2022 documented as of this encounter (statuses as of 09/09/2023) Immunizations Name Administration Dates Next Due TDAP, Age 7 and older, IM (Adacel) 05/22/2015 documented as of this encounter Social History Tobacco Use Types Packs/Day Years Used Date Smoking Tobacco: Every Day Cigarettes 1.5 5 Smokeless Tobacco: Former Snuff Comments:Can every two days Alcohol Use Standard Drinks/Week Comments Yes 0 (1 standard drink = 0.6 oz pur e alcohol) rare Utilities Answer Date Recorded Do you have trouble paying y our heating, water, or electric bill? (Adult - for ages 18 years and over) Not on file 07/27/2023 Is your family able to pay t he heat, water, or electric bill? (Household - for ages 0-17 years) Not on file 07/27/2023 Does your family have access to good internet? (Household - for ages 0-17 years) Not on file 07/27/2023 Social Connections Answer Date Recorded How often do you feel lonely or isolated from those around you? (Adult - for ages 18 years and over) Not on file 07/27/2023 Sex and Gender Information Value Date Recorded Sex Assigned at Not on file Gender Identity Not on file Sexual Orientation Not on file Job Start Date Occupation Industry Not on file Not on file Not on file documented as of this encounter Miscellaneous Notes * Telephone Encounter - WoodHailey OSA - 09/09/2023 1:32 PM EDT Jacek escobar scheduled for NM Stress test for: Question Answer What is the Reason for Study? CP with LOC; CAD, known or r/o; No acute coronary syndrome; No ED or urgent care patient status; Syncope; Moderate/high CHD event risk; No epilepsy or high AV block Where is this test being performed? [facility] Patient require 2 day protocol (BMI >= 40): Yes Note: If yes, allow 2 days to schedule * Telephone Encounter - Oh Graff MD - 09/09/2023 11:08 AM EDT Cardiac stress test: The examination is inadequate to evaluation the referral indication. Recommend stress nuclear (pharmacologic) The treadmill exercise test was limited by reduced exercise capacity but demonstrated no symptoms. Target heart rate was not achieved despite maximum effort. Attenuated heart rate response to exercise likely due to beta-twila. Called and left a VM - nuclear cardiac stress test ordered documented in this encounter Plan of Treatment Upcoming Encounters Date Type Department Care Team (Late st Contact Info) Description 12/03/2023 12:00 PM EDT Office Visit [address] [phone] Lisandro Mckeon CRNP [address] [place] [address] [place] [phone] 01/03/2024 12:40 PM EST Office Visit [address] [place] [phone] Oh Graff MD [address] [place] [address] [place] [phone] Scheduled Orders Name Type Priority Associated Diagnoses Orde r Schedule NM MYOCARD PERF IMG SPECT MULT STUDIES WITH PHARM INTERV Cardiology Routine Loss of consciousness (HCC) Chest pain, unspecified type Expected: 09/09/2023, Expires: 10/09/2024 Health Maintenance Due Date Last Done Comments DISCUSS TOBACCO CESSATION (REFER TO SMARTSET #3291) 1968 Pneumococcal Vaccine: Pediatrics (0 to 5 Years) and At-Risk Patients (6 to 64 Years) (1 of 2 - PCV) 1974 Depression Screening 1980 HIV Screening 07/07/1983 Alpha-1 Antitrypsin 1986 Hepatitis C Screening 1986 Hepatitis B Vaccine (1 of 3 - 19+ 3-dose series) 07/07/1987 Colonoscopy 2013 Fecal Occult Blood Test 2013 Sigmoidoscopy 2013 Zoster Vaccines (1 of 2) 2018 COVID-19 Vaccine ( - 2022- season) 2022 Influenza Vaccine (FLU shot) (#1) 2023 GFR 05/18/2024 05/19/2023, 04/09, 04/19/2023, Additional history exists O2 ASSESSMENT COMPLETED IN PAST YEAR FOR COPD 08/26/2024 08/27/2023 Cologuard 05/19/2025 05/19/2022, 04/0 04/2022, 05/11/2022 Colorectal Cancer Screening 05/19/2025 DTaP,Tdap,and Td Vaccines (2 - Td or Tdap) 05/21/2025 05/22/2015 Albumin/Creatinine Ratio 04/18/2026 04/19/2023, 01/09 Diabetes Screening 05/18/2026 05/19/2023, 0 05/07/2023, 04/19/2023, Additional history exists Lipid Panel 04/18/2028 04/19/2023, 01/09, 07/03/2021, Additional history exists HPV (Gardasil) Vaccine Aged Out No lo nger eligible based on patient's age to complete this topic MENINGOCOCCAL (MENACTRA/MENVEO) Aged Out No longer eligible based on patient's age to complete this topic documented as of this encounter Medical Devices Not on filedocumented as of this encounter Visit Diagnoses Diagnosis Loss of consciousness (HCC)- Primary Other alteration of consciousness Chest pain, unspecified type documented in this encounter Care Teams Bushing Press Operator Relationship Specialty Start Date End Date Oh Graff MD [address] [place] [address] [place] [phone] PCP - General Family Medicine 01/30/22 documented as of this encounter
--- OUTSIDE RECORDS SUMMARY | 2023-12-11 14:40 | External Medical Summary | Summary of Care ---
Author Name Unknown Organization [facility] Address [address] [place] [address] Phone [phone] Care Team Providers Care Creative Technologist Name Role Phone Oh Graff MD Primary Care Provide r Reason for Referral * Precert (Within 10 days (routine)) - Pending Review Specialty Diagnoses / Procedures Referred By Contac t Referred To Contact Radiology Diagnoses Loss of consciousness (HCC) Chest pain, unspecified type Procedures NM MYOCARD PERF IMG SPECT MULT STUDIES WITH PHARM INTERV Oh Graff MD [address] [place] [address] [place] [phone] Referral ID Status Reason Start Date Expiration Date Visits Requested Visits Authorized [id number] Pending Review Precert 09/09/[phone] Reason for Visit * Reason Onset Date Comments Test Results 09/09/2023 Appointment 09/09/2023 NM Stress/GW Encounter Details Date Type Department Care Team ([facility] st Contact Info) Description 09/09/2023 Telephone Family Medicine [address] [phone] Oh Graff MD [address] [place] [address] [place] [phone] Test Results; Appointment (NM Stress/GW ) Allergies Active Allergy Reactions Criticality Noted Date Comments Doxycycline 01/30/2022 Oxycodone 11/19/2005 Percocet 05/05/2001 Sulfa Antibiotics 05/05/2001 Had sulfa drops for eyes as a kid and eyes swelled up documented as of this encounter (statuses as of 09/14/2023) Medications Medication Sig Dispensed Refills Start Date [...] as of this encounter (statuses as of 09/14/2023) Active Problems Problem Noted Date Diagnosed Date [...] as of this encounter (statuses as of 09/14/2023) Resolved Problems Problem Noted Date Diagnosed Date Resolved Date Acute deep vein thrombosis ( DVT) of proximal vein of right lower extremity 03/02/2022 04/19/2023 Asthma with severity to be determined 08/01/2009 02/04/2022 Overview: Per Asthma Taxonomy ICD-10 update of inactive term Bronchitis 02/04/2022 Asthma, allergic 08/01/2009 LUMBAGO 02/04/2022 Morbid obesity, BMI not known 04/22/2022 documented as of this encounter (statuses as of 09/14/2023) Immunizations Name Administration Dates Next Due TDAP, [...] encounter Miscellaneous Notes * Telephone Encounter - June, May, STEPHANIE - 09/14/2023 11:53 AM EDT Pt called returning phone call & asked to please call him back * Telephone Encounter - Hailey Martinez OSA - 09/09/2023 1:32 PM EDT Jacek [...] Description 12/03/2023 12:00 PM EDT Office Visit [address] [place] [phone] Lisandro Mckeon CRNP [address] [place] [address] [place] [phone] 01/03/2024 12:40 PM EST Office Visit [address] [place] [phone] Oh Graff MD [address] [place] [address] [place] [phone] Scheduled Orders Name Type Priority Associated Diagnoses Orde r Schedule NM MYOCARD PERF IMG SPECT MULT STUDIES WITH PHARM INTERV Cardiology Routine Loss of consciousness (HCC) Chest pain, unspecified type Expected: 09/09/2023, Expires: 10/09/2024 Health Maintenance Due Date Last Done Comments DISCUSS TOBACCO CESSATION (REFER TO SMARTSET #3292) 1968 Pneumococcal Vaccine: Pediatrics (0 to 5 [...] of 2) 2018 COVID-19 Vaccine ( - season) 2022 Influenza Vaccine (FLU shot) (#1) [...] type documented in this encounter Care Teams Creative Technologist Relationship Specialty Start Date End Date Oh Graff MD [address] [place] [address] [place] [phone] PCP - General Family Medicine 01/30/22 documented as of this encounter
--- OUTSIDE RECORDS SUMMARY | 2023-12-11 14:40 | External Medical Summary | Summary of Care ---
Author Name Unknown Organization [facility] Address [address] [place] [address] Phone [phone] Care Team Providers Care Supervisor Mixing Name Role Phone Oh Graff MD Primary Care Provide r Reason for Visit * Reason Comments Re-Check Encounter Details Date Type Department Care Team (Late st Contact Info) Description 08/27/2023 10:00 AM EDT Office Visit Family Medicine [address] [phone] Oh Graff MD [address] [place] [address] [place] [phone] History of loss of consciousness*; HTN, goal below 130/80; COPD, mild (HCC); Gastroesophageal reflux disease without esophagitis Allergies Active Allergy Reactions Criticality Noted Date Comments Doxycycline 01/30/2022 Oxycodone 11/19/2005 Percocet 05/05/2001 Sulfa Antibiotics 05/05/2001 Had sulfa drops for eyes as a kid and eyes swelled up documented as of this encounter (statuses as of 08/27/2023) Medications Medication Sig Dispensed Refills Start Date End Date Status Apixaban 5 MG Oral Tablet (Eliquis)Indication s:History of DVT of lower extremity Take 1 Tablet by mouth in the morning and 1 Tablet before bedtime. 180 Tablet 1 05/07/2023 Active amLODIPine Besylate 10 MG Oral Tablet (Norvasc)Indication s:HTN, goal below 130/80 Take 1 Tablet by [...] Sodium 40 MG Oral Tablet Delayed Release (Protonix)Indicatio ns:Gastroesophageal reflux disease without esophagitis Take 1 Tablet by mouth in the morning. 90 Tablet 1 08/27/2023 Active Stiolto Respimat 2.5-2.5 MCG/ACT Inhalation Aerosol Solution (Tiotropium-Olodate rol)Indications:at hosp d/c Inhale 2 Puffs by mouth in the morning. 4 g 2 08/27/2023 Active Stiolto Respimat 2.5-2.5 MCG/ACT Inhalation Aerosol Solution (Tiotropium-Olodate rol)Indications:at hosp d/c Inhale 2 Puffs by mouth in the morning. 08/27/2023 Discontinue d(Refill) Pantoprazole Sodium 40 MG Oral Tablet Delayed Release (Protonix) Take 1 Tablet by mouth in the morning. 08/27/2023 Discontinue d(Refill) levETIRAcetam 500 MG Oral Tablet (Keppra)Indications :Loss of consciousness (HCC) Take 1 Tablet by mouth in the morning and 1 Tablet before bedtime. 180 Tablet 1 06/11/2023 08/27/2023 Discontinue d(Medicatio n List Clean Up) Hospital, Clinic, or Other Facility Administered Medication Ordered Dose Route Frequency Start Date End Date Status Albuterol Sulfate (Proventil) (2.5 MG/3ML) 0.083% inhalation solution 2.5 mgIndications:Cigarette smoker 2.5 mg NEBULIZER ONCE PRN 05/19/2023 05/18/2024 Active documented as of this encounter (statuses as of 08/27/2023) Active Problems Problem Noted Date Diagnosed Date [...] as of this encounter (statuses as of 08/27/2023) Resolved Problems Problem Noted Date Diagnosed Date Resolved Date Acute deep vein thrombosis ( DVT) of proximal vein of right lower extremity 03/02/2022 04/19/2023 Asthma with severity to be determined 08/01/2009 02/04/2022 Overview: Per Asthma Taxonomy ICD-10 update of inactive term Bronchitis 02/04/2022 Asthma, allergic 08/01/2009 LUMBAGO 02/04/2022 Morbid obesity, BMI not known 04/22/2022 documented as of this encounter (statuses as of 08/27/2023) Immunizations Name Administration Dates Next Due TDAP, [...] on file documented as of this encounter Last Filed Vital Signs Vital Sign Reading Time Taken Comments Blood Pressure 116/88 08/27/2023 10:16 AM EDT Pulse 64 08/27/2023 10:16 AM EDT Temperature 36.4 C (97.5 F) 08/27/2023 1 0:16 AM EDT Respiratory Rate - - Oxygen Saturation 96% 08/27/2023 10: 16 AM EDT Inhaled Oxygen Concentration - - Weight 147.5 kg (325 lb 3.2 oz) 024 10:16 AM EDT Height - - Body Mass Index 44.53 07/23/2023 10:59 AM EDT documented in this encounter Progress Notes * Oh Graff MD - 08/27/2023 10:12 AM EDT Subjective: HPI: Jacek Walsh is a 53 year old male with hx of Gastric bypass, HTN, DVT x2, GERD, Mild COPD, hx of LOC seen for Hx of Stroke like symptoms with LOC - happened on 05/01 and was admitted to the hospital - pt;s repeat MRI brain was unremarkable and EEG was normal - hematologist is unremarkable - per neurology no restriction from their stand point on driving - pt is feeling overall doing well - still having intermittent L sided CP --- last 30 sec to 1 min --- denied any sweating, SOB or dizziness or palpitation - sched to get cardiac stress test on 09/07 - compliant with medication - pt is not taking Keppra --- last took 2 months ago PFT showed mild COPD - pt is a daily smoker - on Stiolto --- but takes it prn Patient Active Problem List Diagnosis ADVANCE DIRECTIVE INFORMATION History of gastric bypass HTN, goal below 130/80 Gastroesophageal reflux disease without esophagitis Body mass index (BMI) of 40.0 to 44.9 in adult (HCC) Morbid obesity, BMI not known (HCC) COPD, mild (HCC) History of loss of consciousness Current Outpatient Medications Medication Sig Dispense Refill Apixaban 5 MG Oral Tablet (Eliquis) Take 1 Tablet by mouth in the morning and 1 Tablet before bedtime. 180 Tablet 1 amLODIPine Besylate 10 MG Oral Tablet (Norvasc) Take 1 Tablet by mouth in the morning. 90 Tablet 2 Carvedilol 12.5 MG Oral Tablet (Coreg) Take 1 Tablet by mouth in the morning and 1 Tablet before bedtime. 180 Tablet 1 Losartan Potassium 50 MG Oral Tablet (Cozaar) Take 1 Tablet by mouth in the morning and 1 Tablet before bedtime. 180 Tablet 2 Pantoprazole Sodium 40 MG Oral Tablet Delayed Release (Protonix) Take 1 Tablet by mouth in the morning. 90 Tablet 1 Stiolto Respimat 2.5-2.5 MCG/ACT Inhalation Aerosol Solution (Tiotropium- Olodaterol) Inhale 2 Puffsby mouth in the morning. 4 g 2 Current Facility-Administered Medications Medication Dose Route Frequency Provider Last Rate Last Admin Albuterol Sulfate (Proventil) (2.5 MG/3ML) 0.083% inhalation solution 2.5 mg 2.5 mg Nebulizer Once PRN Oh Graff MD 2.5 mg at 07/23/23 1046 Past Medical History: Diagnosis Date Allergic rhinitis Lumbago Morbid obesity, BMI not known ([facility]) 04/08 weight 380 Past Surgical History: Procedure Laterality Date CHEST 1 VIEW 11/05/03 clfd- cardiomegaly with interstitial edema. CT HEAD/BRAIN WO CONTRAST 11/05/03 clfd- normal LUMBAR SPINE FUSION, POST INTERBODY Lumbar Spine Fusion,Post Interbody PULMONARY QUANT DIFFERENTIAL FUNCTION STUDY 06/01/01 PAH-post rx %pred=FVC 87, FEV1 74, FEF25 54.minimal obstructive lung defect.additional restrictive lung defect cannot be excluded by spirometry alone.more detailed pulmonary function testing may be useful if clinically indicated.a significant response to PULMONARY QUANT DIFFERENTIAL FUNCTION STUDY bronchodilator. Review of patient's allergies indicates: Allergen Reactions Doxycycline Oxycodone Percocet Sulfa Antibiotics Had sulfa drops for eyes as a kid and eyes swelled up Family History Problem Relation Name Age of Onset Other (Cancer throat [Other]) Father Other (dm [Other]) Mother Heart Disorder Grandmother (Maternal) Social History Tobacco Use Smoking status: Every Day Current packs/day: 1.50 Average packs/day: 1.5 packs/day for 5.0 years (7.5 ttl pk-yrs) Types: Cigarettes Smokeless tobacco: Former Types: Snuff Tobacco comments: Can every two days Substance Use Topics Alcohol use: Yes Comment: rare Vaping/E-Cigarette Use Vaping/E-Cigarette Substances Vaping/E-Cigarette Devices ROS: -Per HPI OBJECTIVE: BP 116/88 | Pulse 64 | Temp 36.4 C (97.5 F) | Wt (!) 147.5 kg (325 lb 3.2 oz) | SpO2 96% | BMI 44.53 kg/m | BSA 2.73 m PHYSICAL EXAM: Vitals are reviewed General:. NAD, well developed HEENT:. Normal Conjunctiva, EOMI Cardiac:. Normal S1, S2, no murmur Lungs:. CTA, no wheezing or crackles Abd:. soft, ND, NT MSK:. Normal gait Psych:. 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 Gastroesophageal reflux disease without esophagitis - Pantoprazole Sodium 40 MG Oral Tablet Delayed Release (Protonix); Take 1 Tablet by mouth in the morning. I spent a total of 40-54 minutes (exact time 43 mins) on the date of service in preparation, delivery, and documentation of the care provided to Jacek Walsh excluding any time spent in the performance of separately billed services. Oh Graff MD Family medicine, [address] [id number] documented in this encounter Nursing Notes * Ursula Malloy CMA - 08/27/2023 10:14 AM EDT He is here for a 4 mo recheck today. He would like to go back to work maybe. 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 documented in this encounter Plan of Treatment Upcoming Encounters Date Type Department Care Team (Late st Contact Info) Description 09/08/2023 2:00 PM EDT Imaging Cardiac Studies, [facility] [address] [facility] [place] [phone] 12/03/2023 12:00 PM EDT Office Visit [address] [phone] Lisandro Mckeon CRNP [address] [place] [address] [place] [phone] 01/03/2024 12:40 PM EST Office Visit [address] [phone] Oh Graff MD [address] [place] [address] [place] [phone] Health Maintenance Due Date Last Done Comments [...] Vaccines (1 of 2) 2018 COVID-19 Vaccine (1 - 2022-24 season) 2022 Influenza Vaccine (FLU shot) (#1) [...] as of this encounter Visit Diagnoses Diagnosis History of loss of consciousness- Primary HTN, goal below 130/80 Unspecified essential hypertension COPD, mild (HCC) Chronic airway obstruction, not elsewhere classified Gastroesophageal reflux disease without esophagitis Esophageal reflux documented in this encounter Care Teams Supervisor Mixing Relationship Specialty Start Date End Date Oh Graff MD [address] [place] [address] [place] [phone] PCP - General Family Medicine 01/30/22 documented as of this encounter"
--- OUTSIDE RECORDS SUMMARY | 2023-12-11 14:40 | External Medical Summary | Summary of Care ---
Author Name Unknown Organization [facility] Address [address] [place] [address] Phone [phone] Care Team Providers Care Therapeutic Mentor Name Role Phone Oh Graff MD Primary Care Provide r Reason for Visit * Reason Comments Pulmonary Function Test Spirogram with darcy hickman Encounter Details Date Type Department Care Team (Late st Contact Info) Description 07/23/2023 11:00 AM EDT PulmDiagnostic Ancillary [address] [place] [address] [place], [address] [place], [place] [id number] Cigarette smoker* Allergies Active Allergy Reactions Criticality Noted Date Comments Doxycycline 01/30/2022 Oxycodone 11/19/2005 Percocet 05/05/2001 Sulfa Antibiotics 05/05/2001 Had sulfa drops for eyes as a kid and eyes swelled up documented as of this encounter (statuses as of 07/23/2023) Medications Medication Sig Dispensed Refills Start Date End Date Status Apixaban 5 MG Oral Tablet (Eliquis)Indications:H istory of DVT of lower extremity Take 1 Tablet by mouth in the morning and 1 Tablet before bedtime. 180 Tablet 1 05/07/2023 Active Stiolto Respimat 2.5-2.5 MCG/ACT Inhalation Aerosol Solution (Tiotropium-Olodaterol )Indications:at hosp d/c Inhale 2 Puffs by mouth in the morning. Active Pantoprazole Sodium 40 MG Oral Tablet Delayed Release (Protonix) Take 1 Tablet by mouth in the morning. Active levETIRAcetam 500 MG Oral Tablet (Keppra)Indications:Lo ss of consciousness (HCC) Take 1 Tablet by mouth in the morning and 1 Tablet before bedtime. 180 Tablet 1 06/11/2023 Active amLODIPine Besylate 10 MG Oral Tablet (Norvasc)Indications:H TN, goal below 130/80 Take 1 Tablet by [...] before bedtime. 180 Tablet 2 07/08/2023 Active Hospital, Clinic, or Other Facility Administered Medication Ordered Dose Route Frequency Start Date End Date Status Albuterol Sulfate (Proventil) (2.5 MG/3ML) 0.083% inhalation solution 2.5 mgIndications:Cigarette smoker 2.5 mg NEBULIZER ONCE PRN 05/19/2023 05/18/2024 Active documented as of this encounter (statuses as of 07/23/2023) Active Problems Problem Noted Date Diagnosed Date Morbid obesity, BMI not known 04/19/2023 Body [...] as of this encounter (statuses as of 07/23/2023) Resolved Problems Problem Noted Date Diagnosed Date Resolved Date Acute deep vein thrombosis ( DVT) of proximal vein of right lower extremity 03/02/2022 04/19/2023 Asthma with severity to be determined 08/01/2009 02/04/2022 Overview: Per Asthma Taxonomy ICD-10 update of inactive term Bronchitis 02/04/2022 Asthma, allergic 08/01/2009 LUMBAGO 02/04/2022 Morbid obesity, BMI not known 04/22/2022 documented as of this encounter (statuses as of 07/23/2023) Immunizations Name Administration Dates Next Due TDAP, Age 7 and older, IM (Adacel) 05/22/2015 documented as of this encounter Social History Tobacco Use Types Packs/Day Years Used Date Smoking Tobacco: Every Day Cigarettes 1.5 5 Smokeless Tobacco: Former Snuff Comments:Can every two days Alcohol Use Standard Drinks/Week Comments Yes 0 (1 standard drink = 0.6 oz pur e alcohol) rare Sex and Gender Information Value Date Recorded Sex Assigned at Not on file Gender Identity Not on file Sexual Orientation Not on file Job Start Date Occupation Industry Not on file Not on file Not on file documented as of this encounter Last Filed Vital Signs Vital Sign Reading Time Taken Comments Blood Pressure - - Pulse - - Temperature - - Respiratory Rate - - Oxygen Saturation - - Inhaled Oxygen Concentration - - Weight 147 kg (324 lb 1.2 oz) 07/23/2023 10:59 A M EDT Height 182 cm (5' 11.65") 07/23/2023 10:59 AM ED T Body Mass Index 44.38 07/23/2023 10:59 AM EDT documented in this encounter Nursing Notes * Matthew Pereyra RRT - 07/23/2023 11:01 AM EDT Jacek Walsh was identified by name, Date of : (1970), and . Vitals were obtained for testing. Body mass index is 44.38 kg/m. Pt has a 1.5 ppd for 5 years smoking history and still currently smokes. 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 Spirometry performed before and after a slow volume nebulizer treatment of 0.5ml of albuterol in 3 ml of NSS. Administrations This Visit Albuterol Sulfate (Proventil) (2.5 MG/3ML) 0.083% inhalation solution 2.5 mg Admin Date 07/23/2023 Action Given Dose 2.5 mg Route Nebulizer Documented By Matthew Pereyra RRT documented in this encounter Plan of Treatment Upcoming Encounters Date Type Department Care Team (Late st Contact Info) Description 08/27/2023 10:00 AM EDT Office Visit Family [address] [place] [phone] Oh Graff MD [address] [place] [address] [place] [address] 09/08/2023 2:00 PM EDT Imaging Cardiac Studies, [facility] [address] [place] [address] 01/03/2024 12:40 PM EST Office Visit [address] [place] [phone] Oh Graff MD [address] [place] [address] [place] [phone] Pending Results Name Type Priority Associated Diagnoses Date /Time SPIROMETRY B/A BRONCHODILATOR Procedures Routine Cigarette smoker 07/23/2023 10:47 AM EDT Health Maintenance Due Date Last Done Comments Pneumococcal Vaccine: Pediatrics (0 to 5 Years) and At-Risk Patients (6 to 64 Years) (1 of 2 - PCV) 1974 Depression Screening 1980 HIV Screening 07/07/1983 Hepatitis C Screening 1986 Hepatitis B (1 of 3 - 19+ 3-dose series) 07/07/1987 Colonoscopy 2013 Fecal Occult Blood Test 2013 Sigmoidoscopy 2013 Zoster Vaccines (1 of 2) 2018 COVID-19 Vaccine (1 - 2022- season) 2022 Influenza Vaccine (FLU shot) (Season Ended) 2023 GFR 05/18/2024 05/19/2023, 04/09, 04/19/2023, Additional history exists Cologuard 05/19/2025 05/19/2022, 04/0 04/2022, 05/11/2022 Colorectal Cancer Screening 05/19/2025 DTaP,Tdap,and Td Vaccines (2 - Td or Tdap) 05/21/2025 05/22/2015 Albumin/Creatinine Ratio 04/18/2026 04/19/2023, 01/09 Diabetes Screening 05/18/2026 05/19/2023, 0 05/07/2023, 04/19/2023, Additional history exists Lipid Panel 04/18/2028 04/19/2023, 01/09, 07/03/2021, Additional history exists GARDASIL-HPV IMMUNIZATION SERIES Aged Out No longer eligible based on patient's age to complete this topic MENINGOCOCCAL (MENACTRA/MENVEO) Aged Out No longer eligible based on patient's age to complete this topic documented as of this encounter Medical Devices Not on filedocumented as of this encounter Procedures Procedure Name Priority Date/Time Associated Diagnosis Comments SPIROMETRY B/A BRONCHODILATOR Routine 07/23/2023 10:47 AM EDT Cigarette smoker documented in this encounter Visit Diagnoses Diagnosis Cigarette smoker- Primary Tobacco use disorder documented in this encounter Administered Medications Active Administered Medications - up to 3 most recent administrations Medication Order MAR Action Action Date Dose Rate Site Albuterol Sulfate (Proventil) (2.5 MG/3ML) 0.083% inhalation solution 2.5 mg 2.5 mg, Nebulizer, ONCE PRN Other, Testing, Starting on Wed05/19/23 at 1215, Until Wed05/18/24 at 1214, For 365 days, Only one type of albuterol product should be administered (Nebulizer or Inhaler). Please select and document on the appropriate albuterol product order. Given 07/23/2023 10:46 AM EDT 2.5 mg documented in this encounter Care Teams Therapeutic Mentor Relationship Specialty Start Date End Date Oh Graff MD [address] [place] [address] [place] [id number] PCP - General Family Medicine 01/30/22 documented as of this encounter
--- OUTSIDE RECORDS SUMMARY | 2023-12-11 14:40 | External Medical Summary | Summary of Care ---
Author Name Unknown Organization [facility] Address [address] [place] [address] Phone [phone] Care Team Providers Care Banquet Steward Name Role Phone Oh Graff MD Primary Care Provide r Reason for Visit * Reason Onset Date Comments Appointment 06/02/2023 Encounter Details Date Type Department Care Team (Late st Contact Info) Description 06/02/2023 Telephone Access Center, [address] *DO NOT REMOVE THIS DEPARTMENT* [place] [address] [place], Maddie No Resource [address] [place] [address] Appointment Allergies Active Allergy Reactions Criticality Noted Date Comments Doxycycline 01/30/2022 Oxycodone 11/19/2005 Percocet 05/05/2001 Sulfa Antibiotics 05/05/2001 Had sulfa drops for eyes as a kid and eyes swelled up documented as of this encounter (statuses as of 09/01/2023) Medications Medication Sig Dispensed Refills Start Date End Date Status Apixaban 5 MG Oral Tablet (Eliquis)Indications :History of DVT of lower extremity Take 1 Tablet by mouth in the morning and 1 Tablet before bedtime. 180 Tablet 1 05/07/2023 Active Hospital, Clinic, or Other Facility Administered Medication Ordered Dose Route Frequency Start Date End Date Status Albuterol Sulfate (Proventil) (2.5 MG/3ML) 0.083% inhalation solution 2.5 mgIndications:Cigarette smoker 2.5 mg NEBULIZER ONCE PRN 05/19/2023 05/18/2024 Active documented as of this encounter (statuses as of 09/01/2023) Active Problems Problem Noted Date Diagnosed Date [...] as of this encounter (statuses as of 09/01/2023) Resolved Problems Problem Noted Date Diagnosed Date Resolved Date Acute deep vein thrombosis ( DVT) of proximal vein of right lower extremity 03/02/2022 04/19/2023 Asthma with severity to be determined 08/01/2009 02/04/2022 Overview: Per Asthma Taxonomy ICD-10 update of inactive term Bronchitis 02/04/2022 Asthma, allergic 08/01/2009 LUMBAGO 02/04/2022 Morbid obesity, BMI not known 04/22/2022 documented as of this encounter (statuses as of 09/01/2023) Immunizations Name Administration Dates Next Due TDAP, Age 7 and older, IM (Adacel) 05/22/2015 documented as of this encounter Social History Tobacco Use Types Packs/Day Years Used Date Smoking Tobacco: Every Day Cigarettes Smokeless Tobacco: Former Snuff Comments:Can every two [...] encounter Miscellaneous Notes * Telephone Encounter - Kerri Petersen MED ASSIST - 06/02/2023 4:11 PM EDT Spoke to pt's and offered other appts. Pt's said those would not work because they were at the end of the month. Offered GLH and pt's refused. kept scheduled appt * Telephone Encounter - Kerri Petersen MED ASSIST - 06/02/2023 3:08 PM EDT Lmom. When call is returned please assist on rescheduling 72 hour EEG. Thank you! * Telephone Encounter - Amy Villafuerte OSA - 06/02/2023 2:52 PM EDT Requested Information from caller: Who is calling patient Provider patient is established with: [facility] What is the concern or issue they are havin day EEG, looking to reschedule How long has the issue been going on: Any additional details to add: Pts phone number for nurse to call back: [phone] Marsha If forms need to be faxed- Please provide fax number: Please make sure you verify pharmacy for anything medication related. Form to be used for established patients only (not new patients) documented in this encounter Plan of Treatment Upcoming Encounters Date Type Department Care Team (Late st Contact Info) Description 09/08/2023 2:00 PM EDT [facility] [address] [facility] [place] [address] 12/03/2023 12:00 PM EDT Office Visit [address] [place] [phone] Lisandro Mckeon CRNP [address] [place] [address] [place] [address] 01/03/2024 12:40 PM EST Office Visit [address] [place] [phone] Oh Graff MD [address] [place] [address] [place] [address] Health Maintenance Due Date Last Done Comments DISCUSS TOBACCO CESSATION (REFER TO SMARTSET #[id number]) 1970 Pneumococcal Vaccine: Pediatrics (0 to 5 [...] 2018 COVID-19 Vaccine ( - season) 2022 *CXR OR CT FOR COPD EVER 08/30/2023 Influenza Vaccine (FLU shot) (#1) 2023 GFR [...] Not on filedocumented as of this encounter Care Teams Banquet Steward Relationship Specialty Start Date End Date Oh Graff MD [address] [place] [address] [place] [phone] PCP - General Family Medicine 01/30/22 documented as of this encounter
--- OUTSIDE RECORDS SUMMARY | 2023-12-11 14:40 | External Medical Summary | Summary of Care ---
Author Name Unknown Organization [facility] Address [address] [place] [address] Phone [phone] Care Team Providers Care Vp Security Name Role Phone Oh Graff MD Primary Care Provide r Reason for Referral * Precert (Within 10 days (routine)) - Pending Review Specialty Diagnoses / Procedures Referred By Contac t Referred To Contact Radiology Diagnoses Loss of consciousness (HCC) Chest pain, unspecified type Procedures NM MYOCARD PERF IMG SPECT MULT STUDIES WITH PHARM INTERV Oh Graff MD [address] [place] [address] [place] [address] Referral ID Status Reason Start Date Expiration Date Visits Requested Visits Authorized [id number] Pending Review Precert 09/09/2023 [id number] Reason for Visit * Reason Onset Date Comments Test Results 09/09/2023 Encounter Details Date Type Department Care Team (Late st Contact Info) Description 09/09/2023 Telephone Family Medicine [address] [place] [phone] Oh Graff MD [address] [place] [address] [place] [phone] Test Results Allergies Active Allergy Reactions Criticality Noted Date [...] encounter Miscellaneous Notes * Telephone Encounter - Oh Graff MD [...] Description 12/03/2023 12:00 PM EDT Office Visit [address] [phone] Lisandro Mckeon CRNP [address] [place] [address] [place] [address] 01/03/2024 12:40 PM EST Office Visit [address] [place] [phone] Oh Graff MD [address] [place] [address] [place] [phone] Scheduled Orders Name Type Priority Associated Diagnoses Orde r Schedule NM MYOCARD PERF IMG SPECT MULT STUDIES WITH PHARM INTERV Cardiology Routine Loss of consciousness (HCC) Chest pain, unspecified type Expected: 09/09/2023, Expires: 10/09/2024 Health Maintenance Due Date Last Done Comments DISCUSS TOBACCO CESSATION (REFER TO SMARTSET #4783) 1970 Pneumococcal Vaccine: Pediatrics (0 to 5 Years) and At-Risk Patients (6 to 64 Years) (1 of 2 - PCV) 1974 Depression Screening 1980 HIV Screening 07/07/1983 Alpha-1 Antitrypsin 1986 Hepatitis C Screening 1986 Hepatitis B Vaccine (1 of 3 - 19+ 3-dose series) 07/07/1987 Colonoscopy 2013 Fecal Occult Blood Test 2013 Sigmoidoscopy 2013 Zoster Vaccines (1 of 2) 2018 COVID-19 Vaccine ( season) 2022 Influenza Vaccine (FLU shot) (#1) [...] type documented in this encounter Care Teams Vp Security Relationship Specialty Start Date End Date Oh Graff MD [address] [place] [address] [place] [phone] PCP - General Family Medicine 01/30/22 documented as of this encounter
--- OUTSIDE RECORDS SUMMARY | 2023-12-11 14:40 | External Medical Summary | Summary of Care ---
Author Name Unknown Organization [facility] Address [address] [place] [address] Phone [phone] Care Team Providers Care Traveling Electrician Name Role Phone Oh Graff MD Primary Care Provide r Reason for Visit * Reason Onset Date Comments Medication Refill 10/13/2023 Encounter Details Date Type Department Care Team (Late st Contact Info) Description 10/13/2023 Refill Family Medicine [address] [phone] Oh Graff MD [address] [place] [address] [place] [phone] Allergies Active Allergy Reactions Criticality Noted Date Comments Doxycycline 01/30/2022 Oxycodone 11/19/2005 Percocet 05/05/2001 Sulfa Antibiotics 05/05/2001 Had sulfa drops for eyes as a kid and eyes swelled up documented as of this encounter (statuses as of 10/13/2023) Medications Medication Sig Dispensed Refills Start Date End Date Status Apixaban 5 MG Oral Tablet (Eliquis)Indicatio ns:History of DVT of lower extremity Take 1 Tablet by mouth in the morning and 1 Tablet before bedtime. 180 Tablet 1 05/07/2023 Active amLODIPine Besylate 10 MG Oral Tablet (Norvasc)Indicatio ns:HTN, goal below 130/80 Take 1 Tablet by mouth in the morning. 90 Tablet 2 06/13/2023 Active Losartan Potassium 50 MG Oral Tablet (Cozaar) Take 1 Tablet by mouth in the morning and 1 Tablet before bedtime. 180 Tablet 2 07/08/2023 Active Pantoprazole Sodium 40 MG Oral Tablet Delayed Release (Protonix)Indicati ons:Gastroesophage al reflux disease without esophagitis Take 1 Tablet by mouth in the morning. 90 Tablet 1 08/27/2023 Active Stiolto Respimat 2.5-2.5 MCG/ACT Inhalation Aerosol Solution (Tiotropium-Olodat lonnie)Indications:a t hosp d/c Inhale 2 Puffs by mouth in the morning. 4 g 2 08/27/2023 Active Carvedilol 12.5 MG Oral Tablet (Coreg) Take 1 Tablet by mouth in the morning and 1 Tablet before bedtime. 180 Tablet 1 10/13/2023 Active Carvedilol 12.5 MG Oral Tablet (Coreg) Take 1 Tablet by mouth in the morning and 1 Tablet before bedtime. 180 Tablet 1 06/14/2023 10/13/2023 Discontinued (Refill) Hospital, Clinic, or Other Facility Administered Medication Ordered Dose Route Frequency Start Date End Date Status Albuterol Sulfate (Proventil) (2.5 MG/3ML) 0.083% inhalation solution 2.5 mgIndications:Cigarette smoker 2.5 mg NEBULIZER ONCE PRN 05/19/2023 05/18/2024 Active documented as of this encounter (statuses as of 10/13/2023) Active Problems Problem Noted Date Diagnosed Date [...] as of this encounter (statuses as of 10/13/2023) Resolved Problems Problem Noted Date Diagnosed Date Resolved Date Acute deep vein thrombosis ( DVT) of proximal vein of right lower extremity 03/02/2022 04/19/2023 Asthma with severity to be determined 08/01/2009 02/04/2022 Overview: Per Asthma Taxonomy ICD-10 update of inactive term Bronchitis 02/04/2022 Asthma, allergic 08/01/2009 LUMBAGO 02/04/2022 Morbid obesity, BMI not known 04/22/2022 documented as of this encounter (statuses as of 10/13/2023) Immunizations Name Administration Dates Next Due TDAP, [...] encounter Miscellaneous Notes * Telephone Encounter - Yo Perry, [facility] - 10/13/2023 10:39 AM EDTSigned Prescriptions: Disp Refills Carvedilol 12.5 MG Oral Tablet (Coreg) 180 Ta*1 Sig: Take 1 Tablet by mouth in the morning and 1 Tablet before bedtime.Authorizing Provider: Lisa GRAFF User: YO PERRY * Telephone Encounter - Kyung Ballard any commodity sales deliverer - 10/13/2023 9:59 AM EDT Please reroute Rx to [facility], [address] [place]. Pending Prescriptions: Disp Refills Carvedilol 12.5 MG Oral Tablet (Coreg) 180 Ta*1 Sig: Take 1 Tablet by mouth in the morning and 1 Tablet before bedtime. Last Visit: 08/27/2023 (in office), Visit date not found (telemedicine) 12/03/2023 If no future appointments scheduled, and last appointment is greater than a year ago, please schedule patient for a follow-up appointment Last date the medication was ordered: Patient Phone Numbers Labs: Lab Results Component Value Date/Time CREAT 0.9 05/19/2023 12:29 PM CREAT 0.87 05/07/2023 12:00 AM CREAT 0.9 03/03/2001 11:30 AM POTASSIUM 4.4 05/19/2023 12:29 PM POTASSIUM 3.6 05/07/2023 12:00 AM POTASSIUM 4.1 03/03/2001 11:30 AM TSH 1.49 04/19/2023 09:24 AM LDL 108 04/19/2023 09:24 AM LDLCALC 110 07/03/2021 01:00 PM ALT 17 04/19/2023 09:24 AM HGBA1C 5.2 04/19/2023 09:24 AM HGBA1C 5.7 07/03/2021 01:00 PM documented in this encounter Plan of Treatment Upcoming Encounters Date Type Department Care Team (Late st Contact Info) Description 12/03/2023 12:00 PM EDT Office Visit Family Medicine [address] [place] [phone] Lisandro Mckeon CRNP [address] [place] [address] [place] [address] 01/03/2024 12:40 PM EST Office Visit Family Medicine [address] [place] [phone] Oh Graff MD [address] [place] [address] [place] [address] Health Maintenance Due Date Last Done Comments DISCUSS TOBACCO CESSATION (REFER TO SMARTSET #4878) 1970 Pneumococcal Vaccine: Pediatrics (0 to 5 [...] 2) 2018 COVID-19 Vaccine ( - season) 2023 Influenza Vaccine (FLU shot) (#1) 2023 GFR 05/18/2024 05/19/2023, 04/09, 04/19/2023, Additional history exists O2 ASSESSMENT COMPLETED IN PAST YEAR FOR COPD 08/26/2024 08/27/2023 Cologuard 05/19/2025 05/19/2022, 04/0 04/2022, 05/11/2022 Colorectal Cancer Screening 05/19/2025 DTap/Tdap Vaccines (2 - Td or Tdap) 05/21/2025 [...] filedocumented as of this encounter Care Teams Traveling Electrician Relationship Specialty Start Date End Date Oh Graff MD [address] [place] [address] [place] [id number] PCP - General Family Medicine 01/30/22 documented as of this encounter
--- OUTSIDE RECORDS SUMMARY | 2023-12-11 14:40 | External Medical Summary | Summary of Care ---
Author Name Unknown Organization [facility] Address [address] [place] [address] Phone [phone] Care Team Providers Care Inside Account Executive Name Role Phone Oh Graff MD Primary Care Provide r Reason for Visit * Reason Onset Date Comments Forms Request 07/15/2023 [facility] Encounter Details Date Type Department Care Team (Late st Contact Info) Description 07/15/2023 Telephone Neurology [facility] Evelyn [place] [address] [place] [address] Micki Paz PA-C [address] [place] [address] Forms Request ([facility]) Allergies Active Allergy Reactions Criticality Noted Date Comments Doxycycline 01/30/2022 Oxycodone 11/19/2005 Percocet 05/05/2001 Sulfa Antibiotics 05/05/2001 Had sulfa drops for eyes as a kid and eyes swelled up documented as of this encounter (statuses as of 07/15/2023) Medications Medication Sig Dispensed Refills Start Date [...] as of this encounter (statuses as of 07/15/2023) Active Problems Problem Noted Date Diagnosed Date [...] as of this encounter (statuses as of 07/15/2023) Resolved Problems Problem Noted Date Diagnosed Date Resolved Date Acute deep vein thrombosis ( DVT) of proximal vein of right lower extremity 03/02/2022 04/19/2023 Asthma with severity to be determined 08/01/2009 02/04/2022 Overview: Per Asthma Taxonomy ICD-10 update of inactive term Bronchitis 02/04/2022 Asthma, allergic 08/01/2009 LUMBAGO 02/04/2022 Morbid obesity, BMI not known 04/22/2022 documented as of this encounter (statuses as of 07/15/2023) Immunizations Name Administration Dates Next Due TDAP, [...] Encounter - Kerri Petersen MED ASSIST - 07/15/2023 8:23 AM EDT LOC form completed and faxed to [facility]. documented in this encounter Plan of Treatment Upcoming Encounters Date Type Department Care Team (Late st Contact Info) Description 07/23/2023 11:00 AM EDT PulmDiagnostic Ancillary [address] [place] [address] [facility] [address] [facility] [place] [address] 08/27/2023 10:00 AM EDT Office Visit [address] [place] [phone] Oh Graff MD [address] [place] [address] [place] [address] 09/08/2023 2:00 PM EDT Imaging Cardiac Studies, [facility] [address] [facility] [place] [address] 01/03/2024 12:40 PM EST Office Visit Family [address] [place] [phone] Oh Graff MD [address] [place] [address] [place] [address] Health Maintenance Due Date Last Done Comments [...] - season) 2022 Influenza Vaccine (FLU shot) (Season Ended) 2023 GFR 05/18/2024 05/19/2023, 04/09, 04/19/2023, Additional history exists Cologuard 05/19/2025 05/19/2022, /04/2022, 05/11/2022 Colorectal Cancer Screening 05/19/2025 DTaP,Tdap,and Td [...] filedocumented as of this encounter Care Teams Inside Account Executive Relationship Specialty Start Date End Date Oh Graff MD [address] [place] [address] [place] [id number] PCP - General Family Medicine 01/30/22 documented as of this encounter
--- OUTSIDE RECORDS SUMMARY | 2023-12-11 14:40 | External Medical Summary | Summary of Care ---
Author Name Unknown Organization [facility] Address [address] [place] [address] Phone [phone] Care Team Providers Care Crime Scene Evidence Technician Name Role Phone Oh Graff MD Primary Care Provide r Encounter Details Date Type Department Care Team (Late st Contact Info) Description 05/19/2023 Telephone Family Medicine [address] [phone] Oh Graff MD [address] [place] [address] [place] [address] Allergies Active Allergy Reactions Criticality Noted Date Comments Doxycycline 01/30/2022 Oxycodone 11/19/2005 Percocet 05/05/2001 Sulfa Antibiotics 05/05/2001 Had sulfa drops for eyes as a kid and eyes swelled up documented as of this encounter (statuses as of 08/18/2023) Medications Medication Sig Dispensed Refills Start Date End Date Status Apixaban 5 MG Oral Tablet (Eliquis)Indicati ons:History of DVT of lower extremity Take 1 Tablet by mouth in the morning and 1 Tablet before bedtime. 180 Tablet 1 05/07/2023 Active Stiolto Respimat 2.5-2.5 MCG/ACT Inhalation Aerosol Solution (Tiotropium-Oloda terol)Indications :at hosp d/c Inhale 2 Puffs by mouth in the morning. Active Pantoprazole Sodium 40 MG Oral Tablet Delayed Release (Protonix) Take 1 Tablet by mouth in the morning. Active levETIRAcetam 500 MG Oral Tablet (Keppra) Take 1 Tablet by mouth in the morning and 1 Tablet before bedtime. 05/07/2023 06/11/2023 Discontinued (Refill) Carvedilol 12.5 MG Oral Tablet (Coreg) Take 1 Tablet by mouth in the morning and 1 Tablet before bedtime. 05/07/2023 06/14/2023 Discontinued (Refill) Losartan Potassium 50 MG Oral Tablet (Cozaar) Take 1 Tablet by mouth in the morning and 1 Tablet before bedtime. 07/08/2023 Discontinued (Refill) amLODIPine Besylate 10 MG Oral Tablet (Norvasc)Indicati ons:HTN, goal below 130/80 Take 1 Tablet by mouth in the morning. 30 Tablet 2 05/19/2023 06/11/2023 Discontinued (Refill) Hospital, Clinic, or Other Facility Administered Medication Ordered Dose Route Frequency Start Date End Date Status Albuterol Sulfate (Proventil) (2.5 MG/3ML) 0.083% inhalation solution 2.5 mgIndications:Cigarette smoker 2.5 mg NEBULIZER ONCE PRN 05/19/2023 05/18/2024 Active documented as of this encounter (statuses as of 08/18/2023) Active Problems Problem Noted Date Diagnosed Date [...] as of this encounter (statuses as of 08/18/2023) Resolved Problems Problem Noted Date Diagnosed Date Resolved Date Acute deep vein thrombosis ( DVT) of proximal vein of right lower extremity 03/02/2022 04/19/2023 Asthma with severity to be determined 08/01/2009 02/04/2022 Overview: Per Asthma Taxonomy ICD-10 update of inactive term Bronchitis 02/04/2022 Asthma, allergic 08/01/2009 LUMBAGO 02/04/2022 Morbid obesity, BMI not known 04/22/2022 documented as of this encounter (statuses as of 08/18/2023) Immunizations Name Administration Dates Next Due TDAP, [...] encounter Miscellaneous Notes * Telephone Encounter - Cassidy Sadler OSA - 05/20/2023 10:48 AM EDT Caller requesting the following information to be faxed: Name/Company of caller: [employer] Information requested to be faxed: office note 05/19/23 Fax number: [phone] Attention to Name/Company: [employer] Any additional information?: [place] * Telephone Encounter - Regina De La Rosa OSA - 05/19/2023 1:56 PM EDT Lida [facility] calling in regards to the home health certification and plan of care she faxed it over on 05/11/23 and is still waiting for the copies to be signed and sent back to her. She will refax the paperwork back over to the office today and have them refaxed to her at [phone] documented in this encounter Plan of Treatment Upcoming Encounters Date Type Department Care Team (Late st Contact Info) Description 08/27/2023 10:00 AM EDT Office Visit [address] [place] [phone] Oh Graff MD [address] [place] [address] [place] [phone] 09/08/2023 2:00 PM EDT Imaging Cardiac Studies, [facility] [address] [facility] [place] [address] 01/03/2024 12:40 PM EST Office Visit [address] [place] [phone] Oh Graff MD [address] [place] [address] [place] [phone] Health Maintenance Due Date Last Done Comments Pneumococcal Vaccine: Pediatrics (0 to 5 Years) and At-Risk Patients (6 to 64 Years) (1 of 2 - PCV) 1974 Depression Screening 1980 HIV Screening 07/07/1983 Hepatitis C Screening 1986 Hepatitis B Vaccine (1 of 3 - 19+ 3-dose series) 07/07/1987 Colonoscopy 2013 Fecal Occult Blood Test 2013 Sigmoidoscopy 2013 Zoster Vaccines (1 of 2) 2018 COVID-19 Vaccine (1 - 2022-24 season) 2022 Influenza Vaccine (FLU shot) (#1) 2023 GFR 05/18/2024 05/19/2023, 03/2 10/2023, 04/19/2023, Additional history exists Cologuard 05/19/2025 05/19/2022, [...] filedocumented as of this encounter Care Teams Crime Scene Evidence Technician Relationship Specialty Start Date End Date Oh Graff MD [address] [place] [address] [place] [phone] PCP - General Family Medicine 01/30/22 documented as of this encounter
--- OUTSIDE RECORDS SUMMARY | 2023-12-11 14:40 | External Medical Summary | Summary of Care ---
Author Name Unknown Organization [facility] Address [address] [place] [address] Phone [phone] Care Team Providers Care Route Specialist Name Role Phone Oh Graff MD Primary Care Provide r Reason for Visit * Reason Onset Date Comments Blood Pressure Check 07/27/2023 Home Blood Pressure Checks Encounter Details Date Type Department Care Team (Late st Contact Info) Description 07/27/2023 Telephone Family Medicine [address] [place] [phone] Oh Graff MD [address] [place] [address] [place] [phone] Blood Pressure Check (Home Blood Pressure ... Allergies Active Allergy Reactions Criticality Noted Date Comments Doxycycline 01/30/2022 Oxycodone 11/19/2005 Percocet 05/05/2001 Sulfa Antibiotics 05/05/2001 Had sulfa drops for eyes as a kid and eyes swelled up documented as of this encounter (statuses as of 07/27/2023) Medications Medication Sig Dispensed Refills Start Date [...] as of this encounter (statuses as of 07/27/2023) Active Problems Problem Noted Date Diagnosed Date [...] as of this encounter (statuses as of 07/27/2023) Resolved Problems Problem Noted Date Diagnosed Date Resolved Date Acute deep vein thrombosis ( DVT) of proximal vein of right lower extremity 03/02/2022 04/19/2023 Asthma with severity to be determined 08/01/2009 02/04/2022 Overview: Per Asthma Taxonomy ICD-10 update of inactive term Bronchitis 02/04/2022 Asthma, allergic 08/01/2009 LUMBAGO 02/04/2022 Morbid obesity, BMI not known 04/22/2022 documented as of this encounter (statuses as of 07/27/2023) Immunizations Name Administration Dates Next Due TDAP, [...] Telephone Encounter - Oh Graff MD - 07/27/2023 10:42 AM EDT Bp is overall good - continue current meds and will assess during clinic visit on 08/26 * Telephone Encounter - Ursula Malloy CMA - 07/27/2023 10:11 AM EDT Fax receive from Hailey Alfonso LPN at [facility] with list of home blood pressure checks. 07/12 143/84 HR 71 94% 07/14 156/96 HR 88 95% 07/15 137/96 HR 70 95% 07/16 135/81 HR 82 97% 07/17 130/88 HR 79 96% 07/18 126/84 HR 84 94% documented in this encounter Plan of Treatment Upcoming Encounters Date Type Department Care Team (Late st Contact Info) Description 08/27/2023 10:00 AM EDT Office Visit Family Medicine [address] [place] [phone] Oh Graff MD [address] [place] [address] [place] [phone] 09/08/2023 2:00 PM EDT Imaging Cardiac Studies, [facility] [address] [place] [address] 01/03/2024 12:40 PM EST Office Visit Family [address] [place] [phone] Oh Graff MD [address] [place] [address] [place] [phone] Health Maintenance Due Date Last Done Comments [...] of 2) 2018 COVID-19 Vaccine (1 - season) 2022 Influenza Vaccine (FLU shot) [...] filedocumented as of this encounter Care Teams Route Specialist Relationship Specialty Start Date End Date Oh Graff MD [address] [place] [address] [place] [phone] PCP - General Family Medicine 01/30/22 documented as of this encounter
--- OUTSIDE RECORDS SUMMARY | 2023-12-11 14:40 | External Medical Summary | Summary of Care ---
Author Name Unknown Organization [facility] Address [address] [place] [address] Phone [phone] Care Team Providers Care Firewall Administrator Name Role Phone Oh Graff MD Primary Care Provide r Reason for Visit * Reason Onset Date Comments Medication Refill 07/07/2023 Encounter Details Date Type Department Care Team (Late st Contact Info) Description 07/07/2023 Refill Family Medicine [address] [phone] Oh Graff MD [address] [place] [address] [place] [address] Allergies Active Allergy Reactions Criticality Noted Date Comments Doxycycline 01/30/2022 Oxycodone 11/19/2005 Percocet 05/05/2001 Sulfa Antibiotics 05/05/2001 Had sulfa drops for eyes as a kid and eyes swelled up documented as of this encounter (statuses as of 07/08/2023) Medications Medication Sig Dispensed Refills Start Date [...] morning. Active levETIRAcetam 500 MG Oral Tablet (Keppra)Indications :Loss [...] before bedtime. 180 Tablet 2 07/08/2023 Active Losartan Potassium 50 MG Oral Tablet (Cozaar) Take 1 Tablet by mouth in the morning and 1 Tablet before bedtime. 07/08/2023 Discontinue d(Refill) Hospital, Clinic, or Other Facility Administered Medication Ordered Dose Route Frequency Start Date End Date Status Albuterol Sulfate (Proventil) (2.5 MG/3ML) 0.083% inhalation solution 2.5 mgIndications:Cigarette smoker 2.5 mg NEBULIZER ONCE PRN 05/19/2023 05/18/2024 Active documented as of this encounter (statuses as of 07/08/2023) Active Problems Problem Noted Date Diagnosed Date [...] as of this encounter (statuses as of 07/08/2023) Resolved Problems Problem Noted Date Diagnosed Date Resolved Date Acute deep vein thrombosis ( DVT) of proximal vein of right lower extremity 03/02/2022 04/19/2023 Asthma with severity to be determined 08/01/2009 02/04/2022 Overview: Per Asthma Taxonomy ICD-10 update of inactive term Bronchitis 02/04/2022 Asthma, allergic 08/01/2009 LUMBAGO 02/04/2022 Morbid obesity, BMI not known 04/22/2022 documented as of this encounter (statuses as of 07/08/2023) Immunizations Name Administration Dates Next Due TDAP, [...] Telephone Encounter - Oh Graff MD - 07/08/2023 12:28 PM EDT Signed Prescriptions: Disp Refills Losartan Potassium 50 MG Oral Tablet (Coza*180 Ta*2 Sig: Take 1 Tablet by mouth in the morning and 1 Tablet before bedtime. Authorizing Provider: OH GRAFF * Telephone Encounter - Riya Aleman LPN - 07/08/2023 10:14 AM EDT Pending Prescriptions: Disp Refills Losartan Potassium 50 MG Oral Tablet (Coz*180 Ta*2 Sig: Take 1 Tablet by mouth in the morning and 1 Tablet before bedtime. Last Visit: 06/11/2023 (in office), Visit date not found (telemedicine) Next Visit: 08/27/2023 Last date the medication was ordered: Historical Patient Active Problem List Diagnosis ADVANCE DIRECTIVE INFORMATION History of gastric bypass HTN, goal below 130/80 Gastroesophageal reflux disease without esophagitis Body mass index (BMI) of 40.0 to 44.9 in adult (HCC) Morbid obesity, BMI not known (HCC) Labs: Lab Results Component Value Date/Time CREATININE - [facility] 0.9 05/19/2023 12:29 PM CREATININE - [facility] 0.9 03/03/2001 11:30 AM CREATININE, RANDOM URINE - [facility] 144 04/19/2023 09:24 AM CREATININE-OUTSIDE LAB 0.87 05/07/2023 12:00 AM Lab Results Component Value Date/Time POTASSIUM - [facility] 4.4 05/19/2023 12:29 PM POTASSIUM - [facility] 4.1 03/03/2001 11:30 AM POTASSIUM, WHOLE BLOOD - [facility] 4.2 03/18/2001 01:15 PM POTASSIUM-OUTSIDE LAB 3.6 05/07/2023 12:00 AM Lab Results Component Value Date/Time TSH - [facility] 1.49 04/19/2023 09:24 AM Lab Results Component Value Date/Time LDL CHOLESTEROL (CALCULATED) - [facility] 108 04/19/2023 09:24 AM LDL CHOLESTEROL (CALCULATED) - [facility] 102 01/30/2022 08:58 AM LDL CHOLESTEROL-OUTSIDE LAB 110 07/03/2021 01:00 PM LDL CHOLESTEROL-OUTSIDE LAB 95 03/14/2018 03:00 PM Lab Results Component Value Date/Time ALT - [facility] 17 04/19/2023 09:24 AM Hemoglobin AIC Results: Lab Results Component Value Date/Time HEMOGLOBIN A1C - [facility] 5.2 04/19/2023 09:24 AM HEMOGLOBIN A1C - [facility] 5.1 01/30/2022 08:58 AM * Telephone Encounter - Jose Torres copy editor - 07/07/2023 4:40 PM EDT Patient calling requesting the following medication below that is listed as "Historical". The following information was provided: Medication Name: Losartan Potassium 50 MG Oral Tablet (Cozaar) Strength: 50 mg Directions: Take 1 tablet 2 times by mouth daily Preferred Quantity: 180 tablets Previous Prescriber: Dr Graff Preferred Pharmacy: [facility], [address] [place] Please review and approve if appropriate. Thank you, Jose Torres Law Examiner [email or web address] 07/07/2023, 4:40 PM documented in this encounter Plan of Treatment Upcoming Encounters Date Type Department Care Team (Late st Contact Info) Description 07/23/2023 11:00 AM EDT PulmDiagnostic Ancillary [address] [place] [address] [place], [address] [place] [phone] 08/27/2023 10:00 AM EDT Office Visit Family Medicine [address] [place] [phone] Oh Graff MD [address] [place] [address] [place] [phone] 09/08/2023 2:00 PM EDT Imaging Cardiac Studies, [facility] [address] [place] [address] 01/03/2024 12:40 PM EST Office Visit Family [address] [place] [phone] Oh Graff MD [address] [place] [address] [place] [phone] Health Maintenance Due Date Last Done Comments [...] filedocumented as of this encounter Care Teams Firewall Administrator Relationship Specialty Start Date End Date Oh Graff MD [address] [place] [address] [place] [phone] PCP - General Family Medicine 01/30/22 documented as of this encounter
--- OUTSIDE RECORDS SUMMARY | 2023-12-11 14:40 | External Medical Summary | Summary of Care ---
Author Name Unknown Organization [facility] Address [address] [place] [address] Phone [phone] Care Team Providers Care Mold Loft Worker Name Role Phone Oh Graff MD Primary Care Provide r Reason for Visit * Reason Onset Date Comments Cardiology Study 09/02/2023 Treadmill stres s test Encounter Details Date Type Department Care Team (Late st Contact Info) Description 09/02/2023 Telephone Family Medicine [address] [place] [phone] Oh Graff MD [address] [place] [address] [place] [phone] Cardiology Study (Treadmill stress test) Allergies Active Allergy Reactions Criticality Noted Date Comments Doxycycline 01/30/2022 Oxycodone 11/19/2005 Percocet 05/05/2001 Sulfa Antibiotics 05/05/2001 Had sulfa drops for eyes as a kid and eyes swelled up documented as of this encounter (statuses as of 09/02/2023) Medications Medication Sig Dispensed Refills Start Date [...] as of this encounter (statuses as of 09/02/2023) Active Problems Problem Noted Date Diagnosed Date [...] as of this encounter (statuses as of 09/02/2023) Resolved Problems Problem Noted Date Diagnosed Date Resolved Date Acute deep vein thrombosis ( DVT) of proximal vein of right lower extremity 03/02/2022 04/19/2023 Asthma with severity to be determined 08/01/2009 02/04/2022 Overview: Per Asthma Taxonomy ICD-10 update of inactive term Bronchitis 02/04/2022 Asthma, allergic 08/01/2009 LUMBAGO 02/04/2022 Morbid obesity, BMI not known 04/22/2022 documented as of this encounter (statuses as of 09/02/2023) Immunizations Name Administration Dates Next Due TDAP, [...] encounter Miscellaneous Notes * Telephone Encounter - Leo Nelson RN - 09/02/2023 12:40 PM EDT Order not futured, re-writing order documented in this encounter Plan of Treatment Upcoming Encounters Date Type Department Care Team (Late st Contact Info) Description 09/08/2023 2:00 PM EDT Imaging Cardiac Studies, [facility] [address] [facility] [place] [address] 12/03/2023 12:00 PM EDT Office Visit Family Medicine [address] [place] [phone] Lisandro Mckeon CRNP [address] [place] [address] [place] [phone] 01/03/2024 12:40 PM EST Office Visit Family Medicine [address] [place] [phone] Oh Graff MD [address] [place] [address] [place] [phone] Scheduled Orders Name Type Priority Associated Diagnoses Orde r Schedule CV STRESS TREADMILL Echocardiology Routine Loss of consciousness (HCC) Chest pain, unspecified type Expected: 09/02/2023, Expires: 12/03/2023 Health Maintenance Due Date Last Done Comments DISCUSS TOBACCO CESSATION (REFER TO SMARTSET #[id number]) 1968 Pneumococcal Vaccine: Pediatrics (0 to 5 [...] 2018 COVID-19 Vaccine (1 - season) 2022 *CXR OR [address] FOR COPD EVER 08/30/2023 Influenza Vaccine (FLU shot) (#1) 2023 GFR 05/18/2024 05/19/2023, 04/09, 04/19/2023, Additional history exists O2 ASSESSMENT COMPLETED IN PAST YEAR FOR COPD 08/26/2024 08/27/2023 Cologuard 05/19/2025 05/19/2022, 04/0 04/2022, 05/11/2022 Colorectal Cancer Screening 05/19/2025 DTaP,Tdap,and Td Vaccines (2 - Td or Tdap) 05/21/2025 05/22/2015 Albumin/Creatinine Ratio 04/18/2026 04/19/2023, 12/2 04/2021 Diabetes Screening 05/18/2026 05/19/2023, 0 05/07/2023, 04/19/2023, [...] as of this encounter Visit Diagnoses Diagnosis Chest pain, unspecified type- Primary Loss of consciousness (HCC) Other alteration of consciousness documented in this encounter Care Teams Mold Loft Worker Relationship Specialty Start Date End Date Oh Graff MD [address] [place] [address] [place] [phone] PCP - General Family Medicine 01/30/22 documented as of this encounter
--- OUTSIDE RECORDS SUMMARY | 2023-12-11 14:40 | External Medical Summary | Summary of Care ---
Author Name Unknown Organization [facility] Address [address] [place] [address] Phone [phone] Care Team Providers Care Liquor Bridge Operator Name Role Phone Oh Graff MD Primary Care Provide r Encounter Details Date Type Department Care Team (Late st Contact Info) Description 10/07/2023 Orders Only Unspecified Department Oh Graff MD [address] [place] [address] [place] [phone] Allergies Active Allergy Reactions Criticality Noted Date Comments Doxycycline 01/30/2022 Oxycodone 11/19/2005 Percocet 05/05/2001 Sulfa Antibiotics 05/05/2001 Had sulfa drops for eyes as a kid and eyes swelled up documented as of this encounter (statuses as of 10/08/2023) Medications Medication Sig Dispensed Refills Start Date [...] as of this encounter (statuses as of 10/08/2023) Active Problems Problem Noted Date Diagnosed Date [...] as of this encounter (statuses as of 10/08/2023) Resolved Problems Problem Noted Date Diagnosed Date Resolved Date Acute deep vein thrombosis ( DVT) of proximal vein of right lower extremity 03/02/2022 04/19/2023 Asthma with severity to be determined 08/01/2009 02/04/2022 Overview: Per Asthma Taxonomy ICD-10 update of inactive term Bronchitis 02/04/2022 Asthma, allergic 08/01/2009 LUMBAGO 02/04/2022 Morbid obesity, BMI not known 04/22/2022 documented as of this encounter (statuses as of 10/08/2023) Immunizations Name Administration Dates Next Due TDAP, [...] on file documented as of this encounter Plan of Treatment Upcoming Encounters Date Type Department Care Team (Late st Contact Info) Description 12/03/2023 12:00 PM EDT Office Visit [address] [phone] Lisandro Mckeon CRNP [address] [place] [address] [place] [address] 01/03/2024 12:40 PM EST Office Visit [address] [place] [phone] Oh Graff MD [address] [place] [address] [place] [phone] Health Maintenance Due Date Last Done Comments DISCUSS TOBACCO CESSATION (REFER TO SMARTSET #[id number]) 1970 Pneumococcal Vaccine: Pediatrics (0 to 5 [...] of 2) 2018 COVID-19 Vaccine (1 - 24 season) 2022 Influenza Vaccine (FLU shot) (#1) 2023 GFR 05/18/2024 05/19/2023, 04/09, 04/19/2023, Additional history exists O2 ASSESSMENT COMPLETED IN PAST YEAR FOR COPD 08/26/2024 08/27/2023 Cologuard 05/19/2025 05/19/2022, 04/0 04/2022, 05/11/2022 Colorectal Cancer Screening 05/19/2025 DTap/Tdap Vaccines (2 - Td or Tdap) 05/21/2025 05/22/2015 Albumin/Creatinine Ratio 04/18/2026 04/19/2023, 12/04/2021 Diabetes Screening 05/18/2026 05/19/2023, 0 05/07/2023, 04/19/2023, Additional history exists Lipid Panel 04/18/2028 04/19/2023, 1204/2021, 07/03/2021, Additional history exists HPV (Gardasil) Vaccine Aged Out No lo nger eligible based on patient's age to complete this topic MENINGOCOCCAL (MENACTRA/MENVEO) Aged Out No longer eligible based on patient's age to complete this topic documented as of this encounter Medical Devices Not on filedocumented as of this encounter Procedures Procedure Name Priority Date/Time Associated Diagnosis Comments NM MYOCARDIAL PERFUSION IMAGING SPECT MULTIPLE STUDIES WITH PHARMACOLOGIC INTERVENTION Routine 10/07/2023 11:18 AM EDT documented in this encounter Results * NM MYOCARDIAL PERFUSION IMAGING SPECT MULTIPLE STUDIES WITH PHARMACOLOGIC INTERVENTION (10/07/2023 11:18 AM EDT) 10/07/2023 11:1 8 AM EDT Oh Graff MD RAD NUCLEAR M ED [facility] documented in this encounter Care Teams Liquor Bridge Operator Relationship Specialty Start Date End Date Oh Graff MD [address] [place] [address] [place] [phone] PCP - General Family Medicine 01/30/22 documented as of this encounter
--- OUTSIDE RECORDS SUMMARY | 2023-12-11 14:40 | External Medical Summary | Summary of Care ---
Author Name Unknown Organization [facility] Address [address] [place] [address] Phone [phone] Care Team Providers Care Chain Repairer Name Role Phone Oh Graff MD Primary Care Provide r Encounter Details Date Type Department Care Team (Late st Contact Info) Description 09/08/2023 Orders Only Unspecified Department Oh Graff MD [address] [place] [address] [place] [phone] Allergies Active Allergy Reactions Criticality Noted Date Comments Doxycycline 01/30/2022 Oxycodone 11/19/2005 Percocet 05/05/2001 Sulfa Antibiotics 05/05/2001 Had sulfa drops for eyes as a kid and eyes swelled up documented as of this encounter (statuses as of 09/08/2023) Medications Medication Sig Dispensed Refills Start Date [...] as of this encounter (statuses as of 09/08/2023) Active Problems Problem Noted Date Diagnosed Date [...] as of this encounter (statuses as of 09/08/2023) Resolved Problems Problem Noted Date Diagnosed Date Resolved Date Acute deep vein thrombosis ( DVT) of proximal vein of right lower extremity 03/02/2022 04/19/2023 Asthma with severity to be determined 08/01/2009 02/04/2022 Overview: Per Asthma Taxonomy ICD-10 update of inactive term Bronchitis 02/04/2022 Asthma, allergic 08/01/2009 LUMBAGO 02/04/2022 Morbid obesity, BMI not known 04/22/2022 documented as of this encounter (statuses as of 09/08/2023) Immunizations Name Administration Dates Next Due TDAP, [...] Description 12/03/2023 12:00 PM EDT Office Visit [address] [phone] Lisandro Mckeon CRNP [address] [place] [address] [place] [phone] 01/03/2024 12:40 PM EST Office Visit [address] [place] [phone] Oh Graff MD [address] [place] [address] [place] [address] Health Maintenance Due Date Last Done Comments DISCUSS TOBACCO CESSATION (REFER TO SMARTSET #1912) 1970 Pneumococcal Vaccine: Pediatrics (0 to 5 [...] Procedure Name Priority Date/Time Associated Diagnosis Comments CV STRESS TREADMILL Routine 09/08/2023 2:21 PM EDT documented in this encounter Results * CV STRESS TREADMILL (09/08/2023 2:21 PM EDT) 09/08/2023 2:21 PM EDT Oh Graff MD EKG [facility] documented in this encounter Care Teams Chain Repairer Relationship Specialty Start Date End Date Oh Graff MD [address] [place] [address] [place] [phone] PCP - General Family Medicine 01/30/22 documented as of this encounter
--- OUTSIDE RECORDS SUMMARY | 2023-12-11 14:40 | External Medical Summary | Summary of Care ---
Author Name Unknown Organization [facility] Address [address] [place] [address] Phone [phone] Care Team Providers Care Hide Dyer Name Role Phone Oh Graff MD Primary Care Provide r Reason for Visit * Reason Onset Date Comments Advice 08/02/2023 Forms Request 08/02/2023 Encounter Details Date Type Department Care Team (Late st Contact Info) Description 08/02/2023 Telephone Family Medicine [address] [phone] Oh Graff MD [address] [place] [address] [place] [address] Advice; Forms Request Allergies Active Allergy Reactions Criticality Noted Date Comments Doxycycline 01/30/2022 Oxycodone 11/19/2005 Percocet 05/05/2001 Sulfa Antibiotics 05/05/2001 Had sulfa drops for eyes as a kid and eyes swelled up documented as of this encounter (statuses as of 11/01/2023) Medications Medication Sig Dispensed Refills Start Date [...] before bedtime. 180 Tablet 2 07/08/2023 Active Stiolto Respimat 2.5-2.5 MCG/ACT Inhalation Aerosol [...] 08/27/2023 Discontinue d(Medicatio n List Clean Up) Carvedilol 12.5 MG Oral Tablet (Coreg) Take 1 Tablet by mouth in the morning and 1 Tablet before bedtime. 180 Tablet 1 06/14/2023 10/13/2023 Discontinue d(Refill) Hospital, Clinic, or Other Facility Administered Medication Ordered Dose Route Frequency Start Date End Date Status Albuterol Sulfate (Proventil) (2.5 MG/3ML) 0.083% inhalation solution 2.5 mgIndications:Cigarette smoker 2.5 mg NEBULIZER ONCE PRN 05/19/2023 05/18/2024 Active documented as of this encounter (statuses as of 11/01/2023) Active Problems Problem Noted Date Diagnosed Date [...] as of this encounter (statuses as of 11/01/2023) Resolved Problems Problem Noted Date Diagnosed Date Resolved Date Acute deep vein thrombosis ( DVT) of proximal vein of right lower extremity 03/02/2022 04/19/2023 Asthma with severity to be determined 08/01/2009 02/04/2022 Overview: Per Asthma Taxonomy ICD-10 update of inactive term Bronchitis 02/04/2022 Asthma, allergic 08/01/2009 LUMBAGO 02/04/2022 Morbid obesity, BMI not known 04/22/2022 documented as of this encounter (statuses as of 11/01/2023) Immunizations Name Administration Dates Next Due TDAP, [...] encounter Miscellaneous Notes * Telephone Encounter - Alla Marr RN - 08/02/2023 11:04 AM EDT Pt looks like Neurology has him off until October. Will send to Neurology * Telephone Encounter - Omkar Skelton OSA - 08/02/2023 10:45 AM EDT Caller: Patient Reason for call: Patient want to know if he is ok to go back to work. Patient would like a call from the nurse or the doctor. Please Advise documented in this encounter Plan of Treatment Upcoming Encounters Date Type Department Care Team (Late st Contact Info) Description 12/03/2023 12:00 PM EDT Office Visit [address] [phone] Lisandro Mckeon CRNP [address] [place] [address] [place] [address] 01/03/2024 12:40 PM EST Office Visit [address] [phone] Oh Graff MD [address] [place] [address] [place] [address] Health Maintenance Due Date Last Done Comments DISCUSS TOBACCO CESSATION (REFER TO SMARTSET #[id number]) 1970 Pneumococcal Vaccine: Pediatrics (0 to 5 [...] 2) 2018 COVID-19 Vaccine (1 - season) 2023 Influenza Vaccine (FLU shot) [...] filedocumented as of this encounter Care Teams Hide Dyer Relationship Specialty Start Date End Date Oh Graff MD [address] [place] [address] [place] [address] PCP - General Family Medicine 01/30/22 documented as of this encounter
--- OUTSIDE RECORDS SUMMARY | 2023-12-11 14:40 | External Medical Summary | Summary of Care ---
Author Name Unknown Organization [facility] Address [address] [place] [address] Phone [phone] Care Team Providers Care Housecalls Nurse Name Role Phone Oh Graff MD Primary Care Provide r Reason for Visit * Reason Comments Pulmonary Function Test Spirogram with darcy hickman Encounter Details Date Type Department Care Team (Late st Contact Info) Description 07/23/2023 11:00 AM EDT PulmDiagnostic Ancillary [address] [place] [address] [place], [address] [place], [place] [phone] Cigarette smoker* Allergies Active Allergy Reactions Criticality [...] and still currently smokes. 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 Spirometry performed before and after a slow [...] 10:00 AM EDT Office Visit Family Medicine [address] [place] [phone] Oh Graff MD [address] [place] [address] [place] [address] 09/08/2023 2:00 PM EDT Imaging Cardiac Studies, [facility] [address] [place] [address] 01/03/2024 12:40 PM EST Office Visit [address] [place] [phone] Oh Graff MD [address] [place] [address] [place] [address] Health Maintenance Due Date Last Done Comments [...] as of this encounter Visit Diagnoses Diagnosis Cigarette smoker- Primary Tobacco use disorder documented in this encounter Administered Medications Active Administered Medications - up to 3 most recent administrations Medication Order MAR Action Action Date Dose Rate Site Albuterol Sulfate (Proventil) (2.5 MG/3ML) 0.083% inhalation solution 2.5 mg 2.5 mg, Nebulizer, ONCE PRN Other, Testing, Starting on Wed05/19/23 at 1215, Until Juanis 05/18/24 at 1214, For 365 days, Only one type of albuterol product should be administered (Nebulizer or Inhaler). Please select and document on the appropriate albuterol product order. Given 07/23/2023 10:46 AM EDT 2.5 mg documented in this encounter Care Teams Housecalls Nurse Relationship Specialty Start Date End Date Oh Graff MD [address] [place] [address] [place] [address] PCP - General Family Medicine 01/30/22 documented as of this encounter
--- OUTSIDE RECORDS SUMMARY | 2023-12-11 14:41 | External Medical Summary | Summary of Care ---
Author Name Unknown Organization [facility] Address [address] [place] [address] Phone [phone] Care Team Providers Care Parlor Maid Name Role Phone Oh Graff MD Primary Care Provide r Reason for Visit * Reason Onset Date Comments Blood Pressure Check 06/16/2023 Home Readin gs from Nurse Encounter Details Date Type Department Care Team (Late st Contact Info) Description 06/16/2023 Telephone Family Medicine [address] [phone] Oh Graff MD [address] [place] [address] [place] [address] Blood Pressure Check (Home Readings from P... Allergies Active Allergy Reactions Criticality Noted Date Comments Doxycycline 01/30/2022 Oxycodone 11/19/2005 Percocet 05/05/2001 Sulfa Antibiotics 05/05/2001 Had sulfa drops for eyes as a kid and eyes swelled up documented as of this encounter (statuses as of 06/22/2023) Medications Medication Sig Dispensed Refills Start Date End Date Status Apixaban 5 MG Oral Tablet (Eliquis)Indications:H istory of DVT of lower extremity Take 1 Tablet by mouth in the morning and 1 Tablet before bedtime. 180 Tablet 1 05/07/2023 Active Stiolto Respimat 2.5-2.5 MCG/ACT Inhalation Aerosol Solution (Tiotropium-Olodaterol )Indications:at hosp d/c Inhale 2 Puffs by mouth in the morning. 0 Active Losartan Potassium 50 MG Oral Tablet (Cozaar) Take 1 Tablet by mouth in the morning and 1 Tablet before bedtime. 0 Active Pantoprazole Sodium 40 MG Oral Tablet Delayed Release (Protonix) Take 1 Tablet by mouth in the morning. 0 Active levETIRAcetam 500 MG Oral Tablet (Keppra)Indications:Lo [...] before bedtime. 180 Tablet 1 06/14/2023 Active Hospital, Clinic, or Other Facility Administered Medication Ordered Dose Route Frequency Start Date End Date Status Albuterol Sulfate (Proventil) (2.5 MG/3ML) 0.083% inhalation solution 2.5 mgIndications:Cigarette smoker 2.5 mg NEBULIZER ONCE PRN 05/19/2023 05/18/2024 Active documented as of this encounter (statuses as of 06/22/2023) Active Problems Problem Noted Date Diagnosed Date [...] as of this encounter (statuses as of 06/22/2023) Resolved Problems Problem Noted Date Diagnosed Date Resolved Date Acute deep vein thrombosis ( DVT) of proximal vein of right lower extremity 03/02/2022 04/19/2023 Asthma with severity to be determined 08/01/2009 02/04/2022 Overview: Per Asthma Taxonomy ICD-10 update of inactive term Bronchitis 02/04/2022 Asthma, allergic 08/01/2009 LUMBAGO 02/04/2022 Morbid obesity, BMI not known 04/22/2022 documented as of this encounter (statuses as of 06/22/2023) Immunizations Name Administration Dates Next Due TDAP (age 11 and older)(Adacel) 05/22/2015 documented as of this encounter Social [...] encounter Miscellaneous Notes * Telephone Encounter - Ursula Malloy CMA - 06/22/2023 2:25 PM EDT He was in yesterday for his EKG and Zio monitor placement; I offered appointment. He said that he will have the nurse coming in to check them again this week that faxed these over to us last week andthey will fax them again this week. * Telephone Encounter - Oh Graff MD - 06/16/2023 2:46 PM EDT One of the BP was elevated - pls help pt set up a nurse visit for a BP check in 1 week * Telephone Encounter - Ursula Malloy CMA - 06/16/2023 11:13 AM EDT Fax came from [facility] nurse Hailey Booth LPN with vitals for PCP review. Last two sets are: 06/12: 149/89 P 81 95% Wt 324.1 06/13: 137/83 P85 94% Wt 317.7 [facility] documented in this encounter Plan of Treatment Upcoming Encounters Date Type Department Care Team (Late st Contact Info) Description 07/23/2023 11:00 AM EDT PulmDiagnostic Ancillary [address] [place] [address] [place], t 132 [facility] [place] [address] 08/27/2023 10:00 AM EDT Office Visit Family Medicine [address] [place] [phone] hO Graff MD [address] [place] [address] [place] [address] 09/08/2023 2:00 PM EDT [facility] [place] [address] 01/03/2024 12:40 PM EST Office Visit Family [address] [place] [phone] Oh Graff MD [address] [place] [address] [place] [address] Health Maintenance Due Date Last Done Comments [...] shot) (Season Ended) 2023 GFR 05/18/2024 05/19/2023, 03/10/2023, 04/19/2023, Additional history exists Cologuard 05/19/2025 05/19/2022, [...] filedocumented as of this encounter Care Teams Parlor Maid Relationship Specialty Start Date End Date Oh Graff MD [address] [place] [address] [place] [phone] PCP - General Family Medicine 01/30/22 documented as of this encounter
--- OUTSIDE RECORDS SUMMARY | 2023-12-11 14:41 | External Medical Summary | Summary of Care ---
Author Name Unknown Organization [facility] Address [address] [place] [address] Phone [phone] Care Team Providers Care Address Change Clerk Name Role Phone Oh Graff MD Primary Care Provide r Reason for Visit * Reason Onset Date Comments Advice 06/14/2023 Appointment 06/14/2023 ZIO/CV stress tr sussy Encounter Details Date Type Department Care Team (Late st Contact Info) Description 06/14/2023 Telephone Family Medicine [address] [place] [phone] Oh Graff MD [address] [place] [address] [place] [address] Advice; Appointment (ZIO/CV stress treadmi... Allergies Active Allergy Reactions Criticality Noted Date Comments Doxycycline 01/30/2022 Oxycodone 11/19/2005 Percocet 05/05/2001 Sulfa Antibiotics 05/05/2001 Had sulfa drops for eyes as a kid and eyes swelled up documented as of this encounter (statuses as of 06/15/2023) Medications Medication Sig Dispensed Refills Start Date [...] 0 Active levETIRAcetam 500 MG Oral Tablet (Keppra)Indications [...] morning and 1 Tablet before bedtime. 0 05/07/2023 06/14/2023 Discontinue d(Refill) Hospital, Clinic, or Other Facility Administered Medication Ordered Dose Route Frequency Start Date End Date Status Albuterol Sulfate (Proventil) (2.5 MG/3ML) 0.083% inhalation solution 2.5 mgIndications:Cigarette smoker 2.5 mg NEBULIZER ONCE PRN 05/19/2023 05/18/2024 Active documented as of this encounter (statuses as of 06/15/2023) Active Problems Problem Noted Date Diagnosed Date [...] as of this encounter (statuses as of 06/15/2023) Resolved Problems Problem Noted Date Diagnosed Date Resolved Date Acute deep vein thrombosis ( DVT) of proximal vein of right lower extremity 03/02/2022 04/19/2023 Asthma with severity to be determined 08/01/2009 02/04/2022 Overview: Per Asthma Taxonomy ICD-10 update of inactive term Bronchitis 02/04/2022 Asthma, allergic 08/01/2009 LUMBAGO 02/04/2022 Morbid obesity, BMI not known 04/22/2022 documented as of this encounter (statuses as of 06/15/2023) Immunizations Name Administration Dates Next Due TDAP [...] encounter Miscellaneous Notes * Telephone Encounter - Hailey Martinez OSA - 06/15/2023 10:01 AM EDT I left message on patient's VM to call me (RE: Scheduling ZIO placement and CV stress treadmill). * Telephone Encounter - Tammy Perez LPN - 06/14/2023 3:53 PM EDT I tried to call pt- someone picked up then ended the call immediately. Please see message below if pt calls back. * Telephone Encounter - Oh Graff MD - 06/14/2023 10:55 AM EDT Pt's BP was normal in the clinic recently - therefore I would like to continue current meds - regarding his chest pain --- I have recommended ER visit in the past but pt never went - est considering his HTN and recent hx of stroke like symptom will get zio patch and cardiac stress test - I would like pt to come in for a EKG prior to the stress test * Telephone Encounter - Erlinda Peterson LPN - 06/14/2023 10:45 AM EDT Patient calling in stating that his BP has been fluctuating this morning on the higher side. 157/90 132/105 HR 85 SPO2 95% Stated that he was was sitting there watching TV with pulse ox on because he felt weird, he stated that he would have a little bit of chest pain that would last for a couple minutes and it would go away. He stated that he feels a little SOB but his pulse ox is reading normal. He stated that his Arms, legs, neck muscles started intermittently twitching today. Called and spoke with Tammy in the clinic, she spoke with Dr. Graff to address the encounter. Please call patient back when addressed. documented in this encounter Plan of Treatment Upcoming Encounters Date Type Department Care Team (Late st Contact Info) Description 06/15/2023 12:30 PM EDT NeuroDiagnostic Study Neurophysiology [address] [place] [address] Sp, Neurophys Tech [address] [place] [address] [place] [address] 06/18/2023 9:00 AM EDT NeuroDiagnostic Study Neurophysiology [facility] [address] [facility] [place] [address] Sp, Neurophys Tech [address] [place] [address] [facility] [place] [address] 07/23/2023 11:00 AM EDT PulmDiagnostic Ancillary [address] [place] [address] [place], Pft 132 [facility] [place] [address] 08/27/2023 10:00 AM EDT Office Visit Family Medicine [address] [place] [phone] Oh Graff MD [address] [place] [address] [place] [address] 01/03/2024 12:40 PM EST Office Visit Family Medicine [address] [place] [phone] Oh Graff MD [address] [place] [address] [place] [address] Scheduled Orders Name Type Priority Associated Diagnoses Orde r Schedule EXTERNAL EKG 8 TO 15 DAYS HOME ENROLLMENT Holter Routine Loss of consciousness (HCC) Chest pain, unspecified type Expected: 06/15/2023 (Approximate), Expires: 06/13/2024 CV STRESS TREADMILL (PHYS/SUP) EKG Routine Loss of consciousness (HCC) Chest pain, unspecified type Ordered: 06/14/2023 EKG EKG Routine Loss of consciousness (HCC) Chest pain, unspecified type Expected: 06/15/2023 (Approximate), Expires: 07/14/2024 Health Maintenance Due Date Last Done Comments [...] type documented in this encounter Care Teams Address Change Clerk Relationship Specialty Start Date End Date Oh Graff MD [address] [place] [address] [place] [address] PCP - General Family Medicine 01/30/22 documented as of this encounter
--- OUTSIDE RECORDS SUMMARY | 2023-12-11 14:41 | External Medical Summary | Summary of Care ---
Author Name Unknown Organization [facility] Address [address] [place] [address] Phone [phone] Care Team Providers Care Employee Communications Intern Name Role Phone Oh Graff MD Primary Care Provide r Reason for Visit * Reason Onset Date Comments Advice 06/14/2023 Appointment 06/14/2023 ZIO/CV stress tr sussy Encounter Details Date Type Department Care Team (Late st Contact Info) Description 06/14/2023 Telephone Family Medicine [address] [place] [phone] Oh Graff MD [address] [place] [address] [place] [address] Advice; Appointment (ZIO/CV stress treadmi... Allergies Active Allergy Reactions Criticality Noted Date Comments Doxycycline 01/30/2022 Oxycodone 11/19/2005 Percocet 05/05/2001 Sulfa Antibiotics 05/05/2001 Had sulfa drops for eyes as a kid and eyes swelled up documented as of this encounter (statuses as of 06/16/2023) Medications Medication Sig Dispensed Refills Start Date [...] as of this encounter (statuses as of 06/16/2023) Active Problems Problem Noted Date Diagnosed Date [...] as of this encounter (statuses as of 06/16/2023) Resolved Problems Problem Noted Date Diagnosed Date Resolved Date Acute deep vein thrombosis ( DVT) of proximal vein of right lower extremity 03/02/2022 04/19/2023 Asthma with severity to be determined 08/01/2009 02/04/2022 Overview: Per Asthma Taxonomy ICD-10 update of inactive term Bronchitis 02/04/2022 Asthma, allergic 08/01/2009 LUMBAGO 02/04/2022 Morbid obesity, BMI not known 04/22/2022 documented as of this encounter (statuses as of 06/16/2023) Immunizations Name Administration Dates Next Due TDAP [...] Telephone Encounter - Hailey Martinez OSA - 06/16/2023 10:46 AM EDT I left message with Jacek for his to call me to schedule his tests * Telephone Encounter - Azalia Crain OSA - 06/15/2023 10:14 AM EDT Reason for patient's call: returning call from [facility] Please contact patient at: [phone] * Telephone Encounter - Hailey Martinez OSA [...] Care Team (Late st Contact Info) Description 06/18/2023 9:00 AM EDT NeuroDiagnostic Study Neurophysiology [facility] 200 [facility] [place] [address] Sp, Neurophys Tech 200 [facility] [place] [address] 07/23/2023 11:00 AM EDT PulmDiagnostic Ancillary [address] [place] [address] [facility] 132 [facility] [place] [id number] 08/27/2023 10:00 AM EDT Office Visit [address] [place] [phone] Oh Graff MD [address] [place] [address] [place] [address] 01/03/2024 12:40 PM EST Office Visit [address] [place] [phone] Oh Graff MD [address] [place] [address] [place] [address] Scheduled Orders Name Type Priority Associated Diagnoses [...] shot) (Season Ended) 2023 GFR 05/18/2024 05/19/2023, /10/2023, 04/19/2023, Additional history exists Cologuard 05/19/2025 05/19/2022, [...] type documented in this encounter Care Teams Employee Communications Intern Relationship Specialty Start Date End Date Oh Graff MD [address] [place] [address] [place] [address] PCP - General Family Medicine 01/30/22 documented as of this encounter
--- OUTSIDE RECORDS SUMMARY | 2023-12-11 14:41 | External Medical Summary | Summary of Care ---
Author Name Unknown Organization [facility] Address [address] [place] [address] Phone [phone] Care Team Providers Care It Recruiter Name Role Phone Oh Graff MD Primary Care Provide r Reason for Visit * Reason Onset Date Comments Advice 06/14/2023 Appointment 06/14/2023 ZIO/CV stress tr sussy Encounter Details Date Type Department Care Team (Late st Contact Info) Description 06/14/2023 Telephone Family Medicine [address] [place] [phone] Oh Graff MD [address] [place] [address] [place] [address] Advice; Appointment (ZIO/CV stress [...] encounter Miscellaneous Notes * Telephone Encounter - Azalia Crain OSA - 06/15/2023 10:14 AM EDT Reason for patient's call: returning call from Juliette Please contact patient at: [phone] * Telephone Encounter - Hailey Martinez OSA [...] 06/15/2023 12:30 PM EDT NeuroDiagnostic Study Neurophysiology [facility] 200 [facility] [place] [address] Sp, Neurophys Tech [address] [place] [address] [place] [address] 06/18/2023 9:00 AM EDT NeuroDiagnostic Study Neurophysiology [facility] [address] [place] [address] Sp, Neurophys Tech [address] [place] [address] 07/23/2023 11:00 AM EDT PulmDiagnostic Ancillary [address] [place] [address] [place], t 132 [facility] [place] [address] 08/27/2023 10:00 AM EDT Office Visit [address] [place] [phone] Oh Graff MD [address] [place] [address] [place] [address] 01/03/2024 12:40 PM EST Office Visit [address] [place] [phone] Oh Graff MD [address] [place] [address] [place] [address] Scheduled Orders Name Type Priority Associated Diagnoses [...] type documented in this encounter Care Teams It Recruiter Relationship Specialty Start Date End Date Oh Graff MD [address] [place] [address] [place] [phone] PCP - General Family Medicine 01/30/22 documented as of this encounter
--- OUTSIDE RECORDS SUMMARY | 2023-12-11 14:41 | External Medical Summary | Summary of Care ---
Author Name Unknown Organization [facility] Address [address] [place] [address] Phone [phone] Care Team Providers Care Construction Controller Name Role Phone Oh Graff MD Primary Care Provide r Reason for Visit * Reason Onset Date Comments Advice 06/14/2023 Appointment 06/14/2023 ZIO/CV stress tr sussy Encounter Details Date Type Department Care Team (Late st Contact Info) Description 06/14/2023 Telephone Family Medicine [address] [place] [phone] Oh Graff MD [address] [place] [address] [place] [address] Advice; Appointment (ZIO/CV stress [...] Encounter - Hailey Martinez OSA - 06/16/2023 12:16 PM EDT Appts scheduled, pt/ aware. Instructions sent to pt. * Telephone Encounter - Hailey Martinez OSA - 06/16/2023 10:46 AM EDT I left message with Jacek for his to call me to schedule his tests * Telephone Encounter - Azalia Crain OSA - 06/15/2023 10:14 AM EDT Reason for patient's call: returning call from [facility] Please contact patient at: [phone] * Telephone Encounter - Hailey Martinez OSA [...] 06/18/2023 9:00 AM EDT NeuroDiagnostic Study Neurophysiology [facility] [place] 200 [facility] [place] [address] Sp, Neurophys Tech 200 [facility] [place] [address] 06/21/2023 3:20 PM EDT Nurse Only Ancillary [address] [place] [address] [place], Nurse [address] [place] [address] 07/23/2023 11:00 AM EDT PulmDiagnostic Ancillary [address] [place] [address] [place], [address] [place] [address] 08/27/2023 10:00 AM EDT Office Visit Family Medicine [address] [place] [phone] Oh Graff MD [address] [place] [address] [place] [address] 09/08/2023 2:00 PM EDT Imaging Cardiac Studies, [facility] 132 [facility] [place] [address] 01/03/2024 12:40 PM EST Office Visit Family [address] [place] [phone] Oh Graff MD [address] [place] [address] [place] [address] Scheduled Orders Name Type Priority Associated Diagnoses [...] type documented in this encounter Care Teams Construction Controller Relationship Specialty Start Date End Date Oh Graff MD [address] [place] [address] [place] [address] PCP - General Family Medicine 01/30/22 documented as of this encounter
--- OUTSIDE RECORDS SUMMARY | 2023-12-11 14:41 | External Medical Summary | Summary of Care ---
Author Name Unknown Organization [facility] Address [address] [place] [address] Phone [phone] Care Team Providers Care Stone Mason Name Role Phone Oh Graff MD Primary Care Provide r Reason for Visit * Reason Onset Date Comments Medication Refill 06/14/2023 Encounter Details Date Type Department Care Team (Late st Contact Info) Description 06/14/2023 Refill Family Medicine [address] [place] [phone] Oh Graff MD [address] [place] [address] [place] [address] Allergies Active Allergy Reactions [...] before bedtime. 180 Tablet 1 06/14/2023 Active Carvedilol 12.5 MG Oral Tablet (Coreg) [...] encounter Miscellaneous Notes * Telephone Encounter - Roya Zaman packer fuser - 06/15/2023 9:54 AM EDT Patient calling to see what pharmacy the prescription was sent to. Roya Hearn Call Center Associate II [facility] [address] [place] [address] 06/15/2023 9:54 AM * Telephone Encounter - Oh Graff MD - 06/14/2023 11:45 AM EDT Signed Prescriptions: Disp Refills Carvedilol 12.5 MG Oral Tablet (Coreg) 180 Ta*1 Sig: Take 1 Tablet by mouth in the morning and 1 Tablet before bedtime. Authorizing Provider: OH GRAFF * Telephone Encounter - Alla Marr RN - 06/14/2023 11:40 AM EDTPending Prescriptions: Disp Refills Carvedilol 12.5 MG Oral Tablet (Coreg) 180 Ta*1 Sig: Take 1 Tablet by mouth in the morning and 1 Tablet before bedtime. * Telephone Encounter - Clau Pryor PHARM Tech - 06/14/2023 10:30 AM EDT pt calling requesting the following medication below that is listed as "Historical". The following information was provided: Medication Name: carvedilol Strength: 12.5 mg Directions: twice daily Preferred Quantity: 180 Previous Prescriber: romi Preferred Pharmacy: [facility] Please review and approve if appropriate. Thank you, Clau Pryor [facility] Call Center Associate II [facility]) 06/14/2023,10:32 AM documented in this encounter Plan of Treatment Upcoming Encounters Date Type Department Care Team (Late st Contact Info) Description 06/15/2023 12:30 PM EDT NeuroDiagnostic Study Neurophysiology [facility] [place] [address] [place] [address] Sp Neurophys Tech [facility] Olga Suarez [facility] [place] [address] 06/18/2023 9:00 AM EDT NeuroDiagnostic Study Neurophysiology Nataly Evelyn [place] [address] [place] [address] Sp, Neurophys Tech Stella Espinoza Dr [facility] [place] [address] 07/23/2023 11:00 AM EDT PulmDiagnostic Ancillary [address] [place] [phone] [facility] 132 [facility] [place] [address] 08/27/2023 10:00 AM EDT Office Visit [address] [place] [phone] Oh Graff MD [address] [place] [address] [place] [address] 01/03/2024 12:40 PM EST Office Visit [address] [place] [phone] Oh Graff MD [address] [place] [address] [place] [address] Health Maintenance Due Date Last Done Comments [...] filedocumented as of this encounter Care Teams Stone Mason Relationship Specialty Start Date End Date Oh Graff MD [address] [place] [address] [place] [address] PCP - General Family Medicine 01/30/22 documented as of this encounter
--- OUTSIDE RECORDS SUMMARY | 2023-12-11 14:41 | External Medical Summary | Summary of Care ---
Author Name Unknown Organization [facility] Address [address] [place] [address] Phone [phone] Care Team Providers Care Truck Car And Bus Cleaner Name Role Phone Oh Graff MD Primary Care Provide r Reason for Visit * Reason Onset Date Comments Blood Pressure Check 06/23/2023 Home Blood Pressure check Encounter Details Date Type Department Care Team (Late st Contact Info) Description 06/23/2023 Telephone Family Medicine [address] [phone] Oh Graff MD [address] [place] [address] [place] [address] Blood Pressure Check (Home Blood Pressure ... Allergies Active Allergy Reactions Criticality Noted Date Comments Doxycycline 01/30/2022 Oxycodone 11/19/2005 Percocet 05/05/2001 Sulfa Antibiotics 05/05/2001 Had sulfa drops for eyes as a kid and eyes swelled up documented as of this encounter (statuses as of 06/25/2023) Medications Medication Sig Dispensed Refills Start Date [...] as of this encounter (statuses as of 06/25/2023) Active Problems Problem Noted Date Diagnosed Date [...] as of this encounter (statuses as of 06/25/2023) Resolved Problems Problem Noted Date Diagnosed Date Resolved Date Acute deep vein thrombosis ( DVT) of proximal vein of right lower extremity 03/02/2022 04/19/2023 Asthma with severity to be determined 08/01/2009 02/04/2022 Overview: Per Asthma Taxonomy ICD-10 update of inactive term Bronchitis 02/04/2022 Asthma, allergic 08/01/2009 LUMBAGO 02/04/2022 Morbid obesity, BMI not known 04/22/2022 documented as of this encounter (statuses as of 06/25/2023) Immunizations Name Administration Dates Next Due TDAP [...] encounter Miscellaneous Notes * Telephone Encounter - Riya Aleman LPN - 06/25/2023 7:47 AM EDT Patient Aware of Note Below and I did advise if Symptoms get worse then he needs to go to ER, but all the Cardiac test are not back at his time * Telephone Encounter - Oh Graff MD - 06/24/2023 8:45 PM EDT Pls advised the pt to continue his current HTN meds for now Regarding your other concerns I would liek to obtain the heart monitor and cardiac stress test results prior to further studies/labs Clinical note: Regarding pt's CP, dizziness and blur vision - EKG in the clinic: NSR, no ST changes - Zio already placed - pending cardiac stress test - recent MRI brain: no acute finding Regarding BP: - even though > 50% the readings are elevated due to low normal BP recently will continue current meds * Telephone Encounter - Ursula Malloy CMA - 06/23/2023 3:56 PM EDT Fax received from [facility] nurse with vitals. 06/14 140/89 70BPM 94%SpO2 06/15 131/106 70BPM ,122/85 71BPM 93%SpO2 06/16 152/99 67BPM 93%SpO2 06/17 123/93 62BPM 95%SpO2 06/18 128/80 71BPM 95%SpO2 06/19 none 06/20 114/71/ 74BPM 94%SpO2 Patient has been experiencing headaches, blurred vision and chest pain every day. documented in this encounter Plan of Treatment Upcoming Encounters Date Type Department Care Team (Late st Contact Info) Description 07/23/2023 11:00 AM EDT PulmDiagnostic Ancillary [address] [place] [address] [place], [place] 132 [facility] [place] [address] 08/27/2023 10:00 AM EDT Office Visit [address] [place] [phone] Oh Graff MD [address] [place] [address] [place] [address] 09/08/2023 2:00 PM EDT Imaging Cardiac Studies, [facility] 132 [facility] [place] [address] 01/03/2024 12:40 PM EST Office Visit [address] [place] [phone] Oh Graff MD [address] [place] [address] [place] [address] Health Maintenance Due Date Last Done Comments [...] 24 season) 2022 Influenza Vaccine (FLU shot) (Season [...] filedocumented as of this encounter Care Teams Truck Car And Bus Cleaner Relationship Specialty Start Date End Date Oh Graff MD [address] [place] [address] [place] [phone] PCP - General Family Medicine 01/30/22 documented as of this encounter
--- OUTSIDE RECORDS SUMMARY | 2023-12-11 14:41 | External Medical Summary | Summary of Care ---
Author Name Unknown Organization [facility] Address [address] [place] [address] Phone [phone] Care Team Providers Care Glass Cutting Machine Feeder Name Role Phone Oh Graff MD Primary Care Provide r Reason for Visit * Reason Onset Date Comments Advice 06/14/2023 Encounter Details Date Type Department Care Team (Late st Contact Info) Description 06/14/2023 Telephone Family Medicine [address] [phone] Oh Graff MD [address] [place] [address] [place] [address] Advice Allergies Active Allergy Reactions Criticality Noted Date Comments Doxycycline 01/30/2022 Oxycodone 11/19/2005 Percocet 05/05/2001 Sulfa Antibiotics 05/05/2001 Had sulfa drops for eyes as a kid and eyes swelled up documented as of this encounter (statuses as of 06/14/2023) Medications Medication Sig Dispensed Refills Start Date [...] as of this encounter (statuses as of 06/14/2023) Active Problems Problem Noted Date Diagnosed Date [...] as of this encounter (statuses as of 06/14/2023) Resolved Problems Problem Noted Date Diagnosed Date Resolved Date Acute deep vein thrombosis ( DVT) of proximal vein of right lower extremity 03/02/2022 04/19/2023 Asthma with severity to be determined 08/01/2009 02/04/2022 Overview: Per Asthma Taxonomy ICD-10 update of inactive term Bronchitis 02/04/2022 Asthma, allergic 08/01/2009 LUMBAGO 02/04/2022 Morbid obesity, BMI not known 04/22/2022 documented as of this encounter (statuses as of 06/14/2023) Immunizations Name Administration Dates Next Due TDAP [...] encounter Miscellaneous Notes * Telephone Encounter - Tammy Perez LPN [...] 06/15/2023 12:30 PM EDT NeuroDiagnostic Study Neurophysiology [facility] [address] [place] [address] Sp, Neurophys Tech 200 [facility] [place] [address] 06/18/2023 9:00 AM EDT NeuroDiagnostic Study Neurophysiology [facility] [address] [place] [address] Sp, Neurophys Tech [address] [facility] [place] [address] 07/23/2023 11:00 AM EDT PulmDiagnostic Ancillary [address] [place] [address] [place], [address] [place] [address] 08/27/2023 10:00 AM EDT Office Visit [address] [place] [phone] Oh Graff MD [address] [place] [address] [place] [address] 01/03/2024 12:40 PM EST Office Visit [address] [place] [phone] Oh Graff MD [address] [place] [address] [place] [address] Scheduled Orders Name Type Priority Associated Diagnoses [...] 04/19/2023, Additional history exists Cologuard 05/19/2025 05/19/2022, 04/2022, 05/11/2022 Colorectal Cancer Screening 05/19/2025 DTaP,Tdap,and [...] type documented in this encounter Care Teams Glass Cutting Machine Feeder Relationship Specialty Start Date End Date Oh Graff MD [address] [place] [address] [place] [address] PCP - General Family Medicine 01/30/22 documented as of this encounter
--- OUTSIDE RECORDS SUMMARY | 2023-12-11 14:41 | External Medical Summary | Summary of Care ---
Author Name Unknown Organization [facility] Address [address] [place] [address] Phone [phone] Care Team Providers Care Press Setter Name Role Phone Oh Graff MD Primary Care Provide r Reason for Visit * Reason Comments EMG Encounter Details Date Type Department Care Team (Late st Contact Info) Description 06/18/2023 9:00 AM EDT NeuroDiagnostic Study Neurophysiology [facility] [address] [place] [address] Sp, Neurophys Tech [address] [place] [address] Arrived Allergies Active Allergy Reactions Criticality Noted Date Comments Doxycycline 01/30/2022 Oxycodone 11/19/2005 Percocet 05/05/2001 Sulfa Antibiotics 05/05/2001 Had sulfa drops for eyes as a kid and eyes swelled up documented as of this encounter (statuses as of 06/18/2023) Medications Medication Sig Dispensed Refills Start Date [...] as of this encounter (statuses as of 06/18/2023) Active Problems Problem Noted Date Diagnosed Date [...] as of this encounter (statuses as of 06/18/2023) Resolved Problems Problem Noted Date Diagnosed Date Resolved Date Acute deep vein thrombosis ( DVT) of proximal vein of right lower extremity 03/02/2022 04/19/2023 Asthma with severity to be determined 08/01/2009 02/04/2022 Overview: Per Asthma Taxonomy ICD-10 update of inactive term Bronchitis 02/04/2022 Asthma, allergic 08/01/2009 LUMBAGO 02/04/2022 Morbid obesity, BMI not known 04/22/2022 documented as of this encounter (statuses as of 06/18/2023) Immunizations Name Administration Dates Next Due TDAP [...] on file documented as of this encounter Progress Notes * Gama Del Rosario MD - 06/18/2023 10:48 AM EDT The current study is done to evaluate several months of bilateral right slightly greater than left distal leg pain and paresthesias often worse nocturnally Nerve conduction studies confined to the right tibial, right peroneal and both sural nerves are quite normal including F-wave latencies and show no evidence for large fiber polyneuropathy or mononeuropathy Needle EMG done on both lower extremities including muscles innervated by the L3 through S1 myotomes is also normal revealing no evidence for a brachial plexopathy or L3 through S1 motor radiculopathies on either side Some elements of the history suggests a small fiber neuropathy but the exam currently reveals no deficits and pinprick temperature and normal vibration position If symptoms continue repeat nerve conduction study to look for large fiber disease in 6-12 months may be helpful and if the painful symptoms persist or worsen then skin biopsy for small fiber diseasecomparing distal and proximal small fiber densities might be of value diagnostically Gama Del Rosario MD documented in this encounter Plan of Treatment Upcoming Encounters Date Type Department Care Team (Late st Contact Info) Description 06/21/2023 3:20 PM EDT Nurse Only Ancillary [place] [address] [place] [address] Nurse [place] [address] [place] [address] 07/23/2023 11:00 AM EDT PulmDiagnostic Ancillary [place] [address] [place] [address] [place], [address] Bryanna [address] [address] 08/27/2023 10:00 AM EDT Office Visit Family Medicine [address] [place] [phone] Oh Graff MD [address] [place] [address] [place] [address] 09/08/2023 2:00 PM EDT Imaging Cardiac Studies, [facility] 132 [facility] [place] [address] 01/03/2024 12:40 PM EST Office Visit Family [address] [phone] Oh Graff MD [address] [place] [address] [place] [address] Health Maintenance Due Date Last Done Comments [...] as of this encounter Visit Diagnoses Diagnosis Numbness and tingling of both feet- Primary documented in this encounter Care Teams Press Setter Relationship Specialty Start Date End Date Oh Graff MD [address] [place] [address] [place] [address] PCP - General Family Medicine 01/30/22 documented as of this encounter
--- OUTSIDE RECORDS SUMMARY | 2023-12-11 14:41 | External Medical Summary | Summary of Care ---
Author Name Unknown Organization [facility] Address [address] [place] [address] Phone [phone] Care Team Providers Care Administration Vice President Name Role Phone Oh Graff MD Primary Care Provide r Encounter Details Date Type Department Care Team (Late st Contact Info) Description 06/18/2023 9:00 AM EDT NeuroDiagnostic Study Neurophysiology [facility] [address] [place] [address] Sp, Neurophys Tech [address] [place] [address] Arrived Allergies Active Allergy Reactions Criticality Noted [...] as of this encounter Miscellaneous Notes * Addendum Note - Walter Del Rosario MD - 06/18/2023 12:30 PM EDTAddended by: WALTER DEL ROSARIO on: 06/18/2023 12:30 PM Modules accepted: Level of Service documented in this encounter Plan of Treatment Upcoming Encounters Date Type Department Care Team (Late st Contact Info) Description 06/21/2023 3:20 PM EDT Nurse Only Ancillary [address] [place] [address] [place], Nurse [address] [place] [address] 07/23/2023 11:00 AM EDT PulmDiagnostic Ancillary [address] [place] [address] [facility] 132 [facility] [place] [address] 08/27/2023 10:00 AM EDT Office Visit Family Medicine [address] [place] [phone] Oh Graff MD [address] [place] [address] [place] [address] 09/08/2023 2:00 PM EDT Imaging Cardiac Studies, [facility] 132 [facility] [place] [address] 01/03/2024 12:40 PM EST Office Visit Family Medicine [address] [place] [phone] Oh Graff MD [address] [place] [address] [place] [address] Health Maintenance Due Date Last Done Comments [...] filedocumented as of this encounter Care Teams Administration Vice President Relationship Specialty Start Date End Date Oh Graff MD [address] [place] [address] [place] [address] PCP - General Family Medicine 01/30/22 documented as of this encounter
--- OUTSIDE RECORDS SUMMARY | 2023-12-11 14:41 | External Medical Summary | Summary of Care ---
Author Name Unknown Organization [facility] Address [address] [place] [address] Phone [phone] Care Team Providers Care Balloon Artist Name Role Phone Oh Graff MD Primary Care Provide r Reason for Visit * Reason Onset Date Comments Blood Pressure Check 06/16/2023 Home Readin gs from Nurse Encounter Details Date Type Department Care Team (Late st Contact Info) Description 06/16/2023 Telephone Family Medicine [address] [phone] Oh Graff MD [address] [place] [address] [place] [address] Blood Pressure Check (Home Readings from [...] fax of complete set of vitals to [facility]. documented in this encounter Plan of Treatment Upcoming Encounters Date Type Department Care Team (Late st Contact Info) Description 06/18/2023 9:00 AM EDT NeuroDiagnostic Study Neurophysiology [facility] [address] [place] [address] Sp, Neurophys Tech 200 [facility] [place] [address] 06/21/2023 3:20 PM EDT Nurse Only Ancillary [address] [place] [address] Nurse [place] [facility] [address] [place] [address] [place] [address] 07/23/2023 11:00 AM EDT PulmDiagnostic Ancillary [address] [place] [address] [place], [place] 132 [facility] [place] [address] 08/27/2023 10:00 AM EDT Office Visit Family Medicine [address] [place] [phone] Oh Graff MD [address] [place] [address] [place] [address] 09/08/2023 2:00 PM EDT Imaging Cardiac Studies, [facility] 132 [facility] [place] [address] 01/03/2024 12:40 PM EST Office Visit Family [address] [place] [phone] Oh Graff MD [address] [place] [address] [place] [address] Health Maintenance Due Date Last Done Comments [...] filedocumented as of this encounter Care Teams Balloon Artist Relationship Specialty Start Date End Date Oh Graff MD [address] [place] [address] [place] [address] PCP - General Family Medicine 01/30/22 documented as of this encounter
--- OUTSIDE RECORDS SUMMARY | 2023-12-11 14:41 | External Medical Summary | Summary of Care ---
Author Name Unknown Organization [facility] Address [address] [place] [address] Phone [phone] Care Team Providers Care Pig Iron Loader Name Role Phone Oh Graff MD Primary Care Provide r Reason for Visit * Reason Comments EEG Encounter Details Date Type Department Care Team (Late st Contact Info) Description 06/15/2023 12:30 PM EDT NeuroDiagnostic Study Neurophysiology [facility] [address] [place] [address] Sp, Neurophys Tech [address] [place] [address] Allergies Active Allergy Reactions Criticality Noted Date Comments Doxycycline 01/30/2022 Oxycodone 11/19/2005 Percocet 05/05/2001 Sulfa Antibiotics 05/05/2001 Had sulfa drops for eyes as a kid and eyes swelled up documented as of this encounter (statuses as of 07/01/2023) Medications Medication Sig Dispensed Refills Start Date End Date Status Apixaban 5 MG Oral Tablet (Eliquis)Indications:H istory of DVT of lower extremity Take 1 Tablet by mouth in the morning and 1 Tablet before bedtime. 180 Tablet 1 05/07/2023 Active Stiolto Respimat 2.5-2.5 MCG/ACT Inhalation Aerosol Solution (Tiotropium-Olodaterol )Indications:at hosp d/c Inhale 2 Puffs by mouth in the morning. Active Losartan Potassium 50 MG Oral Tablet (Cozaar) Take 1 Tablet by mouth in the morning and 1 Tablet before bedtime. Active Pantoprazole Sodium 40 MG Oral Tablet [...] as of this encounter (statuses as of 07/01/2023) Active Problems Problem Noted Date Diagnosed Date [...] as of this encounter (statuses as of 07/01/2023) Resolved Problems Problem Noted Date Diagnosed Date Resolved Date Acute deep vein thrombosis ( DVT) of proximal vein of right lower extremity 03/02/2022 04/19/2023 Asthma with severity to be determined 08/01/2009 02/04/2022 Overview: Per Asthma Taxonomy ICD-10 update of inactive term Bronchitis 02/04/2022 Asthma, allergic 08/01/2009 LUMBAGO 02/04/2022 Morbid obesity, BMI not known 04/22/2022 documented as of this encounter (statuses as of 07/01/2023) Immunizations Name Administration Dates Next Due TDAP [...] 07/23/2023 11:00 AM EDT PulmDiagnostic Ancillary [address] [place] [address] [place], [place] 132 [facility] [place] [address] 08/27/2023 10:00 AM EDT Office Visit Family Medicine [address] [place] [phone] Oh Graff MD [address] [place] [address] [place] [address] 09/08/2023 2:00 PM EDT Imaging Cardiac Studies, [facility] 132 [facility] [place] [address] 01/03/2024 12:40 PM EST Office Visit Family Medicine [address] [place] [phone] Oh Graff MD [address] [place] [address] [place] [address] Scheduled Orders Name Type Priority Associated Diagnoses Orde r Schedule EEG AMBULATORY Procedures Routine LOC (loss of consciousness) (HCC) Seizure-like activity (HCC) Ordered: 05/31/2023 Health Maintenance Due Date Last Done Comments [...] as of this encounter Visit Diagnoses Diagnosis LOC (loss of consciousness) (HCC) [R40.20]- Primary Other alteration of consciousness Seizure-like activity (HCC) [R56.9] Other convulsions documented in this encounter Care Teams Pig Iron Loader Relationship Specialty Start Date End Date Oh Graff MD [address] [place] [address] [place] [address] PCP - General Family Medicine 01/30/22 documented as of this encounter
--- OUTSIDE RECORDS SUMMARY | 2023-12-11 14:41 | External Medical Summary | Summary of Care ---
Author Name Unknown Organization [facility] Address [address] [place] [address] Phone [phone] Care Team Providers Care Summons Server Name Role Phone Oh Graff MD Primary Care Provide r Reason for Visit * Reason Onset Date Comments Blood Pressure Check 06/23/2023 Home Blood Pressure check Encounter Details Date Type Department Care Team (Late st Contact Info) Description 06/23/2023 Telephone Family Medicine [address] [phone] Oh Graff MD [address] [place] [address] [place] [phone] Blood Pressure Check (Home Blood Pressure ... Allergies Active Allergy Reactions Criticality Noted Date Comments Doxycycline 01/30/2022 Oxycodone 11/19/2005 Percocet 05/05/2001 Sulfa Antibiotics 05/05/2001 Had sulfa drops for eyes as a kid and eyes swelled up documented as of this encounter (statuses as of 06/24/2023) Medications Medication Sig Dispensed Refills Start Date [...] as of this encounter (statuses as of 06/24/2023) Active Problems Problem Noted Date Diagnosed Date [...] as of this encounter (statuses as of 06/24/2023) Resolved Problems Problem Noted Date Diagnosed Date Resolved Date Acute deep vein thrombosis ( DVT) of proximal vein of right lower extremity 03/02/2022 04/19/2023 Asthma with severity to be determined 08/01/2009 02/04/2022 Overview: Per Asthma Taxonomy ICD-10 update of inactive term Bronchitis 02/04/2022 Asthma, allergic 08/01/2009 LUMBAGO 02/04/2022 Morbid obesity, BMI not known 04/22/2022 documented as of this encounter (statuses as of 06/24/2023) Immunizations Name Administration Dates Next Due TDAP [...] 06/23/2023 3:56 PM EDT Fax received from [facility] nurse with vitals. 06/14 140/89 70BPM 94%SpO2 06/15 131/106 70BPM ,122/85 71BPM 93%SpO2 06/16 152/99 67BPM 93%SpO2 06/17 123/93 62BPM 95%SpO2 06/18 128/80 71BPM 95%SpO2 06/19 none 06/20 114/71/ 74BPM 94%SpO2 Patient has been experiencing headaches, blurred vision and chest pain every day. documented in this encounter Plan of Treatment Upcoming Encounters Date Type Department Care Team (Late Contact Info) Description 07/23/2023 11:00 AM EDT PulmDiagnostic Ancillary [address] [place] [address] [place], [place] [address] [facility] [place] [id number] 08/27/2023 10:00 AM EDT Office Visit Family Medicine [address] [place] [phone] Oh Graff MD [address] [place] [address] [place] [address] 09/08/2023 2:00 PM EDT Imaging Cardiac Studies, [facility] [address] [facility] [place] [id number] 01/03/2024 12:40 PM EST Office Visit Family [address] [place] [phone] Oh Graff MD [address] [place] [address] [place] [id number] Health Maintenance Due Date Last Done Comments [...] shot) (Season Ended) 2023 GFR 05/18/2024 05/19/2023, 03/2 10/2023, 04/19/2023, [...] filedocumented as of this encounter Care Teams Summons Server Relationship Specialty Start Date End Date Oh Graff MD [address] [place] [address] [place] [id number] PCP - General Family Medicine 01/30/22 documented as of this encounter
--- OUTSIDE RECORDS SUMMARY | 2023-12-11 14:41 | External Medical Summary | Summary of Care ---
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 Name Role Phone Oh Graff MD Primary Care Provide r Reason for Visit * Reason Comments EKG EKG and Zio Moniter Encounter Details Date Type Department Care Team (Late st Contact Info) Description 06/21/2023 3:20 PM EDT Nurse Only Ancillary [address] [place] [phone] [place], Nurse [address] [place] [id number] EKG (EKG and Zio Moniter) Allergies Active Allergy Reactions Criticality Noted Date Comments Doxycycline 01/30/2022 Oxycodone 11/19/2005 Percocet 05/05/2001 Sulfa Antibiotics 05/05/2001 Had sulfa drops for eyes as a kid and eyes swelled up documented as of this encounter (statuses as of 06/21/2023) Medications Medication Sig Dispensed Refills Start Date [...] as of this encounter (statuses as of 06/21/2023) Active Problems Problem Noted Date Diagnosed Date [...] as of this encounter (statuses as of 06/21/2023) Resolved Problems Problem Noted Date Diagnosed Date Resolved Date Acute deep vein thrombosis ( DVT) of proximal vein of right lower extremity 03/02/2022 04/19/2023 Asthma with severity to be determined 08/01/2009 02/04/2022 Overview: Per Asthma Taxonomy ICD-10 update of inactive term Bronchitis 02/04/2022 Asthma, allergic 08/01/2009 LUMBAGO 02/04/2022 Morbid obesity, BMI not known 04/22/2022 documented as of this encounter (statuses as of 06/21/2023) Immunizations Name Administration Dates Next Due TDAP [...] on file documented as of this encounter Nursing Notes * Ursula Malloy CMA - 06/21/2023 3:02 PM EDT He is here for an EKG prior to his Stress Test and for placement of a zio moniter. 06/21/23 3:14 PM Date to Remove: 07/05/2023 Time to Remove: 03:30 Serial Number: [id number] Ordering Provider: ALEKSANDRA CHASE Results: CARDILOGY Ursula Malloy CMA Zio patch applied in clinic, as per provider orders. documented in this encounter Plan of Treatment Upcoming Encounters Date Type Department Care Team (Late st Contact Info) Description 07/23/2023 11:00 AM EDT PulmDiagnostic Ancillary [address] [place] [phone] [place] 132 [facility] [place] [address] 08/27/2023 10:00 AM EDT Office Visit Family Medicine [address] [place] [phone] Oh Graff MD [address] [place] [address] [place] [address] 09/08/2023 2:00 PM EDT Imaging Cardiac Studies, [facility] 132 [facility] [place] [address] 01/03/2024 12:40 PM EST Office Visit Family Medicine [address] [place] [phone] Oh Graff MD [address] [place] [address] [place] [phone] Health Maintenance Due Date Last Done Comments [...] consciousness documented in this encounter Care Teams Demolition Hammer Operator Relationship Specialty Start Date End Date Oh Graff MD [address] [place] [address] [place] [phone] PCP - General Family Medicine 01/30/22 documented as of this encounter
[2023-12-11 15:30] LABS: Appearance Urine Clear (Clear); Basophils # (auto) 0.04 K/uL (0.00-0.20); Basophils % (auto) 0.3 %; Bilirubin Urine 1+ (Negative); Blood Urine Negative (Negative); Color Urine Dark Yellow; Eosinophils # (auto) 0.04 K/uL (0.00-0.50); Eosinophils % (auto) 0.3 %; Glucose Urine UA Negative (Negative); Hematocrit (blood only) 43.6 % (42.0-52.0); Hemoglobin 14.8 g/dl (14.0-18.0); Immature Granulocytes # (auto) 0.06 K/uL (0.01-0.20); Immature Granulocytes % (auto) 0.5 %; Ketones Urine Negative (Negative); Leukocyte Esterase Urine Negative (Negative); Lymphocytes # (auto) 1.15 K/uL (1.20-3.40); Lymphocytes % (auto) 9.5 %; Mean Corpuscular Hemoglobin 31.1 pg (25.0-34.0); Mean Corpuscular Hgb Conc 33.9 g/dL (32.0-36.0); Mean Corpuscular Volume 91.6 fL (80.0-100.0); Mean Platelet Volume 9.9 fL (9.4-12.4); Monocytes # (auto) 1.02 K/uL (0.11-0.59); Monocytes % (auto) 8.4 %; Neutrophils # (auto) 9.77 K/uL (1.40-6.50); Nitrite Urine Negative (Negative); Platelet Count 247 K/uL (130-400); Protein Urine Negative (Negative); RDW Coefficient of Variation 12.3 % (11.5-14.5); RDW Standard Deviation 41.1 fL (36.4-46.3); Red Blood Count 4.76 M/uL (4.70-6.10); Specific Gravity Urine 1.019 (1.000-1.030); Urobilinogen Urine Positive (Negative); White Blood Count 12.08 K/ul (4.8-10.8); pH Urine 5.5 (4.5-7.5)
--- NOTE | 2023-12-11 15:36 | Emergency Department Note ---
Impression & Plan Acute calculous cholecystitis, Abdominal pain, Leukocytosis, Elevated LFTs ED Provider Note NAME: DIANNA ESPINOZA AGE: 53 SEX: Male INFORMANT: Patient ED PROVIDER(S): Gama Sexton MD CHIEF COMPLAINT: Abdominal pain PLAN: Disposition: Admitted Outpatient prescription management: none Referral: None MEDICAL DECISION MAKING: Patient presented because of abdominal pain. He had some tenderness in the right side. There was also some discomfort but right side was more prominent. He had a leukocytosis on CBC. Chemistry panel revealed elevated LFTs and bilirubin. Alk phos was mildly elevated as well. Patient underwent CT imaging and there was findings consistent with acute cholecystitis. Ultrasound imaging was also ordered. This confirmed the CT finding. Patient was treated with IV Zofran and Dilaudid. He was also given IV Zosyn for coverage. I discussed the case with Dr. Bryant of general surgery. The case was discussed and diagnostics were reviewed. He recommended admission to internal medicine for MRCP, GI consultation and surgical consultation. He agreed with the IV antibiotics. Patient felt comfortable with the plan. Consultation was made with the [facility] service. Discussed the case with Dr. Lane. Patient was admitted for further management. Care/management discussed with: partner marketing manager Level of care consideration(s): After review of the information above and other included data, I feel the patient requires escalation of care to admission Triage Nursing notes: reviewed and agree them. Vital Signs: reviewed and remarkable for no significant abnormalities Additional History obtained from: none Chronic Medical/Social Conditions affecting care: none Prior/ Outside/ External records reviewed: none Differential Diagnosis: Appendicitis, testicular torsion, infections, diverticulitis, UTI, obstruction, mesenteric ischemia, aortic pathology, inflammatory bowel disease, renal colic, PUD, pancreatitis, biliary pathology, hernia, volvulus, constipation, as well as other pathologies. Diagnostics, independently interpreted by me: ECG: none Cardiac Monitoring: Cardiac monitoring ordered by me: The patient was placed on continuous cardiac monitoring and observed. It revealed a normal sinus rhythm at 84 beats per minute without ectopy or evidence of dysrhythmia. Medical decision rules: none Imaging studies: CT and ultrasound imaging as above. Acute cholecystitis. HPI: 53 year old Male arrives for evaluation of abdominal pain. This started last week and is fluctuating. Patient notes its lower as well as on the right side. The patient also notes the following associated symptoms, fever and chills. The patient has found no relieving factors. Current pain is rated as 8/10. Pt denies LOC, headache, diaphoresis, visual changes, neck pain, chest pain, breathing difficulties, nausea, vomiting, bilateral back pain, melena, hematochezia, urinary symptoms, numbness, weakness, lymphadenopathy, rash, or other complaints.. PAST MEDICAL HISTORY: See Below, hypertension PAST SURGICAL HISTORY: See Below, gastric bypass SOCIAL HISTORY: See Below, smoker HOME MEDICATIONS: See Below ALLERGIES: See Below VITALS: See Below PHYSICAL EXAMINATION: GENERAL: Awake, alert, uncomfortable-appearing, in no distress HENT: Normocephalic, atraumatic. Oropharynx unremarkable. EYES: Normal conjunctiva. Sclera non-icteric. NECK: Inspection normal. Non-tender. Supple. No nuchal rigidity. FROM. No masses. RESPIRATORY: Clear to auscultation. No wheezes. No rales. Normal respiratory effort. CARDIAC: Normal rate. Normal rhythm. No murmurs. No rubs. Extremities warm and well perfused. Pulses equal. No JVD. GI: Soft, non-distended. Right sided and lower tenderness to palpation. No rebound or guarding. No masses. RECTAL: Deferred. MUSCULOSKELETAL: Atraumatic. Chest examination reveals no tenderness. The back is symmetrical on inspection without obvious abnormality. There is mild bilateral CVA tenderness to palpation. No joint edema. LOWER EXTREMITIES: Calves are equal size bilaterally and non-tender. No edema. No discoloration. NEURO: Normal sensorium. No sensory or motor deficits noted. SKIN: No rash or jaundice noted. PROCEDURES: none CRITICAL CARE: none OBSERVATION NOTE: none Past Med/Surg History Problem List (Updated 12/11/23 @ 21:01 by Gama Sexton MD) Elevated LFTs (Acute) Acute calculous cholecystitis (Acute) Leukocytosis (Acute) Abdominal pain (Acute) Right hemiplegia Encephalopathy acute Respiratory failure (Acute) Pneumonia (Acute) Hypertensive crisis (Acute) Stroke-like symptoms (Acute) Noncompliance Hypoxia Tobacco use disorder Back pain Acute bronchitis SOB (shortness of breath) (Acute) Rhinovirus infection (Acute) Hypertension (Acute) History of deep vein thrombosis (Acute) Upper back pain (Acute) Wheezing (Acute) Pulmonary edema Hypertensive urgency SOB (shortness of breath) Rhinovirus infection GERD (gastroesophageal reflux disease) History of DVT (deep vein thrombosis) HTN (hypertension) Left patella fracture No significant past surgical history No chronic diseases present Medical History Pulmonary edema Hypertensive urgency SOB (shortness of breath) Rhinovirus infection GERD (gastroesophageal reflux disease) History of DVT (deep vein thrombosis) HTN (hypertension) No chronic diseases present Surgical History History of gastric bypass No significant past surgical history Social History Smoking Status: Current every day smoker Tobacco Type: Cigarettes Cigarettes Per Day: 40; Second Hand Exposure: No; Do You Dip or Chew Tobacco: No; Hx Alcohol Use: Yes Alcohol type: beer Hx Substance Use: No Preferred Language: Chadian Communication Ability: Effective 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 Beliefs That Will Affect Care: None Current Living Situation: Significant Other Current Living Situation Comment: S/O [place] Feels Safe at Home: Yes Assistive Devices: None Allergies Allergies Allergy/AdvReac Type Severity Reaction Status Date / Time doxycycline Allergy Intermediate Rash Verified 06/14/23 18:27 Sulfa (Sulfonamide Allergy Intermediate swelling Verified 06/14/23 18:27 Antibiotics) of eyes with eye drops oxycodone AdvReac Intermediate "WENT Verified 06/14/23 18:27 BUGGY, OUT OF CONTROL" Home Meds Home Medications Medication Instructions Recorded Confirmed apixaban 5 mg tablet (Eliquis) 5 mg PO AMHS 05/02/23 12/11/23 pantoprazole 40 mg tablet,delayed 40 mg PO DAILYBB 05/02/23 12/11/23 release amlodipine 10 mg tablet 10 mg PO DAILY 06/14/23 12/11/23 diclofenac sodium 1 % topical gel 2 g EXT TID PRN PAIN NEEDED 06/14/23 12/11/23 (Voltaren Arthritis Pain) Previous Rx's Medication Instructions Recorded losartan 50 mg tablet 50 mg PO BID #60 tabs 05/01/23 carvedilol 12.5 mg tablet 12.5 mg PO BIDM #60 tabs 05/07/23 Results & Data (ED) Vital Signs Vital Signs - 24 hr 12/11/23 14:51 12/11/23 15:14 12/11/23 15:20 Temperature 36.1 C L Temperature Source Temporal Artery Scan Pulse Rate 77 71 Pulse Rate from SpO2 Sensor Respiratory Rate 18 Respiratory Effort / Characteristics Non-Labored Spontaneous Respiratory Depth Normal Respiratory Pattern Regular Blood Pressure 162/102 H Blood Pressure Mean 122 Pulse Oximetry 97 97 Oxygen Delivery Method Room Air Room Air Sepsis Recent Fever Within 48 Hours No Sepsis New/Unexplained Change in Mental Status N/A Sepsis Action Taken by Nursing No Action Required 12/11/23 15:30 12/11/23 15:54 12/11/23 16:00 Temperature Temperature Source Pulse Rate 74 71 Pulse Rate from SpO2 Sensor 74 71 Respiratory Rate 16 16 Respiratory Effort / Characteristics Respiratory Depth Respiratory Pattern Blood Pressure 175/102 H Blood Pressure Mean 129 Pulse Oximetry 98 97 Oxygen Delivery Method Sepsis Recent Fever Within 48 Hours Sepsis New/Unexplained Change in Mental Status Sepsis Action Taken by Nursing 12/11/23 16:15 12/11/23 16:36 12/11/23 16:51 Temperature Temperature Source Pulse Rate 75 72 74 Pulse Rate from SpO2 Sensor 75 71 74 Respiratory Rate 15 15 13 Respiratory Effort / Characteristics Respiratory Depth Respiratory Pattern Blood Pressure Blood Pressure Mean Pulse Oximetry 98 96 97 Oxygen Delivery Method Room Air Room Air Sepsis Recent Fever Within 48 Hours Sepsis New/Unexplained Change in Mental Status Sepsis Action Taken by Nursing 12/11/23 17:23 12/11/23 17:39 12/11/23 17:51 Temperature Temperature Source Pulse Rate 76 77 Pulse Rate from SpO2 Sensor 76 76 Respiratory Rate 19 17 Respiratory Effort / Characteristics Respiratory Depth Respiratory Pattern Blood Pressure 134/85 Blood Pressure Mean 100 Pulse Oximetry 96 95 Oxygen Delivery Method Sepsis Recent Fever Within 48 Hours Sepsis New/Unexplained Change in Mental Status Sepsis Action Taken by Nursing Laboratory Data 12/11/23 15:15 12/11/23 15:15 Lab Results 12/11/23 Range/Units 15:15 WBC 12.08 H (4.8-10.8) K/ul RBC 4.76 (4.70-6.10) M/uL Hgb 14.8 (14.0-18.0) g/dl Hct 43.6 (42.0-52.0) % MCV 91.6 (80.0-100.0) fL MCH 31.1 (25.0-34.0) pg MCHC 33.9 (32.0-36.0) g/dL RDW Std Deviation 41.1 (36.4-46.3) fL RDW Coeff of Helio 12.3 (11.5-14.5) % Plt Count 247 (130-400) K/uL MPV 9.9 (9.4-12.4) fL Immature Gran % (Auto) 0.5 % Neut % (Auto) 81.0 % Lymph % (Auto) 9.5 % Sequoyah % (Auto) 8.4 % Eos % (Auto) 0.3 % Baso % (Auto) 0.3 % Neut # (Auto) 9.77 H (1.40-6.50) K/uL Lymph # (Auto) 1.15 L (1.20-3.40) K/uL Sequoyah # (Auto) 1.02 H (0.11-0.59) K/uL Eos # (Auto) 0.04 (0.00-0.50) K/uL Baso # (Auto) 0.04 (0.00-0.20) K/uL Immature Gran # (Auto) 0.06 (0.01-0.20) K/uL Sodium 136 (136-145) mmol/L Potassium 4.2 (3.5-5.1) mmol/L Chloride 103 (98-107) mmol/L Carbon Dioxide 26 (21-32) mmol/L Anion Gap 7 (3-11) BUN 14 (6-23) mg/dl Creatinine 0.78 (0.6-1.4) mg/dl Est Cr Clr Drug Dosing 156.6 ml/min eGFR 105.32 BUN/Creatinine Ratio 17.9 (10-20) Glucose 107 H (70-99(Fasting)) mg/dl Calcium 9.1 (8.6-10.3) mg/dl Total Bilirubin 2.5 H (0.2-1.0) mg/dl AST 228 H (13-39) U/L ALT 160 H (7-52) U/L Alkaline Phosphatase 306 H (34-104) U/L Total Protein 8.2 (6.0-8.3) gm/dl Albumin 4.0 (3.4-5.0) gm/dl Globulin 4.2 H (2.5-4.0) gm/dl Albumin/Globulin Ratio 1.0 (0.9-2) Lipase 27 (11-82) U/L Urine Color Dark Yellow Urine Appearance Clear (Clear) Urine pH 5.5 (4.5-7.5) Ur Specific [place] 1.019 (1.000-1.030) Urine Protein Negative (Negative) Urine Glucose (UA) Negative (Negative) Urine Ketones Negative (Negative) Urine Blood Negative (Negative) Urine Nitrite Negative (Negative) Urine Bilirubin 1+ H (Negative) Urine Urobilinogen Positive H (Negative) Ur Leukocyte Esterase Negative (Negative) Administered Medications Sodium Chloride (Nss) 1,000 mls @ 80 mls/hr IV .[id number] REESE Stop: 12/12/23 20:16 Last Admin: 12/11/23 20:30 Dose: 80 mls/hr Documented By: LEE ANN Discontinued Medications Hydromorphone HCl (Hydromorphone Inj 0.5 Mg/0.5 Ml Syr) 0.5 mg IV Q15M PRN PRN Reason: Pain Stop: 12/25/23 15:30 Last Admin: 12/11/23 19:36 Dose: 0.5 mg Documented By: Admin: 12/11/23 15:40 Dose: 0.5 mg Documented By: IVY Piperacillin Sod/Tazobactam Sod (Zosyn) 4.5 gm in 100 mls @ 200 mls/hr IV NOW ONE; Protocol Stop: 12/11/23 17:56 Last Infusion: 12/11/23 18:31 Dose: Infused Documented By: Admin: 12/11/23 17:53 Dose: 200 mls/hr Documented By: IVY Sodium Chloride (Nss) 1,000 mls @ 125 mls/hr IV .Q8H [facility] Stop: 12/12/23 17:29 Last Infusion: 12/11/23 20:38 Dose: Infused Documented By: LEE ANN Infusion: 12/11/23 20:37 Dose: 0 mls/hr Documented By: LEE ANN Infusion: 12/11/23 18:34 Dose: 0 mls/hr Documented By: Admin: 12/11/23 17:53 Dose: 125 mls/hr Documented By: IVY Promethazine HCl (Phenergan) 12.5 mg in 50.5 mls @ 202 mls/hr IV ONE ONE Stop: 11/02/24 20:29 Last Infusion: 12/11/23 20:36 Dose: Infused Documented By: LEE ANN Admin: 12/11/23 20:03 Dose: 202 mls/hr Documented By: VAL Ioversol (Optiray 320 125ml) 118 ml IV ONCE ONE Stop: 12/11/23 16:11 Last Admin: 12/11/23 16:10 Dose: 118 ml Documented By: DIMAS Ondansetron HCl (Ondansetron Inj 2 Mg/Ml 2 Ml Vial) 4 mg IV NOW STA Stop: 12/11/23 15:32 Last Admin: 12/11/23 15:40 Dose: 4 mg Documented By: IVY Ondansetron HCl (Ondansetron Inj 2 Mg/Ml 2 Ml Vial) 4 mg IV NOW STA Stop: 12/11/23 19:50 Last Admin: 12/11/23 19:53 Dose: Not Given Documented By: VAL Imaging Data Radiologist's Impression: Abdomen/Pelvis CT 12/11/23 15:31 EXAM: CT Abdomen and Pelvis With Intravenous Contrast INDICATION: Right and lower abdominal pain. Elevated white blood cell count. TECHNIQUE: Axial computed tomography images of the abdomen and pelvis with intravenous contrast. Sagittal and coronal reformatted images were created and reviewed. This CT exam was performed using one or more of the following dose reduction techniques: automated exposure control, adjustment of the mA and/or kV according to patient size, and/or use of iterative reconstruction technique. CONTRAST: 118 ml of Optiray 320 was administered intravenously. COMPARISON: No relevant prior studies available. FINDINGS: Limitations: None. Lung bases: Mild atelectasis present in the dependent lung bases. Pleural space: No visualized pleural effusion or pneumothorax. Heart: No abnormality noted. Mediastinum: No abnormality noted. ABDOMEN: Liver: No abnormality noted. Gallbladder and bile ducts: The gallbladder is distended and mildly inflamed. There are probable stones. No ductal dilatation or stone. Pancreas: Homogeneous enhancement. No mass, inflammation or ductal dilation. Spleen: No significant abnormality noted. Adrenals: No significant abnormality noted. Kidneys and ureters: Normal enhancement. No mass, hydronephrosis or visualized stone. Stomach and bowel: Postoperative changes of the stomach consistent with gastric bypass. Normal appearance of the gastric and antecolic gastrojejunal staple lines without surrounding inflammation. Stool and gas scattered throughout the colon. Prominent small bowel intraluminal fat density in the right lower quadrant. There is no intestinal obstruction, thickening or inflammatory process. PELVIS: Appendix: Well seen and appears normal. Bladder: No filling defects to suggest mass or large stone. No inflammation. Reproductive: No abnormalities noted. ABDOMEN and PELVIS: Intraperitoneal space: No free air. No significant fluid collection. Bones/joints: Postoperative three-level lumbosacral fusion noted with intact well-seated hardware. Degenerative changes noted in the spine. No acute osseous abnormality. Soft tissues: No significant abnormality noted. Vasculature: No abdominal aortic aneurysm. Lymph nodes: No pathologically enlarged lymph nodes. IMPRESSION: Abnormal gallbladder most consistent with cholelithiasis and acute cholecystitis. ACT 112: Positive. There are findings on this exam that require communication between the performing entity and the patient following Patient Test Result Information Act ([place] ACT 112) guidelines. Electronically signed by Luisa Calixto 12-11-2023 5:03 PM Gallbladder Ultrasound 12/11/23 16:15 EXAM: US Abdomen Limited Right Upper Quadrant INDICATION: Abdominal pain. Abnormal CT. TECHNIQUE: Real-time ultrasound of the right upper quadrant with image documentation. COMPARISON: No relevant prior studies available. FINDINGS: Liver: The liver is enlarged to 20.2 cm and echogenic. Contour smooth. No mass or ductal dilatation. Gallbladder: The gallbladder is distended and contains multiple small stones. There is wall thickening of 4 mm. No pericholecystic fluid. Common bile duct: The common bile duct is upper normal size. No visible stone. No dilation. Pancreas: No significant abnormality noted. Right kidney: 12.8 cm long. Normal cortical thickness and echotexture. No mass, stone or hydronephrosis. IMPRESSION: 1. Cholelithiasis with sonographic confirmation of acute cholecystitis. 2. Large fatty liver. ACT 112: Positive. There are findings on this exam that require communication between the performing entity and the patient following Patient Test Result Information Act ([place] ACT 112) guidelines. Electronically signed by Luisa Calixto 12-11-2023 5:40 PM Discharge Plan Visit Data Chief Complaint: Abdominal Pain Stated Complaint: ABD PAIN ED Provider: Gama Sexton Discharge Problem: Acute calculous cholecystitis, Abdominal pain, Leukocytosis, Elevated LFTs Patient Disposition: Admitted As Inpatient Discharge Instructions Interventions: ED Discharge Assessment Last Done: 12/11/23 19:47
[2023-12-11] MEDS: ONDANSETRON INJ 2 MG/ML 2 ML VIAL IV STA ×2 (15:40→19:53)
[2023-12-11] MEDS: HYDROmorphone INJ 0.5 MG/0.5 ML SYR IV PRN (15:40)
[2023-12-11 15:54] LABS: BUN Creatinine Ratio 17.9 (10-20); Bilirubin,Total 2.5 mg/dl (0.2-1.0); Calcium 9.1 mg/dl (8.6-10.3); Creatinine Clr Calc Pharmacy 156.6 ml/min; Globulin 4.2 gm/dl (2.5-4.0); Potassium 4.2 mmol/L (3.5-5.1); Total Protein 8.2 gm/dl (6.0-8.3)
[2023-12-11] MEDS: OPTIRAY 320 125ml IV ONE (16:10)
--- NOTE | 2023-12-11 17:03 | CT Scan Report ---
EXAM: CT Abdomen and Pelvis With Intravenous Contrast INDICATION: Right and lower abdominal pain. Elevated white blood cell count. TECHNIQUE: Axial computed tomography images of the abdomen and pelvis with intravenous contrast. Sagittal and coronal reformatted images were created and reviewed. This CT exam was performed using one or more of the following dose reduction techniques: automated exposure control, adjustment of the mA and/or kV according to patient size, and/or use of iterative reconstruction technique. CONTRAST: 118 ml of Optiray 320 was administered intravenously. COMPARISON: No relevant prior studies available. FINDINGS: Limitations: None. Lung bases: Mild atelectasis present in the dependent lung bases. Pleural space: No visualized pleural effusion or pneumothorax. Heart: No abnormality noted. Mediastinum: No abnormality noted. ABDOMEN: Liver: No abnormality noted. Gallbladder and bile ducts: The gallbladder is distended and mildly inflamed. There are probable stones. No ductal dilatation or stone. Pancreas: Homogeneous enhancement. No mass, inflammation or ductal dilation. Spleen: No significant abnormality noted. Adrenals: No significant abnormality noted. Kidneys and ureters: Normal enhancement. No mass, hydronephrosis or visualized stone. Stomach and bowel: Postoperative changes of the stomach consistent with gastric bypass. Normal appearance of the gastric and antecolic gastrojejunal staple lines without surrounding inflammation. Stool and gas scattered throughout the colon. Prominent small bowel intraluminal fat density in the right lower quadrant. There is no intestinal obstruction, thickening or inflammatory process. PELVIS: Appendix: Well seen and appears normal. Bladder: No filling defects to suggest mass or large stone. No inflammation. Reproductive: No abnormalities noted. ABDOMEN and PELVIS: Intraperitoneal space: No free air. No significant fluid collection. Bones/joints: Postoperative three-level lumbosacral fusion noted with intact well-seated hardware. Degenerative changes noted in the spine. No acute osseous abnormality. Soft tissues: No significant abnormality noted. Vasculature: No abdominal aortic aneurysm. Lymph nodes: No pathologically enlarged lymph nodes. IMPRESSION: Abnormal gallbladder most consistent with cholelithiasis and acute cholecystitis. ACT 112: Positive. There are findings on this exam that require communication between the performing entity and the patient following Patient Test Result Information Act ([place] ACT 112) guidelines. Electronically signed by Luisa Calixto 12-11-2023 5:03 PM
--- NOTE | 2023-12-11 17:41 | Ultrasound Report ---
EXAM: US Abdomen Limited Right Upper Quadrant INDICATION: Abdominal pain. Abnormal CT. TECHNIQUE: Real-time ultrasound of the right upper quadrant with image documentation. COMPARISON: No relevant prior studies available. FINDINGS: Liver: The liver is enlarged to 20.2 cm and echogenic. Contour smooth. No mass or ductal dilatation. Gallbladder: The gallbladder is distended and contains multiple small stones. There is wall thickening of 4 mm. No pericholecystic fluid. Common bile duct: The common bile duct is upper normal size. No visible stone. No dilation. Pancreas: No significant abnormality noted. Right kidney: 12.8 cm long. Normal cortical thickness and echotexture. No mass, stone or hydronephrosis. IMPRESSION: 1. Cholelithiasis with sonographic confirmation of acute cholecystitis. 2. Large fatty liver. ACT 112: Positive. There are findings on this exam that require communication between the performing entity and the patient following Patient Test Result Information Act ([place] ACT 112) guidelines. Electronically signed by Luisa Calixto 12-11-2023 5:40 PM
[2023-12-11] MEDS: SODIUM CHLORIDE 0.9% 1,000 ML IV SCH ×2 (17:53→20:30)
[2023-12-11] MEDS: PIPERACILLIN/TAZOBACTAM 4.5 GM/100 ML BAG IV ONE (17:53)
--- NOTE | 2023-12-11 18:58 | History & Physical Report ---
Date of Service December 11, 2023 Assessment & Plan (1) Acute calculous cholecystitis: (2) Hypertension: (3) COPD (chronic obstructive pulmonary disease): (4) GERD (gastroesophageal reflux disease): (5) History of DVT (deep vein thrombosis): Plan: 53-year-old male with history of COPD, hypertension, DVT on Eliquis GERD,History of gastric bypass,Presenting with abdominal pain x 1 week. Acute cholecystitis, with cholelithiasis MRCP pending Blood cultures given 1 week history of symptoms, associated with fevers and chills IV Zosyn ordered N.p.o., IV fluids, as needed Dilaudid Discussed with general surgeon Dr. Brennan, if MRCP positive for choledocholithiasis patient will require ERCP prior to cholecystectomy Discussed with energy professional Dr. Jimenez, recommended that if positive for choledocholithiasis, patient would have to be transferred to another facility to undergo ERCP Hypertension Initially hypertensive likely secondary to pain, BP improving Continue usual amlodipine, losartan, carvedilol History of DVT Last episode in 2020 as per patient On Eliquis, hold for now SCDs GERD Protonix IV for now COPD not in exacerbation Patient reports he is not taking Stiolto anymore CODE STATUS Full code DVT prophylaxis SCDs for now Resume Eliquis accordingly Disposition Pending plan of care discussed with patient and her significant other in detail and at length all questions answered they are understanding, agreeable, comfortable with the plan of care History of Present Illness Primary Care Provider: Oh Graff MD 53-year-old male with history of COPD, hypertension, DVT on Eliquis GERD,History of gastric bypass,Presenting with abdominal pain x 1 week. Patient reports that since last Wednesday, he has been having central abdominal pain, sharp, associated with fevers and chills, and poor appetite. Symptoms progressed prompting consult to the ER At the ER, patient received with elevated blood pressure systolic 170s, afebrile. AST, ALT, alk phos, bilirubin elevated CT abdomen pelvis showing acute cholecystitis with cholelithiasis Gallbladder ultrasound: Confirming above IV Zosyn, IV Dilaudid given at the ER Case discussed by ER physician with general surgery service. On exam, patient seen resting in bed, comfortable, watching TV. States IV Dilaudid relieved the abdominal pain. No active shortness of breath, chest pain, headache, dizziness. Allergies Allergy/AdvReac Type Severity Reaction Status Date / Time doxycycline Allergy Intermediate Rash Verified 06/14/23 18:27 Sulfa (Sulfonamide Allergy Intermediate swelling Verified 06/14/23 18:27 Antibiotics) of eyes with eye drops oxycodone AdvReac Intermediate "WENT Verified 06/14/23 18:27 BUGGY, OUT OF CONTROL" Home Medications Medication Instructions Recorded Confirmed Type losartan 50 mg tablet 50 mg PO BID #60 tabs 05/01/23 12/11/23 Rx apixaban 5 mg tablet (Eliquis) 5 mg PO AMHS 05/02/23 12/11/23 History pantoprazole 40 mg tablet,delayed 40 mg PO DAILYBB 05/02/23 12/11/23 History release carvedilol 12.5 mg tablet 12.5 mg PO BIDM #60 tabs 05/07/23 12/11/23 Rx amlodipine 10 mg tablet 10 mg PO DAILY 06/14/23 12/11/23 History diclofenac sodium 1 % topical gel 2 g EXT TID PRN PAIN NEEDED 06/14/23 12/11/23 History (Voltaren Arthritis Pain) Past Med/Surg History Problem List (Updated 12/11/23 @ 21:[address] MD) COPD (chronic obstructive pulmonary disease) Elevated LFTs (Acute) Acute calculous cholecystitis (Acute) Leukocytosis (Acute) Abdominal pain (Acute) Right hemiplegia Encephalopathy acute Respiratory failure (Acute) Pneumonia (Acute) Hypertensive crisis (Acute) Stroke-like symptoms (Acute) Noncompliance Hypoxia Tobacco use disorder Back pain Acute bronchitis SOB (shortness of breath) (Acute) Rhinovirus infection (Acute) Hypertension (Acute) History of deep vein thrombosis (Acute) Upper back pain (Acute) Wheezing (Acute) Pulmonary edema Hypertensive urgency SOB (shortness of breath) Rhinovirus infection GERD (gastroesophageal reflux disease) History of DVT (deep vein thrombosis) HTN (hypertension) Left patella fracture No significant past surgical history No chronic diseases present Medical History Pulmonary edema Hypertensive urgency SOB (shortness of breath) Rhinovirus infection GERD (gastroesophageal reflux disease) History of DVT (deep vein thrombosis) HTN (hypertension) No chronic diseases present Surgical History History of gastric bypass No significant past surgical history Social History Smoking Status: Current every day smoker Tobacco Type: Cigarettes Cigarettes Per Day: 40; Second Hand Exposure: No; Do You Dip or Chew Tobacco: No; Hx Alcohol Use: Yes Alcohol type: beer Hx Substance Use: No Preferred Language: Faroese Communication Ability: Effective City Supervisor Required: No Beliefs That Will Affect Care: None Current Living Situation: Significant Other Current Living Situation Comment: S/O [place] Feels Safe at Home: Yes Assistive Devices: None Review of Systems Review of Systems: all noted and negative except for above Physical Exam Physical Exam: General- oriented x 3, not in distress, speaks in sentences with no effort or accessory muscle use Head- atraumatic Eyes- PERRL, EOMI, anicteric ENT- oropharynx clear Neck- supple, no JVD, no adenopathy, no thyromegaly; carotids +2/2, no bruits appreciated Lungs- clear to auscultation bilaterally, no rales/wheezes Heart- normal rate, regular rhythm; no murmur, no gallop, no rub appreciated Abdomen- normal bowel sounds, nondistended, soft, Positive Morales sign, no masses or hepatosplenomegaly Extremities- no pretibial edema, no calf tenderness; peripheral pulses intact Neuro- alert, oriented x 3; CN 2-12 grossly intact; motor 5/5 bilaterally;sensation 100% on all extremities; no other gross focal neurologic deficits Skin- warm & dry Results & Data Results & Data Vital Signs (Past 12 Hours) Vital Signs Temp Pulse Resp BP Pulse Ox O2 Del Method 12/11/23 16:36 72 15 96 Room Air 12/11/23 16:15 75 15 98 Room Air 12/11/23 16:00 175/102 H 12/11/23 15:54 71 16 97 12/11/23 15:30 74 16 98 12/11/23 15:20 97 Room Air 12/11/23 15:14 71 12/11/23 14:51 36.1 C L 77 18 162/102 H 97 Room Air all noted and reviewed including below Code Status & VTE Plan VTE Prophylaxis Plan VTE Prophylaxis will be ordered: Yes (2) Hypertension Hypertension type: unspecified Qualified Code(s): I10 - Essential (primary) hypertension
[2023-12-11] MEDS: PROMETHAZINE 12.5 MG/50.5 ML BAG IV ONE (20:03)
[2023-12-11] MEDS ORDERED: hydrALAZINE HCL 20 MG/ML VIAL IV PRN (20:17)
[2023-12-11] MEDS: LOSARTAN POTASSIUM 50 MG TAB PO SCH (22:12)
[2023-12-11] MEDS: PIPERACILLIN/TAZOBACTAM 4.5 GM/100 ML BAG IV SCH (22:12)
--- NOTE | 2023-12-12 01:20 | Gastrointestinal Consultation ---
Date of Consultation December 12, 2023 Assessment & Plan (1) Acute calculous cholecystitis: Agree with surgical consult. His LFTs are abnormal and MRCP has been ordered. Rec: Check MRCP and if negative defer to surgery and likely trend LFTs even as OP If MRCP suggests CBD stones would send for ERCP which is a procedure I do not perform. IP GI Service will sign off. History of Present Illness Reason for Consultation: Cholecystitis Requesting Physician: Taras Lane Attending Physician: Taras Lane MD History of Present Illness 33 yo WM has had a week of abdominal pain and finally decided to come to the hospital. Evaluation here included imaging studies c/w acute cholecystitis, cholelithiasis and fatty liver. Allergies Allergy/AdvReac Type Severity Reaction Status Date / Time doxycycline Allergy Intermediate Rash Verified 06/14/23 18:27 Sulfa (Sulfonamide Allergy Intermediate swelling Verified 06/14/23 18:27 Antibiotics) of eyes with eye drops oxycodone AdvReac Intermediate "WENT Verified 06/14/23 18:27 BUGGY, OUT OF CONTROL" Home Medications Medication Instructions Recorded Confirmed Type losartan 50 mg tablet 50 mg PO BID #60 tabs 05/01/23 12/11/23 Rx apixaban 5 mg tablet (Eliquis) 5 mg PO AMHS 05/02/23 12/11/23 History pantoprazole 40 mg tablet,delayed 40 mg PO DAILYBB 05/02/23 12/11/23 History release carvedilol 12.5 mg tablet 12.5 mg PO BIDM #60 tabs 05/07/23 12/11/23 Rx amlodipine 10 mg tablet 10 mg PO DAILY 06/14/23 12/11/23 History diclofenac sodium 1 % topical gel 2 g EXT TID PRN PAIN NEEDED 06/14/23 12/11/23 History (Voltaren Arthritis Pain) Patient History Medical History Pulmonary edema Hypertensive urgency SOB (shortness of breath) Rhinovirus infection GERD (gastroesophageal reflux disease) History of DVT (deep vein thrombosis) HTN (hypertension) No chronic diseases present Surgical History History of gastric bypass No significant past surgical history Social History Smoking Status: Current every day smoker Tobacco Type: Cigarettes Cigarettes Per Day: 40; Second Hand Exposure: No; Do You Dip or Chew Tobacco: No; Hx Alcohol Use: Yes Alcohol type: beer Hx Substance Use: No Preferred Language: Monegasque Communication Ability: Effective Logistics Intern Required: No Beliefs That Will Affect Care: None Current Living Situation: Significant Other Current Living Situation Comment: S/O Hope Feels Safe at Home: Yes Assistive Devices: None Review of Systems Review of Systems: Negative except for HPI and below Gastrointestinal: Still has intermittent abdominal pain. Physical Exam Physical Exam: WD WN WM NAD Constitutional: Afebrile VSS Eyes: Sclera anicteric Conjunctiva not pale Respiratory: Clear Cardiovascular: RRR Gastrointestinal (Abdomen): Decreased BS Soft but tender in upper abdomen without rebound Musculoskeletal: Negative edema Neurologic: A/O Results & Data Vital Signs (Past 12 Hours) Vital Signs Temp Pulse Pulse Resp BP BP Pulse Ox 12/11/23 20:18 36.7 C 78 18 138/83 93 12/11/23 19:26 77 12/11/23 18:09 76 18 97 12/11/23 18:00 137/87 12/11/23 17:51 77 17 95 12/11/23 17:39 76 19 96 12/11/23 17:23 134/85 12/11/23 16:51 74 13 97 12/11/23 16:36 72 15 96 12/11/23 16:15 75 15 98 12/11/23 16:00 175/102 H 12/11/23 15:54 71 16 97 12/11/23 15:30 74 16 98 12/11/23 15:20 97 12/11/23 15:14 71 12/11/23 14:51 36.1 C L 77 18 162/102 H 97 O2 Del Method 12/11/23 20:18 Room Air 12/11/23 19:26 12/11/23 18:09 Room Air 12/11/23 18:00 12/11/23 17:51 12/11/23 17:39 12/11/23 17:23 12/11/23 16:51 12/11/23 16:36 Room Air 12/11/23 16:15 Room Air 12/11/23 16:00 12/11/23 15:54 12/11/23 15:30 12/11/23 15:20 Room Air 12/11/23 15:14 12/11/23 14:51 Room Air PG Care Time/CCT Total # of Minutes Spent Total Time Spent with Patient: Total time spent is greater than 50% in coordination of care (as documented) at patient's floor/unit and/or counseling patient: Coding Level of Care Code 18184 IN/OBS CONSULT LVL 4,60M Diagnoses Acute calculous cholecystitis K80.00
--- NOTE | 2023-12-12 01:56 | Magnetic Resonance Report ---
Exam(s): MRI MRCP EXAM: MR Abdomen Without Intravenous Contrast, MRCP Protocol CLINICAL HISTORY: r/o choledocholithiasis. TECHNIQUE: Multiplanar magnetic resonance images of the abdomen without intravenous contrast using MRCP protocol. COMPARISON: Gallbladder ultrasound 12/11/2023, CT abdomen 12/11/2023. FINDINGS: Bile ducts: No intrahepatic or extrahepatic biliary ductal dilatation. Common bile duct measures up to 5.2 mm. No definite intraductal gallstones. Gallbladder: Moderately distended. Wall thickening up to 6.3 mm. Multiple small gallstones within the lumen of the gallbladder. Liver: Large 24.8 cm length. No focal intrahepatic lesion. Pancreas: Partially fatty replaced. No ductal dilation. No evidence for pancreatitis. Spleen: Borderline splenomegaly at 13.2 cm length. Adrenals: Unremarkable. No mass. Kidneys and ureters: Unremarkable. No hydronephrosis. Stomach and bowel: Unremarkable. No obstruction. IMPRESSION: Distended gallbladder with wall thickening multiple small gallstones. Cannot exclude acute cholecystitis. No biliary ductal dilatation or intraductal calculi identified. Hepatosplenomegaly. Electronically signed by: Jacek Dang M.D. 12/12/23 01:55 AM
[2023-12-12] MEDS ORDERED: ACETAMINOPHEN 500 MG TAB PO PRN (01:58)
[2023-12-12] MEDS: HYDROmorphone INJ 0.5 MG/0.5 ML SYR IV PRN (04:43)
[2023-12-12 06:25] LABS: Basophils # (auto) 0.02 K/uL (0.00-0.20); Basophils % (auto) 0.3 %; Eosinophils # (auto) 0.08 K/uL (0.00-0.50); Eosinophils % (auto) 1.2 %; Hemoglobin 13.2 g/dl (14.0-18.0); Immature Granulocytes # (auto) 0.04 K/uL (0.01-0.20); Immature Granulocytes % (auto) 0.6 %; Lymphocytes # (auto) 0.88 K/uL (1.20-3.40); Lymphocytes % (auto) 13.6 %; Mean Corpuscular Hemoglobin 30.5 pg (25.0-34.0); Mean Corpuscular Hgb Conc 33.8 g/dL (32.0-36.0); Mean Corpuscular Volume 90.1 fL (80.0-100.0); Mean Platelet Volume 10.1 fL (9.4-12.4); Monocytes # (auto) 0.81 K/uL (0.11-0.59); Monocytes % (auto) 12.5 %; Neutrophils # (auto) 4.65 K/uL (1.40-6.50); Neutrophils % (auto) 71.8 %; Platelet Count 217 K/uL (130-400); RDW Coefficient of Variation 12.5 % (11.5-14.5); RDW Standard Deviation 41.5 fL (36.4-46.3); Red Blood Count 4.33 M/uL (4.70-6.10); White Blood Count 6.48 K/ul (4.8-10.8)
[2023-12-12 06:50] LABS: Albumin Level 3.4 gm/dl (3.4-5.0); BUN Creatinine Ratio 12.9 (10-20); Bilirubin Direct 5.1 mg/dl (0-0.2); Bilirubin,Total 7.5 mg/dl (0.2-1.0); Calcium 8.5 mg/dl (8.6-10.3); Potassium 3.8 mmol/L (3.5-5.1); Total Protein 6.7 gm/dl (6.0-8.3)
[2023-12-12 07:17] VITALS: TEMP 97.7
[2023-12-12] MEDS: PANTOprazole 40 MG/10 ML SYR IV SCH (07:39)
[2023-12-12] MEDS: amLODIPine BESYLATE 5 MG TAB PO SCH (07:39)
[2023-12-12] MEDS: carvediloL 12.5 MG TAB PO SCH (07:39)
--- NOTE | 2023-12-12 09:24 | Surgery Consultation ---
Date of Consultation December 12, 2023 Assessment & Plan (1) Elevated LFTs: Needs semiurgent ERCP MRCP read as negative but large jump in TB/alk phos indicate CBD obstruction no sign of ascending cholangitis yet but needs ERCP to clear duct (2) Acute calculous cholecystitis: once duct is clear then lap chris indicated History of Present Illness Attending Physician: Lydia Mcgrath MD History of Present Illness This is a 53YO male admitted with acute cholecystitis and elevated LFTs. His pain is RUQ and has associated fever and chills. He had an MRCP which was read as negative but his TB jumped from 2.5 to 7.5 this AM Allergies Allergy/AdvReac Type Severity Reaction Status Date / Time doxycycline Allergy Intermediate Rash Verified 06/14/23 18:27 Sulfa (Sulfonamide Allergy Intermediate swelling Verified 06/14/23 18:27 Antibiotics) of eyes with eye drops oxycodone AdvReac Intermediate "WENT Verified 06/14/23 18:27 BUGGY, OUT OF CONTROL" Home Medications Medication Instructions Recorded Confirmed Type losartan 50 mg tablet 50 mg PO BID #60 tabs 05/01/23 12/11/23 Rx apixaban 5 mg tablet (Eliquis) 5 mg PO AMHS 05/02/23 12/11/23 History pantoprazole 40 mg tablet,delayed 40 mg PO DAILYBB 05/02/23 12/11/23 History release carvedilol 12.5 mg tablet 12.5 mg PO BIDM #60 tabs 05/07/23 12/11/23 Rx amlodipine 10 mg tablet 10 mg PO DAILY 06/14/23 12/11/23 History diclofenac sodium 1 % topical gel 2 g EXT TID PRN PAIN NEEDED 06/14/23 12/11/23 History (Voltaren Arthritis Pain) Patient History Medical History Pulmonary edema Hypertensive urgency SOB (shortness of breath) Rhinovirus infection GERD (gastroesophageal reflux disease) History of DVT (deep vein thrombosis) HTN (hypertension) No chronic diseases present Surgical History History of gastric bypass No significant past surgical history Social History Smoking Status: Current every day smoker Tobacco Type: Cigarettes Cigarettes Per Day: 40; Second Hand Exposure: No; Do You Dip or Chew Tobacco: No; Hx Alcohol Use: Yes Alcohol type: beer Hx Substance Use: No Preferred Language: Mexican Communication Ability: Effective Nurse Aide Required: No Beliefs That Will Affect Care: None Current Living Situation: Significant Other Current Living Situation Comment: S/O [place] Feels Safe at Home: Yes Assistive Devices: None Review of Systems Constitutional: + fever, + chills and + anorexia Eyes: no problem reported Ear, Nose, Mouth, Throat: no problem reported Respiratory: no cough and no dyspnea Cardiovascular: no chest pain Gastrointestinal: + abdominal pain and + nausea; no vomiti ng and no change in bowel habits Genitourinary: no dysuria Musculoskeletal: + back pain Integumentary: no problem reported Neurologic: no localized weakness and no generalized weakness Psychiatric: no behavioral changes Hematologic / Lymphatic: no easy bleeding and no easy bruising Physical Exam Constitutional: WD/WN, vitals as above + obese Eyes: + scleral abnormality (yellow) and PERRL ENMT: external ear and nose normal, oropharynx normal Neck: trachea midline Respiratory: normal respiratory effort, lungs clear to auscultation Cardiovascular: RRR, no murmur, no edema Gastrointestinal (Abdomen): Inspection/Auscultation: abdomen normal to inspection and normal bowel sounds; abdomen not distended Percussion/Palpation: + abdomen tender and abdomen soft; no guarding and abdomen not rigid Musculoskeletal: Head/Neck/Chest: normocephalic and head atraumatic Skin: no rashes, warm and dry Psychiatric: Orientation: alert and oriented x 3 Results & Data Vital Signs (Past 12 Hours) Vital Signs Temp Pulse Resp BP Pulse Ox O2 Del Method 12/12/23 07:16 36.5 C 64 16 128/80 95 Room Air Diagnostic Findings EXAM: US Abdomen Limited Right Upper Quadrant INDICATION: Abdominal pain. Abnormal CT. TECHNIQUE: Real-time ultrasound of the right upper quadrant with image documentation. COMPARISON: No relevant prior studies available. FINDINGS: Liver: The liver is enlarged to 20.2 cm and echogenic. Contour smooth. No mass or ductal dilatation. Gallbladder: The gallbladder is distended and contains multiple small stones. There is wall thickening of 4 mm. No pericholecystic fluid. Common bile duct: The common bile duct is upper normal size. No visible stone. No dilation. Pancreas: No significant abnormality noted. Right kidney: 12.8 cm long. Normal cortical thickness and echotexture. No mass, stone or hydronephrosis. IMPRESSION: 1. Cholelithiasis with sonographic confirmation of acute cholecystitis. 2. Large fatty liver.
[2023-12-12] MEDS: traMADol HCL 50 MG TABLET PO PRN (13:17)
--- NOTE | 2023-12-12 14:19 | Discharge Summary ---
Date of Service December 12, 2023 Admission HPI Per Admitting Provider 53-year-old male with history of COPD, hypertension, DVT on Eliquis GERD,History of gastric bypass,Presenting with abdominal pain x 1 week. Patient reports that since last Wednesday, he has been having central abdominal pain, sharp, associated with fevers and chills, and poor appetite. Symptoms progressed prompting consult to the ER At the ER, patient received with elevated blood pressure systolic 170s, afebrile. AST, ALT, alk phos, bilirubin elevated CT abdomen pelvis showing acute cholecystitis with cholelithiasis Gallbladder ultrasound: Confirming above IV Zosyn, IV Dilaudid given at the ER Case discussed by ER physician with general surgery service. On exam, patient seen resting in bed, comfortable, watching TV. States IV Dilaudid relieved the abdominal pain. No active shortness of breath, chest pain, headache, dizziness. Admission Exam Per Admitting Provider General- oriented x 3, not in distress, speaks in sentences with no effort or accessory muscle use Head- atraumatic Eyes- PERRL, EOMI, anicteric ENT- oropharynx clear Neck- supple, no JVD, no adenopathy, no thyromegaly; carotids +2/2, no bruits appreciated Lungs- clear to auscultation bilaterally, no rales/wheezes Heart- normal rate, regular rhythm; no murmur, no gallop, no rub appreciated Abdomen- normal bowel sounds, nondistended, soft, Positive Morales sign, no masses or hepatosplenomegaly Extremities- no pretibial edema, no calf tenderness; peripheral pulses intact Neuro- alert, oriented x 3; CN 2-12 grossly intact; motor 5/5 bilaterally; sensation 100% on all extremities; no other gross focal neurologic deficits Skin- warm & dry Principal Diagnosis Elevated LFTs Acute calculus cholecystitis Discharge Exam General- oriented x 3, not in distress, speaks in sentences with no effort or accessory muscle use Head- atraumatic Eyes- PERRL, EOMI, anicteric ENT- oropharynx clear Neck- supple, no JVD, no adenopathy, no thyromegaly; carotids +2/2, no bruits appreciated Lungs- clear to auscultation bilaterally, no rales/wheezes Heart- normal rate, regular rhythm; no murmur, no gallop, no rub appreciated Abdomen- normal bowel sounds, nondistended, soft, Positive Morales sign, no masses or hepatosplenomegaly Extremities- no pretibial edema, no calf tenderness; peripheral pulses intact Neuro- alert, oriented x 3; CN 2-12 grossly intact; motor 5/5 bilaterally;sensation 100% on all extremities; no other gross focal neurologic d eficits Skin- warm & dry Discharge Data Allergies Allergy/AdvReac Type Severity Reaction Status Date / Time doxycycline Allergy Intermediate Rash Verified 06/14/23 18:27 Sulfa (Sulfonamide Allergy Intermediate swelling Verified 06/14/23 18:27 Antibiotics) of eyes with eye drops oxycodone AdvReac Intermediate "WENT Verified 06/14/23 18:27 BUGGY, OUT OF CONTROL" Consultations 12/11/23 18:00 Consult Gastroenterology Routine Consult General Surgery Routine Ordered Studies 12/11/23 15:31 CT Abd and Pelvis [CT abd pelvis IV con only] Stat 12/11/23 16:15 US gallbladder Stat 12/11/23 18:00 MR MRCP Stat Hospital Course (1) Acute calculous cholecystitis: (2) Hypertension: (3) COPD (chronic obstructive pulmonary disease): (4) GERD (gastroesophageal reflux disease): (5) History of DVT (deep vein thrombosis): 53-year-old male with history of COPD, hypertension, DVT on Eliquis GERD,History of gastric bypass, Presenting with abdominal pain x 1 week. Acute cholecystitis, with cholelithiasis MRCP and US RUQ reviewed. NPO and IV antibiotic for now. Gen Sx and GI evaled, recommend transfer for ERCP. Spoke w/ [facility] transfer line, pt accepted at [facility], await transport. c/w pain mx and nausea control. Hypertension Initially hypertensive likely secondary to pain, BP improved Continue usual amlodipine, losartan, carvedilol History of DVT Last episode in 2020 as per patient On Eliquis, hold for now for anticipated procedure. SCDs GERD: Protonix IV for now COPD: not in exacerbation. Patient reports he is not taking Stiolto anymore CODE STATUS: Full code DVT prophylaxis SCDs for now. Resume Eliquis accordingly after procedures at tertiary center. Disposition: awaiting transfer to [facility]. Pt's SO Hope was given phone call, updated on plan of care, made aware of transfer to [facility] and answered all her questions. Home Health Attestation I certify that this patient is under my care and that I, or a physicians family assistant working with me, had a face to-face encounter that meets the home health [id number] encounter requirements with this patient. The encounter with the patient was in whole, or in part, for the following medical condition, which is the primary reason for home health care (list medical condition): I certify that, based on my findings, the following services are medically necessary home health services: My clinical findings support the need for the above services because: Further, I certify that my clinical findings support that this patient is homebound (i.e. absences from home require considerable and taxing effort and are for medical reasons or orthodoxy services or infrequently or of short duration when for other reasons) because: Certification for Home Health Services: Based on the above findings, I certify that this patient is confined to the home and needs intermittent retirement care, physical therapy and/or speech therapy or continues to need occupational therapy. The patient is under my care, and I have initiated the establishment of the plan of care. This patient will be followed by a physician who will periodically review the plan of care. Total Time Total Time Spent Total Time Spent (In Minutes): 55 Discharge Plan Discharge Items Patient Disposition: Transfer Acute Care Hospital Reason For Visit: ACUTE CHOLECYSTITIS Discharge Diagnosis: Elevated LFTs Acute calculus cholecystitis Activity: Resume your previous activity Non-emergency contact: Primary Care Provider Call non-emergency contact if: you have any medication questions, your symptoms worsen and your temperature is above 101 Follow-up/Referrals: Oh Graff MD [Primary Care Provider] - Diet: Nothing by Mouth Addtl Attending Provider Instructions: you are being discharged to [facility] for ERCP and possible lap cholecystectomy after ERCP. You have been started on antibiotic dosing. Your current inpatient medications will be copied and pasted below, your prior to arrival home medication will be copied and pasted below for the sake of comparison at [facility]. Current Inpatient Medications Acetaminophen (Acetaminophen 500 Mg Tab) 500 mg PO Q6H PRN PRN Reason: fever/pain Stop: 01/11/24 01:57 Amlodipine Besylate (Amlodipine Besylate 5 Mg Tab) 10 mg PO DAILY REESE Stop: 01/11/24 08:59 Last Admin: 12/12/23 07:39 Dose: 10 mg Carvedilol (Carvedilol 12.5 Mg Tab) 12.5 mg PO BIDM [facility] Stop: 01/11/24 07:59 Last Admin: 12/12/23 07:39 Dose: 12.5 mg Hydralazine HCl (Hydralazine Hcl 20 Mg/Ml Vial) 5 mg IV Q6H PRN PRN Reason: systolic bp > 160 Stop: 01/10/24 20:16 Hydromorphone HCl (Hydromorphone Inj 0.5 Mg/0.5 Ml Syr) 0.5 mg IV Q4H PRN PRN Reason: Pain Stop: 12/25/23 20:16 Last Admin: 12/12/23 09:54 Dose: 0.5 mg Promethazine HCl (Phenergan) 12.5 mg in 50.5 mls @ 202 mls/hr IV Q6H PRN PRN Reason: Nausea And Vomiting Stop: 01/10/24 19:50 Sodium Chloride (Nss) 1,000 mls @ 80 mls/hr IV .[id number] [facility] Stop: 12/12/23 20:16 Last Admin: 12/12/23 06:52 Dose: 80 mls/hr Piperacillin Sod/Tazobactam Sod (Zosyn) 4.5 gm in 100 mls @ 25 mls/hr IV Q8H [facility]; Protocol Stop: 12/21/23 22:59 Last Infusion: 12/12/23 11:52 Dose: Infused Pantoprazole Sodium (Protonix) 40 mg in 10 mls @ 5 mls/min IV DAILY [facility] Stop: 01/11/24 08:59 Last Admin: 12/12/23 07:39 Dose: 5 mls/min Losartan Potassium (Losartan Potassium 50 Mg Tab) 50 mg PO BID [facility] Stop: 01/10/24 20:59 Last Admin: 12/12/23 07:39 Dose: 50 mg Tramadol HCl (Tramadol Hcl 50 Mg Tablet) 25 - 50 mg PO Q4H PRN PRN Reason: Pain Stop: 01/11/24 01:57 Last Admin: 12/12/23 13:17 Dose: 50 mg Pending Studies at Discharge: Yes Stand-Alone Forms: [facility] Skilled Items Patient informed of condition?: Yes DNR: No Discharge Level of Care: Other Communicable Disease: No Discharge Prognosis: Other Lines: Peripheral IV Urinary Catheter: No Medications and DC Order Prescriptions: Continued pantoprazole 40 mg tablet,delayed release (DR/EC) 40 mg PO DAILYBB Rx Instructions: Pt states still taking, last filled 08/27/23 x90 day supply Eliquis 5 mg tablet 5 mg PO [facility] Rx Instructions: Pt states still taking, last filled 08/27/23 x90 day supply carvedilol 12.5 mg Tablet 12.5 mg PO BIDM Qty: 60 0RF amlodipine 10 mg tablet 10 mg PO DAILY Rx Instructions: Pt states still taking, last filled 08/29/23 x90 day supply diclofenac sodium [Voltaren Arthritis Pain] 1 % gel 2 g EXT TID PRN (Reason: PAIN NEEDED) losartan 50 mg tablet 50 mg PO BID Qty: 60 0RF Rx Instructions: Pt states still taking twice daily, original directions say once daily. Was last filled 10/01/23 x90 day supply for once daily Discharge Orders: Discharge Order (Routine); Ordered 12/12/23 Ordered By: Lydia Mcgrath Admission Data Admit Date/Time: 12/11/23 18:00 Attending Provider: Lydia Mcgrath Admit Provider: Taras Lane Primary Care Provider: Oh Graff Other Providers: He Maldonado; Jacek Bryant
[2023-12-12] MEDS: PROMETHAZINE 12.5 MG/50.5 ML BAG IV PRN (14:51)
[2023-12-12 15:00] VITALS: BP 126/81; PULSE 60; RESP 18; O2SAT 94
== END 2023-12-12 15:31 | disposition short-term general hospital (02) | DRG 446 ==
LOC: ED 14:36 → SUATTDRO 18:00 → 3W 18:00 → INTOOBSV 18:00 → 3W 19:47